=== PATIENT | female | born 1950 | race Caucasian/White ===

== ENCOUNTER → 2016-05-23 | Outpatient (CLI) | payer MEDICARE, BC | END | disposition home or self-care (01) | LOC: MW.CHUR 16:43 | PROVIDERS: ATTEND Urology | DX: R35.0 Frequency of micturition (principal); R32 Unspecified urinary incontinence | CPT/HCPCS: 87086; 87088; 87186; 99211 ==

== ENCOUNTER → 2016-07-09 | Outpatient (CLI) | payer MEDICARE, BC | LOC: MW.CHNEURO 08:00 | PROVIDERS: ATTEND Psychiatry & Neurology Neuromuscular Medicine | DX: G35 Multiple sclerosis (principal) | CPT/HCPCS: 99214 ==

== ENCOUNTER → 2016-08-06 | Outpatient (CLI) | payer MEDICARE, BC ==
[2016-08-06 09:38] LABS: CHLORIDE,CL 111 mmol/L (98-110); SODIUM,NA 145 mmol/L (136-146)
== END ==
LOC: MW.CHFP 08:38
PROVIDERS: ATTEND Student in an Organized Health Care Education/Training Program
DX: I10 Essential (primary) hypertension (principal); E11.9 Type 2 diabetes mellitus without complications; E78.00 Pure hypercholesterolemia, unspecified; E78.5 Hyperlipidemia, unspecified; G35 Multiple sclerosis; Z23 Encounter for immunization
CPT/HCPCS: 36415; 80053; 80061; 82044; 83036; 90670; 99214; G0009

== ENCOUNTER → 2016-09-19 | Outpatient (CLI) | payer MEDICARE, BC ==
--- NOTE | 2016-09-19 13:29 | CR ---
EXAMINATION: Two-view chest (PA and Lateral views). HISTORY: Shortness of breath. FINDINGS: The trachea is midline. The cardiomediastinal silhouette is within normal limits. No pulmonary infil trates, effusions or pneumothorax. Mild aortic calcifications are noted. Osseous structures appear unremarkable. IMPRESSION: No acute cardiopulmonary process.
== END ==
LOC: MW.CHFP 12:07
PROVIDERS: ATTEND Student in an Organized Health Care Education/Training Program
DX: R06.02 Shortness of breath (principal); R68.89 Other general symptoms and signs
CPT/HCPCS: 71020; G0463

== ENCOUNTER 2018-12-09 06:43 | Day surgery (SDC) | payer MEDICARE, BC ==
[~2018-12-09 06:43] MED LIST: Ciprofloxacin in D5W 400 MG in Premix Bag 1 BAG IV ONE; Lactated Ringers 1,000 ML IV SCH; Sodium Chloride 0.9% 10 ML SDV IV PRN; Sodium Chloride 0.9% 10 ML Syringe FLUSH PRN; Sodium Chloride 0.9% 2.5 ML Syringe FLUSH PRN
[2018-12-09] MEDS ORDERED: Lidocaine 1% 20 ML MDV ONE (08:04)
--- NOTE | 2018-12-09 08:33 | PCM.PREANE ---
Preanesthetic Assessment - Anesthesia/Transfusion/Family Hx Anesthesia History: Prior Anesthesia Without Reaction (last surg 6 weeks ago- urereteral stent placement in [place]) Family History of Anesthesia Reaction: No Transfusion History: No Prior Transfusion(s) - Review of Systems General: Weakness Pulmonary: No Symptoms Cardiovascular: No Symptoms Gastrointestinal: No Symptoms Neurological: Confusion, Numbness, Pre-Existing Deficit, Difficulty Walking, Weakness, Gait Disturbance Other: Reports: Diabetes - Physical Assessment NPO Status Date: 12/08/18 NPO Status Time: 23:00 O2 Sat by Pulse Oximetry: 96 Respiratory Rate: 16 Vital Signs: Last Vital Signs Temp 99.1 F 12/09/18 07:24 Pulse 62 12/09/18 07:24 Resp 16 12/09/18 07:24 BP 137/67 12/09/18 07:24 Pulse Ox 96 12/09/18 07:24 Height: 5 ft 2 in Weight: 83.007 kg ASA Class: 3 Airway Class: Mallampati = 2 Lungs: Clear to Auscultation, Normal Respiratory Effort - Allergies Allergies/Adverse Reactions: Allergies Allergy/AdvReac Type Severity Reaction Status Date / Time erythromycin base Allergy Abdominal Verified 12/04/18 08:36 [Erythromycin Base] Pain latex Allergy Rash Verified 12/04/18 08:36 Penicillins Allergy Cannot Verified 12/04/18 08:36 Remember - Blood Blood Available: No - Acknowledgements Anesthesia Type Planned: General Anesthesia Pt an Appropriate Candidate for the Planned Anesthesia: Yes Alternatives and Risks of Anesthesia Discussed w Pt/Guardian: Yes Pt/Guardian Understands and Agrees with Anesthesia Plan: Yes Additional Comments: anes prob list: cad- ami 15 yr ago, no follow up - had normal cardiac echo 6 weeks ago EF=65%, MS- with significant disability, confusion/delusions/poor memory/states problems with thinking, hx of PE 3 yr ago- on xarelto-stopped 5 days ago, CKD with GFR of 49- mhad MAI 6 weeks ago at time of L ureteral obstruction with stone, RUDDY- severe- uses CPAP 4-7 hours/night, chronic anemia with Hb of 10 (stable), hx of MRSA- unknown when or where- opossibly urinary, Unable to walk 2 blocks or climb stairs due to weakness from MS, not from cardiac or pulmonary sx Had discussion with PCP to clarify portions of the medical hx not detailed in the pre-op consult. Chart from [place] reviewed. PLAN: GET, careful controll of BP and heart rate PreAnesthesia Questionnaire HEENT History: Reports: Impaired Vision, Other (See Below) Other HEENT History: wears glasses, "starting of macular degeneration" Cardiovascular History: Reports: Blood Clots/VTE/DVT, High Cholesterol, Hypertension, [place] Respiratory History: Reports: PE, Sleep Apnea Other Respiratory History: uses BI-PAP Gastrointestinal History: Reports: None Genitourinary History: Reports: Renal Calculus, Urinary Incontinence, UTI, Recurrent Other Genitourinary History: using tens/pads, recent UTI with rt ureteral stone and hospitalized in [place], [place] INSURANCE JOB TITLES History: Reports: Other OB/BYN History: 2 Musculoskeletal History: Reports: Fracture Other Musculoskeletal History: uses walker Neurological History: Reports: MS Other Neuro History: MS-at age 14, uses walker Psychiatric History: Reports: Anxiety, Depression Other Psychiatric History: on medication with depression Endocrine/Metabolic History: Reports: Diabetes, Type II, Obesity/BMI 30+ Other Endocrine/Metabolic History: thyroid nodules Hematologic History: Reports: None Other Immunologic History: hx MRSA Oncologic (Cancer) History: Reports: None Dermatologic History: Reports: None - Infectious Disease History Infectious Disease History: Reports: Chicken Pox, Measles, MRSA, Mumps Other Infectious Disease History: had it in the apst - Past Surgical History Head Surgeries/Procedures: Reports: None HEENT Surgical History: Reports: Adenoidectomy, Cataract Surgery, Tonsillectomy Other HEENT Surgeries/Procedures: cyst removed from rt lower eye lid Cardiovascular Surgical History: Reports: None Respiratory Surgical History: Reports: None GI Surgical History: Reports: None Female Surgical History: Reports: Hysterectomy, Tubal Ligation Endocrine Surgical History: Reports: None Neurological Surgical History: Reports: None Musculoskeletal Surgical History: Reports: Other (See Below) Other Musculoskeletal Surgeries/Procedures:: radical reduction R arm Oncologic Surgical History: Reports: None Dermatological Surgical History: Reports: None - SUBSTANCE USE Smoking Status *Q: Former Smoker Recreational Drug Use History: No - HOME MEDS Home Medications: Home Meds Baclofen 20 mg PO ACBREAKFAST 12/26/15 [History] Baclofen 40 mg PO BEDTIME 12/26/15 [History] Furosemide 80 mg PO DAILY 12/26/15 [History] Glimepiride [Amaryl] 4 mg PO BID 12/26/15 [History] Metoprolol Tartrate 50 mg PO DAILY 12/26/15 [History] Potassium Chloride [K-Tab ER] 20 meq PO DAILY 12/26/15 [History] Ramipril 10 mg PO DAILY 12/26/15 [History] Rosuvastatin [Crestor] 20 mg PO DAILY 12/26/15 [History] metFORMIN HCl [Metformin HCl ER] 2,000 mg PO ACDINNER 12/26/15 [History] FLUoxetine [PROzac] 10 mg PO DAILY 04/01/18 [History] Rivaroxaban [Xarelto] 20 mg PO DAILY 04/01/18 [History] Oxybutynin [Oxytrol] 1 patch TRDERM ASDIRECTED 12/04/18 [History] Tamsulosin HCl [Flomax] 0.4 mg PO DAILY 12/04/18 [History] - CURRENT (IN HOUSE) MEDS Current Meds: Current Medications Lactated Ringer's (Ringers, Lactated) 1,000 mls @ 100 mls/hr IV ASDIRECTED [facility] Last Admin: 12/09/18 07:26 Dose: 100 mls/hr Sodium Chloride (Saline Flush) 10 ml FLUSH ASDIRECTED PRN PRN Reason: Keep Vein Open Sodium Chloride (Saline Flush) 2.5 ml FLUSH ASDIRECTED PRN PRN Reason: Keep Vein Open Sodium Chloride (Normal Saline) 10 ml IV ASDIRECTED PRN PRN Reason: IV Use Discontinued Medications Ciprofloxacin/Dextrose 400 mg/ (Premix) 200 mls @ 200 mls/hr IV ONCALL ONE Stop: 12/09/18 01:00
[2018-12-09] MEDS ORDERED: fentaNYL 100 MCG/2 ML SDV ONE (08:36)
[2018-12-09] MEDS ORDERED: Lidocaine 2% 5 ML SDV ONE (08:36)
[2018-12-09] MEDS ORDERED: Ciprofloxacin in D5W 200 ML ONE (08:37)
[2018-12-09] MEDS ORDERED: Propofol 200 MG/20 ML SDV ONE (08:37)
[2018-12-09] MEDS ORDERED: Rocuronium 100 MG/10 ML Syringe ONE (08:37)
[2018-12-09] MEDS ORDERED: Ciprofloxacin in D5W 400 MG in Premix Bag 1 BAG IV ONE ×2 (09:00)
[2018-12-09] MEDS ORDERED: Iopamidol 408 MG/ML 50 ML SDV ONE (09:53)
[2018-12-09] MEDS ORDERED: Sugammadex Sodium 200 MG/2 ML VIAL ONE (10:19)
[2018-12-09] MEDS ORDERED: Ondansetron 4 MG/2 ML SDV ONE (10:48)
[2018-12-09] MEDS ORDERED: OXYBUTYNIN TRDERM SCH (11:15)
--- NOTE | 2018-12-09 11:44 | PCM.POSTAN ---
POST ANESTHESIA ASSESSMENT - MENTAL STATUS Mental Status: Alert, Oriented - VITAL SIGNS Vital Signs: Last Vital Signs Temp 96.8 F 12/09/18 11:02 Pulse 62 12/09/18 11:37 Resp 14 12/09/18 11:37 BP 139/50 L 12/09/18 11:37 Pulse Ox 97 12/09/18 11:37 - RESPIRATORY Respiratory Status: Respiratory Rate WNL, Airway Patent, O2 Saturation Stable, Supplemental Oxygen (1L per NC) - CARDIOVASCULAR CV Status: Pulse Rate WNL, Blood Pressure Stable - GASTROINTESTINAL GI Status: No Symptoms - PAIN Pain Score: 0 - POST OP HYDRATION Hydration Status: Adequate & Stable - OBSERVATIONS Free Text/Narrative:: Pt awake and stable with no pain or nausea at this time. VSS. No apparent complications noted.
--- NOTE | 2018-12-09 11:50 | OR ---
SURGEON: Priscila Ortiz M.D. DATE OF PROCEDURE: 12/09/2018 PREOPERATIVE DIAGNOSIS: Right renal pelvis stones, status post double-J stent placement. POSTOPERATIVE DIAGNOSIS: Right renal pelvis stones, status post double-J stent placement. OPERATIONS: Cystoscopy, double-J stent removal, renoscopy, and laser lithotripsy. DESCRIPTION OF PROCEDURE: The patient was given general anesthesia. She was in dorsal lithotomy position, prepped and draped in sterile drapes. The existing double-J stent was removed. Two guidewires were advanced in the left renal pelvis. The flexible ureteroscope was advanced over one of those. The stones were identified and broken up into a multitude of smaller small enough to pass. With that done, the procedure was terminated. The bladder was emptied, and the patient was moved to recovery room in good condition. STEVEN / KELLE /[id number]
--- NOTE | 2018-12-09 12:32 | PCM48HPAN ---
Post Anesthesia Note - EVALUATION WITHIN 48HRS OF ANESTHETIC Vital Signs in Normal Range: Yes Patient Participated in Evaluation: Yes Respiratory Function Stable: Yes Airway Patent: Yes Cardiovascular Function Stable: Yes Hydration Status Stable: Yes Pain Control Satisfactory: Yes Nausea and Vomiting Control Satisfactory: Yes Mental Status Recovered: Yes Vital Signs: Last Vital Signs Temp 96.8 F 12/09/18 11:02 Pulse 72 12/09/18 11:42 Resp 12 12/09/18 11:42 BP 133/55 L 12/09/18 11:42 Pulse Ox 95 12/09/18 11:42
[2018-12-09 12:41] VITALS: BP 151/69; PULSE 68
[2018-12-09] MEDS ORDERED: METFORMIN HCL 2000 MG PO SCH (17:00)
[2018-12-09] MEDS ORDERED: Glimepiride 4 MG Tab PO SCH (21:00)
[2018-12-09] MEDS ORDERED: BACLOFEN 40 MG PO SCH (21:00)
--- NOTE | 2018-12-09 21:57 | CR ---
INDICATION: Double-J ureteral stent removal and laser lithotripsy. COMPARISON: CT of the abdomen and pelvis from 11/07/2018 FINDINGS: Two intraoperative fluoroscopic images are obtained from fluoroscopy. A total of 12.7 seconds of fluoroscopic time was used. When compared to the previous CT, the 1st fluoroscopic image shows absence of the left self retaining ureteral stent. A catheter is positioned in the left paraspinous region consistent with positioning of the tip in the superior left ureter. There is an irregular calcification located lateral to the tip of the catheter consistent with a calculus in the lower pole of the left kidney. The final image demonstrates fragmentation of the calculus in the lower pole of the left kidney, with ill-defined residual density. The tip of the catheter seen on the previous study is unchanged in location, consistent with positioning in the superior ureter. IMPRESSION: Two images from intraoperative fluoroscopy demonstrate fragmentation of a calculus in the lower pole of the left kidney. Dictated by Jasen Estrada MD @ Dec 09 2018 9:51PM Signed by Dr. Jasen Estrada @ Dec 09 2018 9:55PM
[2018-12-10] MEDS ORDERED: Non-Formulary Medication 1 Each (Baclofen [Baclofen] 20 MG) PO SCH (07:30)
[2018-12-10] MEDS ORDERED: Non-Formulary Medication 1 Each (Rivaroxaban [Xarelto] 20 MG) PO SCH (09:00)
[2018-12-10] MEDS ORDERED: METOPROLOL TARTRATE 50 MG PO SCH (09:00)
[2018-12-10] MEDS ORDERED: POTASSIUM CHLORIDE 20 MEQ PO SCH (09:00)
[2018-12-10] MEDS ORDERED: FLUOXETINE 10 MG PO SCH (09:00)
[2018-12-10] MEDS ORDERED: Rosuvastatin 10 MG Tab PO SCH (09:00)
[2018-12-10] MEDS ORDERED: Furosemide 80 MG Tab PO SCH (09:00)
== END 2018-12-09 13:20 | disposition home or self-care (01) ==
LOC: MW.SDS 06:43
PROVIDERS: ATTEND Urology
DX: N20.0 Calculus of kidney (principal); E78.5 Hyperlipidemia, unspecified; G47.33 Obstructive sleep apnea (adult) (pediatric); I12.9 Hypertensive chronic kidney disease with stage 1 through stage 4 chronic kidney disease, or unspecified chronic kidney disease; E11.22 Type 2 diabetes mellitus with diabetic chronic kidney disease; N18.9 Chronic kidney disease, unspecified; E78.00 Pure hypercholesterolemia, unspecified; F32.9 Major depressive disorder, single episode, unspecified; E66.9 Obesity, unspecified; Z68.33 Body mass index [BMI] 33.0-33.9, adult; Z99.89 Dependence on other enabling machines and devices; Z88.1 Allergy status to other antibiotic agents; Z91.040 Latex allergy status; Z88.0 Allergy status to penicillin; Z79.899 Other long term (current) drug therapy; Z79.84 Long term (current) use of oral hypoglycemic drugs; Z79.01 Long term (current) use of anticoagulants; Z87.891 Personal history of nicotine dependence
CPT/HCPCS: 52353; 76000; J0744; J2001; J2405; J2704; J3010; J3490; J7120; 00918; C1769; Q9966

== ENCOUNTER 2019-01-08 00:55 | Inpatient (IN) | payer MEDICARE, BC ==
[2019-01-08] MEDS ORDERED: Sodium Chloride 0.9% 10 ML Syringe FLUSH PRN (01:05)
[2019-01-08] MEDS ORDERED: Sodium Chloride 0.9% 2.5 ML Syringe FLUSH PRN (01:05)
[2019-01-08] MEDS ORDERED: Sodium Chloride 0.9% 1,000 ML IV ONE (01:06)
[2019-01-08] MEDS ORDERED: Acetaminophen 650 MG Supp RECTAL ONE (01:06)
[2019-01-08] MEDS ORDERED: Acetaminophen 325 MG Supp ONE (01:10)
[2019-01-08] MEDS ORDERED: Acetaminophen 325 MG Supp RECTAL ONE (01:13)
--- NOTE | 2019-01-08 01:14 | EDM.PDOC ---
ED HPI GENERAL MEDICAL PROBLEM - General Chief Complaint: General Stated Complaint: UNRESPONSIVE Time Seen by Provider: 01/08/19 01:01 - History of Present Illness INITIAL COMMENTS - FREE TEXT/NARRATIVE: HISTORY AND PHYSICAL: History of present illness: The patient is a 68-year-old female with a history of hypertension hypercholesterolemia type 2 diabetes multiple sclerosis a PE for which she takes Xarelto any history of altered mental status ER visits due to dehydration and to follows with Dr. Garcia in our clinic and Dr. Hoover our neurologist and presents via EMS after being found by her sitting on the toilet for an hour and a half. She did not fall off the toilet but was slumped to the side and when I asked the patient about that timeframe she says she was not in there that long and that her had fallen asleep and was not sure of the timeframe. She was noted to be drowsy per EMS but was breathing spontaneously and was able to answer all questions appropriately. The patient denies any new complaints of cough shortness of breath abdominal pain vomiting or diarrhea and it is noted by EMS that she does use a walker to ambulate. The patient has a history of chronic back pain and the only thing she complains of to me in the ED of this same chronic back pain that is not new or different. She was noted to have a temperature here in the ED and she was unaware that she had a fever and she denies any other systemic complaints preceding the ER visit. She denies any new or recent falls. She says she has not had a cough or any flulike symptoms and she says she does get up and around with her walker. I noticed how dry her mucous membranes aren't asked her when she last had fluids and she is unsure. According to my review of the patient in the computer I've seen this patient in the past for dehydration and altered mental status and on my last visit with her it was noted by the neurologist that this often happens when she gets dehydrated and becomes altered. Review of systems: As per history of present illness and below otherwise all systems reviewed and negative. Past medical history: As per history of present illness and as reviewed below otherwise noncontributory. Surgical history: As per history of present illness and as reviewed below otherwise noncontributory. Social history: No reported history of drug or alcohol abuse. Family history: As per history of present illness and as reviewed below otherwise noncontributory. Physical exam: General: Well-developed well-nourished overweight female was nontoxic and vital signs are noted by me. She is answering questions but prefers to keep her eyes closed. Rectal temp was 103.1 HEENT: Atraumatic, normocephalic, pupils reactive and mid range, negative for conjunctival pallor or scleral icterus, mucous membranes are very dry, throat clear, neck supple, nontender, trachea midline. Lungs: Clear to auscultation with slightly diminished breath sounds in the bases but no worker breathing wheezing or stridor, breath sounds equal bilaterally, chest nontender. Heart: S1S2, regular, negative for clicks, rubs, or JVD. Abdomen: Soft, nondistended, nontender. The patient has abdominal scars which are well-healed and she has a nontender abdominal/ventral hernia Negative for masses or hepatosplenomegaly. Negative for costovertebral tenderness. Pelvis: Stable nontender. Genitourinary: Deferred. Rectal: Deferred. Extremities: Atraumatic, negative for cords or calf pain. Neurovascular unremarkable. The patient has venous stasis changes to her skin as well as +2 pedal edema but no leg asymmetry. There was increased tone in the lower extremities Neuro: Awake, alert, oriented. Cranial nerves II through XII unremarkable cerebellum cannot be tested. Motor is very diminished in the lower extremities 1 /5 and in the upper extremities is 2-3/5 with stronger grasps. sensory unremarkable throughout. Exam nonfocal. Skin: There is no diaphoresis and turgor is normal and there are no overt rashes or lesions Back: There are no midline step-offs tenderness or defects of the thoracic or lumbar spine and no soft tissue injuries are appreciated Diagnostics: EKG CBC CMP INR TSH troponin UA urine culture blood cultures lactate CT scan of the head chest x-ray CPK Therapeutics: IV O2 monitor IV fluids Tylenol per rectum Rocephin Please note that the BUN and creatinine of today was 39/2.1 and it was compared with one performed in the clinic on December 08 which was 32/1.1. Her WBC count also performed 12/08 was 6.07 which is different from today's of 1.93 With today's WBC count her neutrophil percentage is 94% which gives her an ANC of about 1800 0225: I discussed this case with Dr. Canela and he is aware of lab testing and imaging and that the patient is showing signs of improvement on my reevaluation. She still is resting with her eyes closed but when I speak with her she is immediately opening her eyes are much more interactive with answering questions and more animated. She is aware of her test results and need for admission. Impression: Altered mental status, fever with UTI and clinical dehydration Definitive disposition and diagnosis as appropriate pending reevaluation and review of above. back pain Pain Score (Numeric/FACES): 5 - Related Data Allergies Allergy/AdvReac Type Severity Reaction Status Date / Time erythromycin base Allergy Abdominal Verified 01/08/19 01:09 [Erythromycin Base] Pain latex Allergy Rash Verified 01/08/19 01:09 Penicillins Allergy Cannot Verified 01/08/19 01:09 Remember Home Meds: Home Meds Baclofen 20 mg PO ACBREAKFAST 12/26/15 [History] Baclofen 40 mg PO BEDTIME 12/26/15 [History] Furosemide 40 mg PO DAILY 12/26/15 [History] Glimepiride [Amaryl] 4 mg PO BID 12/26/15 [History] Metoprolol Tartrate 50 mg PO DAILY 12/26/15 [History] Potassium Chloride [K-Tab ER] 20 meq PO DAILY 12/26/15 [History] Ramipril 10 mg PO DAILY 12/26/15 [History] Rosuvastatin [Crestor] 20 mg PO DAILY 12/26/15 [History] metFORMIN HCl [Metformin HCl ER] 2,000 mg PO ACDINNER 12/26/15 [History] FLUoxetine [PROzac] 10 mg PO DAILY 04/01/18 [History] Rivaroxaban [Xarelto] 20 mg PO DAILY 04/01/18 [History] Oxybutynin [Oxytrol] 1 patch TRDERM ASDIRECTED 12/04/18 [History] Melatonin/Pyridoxine HCl (B6) [Melatonin 5 mg Tablet] 1 each PO DAILY 01/08/19 [ History] Past Medical History HEENT History: Reports: Impaired Vision, Other (See Below) Other HEENT History: wears glasses, "starting of macular degeneration" Cardiovascular History: Reports: Blood Clots/VTE/DVT, High Cholesterol, Hypertension, [place] Respiratory History: Reports: PE, Sleep Apnea Other Respiratory History: uses BI-PAP Gastrointestinal History: Reports: None Genitourinary History: Reports: Renal Calculus, Urinary Incontinence, UTI, Recurrent Other Genitourinary History: using tens/pads, recent UTI with rt ureteral stone and hospitalized in [place], [place] BUSINESS BANKER History: Reports: Other BUSINESS BANKER History: 2 Musculoskeletal History: Reports: Fracture Other Musculoskeletal History: uses walker Neurological History: Reports: MS Other Neuro History: MS-at age 14, uses walker Psychiatric History: Reports: Anxiety, Depression Other Psychiatric History: on medication with depression Endocrine/Metabolic History: Reports: Diabetes, Type II, Obesity/BMI 30+ Other Endocrine/Metabolic History: thyroid nodules Hematologic History: Reports: None Other Immunologic History: hx MRSA Oncologic (Cancer) History: Reports: None Dermatologic History: Reports: None - Infectious Disease History Infectious Disease History: Reports: Chicken Pox, Measles, MRSA, Mumps Other Infectious Disease History: had it in the apst - Past Surgical History HEENT Surgical History: Reports: Adenoidectomy, Cataract Surgery, Tonsillectomy Other HEENT Surgeries/Procedures: cyst removed from rt lower eye lid Respiratory Surgical History: Reports: None GI Surgical History: Reports: None Endocrine Surgical History: Reports: None Neurological Surgical History: Reports: None Oncologic Surgical History: Reports: None Dermatological Surgical History: Reports: None Social & Family History - Family History Family Medical History: Noncontributory Cardiac: Reports: CAD Other Cardiac Family History: parents - CHF Respiratory: Reports: COPD Other Respiratory Family Hisory: COPD - brother OBGYN: Reports: Neurological: Reports: MS Other Neurological Family History: MS- sister also has MS Endocrine/Metabolic: Reports: Diabetes, type II Other Endocrine/Metabolic Family History: family Hematologic: Reports: Other (See Below) Other Hematologic Family History: brother - leukemia Oncologic: Reports: Breast, Leukemia Other Oncologic Family History: father side - breast cancer - Caffeine Use Caffeine Use: Reports: Coffee, Soda, Tea ED ROS GENERAL - Review of Systems Review Of Systems: ROS reveals no pertinent complaints other than HPI. ED EXAM, GENERAL - Physical Exam Exam: See Below (See dictation) Course - Vital Signs Last Recorded V/S: Last Vital Signs Temp 39.5 C H 01/08/19 00:55 Pulse 88 01/08/19 00:55 Resp 18 01/08/19 00:55 BP 143/74 H 01/08/19 00:55 Pulse Ox 95 01/08/19 00:55 - Orders/Labs/Meds Orders: Active Orders 24 hr Category Date Time Status Patient Status [ADT] Stat ADT 01/08/19 02:27 Ordered Cardiac Monitoring [RC] . DIRECTED Care 01/08/19 01:04 Active EKG Documentation Completion [RC] STAT Care 01/08/19 01:04 Active Oxygen Therapy, ED [RC] ASDIRECTED Care 01/08/19 01:04 Active Pulse Oximetry [RC] ASDIRECTED Care 01/08/19 01:04 Active CULTURE BLOOD [BC] Stat Lab 01/08/19 01:07 Ordered CULTURE BLOOD [BC] Stat Lab 01/08/19 01:14 Received CULTURE URINE [RM] Stat Lab 01/08/19 01:15 Received Sodium Chloride 0.9% [Saline Flush] Med 01/08/19 01:05 Active 10 ml FLUSH ASDIRECTED PRN Sodium Chloride 0.9% [Saline Flush] Med 01/08/19 01:05 Active 2.5 ml FLUSH ASDIRECTED PRN Blood Culture x2 Reflex Set [OM.PC] Stat Oth 01/08/19 01:05 Ordered Saline Lock Insert [OM.PC] Stat Oth 01/08/19 01:04 Ordered Medication Orders Sodium Chloride (Saline Flush) 10 ml FLUSH ASDIRECTED PRN PRN Reason: Keep Vein Open Sodium Chloride (Saline Flush) 2.5 ml FLUSH ASDIRECTED PRN PRN Reason: Keep Vein Open Labs: Laboratory Tests 01/08/19 01/08/19 01/08/19 Range/Units 01:14 01:14 01:14 WBC 1.93 L (4.0-11.0) K/uL RBC 3.24 L (4.30-5.90) M/uL Hgb 10.2 L (12.0-16.0) g/dL Hct 31.8 L (36.0-46.0) % MCV 98.1 H (80.0-98.0) fL MCH 31.5 (27.0-32.0) pg MCHC 32.1 (31.0-37.0) g/dL RDW Std Deviation 49.3 (28.0-62.0) fl RDW Coeff of Marjorie 14 (11.0-15.0) % Plt Count 191 (150-400) K/uL MPV 8.80 (7.40-12.00) fL Neut % (Auto) 94.9 H (48.0-80.0) % Lymph % (Auto) 3.1 L (16.0-40.0) % [place] % (Auto) 1.0 (0.0-15.0) % Eos % (Auto) 1.0 (0.0-7.0) % Baso % (Auto) 0.0 (0.0-1.5) % Neut # (Auto) 1.8 (1.4-5.7) K/uL Lymph # (Auto) 0.1 L (0.6-2.4) K/uL [place] # (Auto) 0.0 (0.0-0.8) K/uL Eos # (Auto) 0.0 (0.0-0.7) K/uL Baso # (Auto) 0.0 (0.0-0.1) K/uL INR 1.06 Lactate (0.20-2.00) mmol/L Sodium 145 (136-145) mmol/L Potassium 4.0 (3.5-5.1) mmol/L Chloride 108 H (98-107) mmol/L Carbon Dioxide 23.0 (21.0-32.0) mmol/L BUN 39 H (7.0-18.0) mg/dL Creatinine 2.1 H (0.6-1.0) mg/dL Est Cr Clr Drug Dosing TNP Estimated GFR (MDRD) 23.3 ml/min Glucose 185 H (74-106) mg/dL Calcium 8.3 L (8.5-10.1) mg/dL Total Bilirubin 0.4 (0.2-1.0) mg/dL AST 12 L (15-37) IU/L ALT 17 (14-63) IU/L Alkaline Phosphatase 85 (46-116) U/L Creatine Kinase (26-308) U/L Troponin I < 0.050 (0.000-0.056) ng/mL Total Protein 6.3 L (6.4-8.2) g/dL Albumin 2.8 L (3.4-5.0) g/dL Globulin 3.5 (2.6-4.0) g/dL Albumin/Globulin Ratio 0.8 L (0.9-1.6) TSH 3rd Generation 0.86 (0.36-3.74) uIU/mL Urine Color Urine Appearance Urine pH (5.0-8.0) Ur Specific [place] (1.001-1.035) Urine Protein (NEGATIVE) mg/dL Urine Glucose (UA) (NEGATIVE) mg/dL Urine Ketones (NEGATIVE) mg/dL Urine Occult Blood (NEGATIVE) Urine Nitrite (NEGATIVE) Urine Bilirubin (NEGATIVE) Urine Urobilinogen (<2.0) EU/dL Ur Leukocyte Esterase (NEGATIVE) Urine RBC (0-2/HPF) Urine WBC (0-5/HPF) Ur Epithelial Cells (NONE-FEW) Urine Bacteria (NEGATIVE) Urine Mucus (NONE-MOD) 01/08/19 01/08/19 01/08/19 Range/Units 01:14 01:14 01:15 WBC (4.0-11.0) K/uL RBC (4.30-5.90) M/uL Hgb (12.0-16.0) g/dL Hct (36.0-46.0) % MCV (80.0-98.0) fL MCH (27.0-32.0) pg MCHC (31.0-37.0) g/dL RDW Std Deviation (28.0-62.0) fl RDW Coeff of Marjorie (11.0-15.0) % Plt Count (150-400) K/uL MPV (7.40-12.00) fL Neut % (Auto) (48.0-80.0) % Lymph % (Auto) (16.0-40.0) % [place] % (Auto) (0.0-15.0) % Eos % (Auto) (0.0-7.0) % Baso % (Auto) (0.0-1.5) % Neut # (Auto) (1.4-5.7) K/uL Lymph # (Auto) (0.6-2.4) K/uL [place] # (Auto) (0.0-0.8) K/uL Eos # (Auto) (0.0-0.7) K/uL Baso # (Auto) (0.0-0.1) K/uL INR Lactate 1.7 (0.20-2.00) mmol/L Sodium (136-145) mmol/L Potassium (3.5-5.1) mmol/L Chloride (98-107) mmol/L Carbon Dioxide (21.0-32.0) mmol/L BUN (7.0-18.0) mg/dL Creatinine (0.6-1.0) mg/dL Est Cr Clr Drug Dosing Estimated GFR (MDRD) ml/min Glucose (74-106) mg/dL Calcium (8.5-10.1) mg/dL Total Bilirubin (0.2-1.0) mg/dL AST (15-37) IU/L ALT (14-63) IU/L Alkaline Phosphatase (46-116) U/L Creatine Kinase 91 (26-308) U/L Troponin I (0.000-0.056) ng/mL Total Protein (6.4-8.2) g/dL Albumin (3.4-5.0) g/dL Globulin (2.6-4.0) g/dL Albumin/Globulin Ratio (0.9-1.6) TSH 3rd Generation (0.36-3.74) uIU/mL Urine Color YELLOW Urine Appearance SLT CLOUDY Urine pH 5.5 (5.0-8.0) Ur Specific [place] 1.020 (1.001-1.035) Urine Protein 100 H (NEGATIVE) mg/dL Urine Glucose (UA) 100 H (NEGATIVE) mg/dL Urine Ketones NEGATIVE (NEGATIVE) mg/dL Urine Occult Blood LARGE H (NEGATIVE) Urine Nitrite NEGATIVE (NEGATIVE) Urine Bilirubin NEGATIVE (NEGATIVE) Urine Urobilinogen 0.2 (<2.0) EU/dL Ur Leukocyte Esterase NEGATIVE (NEGATIVE) Urine RBC >100 H (0-2/HPF) Urine WBC 5-8 (0-5/HPF) Ur Epithelial Cells RARE (NONE-FEW) Urine Bacteria 2+ H (NEGATIVE) Urine Mucus LIGHT (NONE-MOD) Meds: Medications Generic Name Dose Route Start Last Admin Trade Name Freq PRN Reason Stop Dose Admin Sodium Chloride 10 ml 01/08/19 01:05 Saline Flush FLUSH ASDIRECTED PRN Keep Vein Open Sodium Chloride 2.5 ml 01/08/19 01:05 Saline Flush FLUSH ASDIRECTED PRN Keep Vein Open Discontinued Medications Generic Name Dose Route Start Last Admin Trade Name Alhaji PRN Reason Stop Dose Admin Acetaminophen 650 mg 01/08/19 01:06 01/08/19 01:15 Tylenol RECTAL 01/08/19 01:07 Not Given NOW ONE Acetaminophen Confirm 01/08/19 01:10 01/08/19 01:14 Tylenol Administered 01/08/19 01:11 975 mg Dose Administration 975 mg .ROUTE .STK-MED ONE Acetaminophen 975 mg 01/08/19 01:13 01/08/19 01:15 Tylenol RECTAL 01/08/19 01:14 Not Given NOW ONE Sodium Chloride 1,000 mls @ 999 mls/hr 01/08/19 01:06 01/08/19 01:13 Normal Saline IV 01/08/19 02:06 999 mls/hr STAT ONE Administration Ceftriaxone Sodium/Dextrose 2 50 mls @ 100 mls/hr 01/08/19 01:57 01/08/19 02: 27 gm/ Premix IV 01/08/19 02:26 100 mls/hr ONETIME ONE Administration Departure - Departure Time of Disposition: 02:29 Disposition: Refer to Observation Condition: Fair Clinical Impression: Urinary tract infection with fever, Dehydration - Discharge Information Forms: ED Department Discharge - My Orders Last 24 Hours: My Active Orders 01/08/19 01:04 Cardiac Monitoring [RC] . DIRECTED EKG Documentation Completion [RC] STAT Oxygen Therapy, ED [RC] ASDIRECTED Pulse Oximetry [RC] ASDIRECTED Saline Lock Insert [OM.PC] Stat 01/08/19 01:05 Sodium Chloride 0.9% [Saline Flush] 10 ml FLUSH ASDIRECTED PRN Sodium Chloride 0.9% [Saline Flush] 2.5 ml FLUSH ASDIRECTED PRN Blood Culture x2 Reflex Set [OM.PC] Stat 01/08/19 01:07 CULTURE BLOOD [BC] Stat 01/08/19 01:14 CULTURE BLOOD [BC] Stat 01/08/19 01:15 CULTURE URINE [RM] Stat 01/08/19 02:27 Patient Status [ADT] Stat - Assessment/Plan Last 24 Hours: My Active Orders 01/08/19 01:04 Cardiac Monitoring [RC] . DIRECTED EKG Documentation Completion [RC] STAT Oxygen Therapy, ED [RC] ASDIRECTED Pulse Oximetry [RC] ASDIRECTED Saline Lock Insert [OM.PC] Stat 01/08/19 01:05 Sodium Chloride 0.9% [Saline Flush] 10 ml FLUSH ASDIRECTED PRN Sodium Chloride 0.9% [Saline Flush] 2.5 ml FLUSH ASDIRECTED PRN Blood Culture x2 Reflex Set [OM.PC] Stat 01/08/19 01:07 CULTURE BLOOD [BC] Stat 01/08/19 01:14 CULTURE BLOOD [BC] Stat 01/08/19 01:15 CULTURE URINE [RM] Stat 01/08/19 02:27 Patient Status [ADT] Stat
[2019-01-08 01:51] LABS: BLOOD UREA NITROGEN,BUN 39 mg/dL (7.0-18.0); CHLORIDE,CL 108 mmol/L (98-107); GLUCOSE RANDOM 185 mg/dL (74-106); SODIUM,NA 145 mmol/L (136-145)
[2019-01-08] MEDS ORDERED: cefTRIAXone 2 GM in Premix Bag 1 BAG IV ONE (01:57)
--- NOTE | 2019-01-08 01:58 | CR ---
INDICATION: Pain, unresponsive. TECHNIQUE: Chest 1 view COMPARISON: None FINDINGS: Cardiovascular and mediastinum: Upper normal heart size with mild aortic tortuosity. Lungs and pleural spaces: Low lung volumes with discoid atelectasis left lung base. No pneumothorax or pleural effusion Bones and soft tissues: No significant findings. IMPRESSION: Hypoaeration with left basilar discoid atelectasis. Dictated by Brent Cobian MD @ Jan 08 2019 1:57AM Signed by Dr. Brent Cobian @ Jan 08 2019 1:58AM
--- NOTE | 2019-01-08 02:01 | CT ---
INDICATION: Headache, unresponsive TECHNIQUE: CT Head without i.v. contrast. COMPARISON: None FINDINGS: CSF space: Unremarkable for age. Brain: No evidence of mass, acute infarction or hemorrhage is seen. No mass-effect or midline shift is seen. Mild diffuse cortical atrophy is noted. The brain parenchyma is otherwise normal in appearance with preservation of the cox-white matter junction. Calvarium: The visualized paranasal sinuses are well aerated. The mastoid air cells are clear. The visualized orbits are grossly unremarkable. The calvarium is unremarkable in appearance with no fractures identified. Mild infiltration of the subcutaneous fat is seen over the left vertex which may be due to is subcutaneous hematoma. IMPRESSIONS: 1. No evidence of acute infarction, intracranial hemorrhage, or mass-effect seen. 2. Mild infiltration of the subcutaneous fat is seen over the left vertex which may be due to is subcutaneous hematoma. Dictated by Liborio Ryan MD @ 01/08/2019 1:59:00 AM Please note that all CT scans at this facility use dose modulation, iterative reconstruction, and/or weight-based dosing when appropriate to reduce radiation dose to as low as reasonably achievable. Dictated by: Liborio Ryan MD @ 01/08/2019 01:59:04 (Electronically Signed)
[2019-01-08] MEDS ORDERED: oxyCODONE 5 MG Tab PO PRN (03:49)
[2019-01-08] MEDS: Sodium Chloride 0.9% 1,000 ML IV SCH ×3 (04:12→16:13)
[2019-01-08] MEDS: Acetaminophen 325 MG Tab PO PRN ×2 (06:00→16:02)
--- NOTE | 2019-01-08 07:50 | PCM.HP.2 ---
<Riya Muhammad - Last Filed: 01/08/19 09:09> H&P History of Present Illness - General Date of Service: 01/08/19 Admit Problem/Dx: Admission Diagnosis/Problem Admission Diagnosis/Problem Urosepsis - History of Present Illness Initial Comments - Free Text/Narative: The patient is a 68-year-old female who presented to the ER after her found her some slumped over on the toilet. Patient has a history of altered mental status with dehydration, PE, hyperlipidemia, hypertension, DMII, UTIs and MS. Per ER note, EMS reported that she was drowsy but breathing spontaneously and able to answer questions appropriately. In the ER, the patient denied any cough, shortness of breath, abdominal pain, vomiting, diarrhea. She had temperature of 103.1 in the ER was getting acetaminophen. She was also satting in the 80s and started on 10 L nonrebreather. That's been slowly weaned as tolerated. When I first spoke to her this morning she was confused and alert and oriented only to person. At that time every question she answered was no. She responded no to ROS and then I went through PMH and she responded no to that as well. On re-examine, she is more alert, A&O x3, answers more appropriately but still drowsy. She reports she feels bad but can' t explain further. In the ER workup showed white count of 1.9, anemia of 10.2, which is chronic, and acute kidney injury with creatinine 2.1. Her baseline is 1.1. TSH was within normal limits. Lactate was within normal limits at 1.7. Her UA showed positive bacteria, white blood cells and more than 100 RBCs. The patient denies any dysuria or hematuria. Head CT showed no acute intracranial process. Chest x-ray showed hypoaeration with left basilar discoid atelectasis. In the ER she was given a dose of Rocephin and started on IV fluids of the acetaminophen. reports that he actually found her slumped over the counter in the bathroom, with stool all over the bathroom. She was too weak and he couldn't lift her to her room so he called the ambulance. He reports she has been getting weaker over the past few days. He notes that she used to go to PT 4-5 days a week a few months ago and was doing really well. She had to stop after their grandchild moved in with them. He reports she has lost a lot of strength since stopping PT. He thinks she is somewhat confused this morning. back pain Pain Score (Numeric/FACES): 5 - Related Data Allergies/Adverse Reactions: Allergies Allergy/AdvReac Type Severity Reaction Status Date / Time erythromycin base Allergy Abdominal Verified 01/08/19 05:15 [Erythromycin Base] Pain latex Allergy Rash Verified 01/08/19 05:15 Penicillins Allergy Cannot Verified 01/08/19 05:15 Remember Home Medications: Home Meds Baclofen 20 mg PO ACBREAKFAST 12/26/15 [History] Baclofen 40 mg PO BEDTIME 12/26/15 [History] Furosemide 40 mg PO DAILY 12/26/15 [History] Glimepiride [Amaryl] 4 mg PO BID 12/26/15 [History] Metoprolol Tartrate 50 mg PO DAILY 12/26/15 [History] Potassium Chloride [K-Tab ER] 20 meq PO DAILY 12/26/15 [History] Ramipril 10 mg PO DAILY 12/26/15 [History] Rosuvastatin [Crestor] 20 mg PO DAILY 12/26/15 [History] metFORMIN HCl [Metformin HCl ER] 2,000 mg PO ACDINNER 12/26/15 [History] FLUoxetine [PROzac] 10 mg PO DAILY 04/01/18 [History] Rivaroxaban [Xarelto] 20 mg PO DAILY 04/01/18 [History] Oxybutynin [Oxytrol] 1 patch TRDERM ASDIRECTED 12/04/18 [History] Melatonin/Pyridoxine HCl (B6) [Melatonin 5 mg Tablet] 1 each PO DAILY 01/08/19 [ History] Past Medical History HEENT History: Reports: Impaired Vision, Other (See Below) Other HEENT History: wears glasses, "starting of macular degeneration" Cardiovascular History: Reports: Blood Clots/VTE/DVT, High Cholesterol, Hypertension, [place] Respiratory History: Reports: PE, Sleep Apnea Other Respiratory History: uses BI-PAP Gastrointestinal History: Reports: None Genitourinary History: Reports: Renal Calculus, Urinary Incontinence, UTI, Recurrent Other Genitourinary History: using tens/pads, recent UTI with rt ureteral stone and hospitalized in [place], [place] IMPOSER History: Reports: Other OB/BYN History: 2 Musculoskeletal History: Reports: Fracture Other Musculoskeletal History: uses walker Neurological History: Reports: MS Other Neuro History: MS-at age 14, uses walker Psychiatric History: Reports: Anxiety, Depression Other Psychiatric History: on medication with depression Endocrine/Metabolic History: Reports: Diabetes, Type II, Obesity/BMI 30+ Other Endocrine/Metabolic History: thyroid nodules Insulin [facility] Assistant: None Hematologic History: Reports: None Other Immunologic History: hx MRSA Oncologic (Cancer) History: Reports: None Dermatologic History: Reports: None - Infectious Disease History Infectious Disease History: Reports: Chicken Pox, Measles, MRSA, Mumps Other Infectious Disease History: had it in the apst - Past Surgical History HEENT Surgical History: Reports: Adenoidectomy, Cataract Surgery, Tonsillectomy Other HEENT Surgeries/Procedures: cyst removed from rt lower eye lid Respiratory Surgical History: Reports: None GI Surgical History: Reports: None Endocrine Surgical History: Reports: None Neurological Surgical History: Reports: None Oncologic Surgical History: Reports: None Dermatological Surgical History: Reports: None Social & Family History - Family History Family Medical History: Noncontributory Cardiac: Reports: CAD Other Cardiac Family History: parents - CHF Respiratory: Reports: COPD Other Respiratory Family Hisory: COPD - brother OBGYN: Reports: Neurological: Reports: MS Other Neurological Family History: MS- sister also has MS Endocrine/Metabolic: Reports: Diabetes, type II Other Endocrine/Metabolic Family History: family Hematologic: Reports: Other (See Below) Other Hematologic Family History: brother - leukemia Oncologic: Reports: Breast, Leukemia Other Oncologic Family History: father side - breast cancer - Tobacco Use Smoking Status *Q: Former Smoker Years of Tobacco use: 4 Used Tobacco, but Quit: Yes Month/Year Tobacco Last Used: 45 yeas ago - Caffeine Use Caffeine Use: Reports: None - Recreational Drug Use Recreational Drug Use: No H&P Review of Systems - Review of Systems: Review Of Systems: See Below General: Reports: Fever (pt denies but had one in ER), Weakness HEENT: Reports: No Symptoms Pulmonary: Reports: No Symptoms Cardiovascular: Reports: No Symptoms Gastrointestinal: Reports: No Symptoms Genitourinary: Reports: No Symptoms Musculoskeletal: Reports: No Symptoms Skin: Reports: No Symptoms Psychiatric: Reports: No Symptoms Neurological: Reports: No Symptoms Hematologic/Lymphatic: Reports: No Symptoms Immunologic: Reports: No Symptoms Exam - Exam Exam: See Below - Vital Signs Vital Signs: Last Vital Signs Temp 99.7 F 01/08/19 05:59 Pulse 81 01/08/19 03:30 Resp 20 01/08/19 03:30 BP 100/64 01/08/19 03:30 Pulse Ox 96 01/08/19 05:59 Weight: 92.941 kg - Exam General: Alert, Oriented HEENT: Conjunctiva Clear, Posterior Pharynx Clear, Pupils Equal, Pupils Reactive. No: Mucosa Moist & [place] Neck: Supple, Trachea Midline Lungs: Clear to Auscultation, Normal Respiratory Effort Cardiovascular: Regular Rate, Regular Rhythm GI/Abdominal Exam: Normal Bowel Sounds, Soft, Non-Tender, No Distention Extremities: Pedal Edema Neurological: Cranial Nerves Intact, Strength Equal Bilateral Neuro Extensive - Motor, Sensory, Reflexes: Other (no facial droop). No: Pronator Drift (R), Pronator Drift (L) Psychiatric: Alert, Normal Affect, Normal Mood - Patient Data Lab Results Last 24 hrs: Laboratory Results - last 24 hr 01/08/19 01/08/19 01/08/19 Range/Units 01:14 01:14 01:14 WBC 1.93 L (4.0-11.0) K/uL RBC 3.24 L (4.30-5.90) M/uL Hgb 10.2 L (12.0-16.0) g/dL Hct 31.8 L (36.0-46.0) % MCV 98.1 H (80.0-98.0) fL MCH 31.5 (27.0-32.0) pg MCHC 32.1 (31.0-37.0) g/dL RDW Std Deviation 49.3 (28.0-62.0) fl RDW Coeff of Marjorie 14 (11.0-15.0) % Plt Count 191 (150-400) K/uL MPV 8.80 (7.40-12.00) fL Neut % (Auto) 94.9 H (48.0-80.0) % Lymph % (Auto) 3.1 L (16.0-40.0) % Emmet % (Auto) 1.0 (0.0-15.0) % Eos % (Auto) 1.0 (0.0-7.0) % Baso % (Auto) 0.0 (0.0-1.5) % Neut # (Auto) 1.8 (1.4-5.7) K/uL Lymph # (Auto) 0.1 L (0.6-2.4) K/uL Emmet # (Auto) 0.0 (0.0-0.8) K/uL Eos # (Auto) 0.0 (0.0-0.7) K/uL Baso # (Auto) 0.0 (0.0-0.1) K/uL INR 1.06 Lactate (0.20-2.00) mmol/L Sodium 145 (136-145) mmol/L Potassium 4.0 (3.5-5.1) mmol/L Chloride 108 H (98-107) mmol/L Carbon Dioxide 23.0 (21.0-32.0) mmol/L BUN 39 H (7.0-18.0) mg/dL Creatinine 2.1 H (0.6-1.0) mg/dL Est Cr Clr Drug Dosing TNP Estimated GFR (MDRD) 23.3 ml/min Glucose 185 H (74-106) mg/dL Calcium 8.3 L (8.5-10.1) mg/dL Total Bilirubin 0.4 (0.2-1.0) mg/dL AST 12 L (15-37) IU/L ALT 17 (14-63) IU/L Alkaline Phosphatase 85 (46-116) U/L Creatine Kinase (26-308) U/L Troponin I < 0.050 (0.000-0.056) ng/mL Total Protein 6.3 L (6.4-8.2) g/dL Albumin 2.8 L (3.4-5.0) g/dL Globulin 3.5 (2.6-4.0) g/dL Albumin/Globulin Ratio 0.8 L (0.9-1.6) TSH 3rd Generation 0.86 (0.36-3.74) uIU/mL Urine Color Urine Appearance Urine pH (5.0-8.0) Ur Specific [place] (1.001-1.035) Urine Protein (NEGATIVE) mg/dL Urine Glucose (UA) (NEGATIVE) mg/dL Urine Ketones (NEGATIVE) mg/dL Urine Occult Blood (NEGATIVE) Urine Nitrite (NEGATIVE) Urine Bilirubin (NEGATIVE) Urine Urobilinogen (<2.0) EU/dL Ur Leukocyte Esterase (NEGATIVE) Urine RBC (0-2/HPF) Urine WBC (0-5/HPF) Ur Epithelial Cells (NONE-FEW) Urine Bacteria (NEGATIVE) Urine Mucus (NONE-MOD) 01/08/19 01/08/19 01/08/19 Range/Units 01:14 01:14 01:15 WBC (4.0-11.0) K/uL RBC (4.30-5.90) M/uL Hgb (12.0-16.0) g/dL Hct (36.0-46.0) % MCV (80.0-98.0) fL MCH (27.0-32.0) pg MCHC (31.0-37.0) g/dL RDW Std Deviation (28.0-62.0) fl RDW Coeff of Marjorie (11.0-15.0) % Plt Count (150-400) K/uL MPV (7.40-12.00) fL Neut % (Auto) (48.0-80.0) % Lymph % (Auto) (16.0-40.0) % Emmet % (Auto) (0.0-15.0) % Eos % (Auto) (0.0-7.0) % Baso % (Auto) (0.0-1.5) % Neut # (Auto) (1.4-5.7) K/uL Lymph # (Auto) (0.6-2.4) K/uL Emmet # (Auto) (0.0-0.8) K/uL Eos # (Auto) (0.0-0.7) K/uL Baso # (Auto) (0.0-0.1) K/uL INR Lactate 1.7 (0.20-2.00) mmol/L Sodium (136-145) mmol/L Potassium (3.5-5.1) mmol/L Chloride (98-107) mmol/L Carbon Dioxide (21.0-32.0) mmol/L BUN (7.0-18.0) mg/dL Creatinine (0.6-1.0) mg/dL Est Cr Clr Drug Dosing Estimated GFR (MDRD) ml/min Glucose (74-106) mg/dL Calcium (8.5-10.1) mg/dL Total Bilirubin (0.2-1.0) mg/dL AST (15-37) IU/L ALT (14-63) IU/L Alkaline Phosphatase (46-116) U/L Creatine Kinase 91 (26-308) U/L Troponin I (0.000-0.056) ng/mL Total Protein (6.4-8.2) g/dL Albumin (3.4-5.0) g/dL Globulin (2.6-4.0) g/dL Albumin/Globulin Ratio (0.9-1.6) TSH 3rd Generation (0.36-3.74) uIU/mL Urine Color YELLOW Urine Appearance SLT CLOUDY Urine pH 5.5 (5.0-8.0) Ur Specific [place] 1.020 (1.001-1.035) Urine Protein 100 H (NEGATIVE) mg/dL Urine Glucose (UA) 100 H (NEGATIVE) mg/dL Urine Ketones NEGATIVE (NEGATIVE) mg/dL Urine Occult Blood LARGE H (NEGATIVE) Urine Nitrite NEGATIVE (NEGATIVE) Urine Bilirubin NEGATIVE (NEGATIVE) Urine Urobilinogen 0.2 (<2.0) EU/dL Ur Leukocyte Esterase NEGATIVE (NEGATIVE) Urine RBC >100 H (0-2/HPF) Urine WBC 5-8 (0-5/HPF) Ur Epithelial Cells RARE (NONE-FEW) Urine Bacteria 2+ H (NEGATIVE) Urine Mucus LIGHT (NONE-MOD) Result Diagrams: 01/08/19 07:53 01/08/19 07:53 - Problem List (1) MAI (acute kidney injury) SNOMED Code(s): 87427319, 17981161 ICD Code: N17.9 - ACUTE KIDNEY FAILURE, UNSPECIFIED Status: Acute Current Visit: Yes (2) Hypernatremia SNOMED Code(s): 705176175 ICD Code: E87.0 - HYPEROSMOLALITY AND HYPERNATREMIA Status: Acute Current Visit: Yes (3) Chronic anemia SNOMED Code(s): 394217238 ICD Code: D64.9 - ANEMIA, UNSPECIFIED Status: Chronic Current Visit: Yes (4) DMII (diabetes mellitus, type 2) SNOMED Code(s): 42209868 ICD Code: E11.9 - TYPE 2 DIABETES MELLITUS WITHOUT COMPLICATIONS Status: Chronic Current Visit: Yes (5) Multiple sclerosis SNOMED Code(s): 97219132 ICD Code: G35 - MULTIPLE SCLEROSIS Status: Chronic Current Visit: Yes (6) Hyperlipidemia SNOMED Code(s): 75008542 ICD Code: E78.5 - HYPERLIPIDEMIA, UNSPECIFIED Status: Chronic Current Visit: Yes (7) HTN (hypertension) SNOMED Code(s): 98476734 ICD Code: I10 - ESSENTIAL (PRIMARY) HYPERTENSION Status: Chronic Current Visit: Yes (8) Hx pulmonary embolism SNOMED Code(s): 939613088 ICD Code: Z86.711 - PERSONAL HISTORY OF PULMONARY EMBOLISM Status: Chronic Current Visit: Yes (9) Dehydration SNOMED Code(s): 64426905 ICD Code: E86.0 - DEHYDRATION Status: Acute Current Visit: Yes (10) Hematuria SNOMED Code(s): 50023743 ICD Code: R31.9 - HEMATURIA, UNSPECIFIED Status: Acute Current Visit: Yes (11) Urinary tract infection with fever SNOMED Code(s): 91191216312864 ICD Code: N39.0 - URINARY TRACT INFECTION, SITE NOT SPECIFIED Status: Acute Current Visit: Yes (12) Altered mental status, unspecified SNOMED Code(s): 947547271 ICD Code: R41.82 - ALTERED MENTAL STATUS, UNSPECIFIED Status: Acute Current Visit: No Qualifiers: Altered mental status type: unspecified Qualified Code(s): R41.82 - Altered mental status, unspecified Problem List Initiated/Reviewed/Updated: Yes Orders Last 24hrs: Active Orders 24 hr Category Date Time Status Patient Status [ADT] Stat ADT 01/08/19 02:27 Active Cardiac Monitoring [RC] . DIRECTED Care 01/08/19 01:04 Active EKG Documentation Completion [RC] STAT Care 01/08/19 01:04 Active Oxygen Therapy, ED [RC] ASDIRECTED Care 01/08/19 01:04 Active Pulse Oximetry [RC] ASDIRECTED Care 01/08/19 01:04 Active ADA Diabetic [[place] [employer] Diet] [DIET Diet 01/08/19 Breakfast Active ] BASIC METABOLIC PANEL,BMP [CHEM] Stat Lab 01/08/19 07:39 Ordered CBC WITH AUTO DIFF [HEME] Stat Lab 01/08/19 07:39 Ordered CULTURE BLOOD [BC] Stat Lab 01/08/19 01:14 Received CULTURE BLOOD [BC] Stat Lab 01/08/19 02:29 Received CULTURE URINE [RM] Stat Lab 01/08/19 01:15 Received Acetaminophen [Tylenol] Med 01/08/19 03:48 Active 650 mg PO Q6H PRN Sodium Chloride 0.9% [Normal Saline] 1,000 ml Med 01/08/19 04:00 Active IV ASDIRECTED Sodium Chloride 0.9% [Saline Flush] Med 01/08/19 01:05 Active 10 ml FLUSH ASDIRECTED PRN Sodium Chloride 0.9% [Saline Flush] Med 01/08/19 01:05 Active 2.5 ml FLUSH ASDIRECTED PRN cefTRIAXone [Rocephin in Dextrose,Iso-Osm 1 GM/50 ML] 1 Med 01/09/19 21:00 Active gm Premix Bag 1 bag IV Q24H oxyCODONE Med 01/08/19 03:49 Active 5 mg PO Q4H PRN Blood Culture x2 Reflex Set [OM.PC] Stat Oth 01/08/19 01:05 Ordered Saline Lock Insert [OM.PC] Stat Oth 01/08/19 01:04 Ordered Medication Orders Acetaminophen (Tylenol) 650 mg PO Q6H PRN PRN Reason: Pain/Fever Last Admin: 01/08/19 06:00 Dose: 650 mg Ceftriaxone Sodium/Dextrose 1 (gm/ Premix) 50 mls @ 100 mls/hr IV Q24H [place] Sodium Chloride (Normal Saline) 1,000 mls @ 125 mls/hr IV ASDIRECTED [place] Last Admin: 01/08/19 04:12 Dose: 125 mls/hr Oxycodone HCl (Oxycodone) 5 mg PO Q4H PRN PRN Reason: Pain (severe 7-10) Sodium Chloride (Saline Flush) 10 ml FLUSH ASDIRECTED PRN PRN Reason: Keep Vein Open Sodium Chloride (Saline Flush) 2.5 ml FLUSH ASDIRECTED PRN PRN Reason: Keep Vein Open Assessment/Plan Comment:: 1. Admit for observation 2. Code status- 3. Vitals per routine 4. I/Os per routine 5. Diet- diabetic 6. DVT prophylaxis- on Xarelto 7. MAI likely secondary to dehydration- continue IVF 8. UTI and hematuria- continue Rocephin, urine culture pending, U/S of kidneys/ bladder/ureters 9. Chronic anemia- decreased from 10.2 to 8 but may be dilutional, will recheck this afternoon. 10. Hypernatremia- will recheck this afternoon, if it continues to rise will switch IVF. 11. Chronic conditions- DMII, MS, hyperlipidemia, HTN, PE- continue home meds, hold metformin, accucheck and sliding scale insulin. <Devon Canela - Last Filed: 01/08/19 09:46> H&P History of Present Illness - General Admit Problem/Dx: Admission Diagnosis/Problem Admission Diagnosis/Problem Urosepsis I have seen and examined the patient independently of medical i d sales, Dr. Jb DO. I have reviewed and agree with the plan of care as outlined for this patient by her. I have discussed the case with her. Please see orders. Exam - Vital Signs Vital Signs: Last Vital Signs Temp 37.2 C 01/08/19 07:51 Pulse 93 01/08/19 07:51 Resp 18 01/08/19 07:51 BP 101/46 L 01/08/19 07:51 Pulse Ox 94 L 01/08/19 07:51 - Patient Data Lab Results Last 24 hrs: Laboratory Results - last 24 hr 01/08/19 01/08/19 01/08/19 Range/Units 01:14 01:14 01:14 WBC 1.93 L (4.0-11.0) K/uL RBC 3.24 L (4.30-5.90) M/uL Hgb 10.2 L (12.0-16.0) g/dL Hct 31.8 L (36.0-46.0) % MCV 98.1 H (80.0-98.0) fL MCH 31.5 (27.0-32.0) pg MCHC 32.1 (31.0-37.0) g/dL RDW Std Deviation 49.3 (28.0-62.0) fl RDW Coeff of Marjorie 14 (11.0-15.0) % Plt Count 191 (150-400) K/uL MPV 8.80 (7.40-12.00) fL Neut % (Auto) 94.9 H (48.0-80.0) % Lymph % (Auto) 3.1 L (16.0-40.0) % Emmet % (Auto) 1.0 (0.0-15.0) % Eos % (Auto) 1.0 (0.0-7.0) % Baso % (Auto) 0.0 (0.0-1.5) % Neut # (Auto) 1.8 (1.4-5.7) K/uL Lymph # (Auto) 0.1 L (0.6-2.4) K/uL Emmet # (Auto) 0.0 (0.0-0.8) K/uL Eos # (Auto) 0.0 (0.0-0.7) K/uL Baso # (Auto) 0.0 (0.0-0.1) K/uL Nucleated RBC % /100WBC Nucleated RBCs # K/uL INR 1.06 Lactate (0.20-2.00) mmol/L Sodium 145 (136-145) mmol/L Potassium 4.0 (3.5-5.1) mmol/L Chloride 108 H (98-107) mmol/L Carbon Dioxide 23.0 (21.0-32.0) mmol/L BUN 39 H (7.0-18.0) mg/dL Creatinine 2.1 H (0.6-1.0) mg/dL Est Cr Clr Drug Dosing TNP Estimated GFR (MDRD) 23.3 ml/min Glucose 185 H (74-106) mg/dL Calcium 8.3 L (8.5-10.1) mg/dL Total Bilirubin 0.4 (0.2-1.0) mg/dL AST 12 L (15-37) IU/L ALT 17 (14-63) IU/L Alkaline Phosphatase 85 (46-116) U/L Creatine Kinase (26-308) U/L Troponin I < 0.050 (0.000-0.056) ng/mL Total Protein 6.3 L (6.4-8.2) g/dL Albumin 2.8 L (3.4-5.0) g/dL Globulin 3.5 (2.6-4.0) g/dL Albumin/Globulin Ratio 0.8 L (0.9-1.6) TSH 3rd Generation 0.86 (0.36-3.74) uIU/mL Urine Color Urine Appearance Urine pH (5.0-8.0) Ur Specific [place] (1.001-1.035) Urine Protein (NEGATIVE) mg/dL Urine Glucose (UA) (NEGATIVE) mg/dL Urine Ketones (NEGATIVE) mg/dL Urine Occult Blood (NEGATIVE) Urine Nitrite (NEGATIVE) Urine Bilirubin (NEGATIVE) Urine Urobilinogen (<2.0) EU/dL Ur Leukocyte Esterase (NEGATIVE) Urine RBC (0-2/HPF) Urine WBC (0-5/HPF) Ur Epithelial Cells (NONE-FEW) Urine Bacteria (NEGATIVE) Urine Mucus (NONE-MOD) 01/08/19 01/08/19 01/08/19 Range/Units 01:14 01:14 01:15 WBC (4.0-11.0) K/uL RBC (4.30-5.90) M/uL Hgb (12.0-16.0) g/dL Hct (36.0-46.0) % MCV (80.0-98.0) fL MCH (27.0-32.0) pg MCHC (31.0-37.0) g/dL RDW Std Deviation (28.0-62.0) fl RDW Coeff of Marjorie (11.0-15.0) % Plt Count (150-400) K/uL MPV (7.40-12.00) fL Neut % (Auto) (48.0-80.0) % Lymph % (Auto) (16.0-40.0) % Emmet % (Auto) (0.0-15.0) % Eos % (Auto) (0.0-7.0) % Baso % (Auto) (0.0-1.5) % Neut # (Auto) (1.4-5.7) K/uL Lymph # (Auto) (0.6-2.4) K/uL Emmet # (Auto) (0.0-0.8) K/uL Eos # (Auto) (0.0-0.7) K/uL Baso # (Auto) (0.0-0.1) K/uL Nucleated RBC % /100WBC Nucleated RBCs # K/uL INR Lactate 1.7 (0.20-2.00) mmol/L Sodium (136-145) mmol/L Potassium (3.5-5.1) mmol/L Chloride (98-107) mmol/L Carbon Dioxide (21.0-32.0) mmol/L BUN (7.0-18.0) mg/dL Creatinine (0.6-1.0) mg/dL Est Cr Clr Drug Dosing Estimated GFR (MDRD) ml/min Glucose (74-106) mg/dL Calcium (8.5-10.1) mg/dL Total Bilirubin (0.2-1.0) mg/dL AST (15-37) IU/L ALT (14-63) IU/L Alkaline Phosphatase (46-116) U/L Creatine Kinase 91 (26-308) U/L Troponin I (0.000-0.056) ng/mL Total Protein (6.4-8.2) g/dL Albumin (3.4-5.0) g/dL Globulin (2.6-4.0) g/dL Albumin/Globulin Ratio (0.9-1.6) TSH 3rd Generation (0.36-3.74) uIU/mL Urine Color YELLOW Urine Appearance SLT CLOUDY Urine pH 5.5 (5.0-8.0) Ur Specific [place] 1.020 (1.001-1.035) Urine Protein 100 H (NEGATIVE) mg/dL Urine Glucose (UA) 100 H (NEGATIVE) mg/dL Urine Ketones NEGATIVE (NEGATIVE) mg/dL Urine Occult Blood LARGE H (NEGATIVE) Urine Nitrite NEGATIVE (NEGATIVE) Urine Bilirubin NEGATIVE (NEGATIVE) Urine Urobilinogen 0.2 (<2.0) EU/dL Ur Leukocyte Esterase NEGATIVE (NEGATIVE) Urine RBC >100 H (0-2/HPF) Urine WBC 5-8 (0-5/HPF) Ur Epithelial Cells RARE (NONE-FEW) Urine Bacteria 2+ H (NEGATIVE) Urine Mucus LIGHT (NONE-MOD) 01/08/19 01/08/19 Range/Units 07:53 07:53 WBC 8.05 (4.0-11.0) K/uL RBC 2.61 L (4.30-5.90) M/uL Hgb 8.0 L (12.0-16.0) g/dL Hct 25.3 L (36.0-46.0) % MCV 96.9 (80.0-98.0) fL MCH 30.7 (27.0-32.0) pg MCHC 31.6 (31.0-37.0) g/dL RDW Std Deviation 53.0 (28.0-62.0) fl RDW Coeff of Marjorie 15 (11.0-15.0) % Plt Count 173 (150-400) K/uL MPV 9.80 (7.40-12.00) fL Neut % (Auto) 93.9 H (48.0-80.0) % Lymph % (Auto) 1.5 L (16.0-40.0) % Emmet % (Auto) 4.5 (0.0-15.0) % Eos % (Auto) 0.0 (0.0-7.0) % Baso % (Auto) 0.1 (0.0-1.5) % Neut # (Auto) 7.6 H (1.4-5.7) K/uL Lymph # (Auto) 0.1 L (0.6-2.4) K/uL Emmet # (Auto) 0.4 (0.0-0.8) K/uL Eos # (Auto) 0.0 (0.0-0.7) K/uL Baso # (Auto) 0.0 (0.0-0.1) K/uL Nucleated RBC % 0.0 /100WBC Nucleated RBCs # 0 K/uL INR Lactate (0.20-2.00) mmol/L Sodium 146 H (136-145) mmol/L Potassium 3.7 (3.5-5.1) mmol/L Chloride 111 H (98-107) mmol/L Carbon Dioxide 20.8 L (21.0-32.0) mmol/L BUN 39 H (7.0-18.0) mg/dL Creatinine 2.1 H (0.6-1.0) mg/dL Est Cr Clr Drug Dosing 21.53 Estimated GFR (MDRD) 23.3 ml/min Glucose 167 H (74-106) mg/dL Calcium 7.4 L (8.5-10.1) mg/dL Total Bilirubin (0.2-1.0) mg/dL AST (15-37) IU/L ALT (14-63) IU/L Alkaline Phosphatase (46-116) U/L Creatine Kinase (26-308) U/L Troponin I (0.000-0.056) ng/mL Total Protein (6.4-8.2) g/dL Albumin (3.4-5.0) g/dL Globulin (2.6-4.0) g/dL Albumin/Globulin Ratio (0.9-1.6) TSH 3rd Generation (0.36-3.74) uIU/mL Urine Color Urine Appearance Urine pH (5.0-8.0) Ur Specific [place] (1.001-1.035) Urine Protein (NEGATIVE) mg/dL Urine Glucose (UA) (NEGATIVE) mg/dL Urine Ketones (NEGATIVE) mg/dL Urine Occult Blood (NEGATIVE) Urine Nitrite (NEGATIVE) Urine Bilirubin (NEGATIVE) Urine Urobilinogen (<2.0) EU/dL Ur Leukocyte Esterase (NEGATIVE) Urine RBC (0-2/HPF) Urine WBC (0-5/HPF) Ur Epithelial Cells (NONE-FEW) Urine Bacteria (NEGATIVE) Urine Mucus (NONE-MOD) Result Diagrams: 01/08/19 07:53 01/08/19 07:53 Orders Last 24hrs: Active Orders 24 hr Category Date Time Status Patient Status [ADT] Stat ADT 01/08/19 02:27 Active Blood Glucose Check, Bedside [RC] TIDMEALS Care 01/08/19 09:07 Active Cardiac Monitoring [RC] . DIRECTED Care 01/08/19 01:04 Active EKG Documentation Completion [RC] STAT Care 01/08/19 01:04 Active Intake and Output [RC] Q12H Care 01/08/19 09:06 Active Oxygen Therapy, ED [RC] ASDIRECTED Care 01/08/19 01:04 Active Pulse Oximetry [RC] ASDIRECTED Care 01/08/19 01:04 Active Vital Signs [RC] Q4H Care 01/08/19 09:06 Active ADA Diabetic [[employer] [employer] Diet] [DIET Diet 01/08/19 Breakfast Active ] Retroperitoneal Comp [US] Routine Exams 01/08/19 09:06 Taken BASIC METABOLIC PANEL,BMP [CHEM] AM Lab 01/09/19 05:11 Ordered BASIC METABOLIC PANEL,BMP [CHEM] Routine Lab 01/08/19 16:30 Ordered CBC WITH AUTO DIFF [HEME] AM Lab 01/09/19 05:11 Ordered CULTURE BLOOD [BC] Stat Lab 01/08/19 01:14 Received CULTURE BLOOD [BC] Stat Lab 01/08/19 02:29 Received CULTURE URINE [RM] Stat Lab 01/08/19 01:15 Received HEMOGLOBIN/HEMATOCRIT,HH [HEME] Routine Lab 01/08/19 16:30 Ordered Acetaminophen [Tylenol] Med 01/08/19 03:48 Active 650 mg PO Q6H PRN Baclofen [Lioresal] Med 01/09/19 07:30 Active 20 mg PO ACBREAKFAST Baclofen [Lioresal] Med 01/08/19 21:00 Active 40 mg PO BEDTIME FLUoxetine [PROzac] Med 01/09/19 09:00 Active 10 mg PO DAILY Insulin Aspart [NovoLOG] Med 01/08/19 11:30 Active See Protocol SUBCUT TIDAC Melatonin/Pyridoxine HCl (B6) [Melatonin 5 mg Tablet] Med 01/09/19 09:00 Ordered 1 each PO DAILY Metoprolol Tartrate [Lopressor] Med 01/08/19 09:30 Active 50 mg PO DAILY Oxybutynin [Oxytrol] Med 01/08/19 09:30 Ordered 1 patch TRDERM ASDIRECTED Rivaroxaban [Xarelto] Med 01/08/19 09:30 Active 20 mg PO DAILY Rosuvastatin [Crestor] Med 01/08/19 09:30 Active 20 mg PO DAILY Sodium Chloride 0.9% [Normal Saline] 1,000 ml Med 01/08/19 04:00 Active IV ASDIRECTED Sodium Chloride 0.9% [Saline Flush] Med 01/08/19 01:05 Active 10 ml FLUSH ASDIRECTED PRN Sodium Chloride 0.9% [Saline Flush] Med 01/08/19 01:05 Active 2.5 ml FLUSH ASDIRECTED PRN cefTRIAXone [Rocephin in Dextrose,Iso-Osm 1 GM/50 ML] 1 Med 01/09/19 21:00 Active gm Premix Bag 1 bag IV Q24H oxyCODONE Med 01/08/19 03:49 Active 5 mg PO Q4H PRN Blood Culture x2 Reflex Set [OM.PC] Stat Oth 01/08/19 01:05 Ordered Saline Lock Insert [OM.PC] Stat Oth 01/08/19 01:04 Ordered Resuscitation Status Routine Resus Stat 01/08/19 09:06 Ordered Medication Orders Acetaminophen (Tylenol) 650 mg PO Q6H PRN PRN Reason: Pain/Fever Last Admin: 01/08/19 06:00 Dose: 650 mg Baclofen (Lioresal) 20 mg PO [facility] Baclofen (Lioresal) 40 mg PO BEDTIME [facility] Fluoxetine HCl (Prozac) 10 mg PO DAILY [facility] Ceftriaxone Sodium/Dextrose 1 (gm/ Premix) 50 mls @ 100 mls/hr IV Q24H [facility] Sodium Chloride (Normal Saline) 1,000 mls @ 125 mls/hr IV ASDIRECTED [facility] Last Admin: 01/08/19 04:12 Dose: 125 mls/hr Insulin Aspart (Novolog) 0 unit SUBCUT TIDAC [facility]; Protocol Metoprolol Tartrate (Lopressor) 50 mg PO DAILY [facility] Non-Formulary Medication (Melatonin/Pyridoxine Hcl (B6) [Melatonin 5 Mg Tablet] ) 1 each PO DAILY [facility] Non-Formulary Medication (Oxybutynin [Oxytrol]) 1 patch TRDERM ASDIRECTED [facility] Oxycodone HCl (Oxycodone) 5 mg PO Q4H PRN PRN Reason: Pain (severe 7-10) Rivaroxaban (Xarelto) 20 mg PO DAILY [facility] Rosuvastatin Calcium (Crestor) 20 mg PO DAILY [facility] Sodium Chloride (Saline Flush) 10 ml FLUSH ASDIRECTED PRN PRN Reason: Keep Vein Open Sodium Chloride (Saline Flush) 2.5 ml FLUSH ASDIRECTED PRN PRN Reason: Keep Vein Open
[2019-01-08 08:17] LABS: CARBON DIOXIDE,CO2 20.8 mmol/L (21.0-32.0); POTASSIUM,K 3.7 mmol/L (3.5-5.1)
[2019-01-08] MEDS ORDERED: Ondansetron 4 MG/2 ML SDV IVPUSH PRN (09:57)
--- NOTE | 2019-01-08 10:04 | US ---
INDICATION: Hematuria. COMPARISON: Ultrasound examination of the kidneys 10/26/2018; CT abdomen and pelvis 11/07/2018. TECHNIQUE: Ultrasound examination of the kidneys and bladder. Findings: The right kidney is measuring 11 cm and the left kidney is measuring 12.9 cm in the maximum vertical dimension. No obstructive uropathy or perinephric pathology involving the right kidney. Dilatation of the upper pole calyx left kidney indicating mild to moderate hydronephrosis; resolving when compared to October 26, 2018. No perinephric pathology. Nondistended urinary bladder. IMPRESSION: 1. Mild hydronephrosis left kidney predominantly involving the upper pole calyx. 2. No other abnormalities are identified. 3. Suggest obtaining a followup abdominal CT for further assessment. Dictated by Kasey Jones MD @ Jan 08 2019 9:53AM Signed by Dr. Kasey Jones @ Jan 08 2019 10:03AM
[2019-01-08] MEDS: Rivaroxaban 10 MG Tab PO SCH (10:44)
[2019-01-08] MEDS: Rosuvastatin 10 MG Tab PO SCH (10:44)
[2019-01-08] MEDS: Metoprolol Tartrate 50 MG Tab PO SCH (10:49)
--- NOTE | 2019-01-08 12:15 | CT ---
INDICATION: Hematuria. COMPARISON: CT abdomen and pelvis 11/07/2018. TECHNIQUE: CT abdomen and pelvis without intravenous contrast; coronal and sagittal reformats. FINDINGS: Small bilateral pleural effusion. Atelectatic changes both lung bases. Normal size cardiac silhouette without any evidence of pericardial effusion. No focal hepatic or splenic pathology. No pancreatic pathology. Cholelithiasis. No adrenal pathology. Nonobstructing renal calculi upper pole calyx right kidney and right renal pelvis without any obstructive uropathy or perinephric pathology. A 1 x 0.6 cm obstructing calculus left ureteropelvic junction slice 59 series 201 with moderate left-sided hydronephrosis. Nonobstructing calculi lower pole calyx left kidney. Perinephric stranding on the left side. No retroperitoneal lymphadenopathy. No evidence of abdominal or pelvic ascites. Normal appendix. Diverticulosis sigmoid colon without any CT evidence of diverticulitis or abscess. No pneumoperitoneum in it or intestinal obstruction. IMPRESSION: 1. A 10 x 6 mm obstructing calculus left ureteropelvic junction with moderate left-sided hydronephrosis. 2. Nonobstructing calculi right renal pelvis and right intrarenal calices. 3. Cholelithiasis. 4. Calculi identified in the dilated lower pole calyx left kidney. 5. Normal appendix. Please note that all CT scans at this facility use dose modulation, iterative reconstruction, and/or weight-based dosing when appropriate to reduce radiation dose to as low as reasonably achievable. Dictated by Kasey Jones MD @ Jan 08 2019 12:06PM Signed by Dr. Kasey Jones @ Jan 08 2019 12:13PM
[2019-01-08] MEDS: Insulin Aspart 100 Units/ML 3 ML Pen SUBCUT SCH ×2 (12:45→17:07)
[2019-01-08] MEDS ORDERED: Sodium Chloride 0.9% 1,000 ML IV SCH (13:00)
[2019-01-08] MEDS ORDERED: Albuterol/Ipratropium 3.0-0.5 MG/3 ML Neb Soln NEB ONE (16:10)
[2019-01-08 17:09] LABS: CARBON DIOXIDE,CO2 20.6 mmol/L (21.0-32.0); POTASSIUM,K 4.1 mmol/L (3.5-5.1)
[2019-01-08] MEDS ORDERED: OXYBUTYNIN TRDERM SCH (20:45)
[2019-01-08] MEDS: Baclofen 10 MG Tab PO SCH (20:53)
[2019-01-08] MEDS: cefTRIAXone 1 GM in Premix Bag 1 BAG IV SCH (20:54)
--- NOTE | 2019-01-08 22:38 | OR ---
SURGEON: Priscila Ortiz M.D. DATE OF PROCEDURE: INDICATIONS: A 68-year-old with UTI and a 1 cm left upper ureteral stone that was actually in the kidney until recently. She is in the hospital being treated for her UTI. I reviewed the CT scan. She needs a stent. She is here to have that done. PREOPERATIVE DIAGNOSES: Urinary tract infection and large obstructive left upper ureteral stone. POSTOPERATIVE DIAGNOSES: Urinary tract infection and large obstructive left upper ureteral stone. OPERATION: Cystoscopy with double-J stent placement. DESCRIPTION: The patient was placed in the dorsal lithotomy position, prepped and draped in sterile drapes. Cystourethroscopy was done showed a picture most consistent with chronic bacterial cystitis. The left ureter was easily identified and cannulated with the guidewire all the way up into the renal pelvis. The shadow of the stone could not be visible with fluoroscopy. The stone was a low density stone. Over the guidewire, a 6-Lao 26 centimeter double-J stent was placed. Position was confirmed with fluoroscopy. The bladder was emptied, and the patient was brought back to the floor in stable condition. STEVEN / KELLE /[id number]
[2019-01-09] MEDS: Sodium Chloride 0.9% 1,000 ML IV SCH ×2 (02:24→18:38)
[2019-01-09 06:30] LABS: CARBON DIOXIDE,CO2 21.3 mmol/L (21.0-32.0); POTASSIUM,K 3.6 mmol/L (3.5-5.1)
--- NOTE | 2019-01-09 07:23 | PCM.PN ---
<Riya Muhammad - Last Filed: 01/09/19 07:18> - General Info Date of Service: 01/09/19 Subjective Update: Patient reports she feels much better. Patient is more alert compared to yesterday. Tmax was 99.7. Patient denies fever/chills, chest pain, shortness of breath, or abdominal pain. She is eating and drinking without issue. - Review of Systems General: Reports: No Symptoms HEENT: Reports: No Symptoms Pulmonary: Reports: No Symptoms Cardiovascular: Reports: No Symptoms Gastrointestinal: Reports: No Symptoms Genitourinary: Reports: No Symptoms Musculoskeletal: Reports: No Symptoms Skin: Reports: No Symptoms Neurological: Reports: No Symptoms Psychiatric: Reports: No Symptoms - Patient Data Vitals - Most Recent: Last Vital Signs Temp 97.8 F 01/09/19 04:28 Pulse 79 01/09/19 04:28 Resp 20 01/09/19 04:28 BP 115/57 L 01/09/19 04:28 Pulse Ox 94 L 01/09/19 04:28 Weight - Most Recent: 92.941 kg I&O - Last 24 Hours: Intake & Output 01/08/19 01/09/19 01/09/19 22:59 06:59 14:59 Intake Total 1999 2203 Output Total Balance 1999 2203 Lab Results Last 24 Hours: Laboratory Results - last 24 hr 01/08/19 01/08/19 01/08/19 Range/Units 07:53 07:53 12:03 WBC 8.05 (4.0-11.0) K/uL RBC 2.61 L (4.30-5.90) M/uL Hgb 8.0 L (12.0-16.0) g/dL Hct 25.3 L (36.0-46.0) % MCV 96.9 (80.0-98.0) fL MCH 30.7 (27.0-32.0) pg MCHC 31.6 (31.0-37.0) g/dL RDW Std Deviation 53.0 (28.0-62.0) fl RDW Coeff of Marjorie 15 (11.0-15.0) % Plt Count 173 (150-400) K/uL MPV 9.80 (7.40-12.00) fL Neut % (Auto) 93.9 H (48.0-80.0) % Lymph % (Auto) 1.5 L (16.0-40.0) % [place] % (Auto) 4.5 (0.0-15.0) % Eos % (Auto) 0.0 (0.0-7.0) % Baso % (Auto) 0.1 (0.0-1.5) % Neut # (Auto) 7.6 H (1.4-5.7) K/uL Lymph # (Auto) 0.1 L (0.6-2.4) K/uL [place] # (Auto) 0.4 (0.0-0.8) K/uL Eos # (Auto) 0.0 (0.0-0.7) K/uL Baso # (Auto) 0.0 (0.0-0.1) K/uL Nucleated RBC % 0.0 /100WBC Nucleated RBCs # 0 K/uL Sodium 146 H (136-145) mmol/L Potassium 3.7 (3.5-5.1) mmol/L Chloride 111 H (98-107) mmol/L Carbon Dioxide 20.8 L (21.0-32.0) mmol/L BUN 39 H (7.0-18.0) mg/dL Creatinine 2.1 H (0.6-1.0) mg/dL Est Cr Clr Drug Dosing 21.53 mL/min Estimated GFR (MDRD) 23.3 ml/min Glucose 167 H (74-106) mg/dL POC Glucose 198 H (60-110) mg/dL Calcium 7.4 L (8.5-10.1) mg/dL 01/08/19 01/08/19 01/08/19 Range/Units 16:34 16:35 16:35 WBC (4.0-11.0) K/uL RBC (4.30-5.90) M/uL Hgb 8.7 L (12.0-16.0) g/dL Hct 28.0 L (36.0-46.0) % MCV (80.0-98.0) fL MCH (27.0-32.0) pg MCHC (31.0-37.0) g/dL RDW Std Deviation (28.0-62.0) fl RDW Coeff of Marjorie (11.0-15.0) % Plt Count (150-400) K/uL MPV (7.40-12.00) fL Neut % (Auto) (48.0-80.0) % Lymph % (Auto) (16.0-40.0) % [place] % (Auto) (0.0-15.0) % Eos % (Auto) (0.0-7.0) % Baso % (Auto) (0.0-1.5) % Neut # (Auto) (1.4-5.7) K/uL Lymph # (Auto) (0.6-2.4) K/uL [place] # (Auto) (0.0-0.8) K/uL Eos # (Auto) (0.0-0.7) K/uL Baso # (Auto) (0.0-0.1) K/uL Nucleated RBC % /100WBC Nucleated RBCs # K/uL Sodium 143 (136-145) mmol/L Potassium 4.1 (3.5-5.1) mmol/L Chloride 111 H (98-107) mmol/L Carbon Dioxide 20.6 L (21.0-32.0) mmol/L BUN 39 H (7.0-18.0) mg/dL Creatinine 2.3 H (0.6-1.0) mg/dL Est Cr Clr Drug Dosing 19.65 mL/min Estimated GFR (MDRD) 21.0 ml/min Glucose 177 H (74-106) mg/dL POC Glucose 172 H (60-110) mg/dL Calcium 8.4 L (8.5-10.1) mg/dL 01/09/19 01/09/19 01/09/19 Range/Units 05:20 05:20 06:12 WBC 9.11 (4.0-11.0) K/uL RBC 2.72 L (4.30-5.90) M/uL Hgb 8.4 L (12.0-16.0) g/dL Hct 26.8 L (36.0-46.0) % MCV 98.5 H (80.0-98.0) fL MCH 30.9 (27.0-32.0) pg MCHC 31.3 (31.0-37.0) g/dL RDW Std Deviation 55.8 (28.0-62.0) fl RDW Coeff of Marjorie 16 H (11.0-15.0) % Plt Count 156 (150-400) K/uL MPV 10.20 (7.40-12.00) fL Neut % (Auto) 83.3 H (48.0-80.0) % Lymph % (Auto) 5.8 L (16.0-40.0) % [place] % (Auto) 10.5 (0.0-15.0) % Eos % (Auto) 0.4 (0.0-7.0) % Baso % (Auto) 0.0 (0.0-1.5) % Neut # (Auto) 7.6 H (1.4-5.7) K/uL Lymph # (Auto) 0.5 L (0.6-2.4) K/uL [place] # (Auto) 1.0 H (0.0-0.8) K/uL Eos # (Auto) 0.0 (0.0-0.7) K/uL Baso # (Auto) 0.0 (0.0-0.1) K/uL Nucleated RBC % 0.0 /100WBC Nucleated RBCs # 0 K/uL Sodium 144 (136-145) mmol/L Potassium 3.6 (3.5-5.1) mmol/L Chloride 111 H (98-107) mmol/L Carbon Dioxide 21.3 (21.0-32.0) mmol/L BUN 38 H (7.0-18.0) mg/dL Creatinine 2.0 H (0.6-1.0) mg/dL Est Cr Clr Drug Dosing 22.60 mL/min Estimated GFR (MDRD) 24.6 ml/min Glucose 85 (74-106) mg/dL POC Glucose 72 (60-110) mg/dL Calcium 8.5 (8.5-10.1) mg/dL Jareth Results Last 24 Hours: Microbiology 01/08/19 02:29 Aerobic Blood Culture - Preliminary Blood - Venous - Lab Draw Anaerobic Blood Culture - Preliminary 01/08/19 01:14 Aerobic Blood Culture - Preliminary Blood - Venous Anaerobic Blood Culture - Preliminary Med Orders - Current: Current Medications Acetaminophen (Tylenol) 650 mg PO Q6H PRN PRN Reason: Pain/Fever Last Admin: 01/08/19 16:02 Dose: 650 mg Baclofen (Lioresal) 20 mg PO ACBREAKFAST ON LICENSE OF [facility] Baclofen (Lioresal) 40 mg PO BEDTIME ON LICENSE OF [facility] Last Admin: 01/08/19 20:53 Dose: 40 mg Fluoxetine HCl (Prozac) 10 mg PO DAILY ON LICENSE OF [facility] Ceftriaxone Sodium/Dextrose 1 (gm/ Premix) 50 mls @ 100 mls/hr IV Q24H ON LICENSE OF [facility] Last Admin: 01/08/19 20:54 Dose: 100 mls/hr Sodium Chloride (Normal Saline) 1,000 mls @ 100 mls/hr IV Q10H ON LICENSE OF [facility] Last Admin: 01/09/19 02:24 Dose: 100 mls/hr Insulin Aspart (Novolog) 0 unit SUBCUT TIDAC ON LICENSE OF [facility]; Protocol Last Admin: 01/08/19 17:07 Dose: 2 unit Metoprolol Tartrate (Lopressor) 50 mg PO DAILY ON LICENSE OF [facility] Last Admin: 01/08/19 10:49 Dose: Not Given Ondansetron HCl (Zofran) 4 mg IVPUSH Q4H PRN PRN Reason: Nausea/Vomiting Oxycodone HCl (Oxycodone) 5 mg PO Q4H PRN PRN Reason: Pain (severe 7-10) Melatonin/Pyridoxine Hcl (B6) [Melatonin 5 Mg Tablet] 1 E 1 each PO DAILY ON LICENSE OF [facility] Oxybutynin [Oxytrol] (1 Patch) 1 each TRDERM MoTh@0900 ON LICENSE OF [facility] Last Admin: 01/08/19 20:50 Dose: 1 each Rivaroxaban (Xarelto) 20 mg PO DAILY ON LICENSE OF [facility] Last Admin: 01/08/19 10:44 Dose: 20 mg Rosuvastatin Calcium (Crestor) 20 mg PO DAILY ON LICENSE OF [facility] Last Admin: 01/08/19 10:44 Dose: 20 mg Sodium Chloride (Saline Flush) 10 ml FLUSH ASDIRECTED PRN PRN Reason: Keep Vein Open Sodium Chloride (Saline Flush) 2.5 ml FLUSH ASDIRECTED PRN PRN Reason: Keep Vein Open Discontinued Medications Acetaminophen (Tylenol) 650 mg RECTAL NOW ONE Stop: 01/08/19 01:07 Last Admin: 01/08/19 01:15 Dose: Not Given Acetaminophen (Tylenol) Confirm Administered Dose 975 mg .ROUTE .STK-MED ONE Stop: 01/08/19 01:11 Last Admin: 01/08/19 01:14 Dose: 975 mg Acetaminophen (Tylenol) 975 mg RECTAL NOW ONE Stop: 01/08/19 01:14 Last Admin: 01/08/19 01:15 Dose: Not Given Albuterol/Ipratropium (Duoneb 3.0-0.5 Mg/3 Ml) 3 ml NEB ONETIME ONE Stop: 01/08/19 16:11 Last Admin: 01/08/19 16:32 Dose: 3 ml Sodium Chloride (Normal Saline) 1,000 mls @ 999 mls/hr IV STAT ONE Stop: 01/08/19 02:06 Last Admin: 01/08/19 01:13 Dose: 999 mls/hr Ceftriaxone Sodium/Dextrose 2 (gm/ Premix) 50 mls @ 100 mls/hr IV ONETIME ONE Stop: 01/08/19 02:26 Last Admin: 01/08/19 02:27 Dose: 100 mls/hr Ceftriaxone Sodium/Dextrose 1 (gm/ Premix) 50 mls @ 100 mls/hr IV Q24H ON LICENSE OF [facility] Sodium Chloride (Normal Saline) 1,000 mls @ 125 mls/hr IV ASDIRECTED ON LICENSE OF [facility] Last Admin: 01/08/19 12:21 Dose: 125 mls/hr Sodium Chloride (Normal Saline) 1,000 mls @ 150 mls/hr IV ASDIRECTED ON LICENSE OF [facility] Last Admin: 01/08/19 13:22 Dose: 150 mls/hr Oxybutynin [Oxytrol] (1 Patch) 1 each TRDERM MoTh@0900 ON LICENSE OF [facility] - Exam General: Alert, Oriented, Cooperative Lungs: Clear to Auscultation, Normal Respiratory Effort Cardiovascular: Regular Rate, Regular Rhythm GI/Abdominal Exam: Normal Bowel Sounds, Soft, Non-Tender, No Distention Extremities: Pedal Edema Skin: Warm, Dry, Intact Psy/Mental Status: Alert, Normal Affect, Normal Mood - Problem List & Annotations (1) MAI (acute kidney injury) SNOMED Code(s): 21137310, 15370487 Code(s): N17.9 - ACUTE KIDNEY FAILURE, UNSPECIFIED Status: Acute Current Visit: Yes (2) Hypernatremia SNOMED Code(s): 499820682 Code(s): E87.0 - HYPEROSMOLALITY AND HYPERNATREMIA Status: Acute Current Visit: Yes (3) Chronic anemia SNOMED Code(s): 519403834 Code(s): D64.9 - ANEMIA, UNSPECIFIED Status: Chronic Current Visit: Yes (4) DMII (diabetes mellitus, type 2) SNOMED Code(s): 70975541 Code(s): E11.9 - TYPE 2 DIABETES MELLITUS WITHOUT COMPLICATIONS Status: Chronic Current Visit: Yes (5) Multiple sclerosis SNOMED Code(s): 28204952 Code(s): G35 - MULTIPLE SCLEROSIS Status: Chronic Current Visit: Yes (6) Hyperlipidemia SNOMED Code(s): 88472890 Code(s): E78.5 - HYPERLIPIDEMIA, UNSPECIFIED Status: Chronic Current Visit: Yes (7) HTN (hypertension) SNOMED Code(s): 94210711 Code(s): I10 - ESSENTIAL (PRIMARY) HYPERTENSION Status: Chronic Current Visit: Yes (8) Hx pulmonary embolism SNOMED Code(s): 765760192 Code(s): Z86.711 - PERSONAL HISTORY OF PULMONARY EMBOLISM Status: Chronic Current Visit: Yes (9) Dehydration SNOMED Code(s): 62162573 Code(s): E86.0 - DEHYDRATION Status: Acute Current Visit: Yes (10) Hematuria SNOMED Code(s): 34884473 Code(s): R31.9 - HEMATURIA, UNSPECIFIED Status: Acute Current Visit: Yes (11) Urinary tract infection with fever SNOMED Code(s): 23313043837867 Code(s): N39.0 - URINARY TRACT INFECTION, SITE NOT SPECIFIED Status: Acute Current Visit: Yes (12) Altered mental status, unspecified SNOMED Code(s): 621305916 Code(s): R41.82 - ALTERED MENTAL STATUS, UNSPECIFIED Status: Acute Current Visit: No Qualifiers: Altered mental status type: unspecified Qualified Code(s): R41.82 - Altered mental status, unspecified (13) Obstruction of ureteropelvic junction (UPJ) due to stone SNOMED Code(s): 98963594, 80348496 Code(s): N20.1 - CALCULUS OF URETER Status: Acute Current Visit: Yes (14) Gram-negative bacteremia SNOMED Code(s): 916119721799 Code(s): R78.81 - BACTEREMIA Status: Acute Current Visit: Yes - Problem List Review Problem List Initiated/Reviewed/Updated: Yes - My Orders Last 24 Hours: My Active Orders 01/08/19 09:06 Intake and Output [RC] Q12H Vital Signs [RC] Q4H Resuscitation Status Routine 01/08/19 09:07 Blood Glucose Check, Bedside [RC] TIDMEALS 01/08/19 09:30 Metoprolol Tartrate [Lopressor] 50 mg PO DAILY Rivaroxaban [Xarelto] 20 mg PO DAILY Rosuvastatin [Crestor] 20 mg PO DAILY 01/08/19 09:57 Ondansetron [Zofran] 4 mg IVPUSH Q4H PRN 01/08/19 11:30 Insulin Aspart [NovoLOG] See Protocol SUBCUT TIDAC 01/08/19 12:39 Consult to Physician [CONS] Routine 01/08/19 12:40 Notify Provider Consults [RC] ASDIRECTED 01/08/19 17:49 Consult to Physical Therapy [PT Evaluation and Treatment] [CONS] Routine 01/08/19 20:45 Patient's Own Medication [Ptom] 1 each TRDERM MoTh@0900 01/08/19 21:00 Baclofen [Lioresal] 40 mg PO BEDTIME cefTRIAXone [Rocephin in Dextrose,Iso-Osm 1 GM/50 ML] 1 gm Premix Bag 1 bag IV Q24H 01/09/19 07:30 Baclofen [Lioresal] 20 mg PO ACBREAKFAST 01/09/19 09:00 FLUoxetine [PROzac] 10 mg PO DAILY Patient's Own Medication [Ptom] 1 each PO DAILY - Plan Plan:: 1. Gram negative bacteremia- blood culture pending, continue IV Rocephin 2. Hematuria secondary to obstructing stone s/p stent- urology consulted, appreciate recommendations 3. MAI likely secondary to obstructing stone/dehydration- continue IVF 4. UTI- continue IV Rocephin, urine culture pending 5. Chronic anemia- stable, continue to monitor daily 6. Hypernatremia- resolved 11. Chronic conditions- DMII, MS, hyperlipidemia, HTN, PE- continue home meds, hold metformin, accucheck and sliding scale insulin. Switch to inpatient status <Devon Canela - Last Filed: 01/09/19 09:33> - General Info Admission Dx/Problem (Free Text): I have seen and examined the patient independently of manager of medical, Dr. Jb DO. I have reviewed and agree with the plan of care as outlined for this patient by her. I have discussed the case with her. Please see orders. Patient is being followed by urology after stent placement. - Patient Data Vitals - Most Recent: Last Vital Signs Temp 37.1 C 01/09/19 08:00 Pulse 80 01/09/19 08:52 Resp 16 01/09/19 08:00 BP 140/72 01/09/19 08:52 Pulse Ox 96 01/09/19 08:00 I&O - Last 24 Hours: Intake & Output 01/08/19 01/09/19 01/09/19 22:59 06:59 14:59 Intake Total 1999 2203 Output Total 0 Balance 1999 2203 Lab Results Last 24 Hours: Laboratory Results - last 24 hr 01/08/19 01/08/19 01/08/19 Range/Units 12:03 16:34 16:35 WBC (4.0-11.0) K/uL RBC (4.30-5.90) M/uL Hgb 8.7 L (12.0-16.0) g/dL Hct 28.0 L (36.0-46.0) % MCV (80.0-98.0) fL MCH (27.0-32.0) pg MCHC (31.0-37.0) g/dL RDW Std Deviation (28.0-62.0) fl RDW Coeff of Marjorie (11.0-15.0) % Plt Count (150-400) K/uL MPV (7.40-12.00) fL Neut % (Auto) (48.0-80.0) % Lymph % (Auto) (16.0-40.0) % [place] % (Auto) (0.0-15.0) % Eos % (Auto) (0.0-7.0) % Baso % (Auto) (0.0-1.5) % Neut # (Auto) (1.4-5.7) K/uL Lymph # (Auto) (0.6-2.4) K/uL [place] # (Auto) (0.0-0.8) K/uL Eos # (Auto) (0.0-0.7) K/uL Baso # (Auto) (0.0-0.1) K/uL Nucleated RBC % /100WBC Nucleated RBCs # K/uL Sodium (136-145) mmol/L Potassium (3.5-5.1) mmol/L Chloride (98-107) mmol/L Carbon Dioxide (21.0-32.0) mmol/L BUN (7.0-18.0) mg/dL Creatinine (0.6-1.0) mg/dL Est Cr Clr Drug Dosing mL/min Estimated GFR (MDRD) ml/min Glucose (74-106) mg/dL POC Glucose 198 H 172 H (60-110) mg/dL Calcium (8.5-10.1) mg/dL 01/08/19 01/09/19 01/09/19 Range/Units 16:35 05:20 05:20 WBC 9.11 (4.0-11.0) K/uL RBC 2.72 L (4.30-5.90) M/uL Hgb 8.4 L (12.0-16.0) g/dL Hct 26.8 L (36.0-46.0) % MCV 98.5 H (80.0-98.0) fL MCH 30.9 (27.0-32.0) pg MCHC 31.3 (31.0-37.0) g/dL RDW Std Deviation 55.8 (28.0-62.0) fl RDW Coeff of Marjorie 16 H (11.0-15.0) % Plt Count 156 (150-400) K/uL MPV 10.20 (7.40-12.00) fL Neut % (Auto) 83.3 H (48.0-80.0) % Lymph % (Auto) 5.8 L (16.0-40.0) % [place] % (Auto) 10.5 (0.0-15.0) % Eos % (Auto) 0.4 (0.0-7.0) % Baso % (Auto) 0.0 (0.0-1.5) % Neut # (Auto) 7.6 H (1.4-5.7) K/uL Lymph # (Auto) 0.5 L (0.6-2.4) K/uL [place] # (Auto) 1.0 H (0.0-0.8) K/uL Eos # (Auto) 0.0 (0.0-0.7) K/uL Baso # (Auto) 0.0 (0.0-0.1) K/uL Nucleated RBC % 0.0 /100WBC Nucleated RBCs # 0 K/uL Sodium 143 144 (136-145) mmol/L Potassium 4.1 3.6 (3.5-5.1) mmol/L Chloride 111 H 111 H (98-107) mmol/L Carbon Dioxide 20.6 L 21.3 (21.0-32.0) mmol/L BUN 39 H 38 H (7.0-18.0) mg/dL Creatinine 2.3 H 2.0 H (0.6-1.0) mg/dL Est Cr Clr Drug Dosing 19.65 22.60 mL/min Estimated GFR (MDRD) 21.0 24.6 ml/min Glucose 177 H 85 (74-106) mg/dL POC Glucose (60-110) mg/dL Calcium 8.4 L 8.5 (8.5-10.1) mg/dL 01/09/19 Range/Units 06:12 WBC (4.0-11.0) K/uL RBC (4.30-5.90) M/uL Hgb (12.0-16.0) g/dL Hct (36.0-46.0) % MCV (80.0-98.0) fL MCH (27.0-32.0) pg MCHC (31.0-37.0) g/dL RDW Std Deviation (28.0-62.0) fl RDW Coeff of Marjorie (11.0-15.0) % Plt Count (150-400) K/uL MPV (7.40-12.00) fL Neut % (Auto) (48.0-80.0) % Lymph % (Auto) (16.0-40.0) % [place] % (Auto) (0.0-15.0) % Eos % (Auto) (0.0-7.0) % Baso % (Auto) (0.0-1.5) % Neut # (Auto) (1.4-5.7) K/uL Lymph # (Auto) (0.6-2.4) K/uL [place] # (Auto) (0.0-0.8) K/uL Eos # (Auto) (0.0-0.7) K/uL Baso # (Auto) (0.0-0.1) K/uL Nucleated RBC % /100WBC Nucleated RBCs # K/uL Sodium (136-145) mmol/L Potassium (3.5-5.1) mmol/L Chloride (98-107) mmol/L Carbon Dioxide (21.0-32.0) mmol/L BUN (7.0-18.0) mg/dL Creatinine (0.6-1.0) mg/dL Est Cr Clr Drug Dosing mL/min Estimated GFR (MDRD) ml/min Glucose (74-106) mg/dL POC Glucose 72 (60-110) mg/dL Calcium (8.5-10.1) mg/dL Jareth Results Last 24 Hours: Microbiology 01/08/19 01:15 Urine Culture - Final Urine, Clean Catch Enterobacter Cloacae 01/08/19 02:29 Aerobic Blood Culture - Preliminary Blood - Venous - Lab Draw Anaerobic Blood Culture - Preliminary 01/08/19 01:14 Aerobic Blood Culture - Preliminary Blood - Venous Anaerobic Blood Culture - Preliminary Med Orders - Current: Current Medications Acetaminophen (Tylenol) 650 mg PO Q6H PRN PRN Reason: Pain/Fever Last Admin: 01/08/19 16:02 Dose: 650 mg Baclofen (Lioresal) 20 mg PO ACBREAKFAST ON LICENSE OF [facility] Last Admin: 01/09/19 07:29 Dose: 20 mg Baclofen (Lioresal) 40 mg PO BEDTIME ON LICENSE OF [facility] Last Admin: 01/08/19 20:53 Dose: 40 mg Fluoxetine HCl (Prozac) 10 mg PO DAILY ON LICENSE OF [facility] Last Admin: 01/09/19 08:59 Dose: 10 mg Ceftriaxone Sodium/Dextrose 1 (gm/ Premix) 50 mls @ 100 mls/hr IV Q24H ON LICENSE OF [facility] Last Admin: 01/08/19 20:54 Dose: 100 mls/hr Sodium Chloride (Normal Saline) 1,000 mls @ 100 mls/hr IV Q10H ON LICENSE OF [facility] Last Admin: 01/09/19 02:24 Dose: 100 mls/hr Insulin Aspart (Novolog) 0 unit SUBCUT TIDAC ON LICENSE OF [facility]; Protocol Last Admin: 01/09/19 07:27 Dose: Not Given Metoprolol Tartrate (Lopressor) 50 mg PO DAILY ON LICENSE OF [facility] Last Admin: 01/09/19 08:52 Dose: 50 mg Ondansetron HCl (Zofran) 4 mg IVPUSH Q4H PRN PRN Reason: Nausea/Vomiting Oxycodone HCl (Oxycodone) 5 mg PO Q4H PRN PRN Reason: Pain (severe 7-10) Melatonin/Pyridoxine Hcl (B6) [Melatonin 5 Mg Tablet] 1 E 1 each PO DAILY ON LICENSE OF [facility] Last Admin: 01/09/19 09:02 Dose: Not Given Oxybutynin [Oxytrol] (1 Patch) 1 each TRDERM MoTh@0900 ON LICENSE OF [facility] Last Admin: 01/08/19 20:50 Dose: 1 each Rivaroxaban (Xarelto) 20 mg PO DAILY ON LICENSE OF [facility] Last Admin: 01/09/19 09:00 Dose: 20 mg Rosuvastatin Calcium (Crestor) 20 mg PO DAILY ON LICENSE OF [facility] Last Admin: 01/09/19 08:49 Dose: 20 mg Sodium Chloride (Saline Flush) 10 ml FLUSH ASDIRECTED PRN PRN Reason: Keep Vein Open Sodium Chloride (Saline Flush) 2.5 ml FLUSH ASDIRECTED PRN PRN Reason: Keep Vein Open Discontinued Medications Acetaminophen (Tylenol) 650 mg RECTAL NOW ONE Stop: 01/08/19 01:07 Last Admin: 01/08/19 01:15 Dose: Not Given Acetaminophen (Tylenol) Confirm Administered Dose 975 mg .ROUTE .STK-MED ONE Stop: 01/08/19 01:11 Last Admin: 01/08/19 01:14 Dose: 975 mg Acetaminophen (Tylenol) 975 mg RECTAL NOW ONE Stop: 01/08/19 01:14 Last Admin: 01/08/19 01:15 Dose: Not Given Albuterol/Ipratropium (Duoneb 3.0-0.5 Mg/3 Ml) 3 ml NEB ONETIME ONE Stop: 01/08/19 16:11 Last Admin: 01/08/19 16:32 Dose: 3 ml Sodium Chloride (Normal Saline) 1,000 mls @ 999 mls/hr IV STAT ONE Stop: 01/08/19 02:06 Last Admin: 01/08/19 01:13 Dose: 999 mls/hr Ceftriaxone Sodium/Dextrose 2 (gm/ Premix) 50 mls @ 100 mls/hr IV ONETIME ONE Stop: 01/08/19 02:26 Last Admin: 01/08/19 02:27 Dose: 100 mls/hr Ceftriaxone Sodium/Dextrose 1 (gm/ Premix) 50 mls @ 100 mls/hr IV Q24H ON LICENSE OF [facility] Sodium Chloride (Normal Saline) 1,000 mls @ 125 mls/hr IV ASDIRECTED ON LICENSE OF [facility] Last Admin: 01/08/19 12:21 Dose: 125 mls/hr Sodium Chloride (Normal Saline) 1,000 mls @ 150 mls/hr IV ASDIRECTED ON LICENSE OF [facility] Last Admin: 01/08/19 13:22 Dose: 150 mls/hr Oxybutynin [Oxytrol] (1 Patch) 1 each TRDERM MoTh@0900 ON LICENSE OF [facility]
[2019-01-09] MEDS: Insulin Aspart 100 Units/ML 3 ML Pen SUBCUT SCH ×3 (07:27→18:00)
[2019-01-09] MEDS: Baclofen 10 MG Tab PO SCH ×2 (07:29→20:51)
[2019-01-09] MEDS: Rosuvastatin 10 MG Tab PO SCH (08:49)
[2019-01-09] MEDS: Metoprolol Tartrate 50 MG Tab PO SCH (08:52)
[2019-01-09] MEDS: Rivaroxaban 10 MG Tab PO SCH (09:00)
[2019-01-09] MEDS: MELATONIN PO SCH (09:02)
[2019-01-09] MEDS: PYRIDOXINE HCL PO SCH (09:02)
[2019-01-09] MEDS: cefTRIAXone 1 GM in Premix Bag 1 BAG IV SCH (20:52)
[2019-01-09] MEDS ORDERED: cefTRIAXone 1 GM in Premix Bag 1 BAG IV SCH (21:00)
[2019-01-10] MEDS: Sodium Chloride 0.9% 1,000 ML IV SCH (04:48)
[2019-01-10 06:09] LABS: CARBON DIOXIDE,CO2 20.7 mmol/L (21.0-32.0); POTASSIUM,K 3.5 mmol/L (3.5-5.1)
[2019-01-10] MEDS: Insulin Aspart 100 Units/ML 3 ML Pen SUBCUT SCH ×3 (06:34→18:53)
[2019-01-10] MEDS: Baclofen 10 MG Tab PO SCH ×2 (06:40→21:22)
[2019-01-10] MEDS: Rivaroxaban 10 MG Tab PO SCH (08:23)
[2019-01-10] MEDS: Rosuvastatin 10 MG Tab PO SCH (08:25)
[2019-01-10] MEDS: Metoprolol Tartrate 50 MG Tab PO SCH (08:29)
[2019-01-10] MEDS: Furosemide 40 MG Tab PO SCH (08:29)
[2019-01-10] MEDS: MELATONIN PO SCH (08:30)
[2019-01-10] MEDS: PYRIDOXINE HCL PO SCH (08:30)
[2019-01-10] MEDS ORDERED: OXYBUTYNIN TRDERM SCH (09:00)
--- NOTE | 2019-01-10 11:38 | PCM.PN ---
<Karina Whitney - Last Filed: 01/10/19 11:31> - General Info Date of Service: 01/10/19 Subjective Update: 68-year-old female; status post left cystoscopy with stent insertion; . Patient seen at bedside: Endorsing no new complaints. Requesting to go home. Denies any fever, chills, body aches, dysuria. Patient denies any discomfort at this time and would like to go home. Patient denies any chest pain or shortness of breath. - Review of Systems General: Reports: No Symptoms Pulmonary: Reports: No Symptoms Cardiovascular: Reports: No Symptoms Gastrointestinal: Reports: No Symptoms Genitourinary: Reports: No Symptoms Neurological: Denies: Confusion, Dizziness, Headache - Patient Data Vitals - Most Recent: Last Vital Signs Temp 99.3 F 01/10/19 07:31 Pulse 86 01/10/19 08:29 Resp 16 01/10/19 07:31 BP 145/75 H 01/10/19 08:29 Pulse Ox 95 01/10/19 07:31 Weight - Most Recent: 92.941 kg I&O - Last 24 Hours: Intake & Output 01/09/19 01/10/19 01/10/19 22:59 06:59 14:59 Intake Total 720 1455 Output Total 0 Balance 720 1455 Lab Results Last 24 Hours: Laboratory Results - last 24 hr 01/09/19 01/10/19 01/10/19 Range/Units 17:46 05:08 05:08 WBC 8.47 (4.0-11.0) K/uL RBC 2.51 L (4.30-5.90) M/uL Hgb 7.7 L (12.0-16.0) g/dL Hct 24.2 L (36.0-46.0) % MCV 96.4 (80.0-98.0) fL MCH 30.7 (27.0-32.0) pg MCHC 31.8 (31.0-37.0) g/dL RDW Std Deviation 54.0 (28.0-62.0) fl RDW Coeff of Marjorie 15 (11.0-15.0) % Plt Count 158 (150-400) K/uL MPV 10.10 (7.40-12.00) fL Neut % (Auto) 82.2 H (48.0-80.0) % Lymph % (Auto) 7.2 L (16.0-40.0) % [place] % (Auto) 9.6 (0.0-15.0) % Eos % (Auto) 0.9 (0.0-7.0) % Baso % (Auto) 0.1 (0.0-1.5) % Neut # (Auto) 7.0 H (1.4-5.7) K/uL Lymph # (Auto) 0.6 (0.6-2.4) K/uL [place] # (Auto) 0.8 (0.0-0.8) K/uL Eos # (Auto) 0.1 (0.0-0.7) K/uL Baso # (Auto) 0.0 (0.0-0.1) K/uL Nucleated RBC % 0.0 /100WBC Nucleated RBCs # 0 K/uL Sodium 142 (136-145) mmol/L Potassium 3.5 (3.5-5.1) mmol/L Chloride 111 H (98-107) mmol/L Carbon Dioxide 20.7 L (21.0-32.0) mmol/L BUN 30 H (7.0-18.0) mg/dL Creatinine 1.4 H (0.6-1.0) mg/dL Est Cr Clr Drug Dosing 32.29 mL/min Estimated GFR (MDRD) 37.2 ml/min Glucose 98 (74-106) mg/dL POC Glucose 80 (60-110) mg/dL Calcium 8.4 L (8.5-10.1) mg/dL 01/10/19 Range/Units 06:26 WBC (4.0-11.0) K/uL RBC (4.30-5.90) M/uL Hgb (12.0-16.0) g/dL Hct (36.0-46.0) % MCV (80.0-98.0) fL MCH (27.0-32.0) pg MCHC (31.0-37.0) g/dL RDW Std Deviation (28.0-62.0) fl RDW Coeff of Marjorie (11.0-15.0) % Plt Count (150-400) K/uL MPV (7.40-12.00) fL Neut % (Auto) (48.0-80.0) % Lymph % (Auto) (16.0-40.0) % [place] % (Auto) (0.0-15.0) % Eos % (Auto) (0.0-7.0) % Baso % (Auto) (0.0-1.5) % Neut # (Auto) (1.4-5.7) K/uL Lymph # (Auto) (0.6-2.4) K/uL [place] # (Auto) (0.0-0.8) K/uL Eos # (Auto) (0.0-0.7) K/uL Baso # (Auto) (0.0-0.1) K/uL Nucleated RBC % /100WBC Nucleated RBCs # K/uL Sodium (136-145) mmol/L Potassium (3.5-5.1) mmol/L Chloride (98-107) mmol/L Carbon Dioxide (21.0-32.0) mmol/L BUN (7.0-18.0) mg/dL Creatinine (0.6-1.0) mg/dL Est Cr Clr Drug Dosing mL/min Estimated GFR (MDRD) ml/min Glucose (74-106) mg/dL POC Glucose 92 (60-110) mg/dL Calcium (8.5-10.1) mg/dL Jareth Results Last 24 Hours: Microbiology 01/09/19 10:11 Aerobic Blood Culture - Preliminary Blood - Venous - Lab Draw NO GROWTH AFTER 1 DAY Anaerobic Blood Culture - Final 01/09/19 09:55 Aerobic Blood Culture - Preliminary Blood - Venous NO GROWTH AFTER 1 DAY Anaerobic Blood Culture - Preliminary NO GROWTH AFTER 1 DAY 01/08/19 02:29 Aerobic Blood Culture - Final Blood - Venous - Lab Draw Enterobacter Cloacae Anaerobic Blood Culture - Final 01/08/19 01:14 Aerobic Blood Culture - Final Blood - Venous Enterobacter Cloacae Anaerobic Blood Culture - Final Enterobacter Cloacae 01/08/19 01:15 Urine Culture - Final Urine, Clean Catch Enterobacter Cloacae Med Orders - Current: Current Medications Acetaminophen (Tylenol) 650 mg PO Q6H PRN PRN Reason: Pain/Fever Last Admin: 01/08/19 16:02 Dose: 650 mg Baclofen (Lioresal) 20 mg PO ACBREAKFAST [place] Last Admin: 01/10/19 06:40 Dose: 20 mg Baclofen (Lioresal) 40 mg PO BEDTIME [facility] Last Admin: 01/09/19 20:51 Dose: 40 mg Fluoxetine HCl (Prozac) 10 mg PO DAILY [facility] Last Admin: 01/10/19 08:26 Dose: 10 mg Furosemide (Lasix) 40 mg PO DAILY [facility] Last Admin: 01/10/19 08:29 Dose: 40 mg Ceftriaxone Sodium/Dextrose 1 (gm/ Premix) 50 mls @ 100 mls/hr IV Q24H [facility] Last Admin: 01/09/19 20:52 Dose: 100 mls/hr Insulin Aspart (Novolog) 0 unit SUBCUT TIDAC [facility]; Protocol Last Admin: 01/10/19 06:34 Dose: Not Given Metoprolol Tartrate (Lopressor) 50 mg PO DAILY [facility] Last Admin: 01/10/19 08:29 Dose: 50 mg Ondansetron HCl (Zofran) 4 mg IVPUSH Q4H PRN PRN Reason: Nausea/Vomiting Oxycodone HCl (Oxycodone) 5 mg PO Q4H PRN PRN Reason: Pain (severe 7-10) Melatonin/Pyridoxine Hcl (B6) [Melatonin 5 Mg Tablet] 1 E 1 each PO DAILY [facility] Last Admin: 01/10/19 08:30 Dose: Not Given Oxybutynin [Oxytrol] (1 Patch) 1 each TRDERM MoTh@0900 [facility] Last Admin: 01/08/19 20:50 Dose: 1 each Rivaroxaban (Xarelto) 20 mg PO DAILY [facility] Last Admin: 01/10/19 08:23 Dose: 20 mg Rosuvastatin Calcium (Crestor) 20 mg PO DAILY [facility] Last Admin: 01/10/19 08:25 Dose: 20 mg Sodium Chloride (Saline Flush) 10 ml FLUSH ASDIRECTED PRN PRN Reason: Keep Vein Open Sodium Chloride (Saline Flush) 2.5 ml FLUSH ASDIRECTED PRN PRN Reason: Keep Vein Open Discontinued Medications Acetaminophen (Tylenol) 650 mg RECTAL NOW ONE Stop: 01/08/19 01:07 Last Admin: 01/08/19 01:15 Dose: Not Given Acetaminophen (Tylenol) Confirm Administered Dose 975 mg .ROUTE .STK-MED ONE Stop: 01/08/19 01:11 Last Admin: 01/08/19 01:14 Dose: 975 mg Acetaminophen (Tylenol) 975 mg RECTAL NOW ONE Stop: 01/08/19 01:14 Last Admin: 01/08/19 01:15 Dose: Not Given Albuterol/Ipratropium (Duoneb 3.0-0.5 Mg/3 Ml) 3 ml NEB ONETIME ONE Stop: 01/08/19 16:11 Last Admin: 01/08/19 16:32 Dose: 3 ml Sodium Chloride (Normal Saline) 1,000 mls @ 999 mls/hr IV STAT ONE Stop: 01/08/19 02:06 Last Admin: 01/08/19 01:13 Dose: 999 mls/hr Ceftriaxone Sodium/Dextrose 2 (gm/ Premix) 50 mls @ 100 mls/hr IV ONETIME ONE Stop: 01/08/19 02:26 Last Admin: 01/08/19 02:27 Dose: 100 mls/hr Ceftriaxone Sodium/Dextrose 1 (gm/ Premix) 50 mls @ 100 mls/hr IV Q24H [facility] Sodium Chloride (Normal Saline) 1,000 mls @ 125 mls/hr IV ASDIRECTED [facility] Last Admin: 01/08/19 12:21 Dose: 125 mls/hr Sodium Chloride (Normal Saline) 1,000 mls @ 150 mls/hr IV ASDIRECTED [facility] Last Admin: 01/08/19 13:22 Dose: 150 mls/hr Sodium Chloride (Normal Saline) 1,000 mls @ 100 mls/hr IV Q10H [facility] Last Admin: 01/10/19 04:48 Dose: 100 mls/hr Oxybutynin [Oxytrol] (1 Patch) 1 each TRDERM MoTh@0900 [facility] - Exam General: Alert, Oriented, Cooperative, No Acute Distress HEENT: Pupils Equal, Mucous Membr. Moist/[place] Lungs: Clear to Auscultation, Normal Respiratory Effort Cardiovascular: Regular Rate, Regular Rhythm GI/Abdominal Exam: Soft Back Exam: Normal Inspection Extremities: Other (+1 pitting edema of lower extremitites ) Skin: Warm, Dry Wound/Incisions: Healing Well, No Drainage Neurological: No New Focal Deficit Psy/Mental Status: Alert, Normal Affect, Normal Mood - Problem List Review Problem List Initiated/Reviewed/Updated: Yes - My Orders Last 24 Hours: My Active Orders 01/10/19 11:27 RED BLOOD CELLS LP [BBK] Routine TYPE AND SCREEN [BBK] Routine Transfuse Red Blood Cells [COMM] Routine - Plan Plan:: 1. Gram negative bacteremia- continue IV Rocephin/ E. Cloacae 2. Hematuria secondary to obstructing stone s/p stent- urology consulted, appreciate recommendations; awaiting disposition recommendations. 3. MAI likely secondary to obstructing stone/dehydration- will continue to monitor; interval improvement since procedure. 4. UTI- continue IV Rocephin, Enterobacter cloacae; 5. Chronic anemia- will provide 1-unit of PRBC. Recheck in AM; 6. Hypernatremia- resolved 11. Chronic conditions- DMII, MS, hyperlipidemia, HTN, PE- continue home meds, hold metformin, accucheck and sliding scale insulin. <Devon Canela - Last Filed: 01/10/19 12:50> - General Info Admission Dx/Problem (Free Text): I have seen and examined the patient independently of medical field representative, Dr. Chelo MD. I have reviewed and agree with the plan of care as outlined for this patient by him. I have discussed the case with him. Please see orders. - Patient Data Vitals - Most Recent: Last Vital Signs Temp 36.7 C 01/10/19 11:00 Pulse 73 01/10/19 11:00 Resp 18 01/10/19 11:00 BP 143/70 H 01/10/19 11:00 Pulse Ox 94 L 01/10/19 11:00 I&O - Last 24 Hours: Intake & Output 01/09/19 01/10/19 01/10/19 22:59 06:59 14:59 Intake Total 720 1455 Output Total 0 Balance 720 1455 Lab Results Last 24 Hours: Laboratory Results - last 24 hr 01/09/19 01/10/19 01/10/19 Range/Units 17:46 05:08 05:08 WBC 8.47 (4.0-11.0) K/uL RBC 2.51 L (4.30-5.90) M/uL Hgb 7.7 L (12.0-16.0) g/dL Hct 24.2 L (36.0-46.0) % MCV 96.4 (80.0-98.0) fL MCH 30.7 (27.0-32.0) pg MCHC 31.8 (31.0-37.0) g/dL RDW Std Deviation 54.0 (28.0-62.0) fl RDW Coeff of Marjorie 15 (11.0-15.0) % Plt Count 158 (150-400) K/uL MPV 10.10 (7.40-12.00) fL Neut % (Auto) 82.2 H (48.0-80.0) % Lymph % (Auto) 7.2 L (16.0-40.0) % [place] % (Auto) 9.6 (0.0-15.0) % Eos % (Auto) 0.9 (0.0-7.0) % Baso % (Auto) 0.1 (0.0-1.5) % Neut # (Auto) 7.0 H (1.4-5.7) K/uL Lymph # (Auto) 0.6 (0.6-2.4) K/uL [place] # (Auto) 0.8 (0.0-0.8) K/uL Eos # (Auto) 0.1 (0.0-0.7) K/uL Baso # (Auto) 0.0 (0.0-0.1) K/uL Nucleated RBC % 0.0 /100WBC Nucleated RBCs # 0 K/uL Sodium 142 (136-145) mmol/L Potassium 3.5 (3.5-5.1) mmol/L Chloride 111 H (98-107) mmol/L Carbon Dioxide 20.7 L (21.0-32.0) mmol/L BUN 30 H (7.0-18.0) mg/dL Creatinine 1.4 H (0.6-1.0) mg/dL Est Cr Clr Drug Dosing 32.29 mL/min Estimated GFR (MDRD) 37.2 ml/min Glucose 98 (74-106) mg/dL POC Glucose 80 (60-110) mg/dL Calcium 8.4 L (8.5-10.1) mg/dL 01/10/19 01/10/19 Range/Units 06:26 12:04 WBC (4.0-11.0) K/uL RBC (4.30-5.90) M/uL Hgb (12.0-16.0) g/dL Hct (36.0-46.0) % MCV (80.0-98.0) fL MCH (27.0-32.0) pg MCHC (31.0-37.0) g/dL RDW Std Deviation (28.0-62.0) fl RDW Coeff of Marjorie (11.0-15.0) % Plt Count (150-400) K/uL MPV (7.40-12.00) fL Neut % (Auto) (48.0-80.0) % Lymph % (Auto) (16.0-40.0) % [place] % (Auto) (0.0-15.0) % Eos % (Auto) (0.0-7.0) % Baso % (Auto) (0.0-1.5) % Neut # (Auto) (1.4-5.7) K/uL Lymph # (Auto) (0.6-2.4) K/uL [place] # (Auto) (0.0-0.8) K/uL Eos # (Auto) (0.0-0.7) K/uL Baso # (Auto) (0.0-0.1) K/uL Nucleated RBC % /100WBC Nucleated RBCs # K/uL Sodium (136-145) mmol/L Potassium (3.5-5.1) mmol/L Chloride (98-107) mmol/L Carbon Dioxide (21.0-32.0) mmol/L BUN (7.0-18.0) mg/dL Creatinine (0.6-1.0) mg/dL Est Cr Clr Drug Dosing mL/min Estimated GFR (MDRD) ml/min Glucose (74-106) mg/dL POC Glucose 92 171 H (60-110) mg/dL Calcium (8.5-10.1) mg/dL Jareth Results Last 24 Hours: Microbiology 01/09/19 10:11 Aerobic Blood Culture - Preliminary Blood - Venous - Lab Draw NO GROWTH AFTER 1 DAY Anaerobic Blood Culture - Final 01/09/19 09:55 Aerobic Blood Culture - Preliminary Blood - Venous NO GROWTH AFTER 1 DAY Anaerobic Blood Culture - Preliminary NO GROWTH AFTER 1 DAY 01/08/19 02:29 Aerobic Blood Culture - Final Blood - Venous - Lab Draw Enterobacter Cloacae Anaerobic Blood Culture - Final 01/08/19 01:14 Aerobic Blood Culture - Final Blood - Venous Enterobacter Cloacae Anaerobic Blood Culture - Final Enterobacter Cloacae 01/08/19 01:15 Urine Culture - Final Urine, Clean Catch Enterobacter Cloacae Med Orders - Current: Current Medications Acetaminophen (Tylenol) 650 mg PO Q6H PRN PRN Reason: Pain/Fever Last Admin: 01/10/19 11:52 Dose: 650 mg Baclofen (Lioresal) 20 mg PO ACBREAKFAST [facility] Last Admin: 01/10/19 06:40 Dose: 20 mg Baclofen (Lioresal) 40 mg PO BEDTIME [facility] Last Admin: 01/09/19 20:51 Dose: 40 mg Fluoxetine HCl (Prozac) 10 mg PO DAILY [facility] Last Admin: 01/10/19 08:26 Dose: 10 mg Furosemide (Lasix) 40 mg PO DAILY [facility] Last Admin: 01/10/19 08:29 Dose: 40 mg Ceftriaxone Sodium/Dextrose 1 (gm/ Premix) 50 mls @ 100 mls/hr IV Q24H [facility] Last Admin: 01/09/19 20:52 Dose: 100 mls/hr Insulin Aspart (Novolog) 0 unit SUBCUT TIDAC [facility]; Protocol Last Admin: 01/10/19 12:26 Dose: 2 unit Metoprolol Tartrate (Lopressor) 50 mg PO DAILY [facility] Last Admin: 01/10/19 08:29 Dose: 50 mg Ondansetron HCl (Zofran) 4 mg IVPUSH Q4H PRN PRN Reason: Nausea/Vomiting Oxycodone HCl (Oxycodone) 5 mg PO Q4H PRN PRN Reason: Pain (severe 7-10) Melatonin/Pyridoxine Hcl (B6) [Melatonin 5 Mg Tablet] 1 E 1 each PO DAILY [facility] Last Admin: 01/10/19 08:30 Dose: Not Given Oxybutynin [Oxytrol] (1 Patch) 1 each TRDERM MoTh@0900 [facility] Last Admin: 01/08/19 20:50 Dose: 1 each Rivaroxaban (Xarelto) 20 mg PO DAILY [facility] Last Admin: 01/10/19 08:23 Dose: 20 mg Rosuvastatin Calcium (Crestor) 20 mg PO DAILY [facility] Last Admin: 01/10/19 08:25 Dose: 20 mg Sodium Chloride (Saline Flush) 10 ml FLUSH ASDIRECTED PRN PRN Reason: Keep Vein Open Sodium Chloride (Saline Flush) 2.5 ml FLUSH ASDIRECTED PRN PRN Reason: Keep Vein Open Discontinued Medications Acetaminophen (Tylenol) 650 mg RECTAL NOW ONE Stop: 01/08/19 01:07 Last Admin: 01/08/19 01:15 Dose: Not Given Acetaminophen (Tylenol) Confirm Administered Dose 975 mg .ROUTE .STK-MED ONE Stop: 01/08/19 01:11 Last Admin: 01/08/19 01:14 Dose: 975 mg Acetaminophen (Tylenol) 975 mg RECTAL NOW ONE Stop: 01/08/19 01:14 Last Admin: 01/08/19 01:15 Dose: Not Given Albuterol/Ipratropium (Duoneb 3.0-0.5 Mg/3 Ml) 3 ml NEB ONETIME ONE Stop: 01/08/19 16:11 Last Admin: 01/08/19 16:32 Dose: 3 ml Sodium Chloride (Normal Saline) 1,000 mls @ 999 mls/hr IV STAT ONE Stop: 01/08/19 02:06 Last Admin: 01/08/19 01:13 Dose: 999 mls/hr Ceftriaxone Sodium/Dextrose 2 (gm/ Premix) 50 mls @ 100 mls/hr IV ONETIME ONE Stop: 01/08/19 02:26 Last Admin: 01/08/19 02:27 Dose: 100 mls/hr Ceftriaxone Sodium/Dextrose 1 (gm/ Premix) 50 mls @ 100 mls/hr IV Q24H [facility] Sodium Chloride (Normal Saline) 1,000 mls @ 125 mls/hr IV ASDIRECTED [facility] Last Admin: 01/08/19 12:21 Dose: 125 mls/hr Sodium Chloride (Normal Saline) 1,000 mls @ 150 mls/hr IV ASDIRECTED [facility] Last Admin: 01/08/19 13:22 Dose: 150 mls/hr Sodium Chloride (Normal Saline) 1,000 mls @ 100 mls/hr IV Q10H [facility] Last Admin: 01/10/19 04:48 Dose: 100 mls/hr Oxybutynin [Oxytrol] (1 Patch) 1 each TRDERM MoTh@0900 [facility]
[2019-01-10] MEDS: Acetaminophen 325 MG Tab PO PRN (11:52)
[2019-01-10] MEDS: cefTRIAXone 1 GM in Premix Bag 1 BAG IV SCH (21:20)
[2019-01-11 06:37] LABS: CARBON DIOXIDE,CO2 22.1 mmol/L (21.0-32.0); POTASSIUM,K 3.1 mmol/L (3.5-5.1)
[2019-01-11] MEDS: Baclofen 10 MG Tab PO SCH (06:52)
[2019-01-11] MEDS: Insulin Aspart 100 Units/ML 3 ML Pen SUBCUT SCH ×2 (06:56→12:07)
[2019-01-11] MEDS ORDERED: Potassium Chloride 20 MEQ Tab.ER PO ONE ×2 (07:10→12:00)
[2019-01-11] MEDS: Rosuvastatin 10 MG Tab PO SCH (09:37)
[2019-01-11] MEDS: Furosemide 40 MG Tab PO SCH (09:37)
[2019-01-11] MEDS: Rivaroxaban 10 MG Tab PO SCH (09:38)
[2019-01-11] MEDS: Metoprolol Tartrate 50 MG Tab PO SCH (09:38)
[2019-01-11] MEDS: PYRIDOXINE HCL PO SCH (09:38)
[2019-01-11] MEDS: MELATONIN PO SCH (09:38)
--- NOTE | 2019-01-11 10:18 | PCM.DCSUM1 ---
<Riya Muhammad - Last Filed: 01/11/19 13:16> Discharge Summary - Hospital Course HPI Initial Comments: Admission Date: 01/08/19 Discharge Date: 01/11/19 Admission Diagnosis: 1. MAI likely secondary to dehydration 2. UTI and hematuria 3. Chronic anemia 4. Hypernatremia 5.Chronic conditions- DMII, MS, hyperlipidemia, HTN, PE 6. AMS Discharge Diagnosis: 1. Gram negative Bacteremia- growing Enterobacter cloacae-resolved 2. Hematuria secondary to obstructive stone s/p stent and cystoscopy 3. MAI secondary to dehydration and obstructive stone-improved 4. UTI growing Enterobacter cloacae 5. Hypokalemia 6. Chronic anemia s/p transfusion 1 PRBC- improved 7. Hypernatremia- resolved 8. Chronic conditions- DMII, MS, hyperlipidemia, HTN, PE 9. Weakness 10. AMS- resolved Procedures: cystoscopy with ureter stent Consults: Urology Hospital Course: The patient is a 68-year-old female with past medical history of type 2 diabetes, MS, hyperlipidemia, hypertension, PE who was brought in by EMS after the found her slumped over in the bathroom with altered mental status. The patient has a history of altered mental status with dehydration. In the ER workup showed a white count of 1.9, chronic anemia of 10.2, acute kidney injury with creatinine at 2.1, TSH within normal limits, lactate within normal limits of 1.7, UA with positive bacteria, white cells and within [address] showed no acute intracranial process. Chest x- ray showed hypoaeration with left basilar discoid atelectasis. In the ER, the patient was started on Rocephin IV fluids and acetaminophen from for fever. She was admitted to the medical surgical floor. or hematuria. A ultrasound was obtained which showed sided hydronephrosis. This was followed up with a CT abdomen and pelvis which showed an obstructing stone on the left with hydronephrosis. Urology was consulted and Dr. Ortiz took her to surgery and placed a stent that day. For her acute kidney injury, likely secondary to both dehydration and the obstructive stone, this improved with IV fluids. Her DERIK inhibitor and Lasix were held due to her kidney function and were resumed with improvement. Blood cultures were drawn and did come back as gram-negative bacteria growing Enterobacter. The patient was on Rocephin for UTI, which was growing the same bacteria. Repeat blood cultures were negative. The patient does have chronic anemia and did have a drop secondary to IVF administration but it did get down to 7.7. She was transfused with 1 unit of PRBCs and her hemoglobin improved to 8.5. She developed a hypokalemia which was replaced on day of discharge. For her chronic conditions, type 2 diabetes, hyperlipidemia, hypertension, MS, and PE, she was continued on her home meds except for diabetes. For diabetes, she was put on sliding scale and Accu-Cheks. While admitted, the patient was seen by physical therapy for weakness, they noted lower extremity weakness and recommended strengthening to prevent gait and balance deficits. By day discharge, the patient stated she felt much better. Her altered mental status had resolved and she was requesting discharge. Patient would benefit from home health as the patient is unable to ambulate more than 20 feet before needing to stop for break, patient is unsteady when walking. Has weakness and deconditioning due to hospitalization. Patient would benefit from physical therapy for strengthening due to weakness from recent hospitalization. RN would be helpful in managing medications and looking for her increased lower extremity edema. PCP- Cora Wallace will follow patient for home health once discharged from hospital. Disposition: Home with home health Discharge Condition: vitals stable, tolerating oral diet, ambulating without difficulty, symptom improvement Discharge Instructions: diabetic diet as tolerated, activity as tolerated, take medications as prescribed. Symptoms to report to physician include fever/chills , chest pain, shortness of breath, abdominal pain, erythema, drainage/discharge , or not improving as expected. Discharge Medications: Baclofen 20 mg PO ACBREAKFAST Baclofen 40 mg PO BEDTIME Furosemide 40 mg PO DAILY Glimepiride [Amaryl] 4 mg PO BID Metoprolol Tartrate 50 mg PO DAILY Potassium Chloride [K-Tab ER] 20 meq PO DAILY Ramipril 10 mg PO DAILY Rosuvastatin [Crestor] 20 mg PO DAILY metFORMIN HCl [Metformin ER Osmotic] 2,000 mg PO ACDINNER FLUoxetine [PROzac] 10 mg PO DAILY Rivaroxaban [Xarelto] 20 mg PO WITHDINNER Oxybutynin [Oxytrol] 1 patch TRDERM ASDIRECTED Melatonin/Pyridoxine HCl (B6) [Melatonin 5 mg Tablet] 1 each PO DAILY Ciprofloxacin [Ciprofloxacin HCl] 500 mg PO Q12HR 10 Days Follow-up: 1. PCP- Cora Gaytan on 01/16/19 2. Urology- Dr. Ortiz on 01/22/19 - Discharge Data Discharge Date: 01/11/19 Discharge Disposition: Home, W Home Health Agency 06 Condition: Stable - Referral to Home Health Date of Face to Face Encounter: 01/11/19 Reason for Homebound Status: patient unable to ambulate more than 20 feet before needing to stop for break, patient is unsteady when walking. Has weakness and deconditioning due to hospitalization. Patient would benefit from physical therapy for strengthening due to weakness from recent hospitalization. RN would be helpful in managing medications and looking for her increased lower extremity edema Primary Care Physician: PCP None Skilled Need: patient unable to ambulate more than 20 feet before needing to stop for break, patient is unsteady when walking. Has weakness and deconditioning due to hospitalization. Patient would benefit from physical therapy for strengthening due to weakness from recent hospitalization. RN would be helpful in managing medications and looking for her increased lower extremity edema - Discharge Diagnosis/Problem(s) (1) MAI (acute kidney injury) SNOMED Code(s): 02780202, 05172712 ICD Code: N17.9 - ACUTE KIDNEY FAILURE, UNSPECIFIED Status: Acute (2) Hypernatremia SNOMED Code(s): 833143138 ICD Code: E87.0 - HYPEROSMOLALITY AND HYPERNATREMIA Status: Acute (3) Chronic anemia SNOMED Code(s): 238480705 ICD Code: D64.9 - ANEMIA, UNSPECIFIED Status: Chronic (4) DMII (diabetes mellitus, type 2) SNOMED Code(s): 69764290 ICD Code: E11.9 - TYPE 2 DIABETES MELLITUS WITHOUT COMPLICATIONS Status: Chronic (5) Multiple sclerosis SNOMED Code(s): 83437174 ICD Code: G35 - MULTIPLE SCLEROSIS Status: Chronic (6) Hyperlipidemia SNOMED Code(s): 96051966 ICD Code: E78.5 - HYPERLIPIDEMIA, UNSPECIFIED Status: Chronic (7) HTN (hypertension) SNOMED Code(s): 05115303 ICD Code: I10 - ESSENTIAL (PRIMARY) HYPERTENSION Status: Chronic (8) Hx pulmonary embolism SNOMED Code(s): 753873582 ICD Code: Z86.711 - PERSONAL HISTORY OF PULMONARY EMBOLISM Status: Chronic (9) Dehydration SNOMED Code(s): 63181397 ICD Code: E86.0 - DEHYDRATION Status: Acute (10) Hematuria SNOMED Code(s): 33790382 ICD Code: R31.9 - HEMATURIA, UNSPECIFIED Status: Acute (11) Urinary tract infection with fever SNOMED Code(s): 63037446879235 ICD Code: N39.0 - URINARY TRACT INFECTION, SITE NOT SPECIFIED Status: Acute (12) Altered mental status, unspecified SNOMED Code(s): 184603954 ICD Code: R41.82 - ALTERED MENTAL STATUS, UNSPECIFIED Status: Acute Qualifiers: Altered mental status type: unspecified Qualified Code(s): R41.82 - Altered mental status, unspecified (13) Obstruction of ureteropelvic junction (UPJ) due to stone SNOMED Code(s): 67856376, 33627288 ICD Code: N20.1 - CALCULUS OF URETER Status: Acute (14) Gram-negative bacteremia SNOMED Code(s): 858915335875 ICD Code: R78.81 - BACTEREMIA Status: Acute - Patient Summary/Data Consults: Consultations 01/08/19 12:39 Consult to Physician [CONS] Routine 01/08/19 17:49 Consult to Physical Therapy [PT Evaluation and Treatment] [CONS] Routine - Patient Instructions Diet: Diabetic Diet Activity: As Tolerated Showering/Bathing: May Shower Notify Provider of: Fever, Increased Pain, Swelling and Redness, Drainage, Nausea and/or Vomiting Other/Special Instructions: Additional symptoms include chest pain, shortness of breath, or abdominal pain. - Discharge Plan *PRESCRIPTION DRUG MONITORING PROGRAM REVIEWED*: No *COPY OF PRESCRIPTION DRUG MONITORING REPORT IN PATIENT DEEPIKA: No Prescriptions/Med Rec: Ciprofloxacin [Ciprofloxacin HCl] 500 mg PO Q12HR 10 Days #20 tab Home Medications: Home Meds Baclofen 20 mg PO ACBREAKFAST 12/26/15 [History] Baclofen 40 mg PO BEDTIME 12/26/15 [History] Furosemide 40 mg PO DAILY 12/26/15 [History] Glimepiride [Amaryl] 4 mg PO BID 12/26/15 [History] Metoprolol Tartrate 50 mg PO DAILY 12/26/15 [History] Potassium Chloride [K-Tab ER] 20 meq PO DAILY 12/26/15 [History] Ramipril 10 mg PO DAILY 12/26/15 [History] Rosuvastatin [Crestor] 20 mg PO DAILY 12/26/15 [History] metFORMIN HCl [Metformin ER Osmotic] 2,000 mg PO ACDINNER 12/26/15 [History] FLUoxetine [PROzac] 10 mg PO DAILY 04/01/18 [History] Rivaroxaban [Xarelto] 20 mg PO WITHDINNER 04/01/18 [History] Oxybutynin [Oxytrol] 1 patch TRDERM ASDIRECTED 12/04/18 [History] Melatonin/Pyridoxine HCl (B6) [Melatonin 5 mg Tablet] 1 each PO DAILY 01/08/19 [ History] Ciprofloxacin [Ciprofloxacin HCl] 500 mg PO Q12HR 10 Days #20 tab 01/11/19 [Rx] Patient Handouts: Type 2 Diabetes Mellitus, Diagnosis, Adult, Diabetes Mellitus and Foot Care, Kidney Stones, [id number], Cystoscopy, Care After, Ciprofloxacin tablets, Ureteral Stent Implantation, Care After Referrals: oCra Lyman NP [Nurse Practitioner] - 01/16/19 2:00 pm Priscila Ortiz MD [Physician] - 01/22/19 2:00 pm - Discharge Summary/Plan Comment DC Time >30 min.: No - Patient Data Vitals - Most Recent: Last Vital Signs Temp 98.5 F 01/11/19 08:00 Pulse 82 01/11/19 09:38 Resp 16 01/11/19 08:29 BP 147/67 H 01/11/19 09:38 Pulse Ox 95 01/11/19 08:29 Weight - Most Recent: 92.941 kg I&O - Last 24 hours: Intake & Output 01/10/19 01/11/19 01/11/19 22:59 06:59 14:59 Intake Total 1139 700 Output Total 0 1100 Balance 1139 -400 Lab Results - Last 24 hrs: Laboratory Results - last 24 hr 01/10/19 01/10/19 01/10/19 Range/Units 06:26 12:03 12:04 WBC (4.0-11.0) K/uL RBC (4.30-5.90) M/uL Hgb (12.0-16.0) g/dL Hct (36.0-46.0) % MCV (80.0-98.0) fL MCH (27.0-32.0) pg MCHC (31.0-37.0) g/dL RDW Std Deviation (28.0-62.0) fl RDW Coeff of Marjorie (11.0-15.0) % Plt Count (150-400) K/uL MPV (7.40-12.00) fL Neut % (Auto) (48.0-80.0) % Lymph % (Auto) (16.0-40.0) % Smyth % (Auto) (0.0-15.0) % Eos % (Auto) (0.0-7.0) % Baso % (Auto) (0.0-1.5) % Neut # (Auto) (1.4-5.7) K/uL Lymph # (Auto) (0.6-2.4) K/uL Smyth # (Auto) (0.0-0.8) K/uL Eos # (Auto) (0.0-0.7) K/uL Baso # (Auto) (0.0-0.1) K/uL Nucleated RBC % /100WBC Nucleated RBCs # K/uL Sodium (136-145) mmol/L Potassium (3.5-5.1) mmol/L Chloride (98-107) mmol/L Carbon Dioxide (21.0-32.0) mmol/L BUN (7.0-18.0) mg/dL Creatinine (0.6-1.0) mg/dL Est Cr Clr Drug Dosing mL/min Estimated GFR (MDRD) ml/min Glucose (74-106) mg/dL POC Glucose 92 171 H (60-110) mg/dL Calcium (8.5-10.1) mg/dL Blood Type O NEGATIVE Antibody Screen NEGATIVE Crossmatch See Detail 01/10/19 01/10/19 01/11/19 Range/Units 16:41 20:34 06:08 WBC 5.65 (4.0-11.0) K/uL RBC 2.83 L (4.30-5.90) M/uL Hgb 8.5 L (12.0-16.0) g/dL Hct 26.4 L (36.0-46.0) % MCV 93.3 (80.0-98.0) fL MCH 30.0 (27.0-32.0) pg MCHC 32.2 (31.0-37.0) g/dL RDW Std Deviation 53.2 (28.0-62.0) fl RDW Coeff of Marjorie 16 H (11.0-15.0) % Plt Count 152 (150-400) K/uL MPV 9.90 (7.40-12.00) fL Neut % (Auto) 69.5 (48.0-80.0) % Lymph % (Auto) 16.3 (16.0-40.0) % Smyth % (Auto) 11.9 (0.0-15.0) % Eos % (Auto) 2.3 (0.0-7.0) % Baso % (Auto) 0.0 (0.0-1.5) % Neut # (Auto) 3.9 (1.4-5.7) K/uL Lymph # (Auto) 0.9 (0.6-2.4) K/uL Smyth # (Auto) 0.7 (0.0-0.8) K/uL Eos # (Auto) 0.1 (0.0-0.7) K/uL Baso # (Auto) 0.0 (0.0-0.1) K/uL Nucleated RBC % 0.0 /100WBC Nucleated RBCs # 0 K/uL Sodium (136-145) mmol/L Potassium (3.5-5.1) mmol/L Chloride (98-107) mmol/L Carbon Dioxide (21.0-32.0) mmol/L BUN (7.0-18.0) mg/dL Creatinine (0.6-1.0) mg/dL Est Cr Clr Drug Dosing mL/min Estimated GFR (MDRD) ml/min Glucose (74-106) mg/dL POC Glucose 155 H 141 H (60-110) mg/dL Calcium (8.5-10.1) mg/dL Blood Type Antibody Screen Crossmatch 01/11/19 Range/Units 06:08 WBC (4.0-11.0) K/uL RBC (4.30-5.90) M/uL Hgb (12.0-16.0) g/dL Hct (36.0-46.0) % MCV (80.0-98.0) fL MCH (27.0-32.0) pg MCHC (31.0-37.0) g/dL RDW Std Deviation (28.0-62.0) fl RDW Coeff of Marjorie (11.0-15.0) % Plt Count (150-400) K/uL MPV (7.40-12.00) fL Neut % (Auto) (48.0-80.0) % Lymph % (Auto) (16.0-40.0) % Smyth % (Auto) (0.0-15.0) % Eos % (Auto) (0.0-7.0) % Baso % (Auto) (0.0-1.5) % Neut # (Auto) (1.4-5.7) K/uL Lymph # (Auto) (0.6-2.4) K/uL Smyth # (Auto) (0.0-0.8) K/uL Eos # (Auto) (0.0-0.7) K/uL Baso # (Auto) (0.0-0.1) K/uL Nucleated RBC % /100WBC Nucleated RBCs # K/uL Sodium 143 (136-145) mmol/L Potassium 3.1 L (3.5-5.1) mmol/L Chloride 110 H (98-107) mmol/L Carbon Dioxide 22.1 (21.0-32.0) mmol/L BUN 27 H (7.0-18.0) mg/dL Creatinine 1.3 H (0.6-1.0) mg/dL Est Cr Clr Drug Dosing 34.77 mL/min Estimated GFR (MDRD) 40.5 ml/min Glucose 121 H (74-106) mg/dL POC Glucose (60-110) mg/dL Calcium 8.7 (8.5-10.1) mg/dL Blood Type Antibody Screen Crossmatch ESLVIN Results - Last 24 hrs: Microbiology 01/09/19 10:11 Aerobic Blood Culture - Preliminary Blood - Venous - Lab Draw NO GROWTH AFTER 2 DAYS Anaerobic Blood Culture - Final 01/09/19 09:55 Aerobic Blood Culture - Preliminary Blood - Venous NO GROWTH AFTER 2 DAYS Anaerobic Blood Culture - Preliminary NO GROWTH AFTER 2 DAYS 01/08/19 02:29 Aerobic Blood Culture - Final Blood - Venous - Lab Draw Enterobacter Cloacae Anaerobic Blood Culture - Final 01/08/19 01:14 Aerobic Blood Culture - Final Blood - Venous Enterobacter Cloacae Anaerobic Blood Culture - Final Enterobacter Cloacae Med Orders - Current: Current Medications Acetaminophen (Tylenol) 650 mg PO Q6H PRN PRN Reason: Pain/Fever Last Admin: 01/10/19 11:52 Dose: 650 mg Baclofen (Lioresal) 20 mg PO ACBREAKFAST [facility] Last Admin: 01/11/19 06:52 Dose: 20 mg Baclofen (Lioresal) 40 mg PO BEDTIME [facility] Last Admin: 01/10/19 21:22 Dose: 40 mg Fluoxetine HCl (Prozac) 10 mg PO DAILY [facility] Last Admin: 01/11/19 09:37 Dose: 10 mg Furosemide (Lasix) 40 mg PO DAILY [facility] Last Admin: 01/11/19 09:37 Dose: 40 mg Ceftriaxone Sodium/Dextrose 1 (gm/ Premix) 50 mls @ 100 mls/hr IV Q24H [facility] Last Admin: 01/10/19 21:20 Dose: 100 mls/hr Insulin Aspart (Novolog) [facility] Protocol Last Admin: 01/11/19 06:56 Dose: Not Given Metoprolol Tartrate (Lopressor) 50 mg PO DAILY [facility] Last Admin: 01/11/19 09:38 Dose: 50 mg Ondansetron HCl (Zofran) 4 mg IVPUSH Q4H PRN PRN Reason: Nausea/Vomiting Oxycodone HCl (Oxycodone) 5 mg PO Q4H PRN PRN Reason: Pain (severe 7-10) Melatonin/Pyridoxine Hcl (B6) [Melatonin 5 Mg Tablet] 1 E 1 each PO DAILY [facility] Last Admin: 01/11/19 09:38 Dose: Not Given Oxybutynin [Oxytrol] (1 Patch) 1 each TRDERM MoTh@0900 [facility] Last Admin: 01/08/19 20:50 Dose: 1 each Potassium Chloride (Klor-Con M20) 40 meq PO ONETIME ONE Stop: 01/11/19 12:01 Rivaroxaban (Xarelto) 20 mg PO DAILY [facility] Last Admin: 01/11/19 09:38 Dose: 20 mg Rosuvastatin Calcium (Crestor) 20 mg PO DAILY [facility] Last Admin: 01/11/19 09:37 Dose: 20 mg Sodium Chloride (Saline Flush) 10 ml FLUSH ASDIRECTED PRN PRN Reason: Keep Vein Open Sodium Chloride (Saline Flush) 2.5 ml FLUSH ASDIRECTED PRN PRN Reason: Keep Vein Open Discontinued Medications Acetaminophen (Tylenol) 650 mg RECTAL NOW ONE Stop: 01/08/19 01:07 Last Admin: 01/08/19 01:15 Dose: Not Given Acetaminophen (Tylenol) Confirm Administered Dose 975 mg .ROUTE .STK-MED ONE Stop: 01/08/19 01:11 Last Admin: 01/08/19 01:14 Dose: 975 mg Acetaminophen (Tylenol) 975 mg RECTAL NOW ONE Stop: 01/08/19 01:14 Last Admin: 01/08/19 01:15 Dose: Not Given Albuterol/Ipratropium (Duoneb 3.0-0.5 Mg/3 Ml) 3 ml NEB ONETIME ONE Stop: 01/08/19 16:11 Last Admin: 01/08/19 16:32 Dose: 3 ml Sodium Chloride (Normal Saline) 1,000 mls @ 999 mls/hr IV STAT ONE Stop: 01/08/19 02:06 Last Admin: 01/08/19 01:13 Dose: 999 mls/hr Ceftriaxone Sodium/Dextrose 2 (gm/ Premix) 50 mls @ 100 mls/hr IV ONETIME ONE Stop: 01/08/19 02:26 Last Admin: 01/08/19 02:27 Dose: 100 mls/hr Ceftriaxone Sodium/Dextrose 1 (gm/ Premix) 50 mls @ 100 mls/hr IV Q24H [facility] Sodium Chloride (Normal Saline) 1,000 mls @ 125 mls/hr IV ASDIRECTED [facility] Last Admin: 01/08/19 12:21 Dose: 125 mls/hr Sodium Chloride (Normal Saline) 1,000 mls @ 150 mls/hr IV ASDIRECTED [facility] Last Admin: 01/08/19 13:22 Dose: 150 mls/hr Sodium Chloride (Normal Saline) 1,000 mls @ 100 mls/hr IV Q10H [facility] Last Admin: 01/10/19 04:48 Dose: 100 mls/hr Oxybutynin [Oxytrol] (1 Patch) 1 each TRDERM MoTh@0900 [facility] Potassium Chloride (Klor-Con M20) 40 meq PO ONETIME ONE Stop: 01/11/19 07:11 Last Admin: 01/11/19 08:52 Dose: 40 meq <SurinderJayjay J - Last Filed: 01/11/19 17:31> Discharge Summary - Referral to Home Health Primary Care Physician: PCP None - Patient Summary/Data Consults: Consultations 01/08/19 12:39 Consult to Physician [CONS] Routine 01/08/19 17:49 Consult to Physical Therapy [PT Evaluation and Treatment] [CONS] Routine - Discharge Summary/Plan Comment DC Time >30 min.: No - Patient Data Vitals - Most Recent: Last Vital Signs Temp 36.8 C 01/11/19 12:00 Pulse 60 01/11/19 12:00 Resp 20 01/11/19 12:00 BP 191/82 H 01/11/19 12:00 Pulse Ox 97 01/11/19 12:00 I&O - Last 24 hours: Intake & Output 01/11/19 01/11/19 01/11/19 06:59 14:59 22:59 Intake Total 700 750 Output Total 1100 450 Balance -400 300 Lab Results - Last 24 hrs: Laboratory Results - last 24 hr 01/10/19 01/10/19 01/11/19 Range/Units 12:03 20:34 06:08 WBC 5.65 (4.0-11.0) K/uL RBC 2.83 L (4.30-5.90) M/uL Hgb 8.5 L (12.0-16.0) g/dL Hct 26.4 L (36.0-46.0) % MCV 93.3 (80.0-98.0) fL MCH 30.0 (27.0-32.0) pg MCHC 32.2 (31.0-37.0) g/dL RDW Std Deviation 53.2 (28.0-62.0) fl RDW Coeff of Marjorie 16 H (11.0-15.0) % Plt Count 152 (150-400) K/uL MPV 9.90 (7.40-12.00) fL Neut % (Auto) 69.5 (48.0-80.0) % Lymph % (Auto) 16.3 (16.0-40.0) % Smyth % (Auto) 11.9 (0.0-15.0) % Eos % (Auto) 2.3 (0.0-7.0) % Baso % (Auto) 0.0 (0.0-1.5) % Neut # (Auto) 3.9 (1.4-5.7) K/uL Lymph # (Auto) 0.9 (0.6-2.4) K/uL Smyth # (Auto) 0.7 (0.0-0.8) K/uL Eos # (Auto) 0.1 (0.0-0.7) K/uL Baso # (Auto) 0.0 (0.0-0.1) K/uL Nucleated RBC % 0.0 /100WBC Nucleated RBCs # 0 K/uL Sodium (136-145) mmol/L Potassium (3.5-5.1) mmol/L Chloride (98-107) mmol/L Carbon Dioxide (21.0-32.0) mmol/L BUN (7.0-18.0) mg/dL Creatinine (0.6-1.0) mg/dL Est Cr Clr Drug Dosing mL/min Estimated GFR (MDRD) ml/min Glucose (74-106) mg/dL POC Glucose 141 H (60-110) mg/dL Calcium (8.5-10.1) mg/dL Crossmatch See Detail 01/11/19 01/11/19 01/11/19 Range/Units 06:08 06:54 11:55 WBC (4.0-11.0) K/uL RBC (4.30-5.90) M/uL Hgb (12.0-16.0) g/dL Hct (36.0-46.0) % MCV (80.0-98.0) fL MCH (27.0-32.0) pg MCHC (31.0-37.0) g/dL RDW Std Deviation (28.0-62.0) fl RDW Coeff of Marjorie (11.0-15.0) % Plt Count (150-400) K/uL MPV (7.40-12.00) fL Neut % (Auto) (48.0-80.0) % Lymph % (Auto) (16.0-40.0) % Smyth % (Auto) (0.0-15.0) % Eos % (Auto) (0.0-7.0) % Baso % (Auto) (0.0-1.5) % Neut # (Auto) (1.4-5.7) K/uL Lymph # (Auto) (0.6-2.4) K/uL Smyth # (Auto) (0.0-0.8) K/uL Eos # (Auto) (0.0-0.7) K/uL Baso # (Auto) (0.0-0.1) K/uL Nucleated RBC % /100WBC Nucleated RBCs # K/uL Sodium 143 (136-145) mmol/L Potassium 3.1 L (3.5-5.1) mmol/L Chloride 110 H (98-107) mmol/L Carbon Dioxide 22.1 (21.0-32.0) mmol/L BUN 27 H (7.0-18.0) mg/dL Creatinine 1.3 H (0.6-1.0) mg/dL Est Cr Clr Drug Dosing 34.77 mL/min Estimated GFR (MDRD) 40.5 ml/min Glucose 121 H (74-106) mg/dL POC Glucose 112 H 130 H (60-110) mg/dL Calcium 8.7 (8.5-10.1) mg/dL Crossmatch SELVIN Results - Last 24 hrs: Microbiology 01/09/19 10:11 Aerobic Blood Culture - Preliminary Blood - Venous - Lab Draw NO GROWTH AFTER 2 DAYS Anaerobic Blood Culture - Final 01/09/19 09:55 Aerobic Blood Culture - Preliminary Blood - Venous NO GROWTH AFTER 2 DAYS Anaerobic Blood Culture - Preliminary NO GROWTH AFTER 2 DAYS Med Orders - Current: Current Medications Discontinued Medications Acetaminophen (Tylenol) 650 mg RECTAL NOW ONE Stop: 01/08/19 01:07 Last Admin: 01/08/19 01:15 Dose: Not Given Acetaminophen (Tylenol) Confirm Administered Dose 975 mg .ROUTE .STK-MED ONE Stop: 01/08/19 01:11 Last Admin: 01/08/19 01:14 Dose: 975 mg Acetaminophen (Tylenol) 975 mg RECTAL NOW ONE Stop: 01/08/19 01:14 Last Admin: 01/08/19 01:15 Dose: Not Given Acetaminophen (Tylenol) 650 mg PO Q6H PRN PRN Reason: Pain/Fever Last Admin: 01/10/19 11:52 Dose: 650 mg Albuterol/Ipratropium (Duoneb 3.0-0.5 Mg/3 Ml) 3 ml NEB ONETIME ONE Stop: 01/08/19 16:11 Last Admin: 01/08/19 16:32 Dose: 3 ml Baclofen (Lioresal) 20 mg PO ACBREAKFAST [facility] Last Admin: 01/11/19 06:52 Dose: 20 mg Baclofen (Lioresal) 40 mg PO BEDTIME [facility] Last Admin: 01/10/19 21:22 Dose: 40 mg Fluoxetine HCl (Prozac) 10 mg PO DAILY [facility] Last Admin: 01/11/19 09:37 Dose: 10 mg Furosemide (Lasix) 40 mg PO DAILY [facility] Last Admin: 01/11/19 09:37 Dose: 40 mg Sodium Chloride (Normal Saline) 1,000 mls @ 999 mls/hr IV STAT ONE Stop: 01/08/19 02:06 Last Admin: 01/08/19 01:13 Dose: 999 mls/hr Ceftriaxone Sodium/Dextrose 2 (gm/ Premix) 50 mls @ 100 mls/hr IV ONETIME ONE Stop: 01/08/19 02:26 Last Admin: 01/08/19 02:27 Dose: 100 mls/hr Ceftriaxone Sodium/Dextrose 1 (gm/ Premix) 50 mls @ 100 mls/hr IV Q24H [facility] Sodium Chloride (Normal Saline) 1,000 mls @ 125 mls/hr IV ASDIRECTED [facility] Last Admin: 01/08/19 12:21 Dose: 125 mls/hr Ceftriaxone Sodium/Dextrose 1 (gm/ Premix) 50 mls @ 100 mls/hr IV Q24H [facility] Last Admin: 01/10/19 21:20 Dose: 100 mls/hr Sodium Chloride (Normal Saline) 1,000 mls @ 150 mls/hr IV ASDIRECTED [facility] Last Admin: 01/08/19 13:22 Dose: 150 mls/hr Sodium Chloride (Normal Saline) 1,000 mls @ 100 mls/hr IV Q10H [facility] Last Admin: 01/10/19 04:48 Dose: 100 mls/hr Insulin Aspart (Novolog) 0 unit SUBCUT TIDAC [facility]; Protocol Last Admin: 01/11/19 12:07 Dose: Not Given Metoprolol Tartrate (Lopressor) 50 mg PO DAILY [facility] Last Admin: 01/11/19 09:38 Dose: 50 mg Ondansetron HCl (Zofran) 4 mg IVPUSH Q4H PRN PRN Reason: Nausea/Vomiting Oxycodone HCl (Oxycodone) 5 mg PO Q4H PRN PRN Reason: Pain (severe 7-10) Melatonin/Pyridoxine Hcl (B6) [Melatonin 5 Mg Tablet] 1 E 1 each PO DAILY [facility] Last Admin: 01/11/19 09:38 Dose: Not Given Oxybutynin [Oxytrol] (1 Patch) 1 each TRDERM MoTh@0900 [place] Oxybutynin [Oxytrol] (1 Patch) 1 each TRDERM MoTh@0900 [facility] Last Admin: 01/08/19 20:50 Dose: 1 each Potassium Chloride (Klor-Con M20) 40 meq PO ONETIME ONE Stop: 01/11/19 07:11 Last Admin: 01/11/19 08:52 Dose: 40 meq Potassium Chloride (Klor-Con M20) 40 meq PO ONETIME ONE Stop: 01/11/19 12:01 Last Admin: 01/11/19 12:10 Dose: 40 meq Rivaroxaban (Xarelto) 20 mg PO DAILY [facility] Last Admin: 01/11/19 09:38 Dose: 20 mg Rosuvastatin Calcium (Crestor) 20 mg PO DAILY [facility] Last Admin: 01/11/19 09:37 Dose: 20 mg Sodium Chloride (Saline Flush) 10 ml FLUSH ASDIRECTED PRN PRN Reason: Keep Vein Open Sodium Chloride (Saline Flush) 2.5 ml FLUSH ASDIRECTED PRN PRN Reason: Keep Vein Open - Free Text/Narrative Note: I have seen and evaluated the patient with the resident. I have discussed findings and treatment plan with the resident. I agree with the assessment and plan outlined in the following note.
[2019-01-11 13:28] VITALS: BP 191/82; PULSE 60
[2019-01-12] MEDS ORDERED: OXYBUTYNIN TRDERM SCH (09:00)
== END 2019-01-11 12:50 | disposition home health service (06) | DRG 660 ==
LOC: MW.ED 00:55 → MW.MS 02:27 → OBSVTOIN 01-09 07:28
PROVIDERS: ADMIT Internal Medicine; ATTEND Internal Medicine
PROC: 0T748DZ Dilation of Left Kidney Pelvis with Intraluminal Device, Via Natural or Artificial Opening Endoscopic (ICD-10-PCS; principal; 2019-01-08)
PROC: 30233N1 Transfusion of Nonautologous Red Blood Cells into Peripheral Vein, Percutaneous Approach (ICD-10-PCS; 2019-01-10)
DX: N17.9 Acute kidney failure, unspecified (principal); N39.0 Urinary tract infection, site not specified; R41.82 Altered mental status, unspecified; E87.0 Hyperosmolality and hypernatremia; J98.11 Atelectasis; R78.81 Bacteremia; R50.9 Fever, unspecified; N13.2 Hydronephrosis with renal and ureteral calculous obstruction; E86.0 Dehydration; E87.6 Hypokalemia; E11.9 Type 2 diabetes mellitus without complications; E78.5 Hyperlipidemia, unspecified; I10 Essential (primary) hypertension; E66.3 Overweight; G35 Multiple sclerosis; B96.89 Other specified bacterial agents as the cause of diseases classified elsewhere; R31.9 Hematuria, unspecified; Z86.718 Personal history of other venous thrombosis and embolism; D64.9 Anemia, unspecified; R29.898 Other symptoms and signs involving the musculoskeletal system; E78.00 Pure hypercholesterolemia, unspecified; G47.30 Sleep apnea, unspecified; F41.9 Anxiety disorder, unspecified; F32.9 Major depressive disorder, single episode, unspecified; E66.9 Obesity, unspecified; Z86.711 Personal history of pulmonary embolism; Z79.84 Long term (current) use of oral hypoglycemic drugs; I25.2 Old myocardial infarction; Z79.899 Other long term (current) drug therapy; Z88.1 Allergy status to other antibiotic agents; Z91.040 Latex allergy status; Z88.0 Allergy status to penicillin; Z68.30 Body mass index [BMI] 30.0-30.9, adult; Z86.14 Personal history of Methicillin resistant Staphylococcus aureus infection; Z90.89 Acquired absence of other organs; Z98.49 Cataract extraction status, unspecified eye; Z87.891 Personal history of nicotine dependence
CPT/HCPCS: 36415 ×2; 70450; 71045; 74176; 76770; 80048 ×3; 80053; 81001; 82550; 82962 ×3; 83605; 84443; 84484; 85014; 85018; 85025 ×3; 85610; 87040 ×2; 87077 ×4; 87086; 87088; 87186 ×3; 93005; 94640; 96361 ×2; 96365; 99285; A9270 ×6; C2617; G0378 ×2; J0696 ×2; J1815; J7040 ×6; 36430; 86850; 86900; 86901; 86920; 86921; 86922; 97161-GP; 97530-GP; 99283; J7620-GY; P9016

== ENCOUNTER 2019-01-23 14:33 | Emergency (ER) | payer MEDICARE, BC ==
[2019-01-23 16:22] LABS: CARBON DIOXIDE,CO2 29.3 mmol/L (21.0-32.0); POTASSIUM,K 3.8 mmol/L (3.5-5.1)
--- NOTE | 2019-01-23 17:47 | EDM.PDOC ---
ED HPI GENERAL MEDICAL PROBLEM - General Chief Complaint: Genitourinary Problem Stated Complaint: CONFUSSION Time Seen by Provider: 01/23/19 17:46 Source of Information: Reports: Patient - History of Present Illness INITIAL COMMENTS - FREE TEXT/NARRATIVE: HISTORY AND PHYSICAL: History of present illness: []Patient with MS presents with confusion and somnolence, this has been ongoing for some time however increase was noted today no other symptoms such as fever nausea vomiting chills sweats no chest pain shortness breath headache dizziness palpitation no bowel symptoms She has recently since October been having problems with renal stones and passing stone she has recent stenting history of seen by N[facility] and was admitted for urinary tract infection as well the system treated her last day of Cipro was today The increase of confusion her is concerned about UTI Review of systems: As per history of present illness and below otherwise all systems reviewed and negative. Past medical history: As per history of present illness and as reviewed below otherwise noncontributory. Surgical history: As per history of present illness and as reviewed below otherwise noncontributory. Social history: No reported history of drug or alcohol abuse. Family history: As per history of present illness and as reviewed below otherwise noncontributory. Physical exam: HEENT: Atraumatic, normocephalic, pupils reactive, negative for conjunctival pallor or scleral icterus, mucous membranes moist, throat clear, neck supple, nontender, trachea midline. Lungs: Clear to auscultation, breath sounds equal bilaterally, chest nontender. Heart: S1S2, regular, negative for clicks, rubs, or JVD. Abdomen: Soft, nondistended, nontender. Negative for masses or hepatosplenomegaly. Negative for costovertebral tenderness. Pelvis: Stable nontender. Genitourinary: Deferred. Rectal: Deferred. Extremities: Atraumatic, negative for cords or calf pain. Neurovascular unremarkable. Neuro: Awake, alert, oriented. Cranial nerves II through XII unremarkable. Cerebellum unremarkable. Motor and sensory unremarkable throughout. Exam nonfocal. Diagnostics: [CBC CMP UA alcohol urine drug screen Troponin EKG Chest [address] CT abdomen pelvis ] Therapeutics: [ likely confusion stems from not only MS however the oxybutynin patch that she is wearing be a consideration or as these are known side effects ] Impression: Confusion/somnolence [ medication side effect Chronic history of in urinary incontinence and MS baseline Chronic history of baseline ] Definitive disposition and diagnosis as appropriate pending reevaluation and review of above. - Related Data Allergies Allergy/AdvReac Type Severity Reaction Status Date / Time erythromycin base Allergy Abdominal Verified 01/23/19 14:57 [Erythromycin Base] Pain latex Allergy Rash Verified 01/23/19 14:57 Penicillins Allergy Cannot Verified 01/23/19 14:57 Remember Home Meds: Home Meds Baclofen 20 mg PO ACBREAKFAST 12/26/15 [History] Baclofen 40 mg PO BEDTIME 12/26/15 [History] Furosemide 40 mg PO DAILY 12/26/15 [History] Glimepiride [Amaryl] 4 mg PO BID 12/26/15 [History] Metoprolol Tartrate 50 mg PO DAILY 12/26/15 [History] Potassium Chloride [K-Tab ER] 20 meq PO DAILY 12/26/15 [History] Ramipril 10 mg PO DAILY 12/26/15 [History] Rosuvastatin [Crestor] 20 mg PO DAILY 12/26/15 [History] metFORMIN HCl [Metformin ER Osmotic] 2,000 mg PO ACDINNER 12/26/15 [History] FLUoxetine [PROzac] 10 mg PO DAILY 04/01/18 [History] Rivaroxaban [Xarelto] 20 mg PO WITHDINNER 04/01/18 [History] Oxybutynin [Oxytrol] 1 patch TRDERM ASDIRECTED 12/04/18 [History] Melatonin/Pyridoxine HCl (B6) [Melatonin 5 mg Tablet] 1 each PO DAILY 01/08/19 [ History] Ciprofloxacin [Ciprofloxacin HCl] 500 mg PO Q12HR 10 Days #20 tab 01/11/19 [Rx] Past Medical History HEENT History: Reports: Impaired Vision, Other (See Below) Other HEENT History: wears glasses, "starting of macular degeneration" Cardiovascular History: Reports: Blood Clots/VTE/DVT, High Cholesterol, Hypertension, [place] Respiratory History: Reports: PE, Sleep Apnea Other Respiratory History: uses BI-PAP Gastrointestinal History: Reports: None Genitourinary History: Reports: Renal Calculus, Urinary Incontinence, UTI, Recurrent Other Genitourinary History: using tens/pads, recent UTI with rt ureteral stone and hospitalized in [place], [place] 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: Reports: Other 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: 2 Musculoskeletal History: Reports: Fracture Other Musculoskeletal History: uses walker Neurological History: Reports: MS Other Neuro History: MS-at age 14, uses walker Psychiatric History: Reports: Anxiety, Depression Other Psychiatric History: on medication with depression Endocrine/Metabolic History: Reports: Diabetes, Type II, Obesity/BMI 30+ Other Endocrine/Metabolic History: thyroid nodules Insulin Pump Model and Pipe Recovery Specialist: None Hematologic History: Reports: None Other Immunologic History: hx MRSA Oncologic (Cancer) History: Reports: None Dermatologic History: Reports: None - Infectious Disease History Infectious Disease History: Reports: Chicken Pox, Measles, Mumps Other Infectious Disease History: had it in the apst - Past Surgical History HEENT Surgical History: Reports: Adenoidectomy, Cataract Surgery, Tonsillectomy Other HEENT Surgeries/Procedures: cyst removed from rt lower eye lid Respiratory Surgical History: Reports: None GI Surgical History: Reports: None Endocrine Surgical History: Reports: None Neurological Surgical History: Reports: None Oncologic Surgical History: Reports: None Dermatological Surgical History: Reports: None Social & Family History - Family History Family Medical History: Noncontributory Cardiac: Reports: CAD Other Cardiac Family History: parents - CHF Respiratory: Reports: COPD Other Respiratory Family Hisory: COPD - brother OBGYN: Reports: Neurological: Reports: MS Other Neurological Family History: MS- sister also has MS Endocrine/Metabolic: Reports: Diabetes, type II Other Endocrine/Metabolic Family History: family Hematologic: Reports: Other (See Below) Other Hematologic Family History: brother - leukemia Oncologic: Reports: Breast, Leukemia Other Oncologic Family History: father side - breast cancer - Tobacco Use Smoking Status *Q: Never Smoker Second Hand Smoke Exposure: No - Caffeine Use Caffeine Use: Reports: Coffee - Recreational Drug Use Recreational Drug Use: No ED ROS GENERAL - Review of Systems Review Of Systems: See Below ED EXAM, GENERAL - Physical Exam Exam: See Below Course - Vital Signs Last Recorded V/S: Last Vital Signs Temp 97.4 F 01/23/19 14:58 Pulse 57 L 01/23/19 14:58 Resp 16 01/23/19 14:58 BP 140/63 01/23/19 14:58 Pulse Ox 97 01/23/19 14:58 - Orders/Labs/Meds Orders: Active Orders 24 hr Category Date Time Status Accu Check [Blood Glucose Check, Bedside] [RC] ONETIME Care 01/23/19 14:51 Active EKG Documentation Completion [RC] STAT Care 01/23/19 15:58 Active Abdomen Pelvis wo Cont [CT] Stat Exams 01/23/19 15:58 Taken Head wo Cont [CT] Stat Exams 01/23/19 15:58 Taken Labs: Laboratory Tests 01/23/19 01/23/19 01/23/19 Range/Units 14:46 14:46 15:26 WBC (4.0-11.0) K/uL RBC (4.30-5.90) M/uL Hgb (12.0-16.0) g/dL Hct (36.0-46.0) % MCV (80.0-98.0) fL MCH (27.0-32.0) pg MCHC (31.0-37.0) g/dL RDW Std Deviation (28.0-62.0) fl RDW Coeff of Marjorie (11.0-15.0) % Plt Count (150-400) K/uL MPV (7.40-12.00) fL Neut % (Auto) (48.0-80.0) % Lymph % (Auto) (16.0-40.0) % [place] % (Auto) (0.0-15.0) % Eos % (Auto) (0.0-7.0) % Baso % (Auto) (0.0-1.5) % Neut # (Auto) (1.4-5.7) K/uL Lymph # (Auto) (0.6-2.4) K/uL [place] # (Auto) (0.0-0.8) K/uL Eos # (Auto) (0.0-0.7) K/uL Baso # (Auto) (0.0-0.1) K/uL Nucleated RBC % /100WBC Nucleated RBCs # K/uL Sodium (136-145) mmol/L Potassium (3.5-5.1) mmol/L Chloride (98-107) mmol/L Carbon Dioxide (21.0-32.0) mmol/L BUN (7.0-18.0) mg/dL Creatinine (0.6-1.0) mg/dL Est Cr Clr Drug Dosing mL/min Estimated GFR (MDRD) ml/min Glucose (74-106) mg/dL POC Glucose 65 (60-110) mg/dL Calcium (8.5-10.1) mg/dL Total Bilirubin (0.2-1.0) mg/dL AST (15-37) IU/L ALT (14-63) IU/L Alkaline Phosphatase (46-116) U/L Troponin I (0.000-0.056) ng/mL Total Protein (6.4-8.2) g/dL Albumin (3.4-5.0) g/dL Globulin (2.6-4.0) g/dL Albumin/Globulin Ratio (0.9-1.6) Urine Color YELLOW Urine Appearance SLT CLOUDY Urine pH 5.5 (5.0-8.0) Ur Specific Tutor Key <= 1.005 (1.001-1.035) Urine Protein NEGATIVE (NEGATIVE) mg/dL Urine Glucose (UA) NEGATIVE (NEGATIVE) mg/dL Urine Ketones NEGATIVE (NEGATIVE) mg/dL Urine Occult Blood LARGE H (NEGATIVE) Urine Nitrite NEGATIVE (NEGATIVE) Urine Bilirubin NEGATIVE (NEGATIVE) Urine Urobilinogen 0.2 (<2.0) EU/dL Ur Leukocyte Esterase NEGATIVE (NEGATIVE) Urine RBC 5-10 (0-2/HPF) Urine WBC 0-2 (0-5/HPF) Ur Epithelial Cells MODERATE (NONE-FEW) Urine Bacteria FEW (NEGATIVE) Urine Yeast OCCASIONAL Urine Opiates Screen NEGATIVE (NEGATIVE) Ur Oxycodone Screen NEGATIVE (NEGATIVE) Urine Methadone Screen NEGATIVE (NEGATIVE) Ur Barbiturates Screen NEGATIVE (NEGATIVE) Ur Phencyclidine Scrn NEGATIVE (NEGATIVE) Ur Amphetamine Screen NEGATIVE (NEGATIVE) U Methamphetamines Scrn NEGATIVE (NEGATIVE) U Benzodiazepines Scrn NEGATIVE (NEGATIVE) U Cocaine Metab Screen NEGATIVE (NEGATIVE) U Marijuana (THC) Screen NEGATIVE (NEGATIVE) Ethyl Alcohol mg/dL 01/23/19 01/23/19 01/23/19 Range/Units 15:50 15:50 15:50 WBC 6.08 (4.0-11.0) K/uL RBC 3.68 L (4.30-5.90) M/uL Hgb 11.0 L (12.0-16.0) g/dL Hct 35.3 L (36.0-46.0) % MCV 95.9 (80.0-98.0) fL MCH 29.9 (27.0-32.0) pg MCHC 31.2 (31.0-37.0) g/dL RDW Std Deviation 52.0 (28.0-62.0) fl RDW Coeff of Marjorie 15 (11.0-15.0) % Plt Count 354 (150-400) K/uL MPV 9.40 (7.40-12.00) fL Neut % (Auto) 60.8 (48.0-80.0) % Lymph % (Auto) 21.5 (16.0-40.0) % [place] % (Auto) 15.1 H (0.0-15.0) % Eos % (Auto) 2.3 (0.0-7.0) % Baso % (Auto) 0.3 (0.0-1.5) % Neut # (Auto) 3.7 (1.4-5.7) K/uL Lymph # (Auto) 1.3 (0.6-2.4) K/uL [place] # (Auto) 0.9 H (0.0-0.8) K/uL Eos # (Auto) 0.1 (0.0-0.7) K/uL Baso # (Auto) 0.0 (0.0-0.1) K/uL Nucleated RBC % 0.0 /100WBC Nucleated RBCs # 0 K/uL Sodium 142 (136-145) mmol/L Potassium 3.8 (3.5-5.1) mmol/L Chloride 104 (98-107) mmol/L Carbon Dioxide 29.3 (21.0-32.0) mmol/L BUN 40 H (7.0-18.0) mg/dL Creatinine 1.7 H (0.6-1.0) mg/dL Est Cr Clr Drug Dosing 23.24 mL/min Estimated GFR (MDRD) 29.7 ml/min Glucose 87 (74-106) mg/dL POC Glucose (60-110) mg/dL Calcium 9.0 (8.5-10.1) mg/dL Total Bilirubin 0.2 (0.2-1.0) mg/dL AST 13 L (15-37) IU/L ALT 17 (14-63) IU/L Alkaline Phosphatase 85 (46-116) U/L Troponin I < 0.050 (0.000-0.056) ng/mL Total Protein 7.2 (6.4-8.2) g/dL Albumin 3.0 L (3.4-5.0) g/dL Globulin 4.2 H (2.6-4.0) g/dL Albumin/Globulin Ratio 0.7 L (0.9-1.6) Urine Color Urine Appearance Urine pH (5.0-8.0) Ur Specific Tutor Key (1.001-1.035) Urine Protein (NEGATIVE) mg/dL Urine Glucose (UA) (NEGATIVE) mg/dL Urine Ketones (NEGATIVE) mg/dL Urine Occult Blood (NEGATIVE) Urine Nitrite (NEGATIVE) Urine Bilirubin (NEGATIVE) Urine Urobilinogen (<2.0) EU/dL Ur Leukocyte Esterase (NEGATIVE) Urine RBC (0-2/HPF) Urine WBC (0-5/HPF) Ur Epithelial Cells (NONE-FEW) Urine Bacteria (NEGATIVE) Urine Yeast Urine Opiates Screen (NEGATIVE) Ur Oxycodone Screen (NEGATIVE) Urine Methadone Screen (NEGATIVE) Ur Barbiturates Screen (NEGATIVE) Ur Phencyclidine Scrn (NEGATIVE) Ur Amphetamine Screen (NEGATIVE) U Methamphetamines Scrn (NEGATIVE) U Benzodiazepines Scrn (NEGATIVE) U Cocaine Metab Screen (NEGATIVE) U Marijuana (THC) Screen (NEGATIVE) Ethyl Alcohol mg/dL 01/23/19 Range/Units 15:50 WBC (4.0-11.0) K/uL RBC (4.30-5.90) M/uL Hgb (12.0-16.0) g/dL Hct (36.0-46.0) % MCV (80.0-98.0) fL MCH (27.0-32.0) pg MCHC (31.0-37.0) g/dL RDW Std Deviation (28.0-62.0) fl RDW Coeff of Marjorie (11.0-15.0) % Plt Count (150-400) K/uL MPV (7.40-12.00) fL Neut % (Auto) (48.0-80.0) % Lymph % (Auto) (16.0-40.0) % [place] % (Auto) (0.0-15.0) % Eos % (Auto) (0.0-7.0) % Baso % (Auto) (0.0-1.5) % Neut # (Auto) (1.4-5.7) K/uL Lymph # (Auto) (0.6-2.4) K/uL [place] # (Auto) (0.0-0.8) K/uL Eos # (Auto) (0.0-0.7) K/uL Baso # (Auto) (0.0-0.1) K/uL Nucleated RBC % /100WBC Nucleated RBCs # K/uL Sodium (136-145) mmol/L Potassium (3.5-5.1) mmol/L Chloride (98-107) mmol/L Carbon Dioxide (21.0-32.0) mmol/L BUN (7.0-18.0) mg/dL Creatinine (0.6-1.0) mg/dL Est Cr Clr Drug Dosing mL/min Estimated GFR (MDRD) ml/min Glucose (74-106) mg/dL POC Glucose (60-110) mg/dL Calcium (8.5-10.1) mg/dL Total Bilirubin (0.2-1.0) mg/dL AST (15-37) IU/L ALT (14-63) IU/L Alkaline Phosphatase (46-116) U/L Troponin I (0.000-0.056) ng/mL Total Protein (6.4-8.2) g/dL Albumin (3.4-5.0) g/dL Globulin (2.6-4.0) g/dL Albumin/Globulin Ratio (0.9-1.6) Urine Color Urine Appearance Urine pH (5.0-8.0) Ur Specific Tutor Key (1.001-1.035) Urine Protein (NEGATIVE) mg/dL Urine Glucose (UA) (NEGATIVE) mg/dL Urine Ketones (NEGATIVE) mg/dL Urine Occult Blood (NEGATIVE) Urine Nitrite (NEGATIVE) Urine Bilirubin (NEGATIVE) Urine Urobilinogen (<2.0) EU/dL Ur Leukocyte Esterase (NEGATIVE) Urine RBC (0-2/HPF) Urine WBC (0-5/HPF) Ur Epithelial Cells (NONE-FEW) Urine Bacteria (NEGATIVE) Urine Yeast Urine Opiates Screen (NEGATIVE) Ur Oxycodone Screen (NEGATIVE) Urine Methadone Screen (NEGATIVE) Ur Barbiturates Screen (NEGATIVE) Ur Phencyclidine Scrn (NEGATIVE) Ur Amphetamine Screen (NEGATIVE) U Methamphetamines Scrn (NEGATIVE) U Benzodiazepines Scrn (NEGATIVE) U Cocaine Metab Screen (NEGATIVE) U Marijuana (THC) Screen (NEGATIVE) Ethyl Alcohol < 3.0 mg/dL Departure - Departure Time of Disposition: 18:31 Disposition: Home, Self-Care 01 Condition: Good Clinical Impression: Confusion - Discharge Information Referrals: Lizandro Clancy MD [Primary Care Provider] - Forms: ED Department Discharge Additional Instructions: The following information is given to patients seen in the emergency department who are being discharged to home. This information is to outline your options for follow-up care. We provide all patients seen in our emergency department with a follow-up referral. The need for follow-up, as well as the timing and circumstances, are variable depending upon the specifics of your emergency department visit. If you don't have a primary care physician on staff, we will provide you with a referral. We always advise you to contact your personal physician following an emergency department visit to inform them of the circumstance of the visit and for follow-up with them and/or the need for any referrals to a consulting specialist. The emergency department will also refer you to a specialist when appropriate. This referral assures that you have the opportunity for follow-up care with a specialist. All of these measure are taken in an effort to provide you with optimal care, which includes your follow-up. Under all circumstances we always encourage you to contact your private physician who remains a resource for coordinating your care. When calling for follow-up care, please make the office aware that this follow-up is from your recent emergency room visit. If for any reason you are refused follow-up, please contact the [facility] emergency department at and asked to speak to the emergency department charge nurse. - My Orders Last 24 Hours: My Active Orders 01/23/19 14:51 Accu Check [Blood Glucose Check, Bedside] [RC] ONETIME 01/23/19 15:58 EKG Documentation Completion [RC] STAT Abdomen Pelvis wo Cont [CT] Stat Head wo Cont [CT] Stat - Assessment/Plan Last 24 Hours: My Active Orders 01/23/19 14:51 Accu Check [Blood Glucose Check, Bedside] [RC] ONETIME 01/23/19 15:58 EKG Documentation Completion [RC] STAT Abdomen Pelvis wo Cont [CT] Stat Head wo Cont [CT] Stat
[2019-01-23 18:59] VITALS: BP 119/45; PULSE 50
--- NOTE | 2019-01-26 10:30 | CT ---
CT abdomen and pelvis Technique: Multiple axial sections were obtained from above the dome of the diaphragm inferiorly to the pubic symphysis. Intravenous and oral contrast not utilized. Findings: Left ureteral stent is seen. Proximal and lies within the left renal pelvis and distal end is within the bladder. Right ureter shows no abnormal calcifications. No abnormal calcifications are seen along the course of the left ureteral stent. There is a calcification centrally within the right kidney which most likely is vascular. Several nonobstructing stones are noted within the inferior left kidney. Visualized lung bases show nothing acute. Noncontrast appearance of the liver shows no focal parenchymal abnormality. Small hiatal hernia is seen. Small calcified gallstone is seen within the gallbladder. Spleen appears within normal limits. Adrenal glands show no nodule. Pancreas is within normal limits. Aorta shows atherosclerotic calcification which continues into the iliac vessels with no aneurysm. No retroperitoneal adenopathy or mesenteric abnormalities are seen. Appendix is seen which is normal in size. No pelvic mass or adenopathy is seen. No free fluid or inflammatory change is seen. Mild sigmoid and descending colon diverticulosis is seen without diverticulitis. Bone window settings were reviewed which shows diffuse degenerative change and scoliosis within the spine. Bilateral spondylolytic defects seen at L5-S1. Very minimal spondylolisthesis seen at L5-S1. Impression: 1. Left ureteral stent. Several nonobstructing stones noted within the lower left kidney. Calcifications within the central right kidney which are most likely vascular. No ureteral calculi are seen. 2. Multiple other findings as noted above which do not appear acute. Nothing is seen to indicate an etiology for the patient's pain. Diagnostic code #2 MTDD
--- NOTE | 2019-01-26 10:31 | CT ---
Head CT Technique: Multiple axial sections through the brain were obtained. Intravenous contrast was not utilized. Comparison: Prior head CT study of 01/08/19. Findings: Slight increased density within the posterior left scalp is seen which is stable from previous exam. Ventricles along with basal cisterns and sulci over the convexities are within normal limits for the patient's age. No abnormal parenchymal densities are seen. No evidence of intracranial hemorrhage. No midline shift or mass effect is seen. Bone window settings were reviewed which shows the visualized mastoid sinuses to appear clear. Mastoid sinuses are also clear. No acute calvarial abnormality is seen. Impression: Nothing acute is seen on noncontrast head CT study. Diagnostic code #2 MTDD
== END 2019-01-23 18:45 | disposition home or self-care (01) ==
LOC: MW.ED 14:33
DX: R41.0 Disorientation, unspecified (principal); E78.00 Pure hypercholesterolemia, unspecified; I10 Essential (primary) hypertension; E11.9 Type 2 diabetes mellitus without complications; I25.2 Old myocardial infarction; F32.9 Major depressive disorder, single episode, unspecified; F41.9 Anxiety disorder, unspecified; E66.9 Obesity, unspecified; Z68.36 Body mass index [BMI] 36.0-36.9, adult; Z86.718 Personal history of other venous thrombosis and embolism; Z86.711 Personal history of pulmonary embolism; Z88.1 Allergy status to other antibiotic agents; Z88.0 Allergy status to penicillin; Z91.040 Latex allergy status; Z79.84 Long term (current) use of oral hypoglycemic drugs; Z79.899 Other long term (current) drug therapy; Z79.01 Long term (current) use of anticoagulants
CPT/HCPCS: 36415; 70450; 74176; 80053; 80305; 81001; 82962; 84484; 85025; 93005; 99285; G0480

== ENCOUNTER 2019-02-11 08:20 | Inpatient (IN) | payer MEDICARE ==
[2019-02-11] MEDS ORDERED: Sodium Chloride 0.9% 1,000 ML IV ONE (08:43)
--- NOTE | 2019-02-11 09:00 | EDM.PDOC ---
ED HPI GENERAL MEDICAL PROBLEM - General Chief Complaint: General Stated Complaint: MENTAL HEALTH Time Seen by Provider: 02/11/19 08:23 Source of Information: Reports: Patient, EMS - History of Present Illness INITIAL COMMENTS - FREE TEXT/NARRATIVE: HISTORY AND PHYSICAL: History of present illness: 68-year-old female presents to ER via EMS complaining of fatigue and stating that she is "not with it" for the past 2 days. Patient reports that she has not been feeling well since September 2018, however, feels more fatigued and confused over the past 2 days. Patient does not provide further details or specifics on what she means by "not feeling well." She reports shortness of breath lately, however, states that she does not feel that way currently. She further reports chronic pain in her right and left kidney secondary to kidney stones for which she follows up with Dr. Talbert of urology who she reports will be removing the stones in 1 week. Patient has a past medical history of MS, HTN, PE, CKD and DM II. She reports that she has been taking all of her medications as prescribed. Patient reports that she lives at home with her . Patient was seen in the ER on 01/23/19 for similar complaints of confusion and somnolence. CT head on 01/23/19 showed no acute findings. Patient's at bedside states that patient had steady mental decline since September 2018 and this morning patient had visual hallucinations and began shouting words that were not making sense. was able to calm patient down at home before calling EMS. Furthermore, patient denies having any fevers, blurry vision, difficulty hearing , sore throat, cough, chest pain, nausea, vomiting, diarrhea, constipation, numbness or tingling. Review of systems: As per history of present illness and below otherwise all systems reviewed and negative. Past medical history: As per history of present illness and as reviewed below otherwise noncontributory. Surgical history: As per history of present illness and as reviewed below otherwise noncontributory. Social history: No reported history of drug or alcohol abuse. Family history: As per history of present illness and as reviewed below otherwise noncontributory. Physical exam: HEENT: Atraumatic, normocephalic, pupils reactive, negative for conjunctival pallor or scleral icterus, mucous membranes moist, throat clear, neck supple, nontender, trachea midline. Lungs: Clear to auscultation. Heart: S1S2, regular. Abdomen: Soft, nondistended, nontender. No flank tenderness bilaterally. Pelvis: Deferred. Genitourinary: Deferred. Rectal: Deferred. Extremities: trace pedal edema, ulcer on right anterior gunter Neuro: Awake, alert, oriented. Cranial nerves II through XII unremarkable. 4/5 strength in upper and lower extremities bilaterally. Diagnostics: CBC, CMP, TROP, PT/INR, EKG, CXR, UA Therapeutics: IV NS Ceftriaxone 1 g IV x 1 Impression: 1. Altered mental status in the setting of #2. 2. Urinary tract infection. Plan: 1. Patient accepted for admission for observation by hospitalist Dr. Cadena. Definitive disposition and diagnosis as appropriate pending reevaluation and review of above. - Related Data Allergies Allergy/AdvReac Type Severity Reaction Status Date / Time erythromycin base Allergy Abdominal Verified 02/11/19 08:24 [Erythromycin Base] Pain latex Allergy Rash Verified 02/11/19 08:24 Penicillins Allergy Cannot Verified 02/11/19 08:24 Remember Home Meds: Home Meds Baclofen 20 mg PO ACBREAKFAST 12/26/15 [History] Baclofen 40 mg PO BEDTIME 12/26/15 [History] Furosemide 40 mg PO DAILY 12/26/15 [History] Glimepiride [Amaryl] 4 mg PO BID 12/26/15 [History] Metoprolol Tartrate 50 mg PO DAILY 12/26/15 [History] Potassium Chloride [K-Tab ER] 20 meq PO DAILY 12/26/15 [History] Ramipril 10 mg PO DAILY 12/26/15 [History] Rosuvastatin [Crestor] 20 mg PO DAILY 12/26/15 [History] metFORMIN HCl [Metformin ER Osmotic] 2,000 mg PO ACDINNER 12/26/15 [History] FLUoxetine [PROzac] 10 mg PO DAILY 04/01/18 [History] Rivaroxaban [Xarelto] 20 mg PO WITHDINNER 04/01/18 [History] Oxybutynin [Oxytrol] 1 patch TRDERM ASDIRECTED 12/04/18 [History] Melatonin/Pyridoxine HCl (B6) [Melatonin 5 mg Tablet] 1 each PO DAILY 01/08/19 [ History] Ciprofloxacin [Ciprofloxacin HCl] 500 mg PO Q12HR 10 Days #20 tab 01/11/19 [Rx] Past Medical History HEENT History: Reports: Impaired Vision, Other (See Below) Other HEENT History: wears glasses, "starting of macular degeneration" Cardiovascular History: Reports: Blood Clots/VTE/DVT, High Cholesterol, Hypertension, [place] Respiratory History: Reports: PE, Sleep Apnea Other Respiratory History: uses BI-PAP Gastrointestinal History: Reports: None Genitourinary History: Reports: Renal Calculus, Urinary Incontinence, UTI, Recurrent Other Genitourinary History: using tens/pads, recent UTI with rt ureteral stone and hospitalized in [place], [place] 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: Reports: Other 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: 2 Musculoskeletal History: Reports: Fracture Other Musculoskeletal History: uses walker Neurological History: Reports: MS Other Neuro History: MS-at age 14, uses walker Psychiatric History: Reports: Anxiety, Depression Other Psychiatric History: on medication with depression Endocrine/Metabolic History: Reports: Diabetes, Type II, Obesity/BMI 30+ Other Endocrine/Metabolic History: thyroid nodules Insulin Pump 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 [employer]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 Hematologic History: Reports: None Immunologic History: Reports: Other (See Below) Other Immunologic History: hx MRSA Oncologic (Cancer) History: Reports: None Dermatologic History: Reports: None - Infectious Disease History Infectious Disease History: Reports: Chicken Pox, Measles, Mumps Other Infectious Disease History: had it in the apst - Past Surgical History HEENT Surgical History: Reports: Adenoidectomy, Cataract Surgery, Tonsillectomy Other HEENT Surgeries/Procedures: cyst removed from rt lower eye lid Cardiovascular Surgical History: Reports: None Respiratory Surgical History: Reports: None GI Surgical History: Reports: None Female Surgical History: Reports: None Endocrine Surgical History: Reports: None Neurological Surgical History: Reports: None Musculoskeletal Surgical History: Reports: None Oncologic Surgical History: Reports: None Dermatological Surgical History: Reports: None Social & Family History - Family History Family Medical History: Noncontributory Cardiac: Reports: CAD Other Cardiac Family History: parents - CHF Respiratory: Reports: COPD Other Respiratory Family Hisory: COPD - brother OBGYN: Reports: Neurological: Reports: MS Other Neurological Family History: MS- sister also has MS Endocrine/Metabolic: Reports: Diabetes, type II Other Endocrine/Metabolic Family History: family Hematologic: Reports: Other (See Below) Other Hematologic Family History: brother - leukemia Oncologic: Reports: Breast, Leukemia Other Oncologic Family History: father side - breast cancer - Tobacco Use Smoking Status *Q: Former Smoker Used Tobacco, but Quit: Yes Month/Year Tobacco Last Used: 1969 - Caffeine Use Caffeine Use: Reports: None - Recreational Drug Use Recreational Drug Use: No ED ROS GENERAL - Review of Systems Review Of Systems: ROS reveals no pertinent complaints other than HPI. ED EXAM, GENERAL - Physical Exam Exam: See Below Course - Vital Signs Last Recorded V/S: Last Vital Signs Temp 95.2 F L 02/11/19 08:22 Pulse 52 L 02/11/19 08:22 Resp 18 02/11/19 08:22 BP 126/71 02/11/19 08:22 Pulse Ox 99 02/11/19 08:22 - Orders/Labs/Meds Orders: Active Orders 24 hr Category Date Time Status Patient Status [ADT] Stat ADT 02/11/19 09:47 Ordered EKG 12 Lead [EKG Documentation Completion] [RC] STAT Care 02/11/19 09:13 Active CULTURE URINE [RM] Stat Lab 02/11/19 09:20 Received Sodium Chloride 0.9% [Normal Saline] 1,000 ml Med 02/11/19 08:43 Active IV STAT cefTRIAXone [Rocephin in Dextrose,Iso-Osm 1 GM/50 ML] 1 Med 02/11/19 09:41 Active gm Premix Bag 1 bag IV ONETIME Medication Orders Sodium Chloride (Normal Saline) 1,000 mls @ 250 mls/hr IV STAT ONE Stop: 02/11/19 12:42 Last Admin: 02/11/19 08:56 Dose: 250 mls/hr Ceftriaxone Sodium/Dextrose 1 (gm/ Premix) 50 mls @ 100 mls/hr IV ONETIME ONE Stop: 02/11/19 10:10 Labs: Laboratory Tests 02/11/19 02/11/19 02/11/19 Range/Units 08:50 08:50 08:50 WBC 7.72 (4.0-11.0) K/uL RBC 3.50 L (4.30-5.90) M/uL Hgb 10.5 L (12.0-16.0) g/dL Hct 33.2 L (36.0-46.0) % MCV 94.9 (80.0-98.0) fL MCH 30.0 (27.0-32.0) pg MCHC 31.6 (31.0-37.0) g/dL RDW Std Deviation 50.8 (28.0-62.0) fl RDW Coeff of Marjorie 15 (11.0-15.0) % Plt Count 197 (150-400) K/uL MPV 10.10 (7.40-12.00) fL Neut % (Auto) 73.8 (48.0-80.0) % Lymph % (Auto) 11.1 L (16.0-40.0) % [place] % (Auto) 14.1 (0.0-15.0) % Eos % (Auto) 0.9 (0.0-7.0) % Baso % (Auto) 0.1 (0.0-1.5) % Neut # (Auto) 5.7 (1.4-5.7) K/uL Lymph # (Auto) 0.9 (0.6-2.4) K/uL [place] # (Auto) 1.1 H (0.0-0.8) K/uL Eos # (Auto) 0.1 (0.0-0.7) K/uL Baso # (Auto) 0.0 (0.0-0.1) K/uL Nucleated RBC % 0.0 /100WBC Nucleated RBCs # 0 K/uL INR 1.30 Sodium 137 (136-145) mmol/L Potassium 4.0 (3.5-5.1) mmol/L Chloride 100 (98-107) mmol/L Carbon Dioxide 27.1 (21.0-32.0) mmol/L BUN 46 H (7.0-18.0) mg/dL Creatinine 1.9 H (0.6-1.0) mg/dL Est Cr Clr Drug Dosing 20.79 mL/min Estimated GFR (MDRD) 26.1 ml/min Glucose 43 L (74-106) mg/dL Calcium 8.8 (8.5-10.1) mg/dL Total Bilirubin 0.4 (0.2-1.0) mg/dL AST 19 (15-37) IU/L ALT 13 L (14-63) IU/L Alkaline Phosphatase 76 (46-116) U/L Troponin I < 0.050 (0.000-0.056) ng/mL Total Protein 7.4 (6.4-8.2) g/dL Albumin 2.4 L (3.4-5.0) g/dL Globulin 5.0 H (2.6-4.0) g/dL Albumin/Globulin Ratio 0.5 L (0.9-1.6) Urine Color Urine Appearance Urine pH (5.0-8.0) Ur Specific [place] (1.001-1.035) Urine Protein (NEGATIVE) mg/dL Urine Glucose (UA) (NEGATIVE) mg/dL Urine Ketones (NEGATIVE) mg/dL Urine Occult Blood (NEGATIVE) Urine Nitrite (NEGATIVE) Urine Bilirubin (NEGATIVE) Urine Urobilinogen (<2.0) EU/dL Ur Leukocyte Esterase (NEGATIVE) Urine RBC (0-2/HPF) Urine WBC (0-5/HPF) Ur Epithelial Cells (NONE-FEW) Urine Bacteria (NEGATIVE) 02/11/19 Range/Units 09:20 WBC (4.0-11.0) K/uL RBC (4.30-5.90) M/uL Hgb (12.0-16.0) g/dL Hct (36.0-46.0) % MCV (80.0-98.0) fL MCH (27.0-32.0) pg MCHC (31.0-37.0) g/dL RDW Std Deviation (28.0-62.0) fl RDW Coeff of Marjorie (11.0-15.0) % Plt Count (150-400) K/uL MPV (7.40-12.00) fL Neut % (Auto) (48.0-80.0) % Lymph % (Auto) (16.0-40.0) % [place] % (Auto) (0.0-15.0) % Eos % (Auto) (0.0-7.0) % Baso % (Auto) (0.0-1.5) % Neut # (Auto) (1.4-5.7) K/uL Lymph # (Auto) (0.6-2.4) K/uL [place] # (Auto) (0.0-0.8) K/uL Eos # (Auto) (0.0-0.7) K/uL Baso # (Auto) (0.0-0.1) K/uL Nucleated RBC % /100WBC Nucleated RBCs # K/uL INR Sodium (136-145) mmol/L Potassium (3.5-5.1) mmol/L Chloride (98-107) mmol/L Carbon Dioxide (21.0-32.0) mmol/L BUN (7.0-18.0) mg/dL Creatinine (0.6-1.0) mg/dL Est Cr Clr Drug Dosing mL/min Estimated GFR (MDRD) ml/min Glucose (74-106) mg/dL Calcium (8.5-10.1) mg/dL Total Bilirubin (0.2-1.0) mg/dL AST (15-37) IU/L ALT (14-63) IU/L Alkaline Phosphatase (46-116) U/L Troponin I (0.000-0.056) ng/mL Total Protein (6.4-8.2) g/dL Albumin (3.4-5.0) g/dL Globulin (2.6-4.0) g/dL Albumin/Globulin Ratio (0.9-1.6) Urine Color YELLOW Urine Appearance CLOUDY Urine pH 5.5 (5.0-8.0) Ur Specific [place] 1.010 (1.001-1.035) Urine Protein 30 H (NEGATIVE) mg/dL Urine Glucose (UA) NEGATIVE (NEGATIVE) mg/dL Urine Ketones NEGATIVE (NEGATIVE) mg/dL Urine Occult Blood LARGE H (NEGATIVE) Urine Nitrite POSITIVE H (NEGATIVE) Urine Bilirubin NEGATIVE (NEGATIVE) Urine Urobilinogen 0.2 (<2.0) EU/dL Ur Leukocyte Esterase LARGE H (NEGATIVE) Urine RBC 10-15 (0-2/HPF) Urine WBC TO NUMEROUS TO COUNT H (0-5/HPF) Ur Epithelial Cells FEW (NONE-FEW) Urine Bacteria 2+ H (NEGATIVE) Meds: Medications Generic Name Dose Route Start Last Admin Trade Name Freq PRN Reason Stop Dose Admin Sodium Chloride 1,000 mls @ 250 mls/hr 02/11/19 08:43 02/11/19 08:56 Normal Saline IV 02/11/19 12:42 250 mls/hr STAT ONE Administration Ceftriaxone Sodium/Dextrose 1 50 mls @ 100 mls/hr 02/11/19 09:41 gm/ Premix IV 02/11/19 10:10 ONETIME ONE Departure - Departure Time of Disposition: 09:58 Disposition: Refer to Observation Condition: Fair Clinical Impression: UTI, Urinary tract infectious disease AMS (altered mental status) Qualifiers: Altered mental status type: unspecified Qualified Code(s): R41.82 - Altered mental status, unspecified - Discharge Information *PRESCRIPTION DRUG MONITORING PROGRAM REVIEWED*: Not Applicable *COPY OF PRESCRIPTION DRUG MONITORING REPORT IN PATIENT DEEPIKA: Not Applicable Forms: ED Department Discharge Additional Instructions: The following information is given to patients seen in the emergency department who are being discharged to home. This information is to outline your options for follow-up care. We provide all patients seen in our emergency department with a follow-up referral. The need for follow-up, as well as the timing and circumstances, are variable depending upon the specifics of your emergency department visit. If you don't have a primary care physician on staff, we will provide you with a referral. We always advise you to contact your personal physician following an emergency department visit to inform them of the circumstance of the visit and for follow-up with them and/or the need for any referrals to a consulting specialist. The emergency department will also refer you to a specialist when appropriate. This referral assures that you have the opportunity for follow-up care with a specialist. All of these measure are taken in an effort to provide you with optimal care, which includes your follow-up. Under all circumstances we always encourage you to contact your private physician who remains a resource for coordinating your care. When calling for follow-up care, please make the office aware that this follow-up is from your recent emergency room visit. If for any reason you are refused follow-up, please contact the [facility] Emergency Department at and asked to speak to the emergency department charge nurse. - My Orders Last 24 Hours: My Active Orders 02/11/19 08:43 Sodium Chloride 0.9% [Normal Saline] 1,000 ml IV STAT 02/11/19 09:13 EKG 12 Lead [EKG Documentation Completion] [RC] STAT 02/11/19 09:20 CULTURE URINE [RM] Stat 02/11/19 09:41 cefTRIAXone [Rocephin in Dextrose,Iso-Osm 1 GM/50 ML] 1 gm Premix Bag 1 bag IV ONETIME 02/11/19 09:47 Patient Status [ADT] Stat - Assessment/Plan Last 24 Hours: My Active Orders 02/11/19 08:43 Sodium Chloride 0.9% [Normal Saline] 1,000 ml IV STAT 02/11/19 09:13 EKG 12 Lead [EKG Documentation Completion] [RC] STAT 02/11/19 09:20 CULTURE URINE [RM] Stat 02/11/19 09:41 cefTRIAXone [Rocephin in Dextrose,Iso-Osm 1 GM/50 ML] 1 gm Premix Bag 1 bag IV ONETIME 02/11/19 09:47 Patient Status [ADT] Stat
[2019-02-11] MEDS ORDERED: cefTRIAXone 1 GM in Premix Bag 1 BAG IV ONE (09:41)
--- NOTE | 2019-02-11 09:41 | CR ---
INDICATION: Shortness of breath. TECHNIQUE: Chest 1 view COMPARISON: 01/08/2019. FINDINGS: Cardiovascular and mediastinum: Heart size is within normal limits. Aorta is mildly tortuous, unchanged. Lungs and pleural spaces: Lungs are clear. No sign of focal consolidation, pleural effusion, or pneumothorax. Bones and soft tissues: Degenerative changes are again noted in the spine. IMPRESSION: No acute or significant findings. Dictated by Tesfaye Gu MD @ Feb 11 2019 9:39AM Signed by Dr. Tesfaye Gu @ Feb 11 2019 9:41AM
[2019-02-11 09:42] LABS: BLOOD UREA NITROGEN,BUN 46 mg/dL (7.0-18.0); CARBON DIOXIDE,CO2 27.1 mmol/L (21.0-32.0); CHLORIDE,CL 100 mmol/L (98-107); GLUCOSE RANDOM 43 mg/dL (74-106); SODIUM,NA 137 mmol/L (136-145)
[2019-02-11] MEDS ORDERED: 50% Dextrose in Water 50 ML Syringe IVPUSH ONE (12:47)
--- NOTE | 2019-02-11 13:10 | PCM.HP.2 ---
H&P History of Present Illness - General Date of Service: 02/11/19 Admit Problem/Dx: Admission Diagnosis/Problem Admission Diagnosis/Problem Urinary tract infection Source of Information: Patient History Limitations: Reports: Altered Mental Status - History of Present Illness Initial Comments - Free Text/Narative: This 68 year old female with PMH of UTI, renal stones with ureteral stent to L, Dm type 2, MS, HTN and dyslipidemia presented to the ED today via EMS with complaints of fatigue and reporting she is not with if for the last 2 days. They note she has not felt well since September and is more fatigued over the last 2 days. She reports pain to lower abdomen and L kidney which has been more chronic recently. She had ureteral stent placed for non obstructing L renal stones. CT on 01/23 showed stentn in good placement again with no obstructing stones and no hydronephrosis. She reports plans for ESWL with Dr Ortiz next week. Patient poor historian, she is noted to be lethargic. Aler and oriented, but no family at bedside. In the ED CBC WNL. BUN 46, Cr 1.9, which is slightly elevated from baseline of 20s/1.1 respectively. Glucose noted 43. Troponin negative. Chest Xray negative. UA obtained in ED via straight cath, noted to have large blood, positive nitrites, large leukocyte esterase WBC too numerous to count, +2 bacteria. She was treated with IVFs and Rocephin in ED. - Related Data Allergies/Adverse Reactions: Allergies Allergy/AdvReac Type Severity Reaction Status Date / Time erythromycin base Allergy Abdominal Verified 02/11/19 11:32 [Erythromycin Base] Pain latex Allergy Rash Verified 02/11/19 11:32 Penicillins Allergy Cannot Verified 02/11/19 11:32 Remember Home Medications: Home Meds Baclofen 20 mg PO BIDMEALS 12/26/15 [History] Baclofen 40 mg PO BEDTIME 12/26/15 [History] Furosemide 40 mg PO DAILY 12/26/15 [History] Glimepiride [Amaryl] 4 mg PO BID 12/26/15 [History] Metoprolol Tartrate 50 mg PO DAILY 12/26/15 [History] Potassium Chloride [K-Tab ER] 20 meq PO DAILY 12/26/15 [History] Ramipril 10 mg PO DAILY 12/26/15 [History] Rosuvastatin [Crestor] 20 mg PO DAILY 12/26/15 [History] metFORMIN HCl [Metformin ER Osmotic] 2,000 mg PO ACDINNER 12/26/15 [History] FLUoxetine [PROzac] 10 mg PO DAILY 04/01/18 [History] Rivaroxaban [Xarelto] 20 mg PO WITHDINNER 04/01/18 [History] Oxybutynin [Oxytrol] 1 patch TRDERM ASDIRECTED 12/04/18 [History] Melatonin/Pyridoxine HCl (B6) [Melatonin 5 mg Tablet] 1 each PO DAILY 01/08/19 [ History] FLUoxetine HCl [Fluoxetine HCl] 10 mg PO DAILY 02/11/19 [History] Tamsulosin HCl 0.4 mg PO BEDTIME 02/11/19 [History] Past Medical History HEENT History: Reports: Impaired Vision, Other (See Below) Other HEENT History: wears glasses, "starting of macular degeneration" Cardiovascular History: Reports: Blood Clots/VTE/DVT, High Cholesterol, Hypertension, HI Respiratory History: Reports: PE, Sleep Apnea Other Respiratory History: uses BI-PAP Gastrointestinal History: Reports: None Genitourinary History: Reports: Renal Calculus, Urinary Incontinence, UTI, Recurrent Other Genitourinary History: using tens/pads, recent UTI with rt ureteral stone and hospitalized in [place], [place] [employer] History: Reports: Other OB/BYN History: 2 Musculoskeletal History: Reports: Fracture Other Musculoskeletal History: uses walker Neurological History: Reports: MS Other Neuro History: MS-at age 14, uses walker Psychiatric History: Reports: Anxiety, Depression Other Psychiatric History: on medication with depression Endocrine/Metabolic History: Reports: Diabetes, Type II, Obesity/BMI 30+ Other Endocrine/Metabolic History: thyroid nodules 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 Hematologic History: Reports: None Immunologic History: Reports: Other (See Below) Other Immunologic History: hx MRSA Oncologic (Cancer) History: Reports: None Dermatologic History: Reports: None - Infectious Disease History Infectious Disease History: Reports: Chicken Pox, Measles, Mumps Other Infectious Disease History: had it in the apst - Past Surgical History HEENT Surgical History: Reports: Adenoidectomy, Cataract Surgery, Tonsillectomy Other HEENT Surgeries/Procedures: cyst removed from rt lower eye lid Cardiovascular Surgical History: Reports: None Respiratory Surgical History: Reports: None GI Surgical History: Reports: None Female Surgical History: Reports: None Endocrine Surgical History: Reports: None Neurological Surgical History: Reports: None Musculoskeletal Surgical History: Reports: None Oncologic Surgical History: Reports: None Dermatological Surgical History: Reports: None Social & Family History - Family History Family Medical History: Noncontributory Cardiac: Reports: CAD Other Cardiac Family History: parents - CHF Respiratory: Reports: COPD Other Respiratory Family Hisory: COPD - brother OBGYN: Reports: Neurological: Reports: MS Other Neurological Family History: MS- sister also has MS Endocrine/Metabolic: Reports: Diabetes, type II Other Endocrine/Metabolic Family History: family Hematologic: Reports: Other (See Below) Other Hematologic Family History: brother - leukemia Oncologic: Reports: Breast, Leukemia Other Oncologic Family History: father side - breast cancer - Tobacco Use Smoking Status *Q: Former Smoker Used Tobacco, but Quit: Yes Month/Year Tobacco Last Used: 1969 - Caffeine Use Caffeine Use: Reports: None - Recreational Drug Use Recreational Drug Use: No H&P Review of Systems - Review of Systems: Review Of Systems: ROS reveals no pertinent complaints other than HPI. (patient lethargic, unable to obtain adequate ROS) Exam - Exam Exam: See Below - Vital Signs Vital Signs: Last Vital Signs Temp 96.6 F 02/11/19 10:21 Pulse 62 02/11/19 10:45 Resp 18 02/11/19 10:45 BP 124/74 02/11/19 10:45 Pulse Ox 98 02/11/19 10:45 Weight: 77.973 kg - Exam General: Oriented, Cooperative, Lethargic (very slow in responses, though oriented.) HEENT: Conjunctiva Clear, Mucosa Moist & [place], Posterior Pharynx Clear Lungs: Clear to Auscultation, Normal Respiratory Effort Cardiovascular: Regular Rate, Regular Rhythm GI/Abdominal Exam: Normal Bowel Sounds, Soft, Tender (scant tenderness to lower abdomen) Back Exam: No: CVA Tenderness (L), CVA Tenderness (R) Extremities: Normal Inspection, Normal Range of Motion, No Pedal Edema, Other ( venous insuffiency skin changes, bilateral lower legs) Skin: Warm, Dry Neuro Extensive - Mental Status: Alert, Oriented x3 Psychiatric: Alert - Patient Data Lab Results Last 24 hrs: Laboratory Results - last 24 hr 10/16/19 10/16/19 10/16/19 Range/Units 08:50 08:50 08:50 WBC 7.72 (4.0-11.0) K/uL RBC 3.50 L (4.30-5.90) M/uL Hgb 10.5 L (12.0-16.0) g/dL Hct 33.2 L (36.0-46.0) % MCV 94.9 (80.0-98.0) fL MCH 30.0 (27.0-32.0) pg MCHC 31.6 (31.0-37.0) g/dL RDW Std Deviation 50.8 (28.0-62.0) fl RDW Coeff of Marjorie 15 (11.0-15.0) % Plt Count 197 (150-400) K/uL MPV 10.10 (7.40-12.00) fL Neut % (Auto) 73.8 (48.0-80.0) % Lymph % (Auto) 11.1 L (16.0-40.0) % [place] % (Auto) 14.1 (0.0-15.0) % Eos % (Auto) 0.9 (0.0-7.0) % Baso % (Auto) 0.1 (0.0-1.5) % Neut # (Auto) 5.7 (1.4-5.7) K/uL Lymph # (Auto) 0.9 (0.6-2.4) K/uL [place] # (Auto) 1.1 H (0.0-0.8) K/uL Eos # (Auto) 0.1 (0.0-0.7) K/uL Baso # (Auto) 0.0 (0.0-0.1) K/uL Nucleated RBC % 0.0 /100WBC Nucleated RBCs # 0 K/uL INR 1.30 Sodium 137 (136-145) mmol/L Potassium 4.0 (3.5-5.1) mmol/L Chloride 100 (98-107) mmol/L Carbon Dioxide 27.1 (21.0-32.0) mmol/L BUN 46 H (7.0-18.0) mg/dL Creatinine 1.9 H (0.6-1.0) mg/dL Est Cr Clr Drug Dosing 20.79 mL/min Estimated GFR (MDRD) 26.1 ml/min Glucose 43 L (74-106) mg/dL POC Glucose (60-110) mg/dL Calcium 8.8 (8.5-10.1) mg/dL Total Bilirubin 0.4 (0.2-1.0) mg/dL AST 19 (15-37) IU/L ALT 13 L (14-63) IU/L Alkaline Phosphatase 76 (46-116) U/L Troponin I < 0.050 (0.000-0.056) ng/mL Total Protein 7.4 (6.4-8.2) g/dL Albumin 2.4 L (3.4-5.0) g/dL Globulin 5.0 H (2.6-4.0) g/dL Albumin/Globulin Ratio 0.5 L (0.9-1.6) Urine Color Urine Appearance Urine pH (5.0-8.0) Ur Specific [place] (1.001-1.035) Urine Protein (NEGATIVE) mg/dL Urine Glucose (UA) (NEGATIVE) mg/dL Urine Ketones (NEGATIVE) mg/dL Urine Occult Blood (NEGATIVE) Urine Nitrite (NEGATIVE) Urine Bilirubin (NEGATIVE) Urine Urobilinogen (<2.0) EU/dL Ur Leukocyte Esterase (NEGATIVE) Urine RBC (0-2/HPF) Urine WBC (0-5/HPF) Ur Epithelial Cells (NONE-FEW) Urine Bacteria (NEGATIVE) Urinalysis Comment 02/11/19 02/11/19 Range/Units 09:20 12:46 WBC (4.0-11.0) K/uL RBC (4.30-5.90) M/uL Hgb (12.0-16.0) g/dL Hct (36.0-46.0) % MCV (80.0-98.0) fL MCH (27.0-32.0) pg MCHC (31.0-37.0) g/dL RDW Std Deviation (28.0-62.0) fl RDW Coeff of Marjorie (11.0-15.0) % Plt Count (150-400) K/uL MPV (7.40-12.00) fL Neut % (Auto) (48.0-80.0) % Lymph % (Auto) (16.0-40.0) % [place] % (Auto) (0.0-15.0) % Eos % (Auto) (0.0-7.0) % Baso % (Auto) (0.0-1.5) % Neut # (Auto) (1.4-5.7) K/uL Lymph # (Auto) (0.6-2.4) K/uL [place] # (Auto) (0.0-0.8) K/uL Eos # (Auto) (0.0-0.7) K/uL Baso # (Auto) (0.0-0.1) K/uL Nucleated RBC % /100WBC Nucleated RBCs # K/uL INR Sodium (136-145) mmol/L Potassium (3.5-5.1) mmol/L Chloride (98-107) mmol/L Carbon Dioxide (21.0-32.0) mmol/L BUN (7.0-18.0) mg/dL Creatinine (0.6-1.0) mg/dL Est Cr Clr Drug Dosing mL/min Estimated GFR (MDRD) ml/min Glucose (74-106) mg/dL POC Glucose 30 L (60-110) mg/dL Calcium (8.5-10.1) mg/dL Total Bilirubin (0.2-1.0) mg/dL AST (15-37) IU/L ALT (14-63) IU/L Alkaline Phosphatase (46-116) U/L Troponin I (0.000-0.056) ng/mL Total Protein (6.4-8.2) g/dL Albumin (3.4-5.0) g/dL Globulin (2.6-4.0) g/dL Albumin/Globulin Ratio (0.9-1.6) Urine Color YELLOW Urine Appearance CLOUDY Urine pH 5.5 (5.0-8.0) Ur Specific [place] 1.010 (1.001-1.035) Urine Protein 30 H (NEGATIVE) mg/dL Urine Glucose (UA) NEGATIVE (NEGATIVE) mg/dL Urine Ketones NEGATIVE (NEGATIVE) mg/dL Urine Occult Blood LARGE H (NEGATIVE) Urine Nitrite POSITIVE H (NEGATIVE) Urine Bilirubin NEGATIVE (NEGATIVE) Urine Urobilinogen 0.2 (<2.0) EU/dL Ur Leukocyte Esterase LARGE H (NEGATIVE) Urine RBC 10-15 (0-2/HPF) Urine WBC TO NUMEROUS TO COUNT H (0-5/HPF) Ur Epithelial Cells FEW (NONE-FEW) Urine Bacteria 2+ H (NEGATIVE) Urinalysis Comment CATH SPECIMEN Result Diagrams: 02/11/19 08:50 02/11/19 08:50 - Problem List (1) Altered mental status, unspecified SNOMED Code(s): 656948941 ICD Code: R41.82 - ALTERED MENTAL STATUS, UNSPECIFIED Status: Acute Current Visit: Yes Qualifiers: Altered mental status type: unspecified Qualified Code(s): R41.82 - Altered mental status, unspecified (2) Hypoglycemia SNOMED Code(s): 865551679 ICD Code: E16.2 - HYPOGLYCEMIA, UNSPECIFIED Status: Acute Current Visit: Yes (3) UTI, Urinary tract infectious disease SNOMED Code(s): 67930849 ICD Code: N39.0 - URINARY TRACT INFECTION, SITE NOT SPECIFIED Status: Acute Current Visit: Yes (4) MAI (acute kidney injury) SNOMED Code(s): 08971028, 71232870 ICD Code: N17.9 - ACUTE KIDNEY FAILURE, UNSPECIFIED Status: Acute Current Visit: No (5) Renal calculus, left SNOMED Code(s): 83572780 ICD Code: N20.0 - CALCULUS OF KIDNEY Status: Chronic Current Visit: Yes (6) Chronic anemia SNOMED Code(s): 364498096 ICD Code: D64.9 - ANEMIA, UNSPECIFIED Status: Chronic Current Visit: No (7) DMII (diabetes mellitus, type 2) SNOMED Code(s): 85649681 ICD Code: E11.9 - TYPE 2 DIABETES MELLITUS WITHOUT COMPLICATIONS Status: Chronic Current Visit: No (8) HTN (hypertension) SNOMED Code(s): 60967682 ICD Code: I10 - ESSENTIAL (PRIMARY) HYPERTENSION Status: Chronic Current Visit: No (9) Hx pulmonary embolism SNOMED Code(s): 558087640 ICD Code: Z86.711 - PERSONAL HISTORY OF PULMONARY EMBOLISM Status: Chronic Current Visit: No (10) Hyperlipidemia SNOMED Code(s): 03285147 ICD Code: E78.5 - HYPERLIPIDEMIA, UNSPECIFIED Status: Chronic Current Visit: No (11) Multiple sclerosis SNOMED Code(s): 77539352 ICD Code: G35 - MULTIPLE SCLEROSIS Status: Chronic Current Visit: No (12) CKD (chronic kidney disease) SNOMED Code(s): 685527601 ICD Code: N18.9 - CHRONIC KIDNEY DISEASE, UNSPECIFIED Status: Chronic Current Visit: Yes Problem List Initiated/Reviewed/Updated: Yes Orders Last 24hrs: Active Orders 24 hr Category Date Time Status Patient Status [ADT] Stat ADT 02/11/19 13:03 Active Blood Glucose Check, Bedside [RC] TIDAC Care 02/11/19 12:50 Active EKG 12 Lead [EKG Documentation Completion] [RC] STAT Care 02/11/19 09:13 Active ADA Diabetic [[place] [employer] Diet] [DIET Diet 02/11/19 Lunch Active ] CULTURE URINE [RM] Stat Lab 02/11/19 09:20 Received Assessment/Plan Comment:: This 68 year old female admitted with AMS, hypoglycemia, UTI and dehydration with MAI on CKD. 1. AMS: Likely related to UTI and hypoglycemia. Given D50 BS increased and patient more alert. Monitor. Hold sedating medications. 2. UTI: Hx of L renal stent and calculi, will obtain renal US to evaluate for obstruction. UC pending. Continue Rocephin for now. 3. Hypoglycemia: Hx DM Type 2. Given D50 on med/Surg. BS increased to 90s, ADA diet. Hold Anti-glycemic meds for now. Monitor BS every 2 hours. Unsure if she took pills this morning, but takes Glimepiride and Metformin. 4. MAI on CKD: Elevation in BUN/Cr from baseline. Gentle IVFs overnight. recheck in AM. again checking for obstruction with renal US 5. Generalized weakness: PT to evaluate and treat. Will speak with family when available regarding plans for discharge. 6. HTN: Stable. Monitor for now. 7. Hx PE: Continue Xarelto. VTE prophylaxis: Xarelto. Dispo: 2-3 days pending improvement.
[2019-02-11] MEDS ORDERED: Ondansetron 4 MG/2 ML SDV IVPUSH PRN (13:16)
[2019-02-11] MEDS ORDERED: Acetaminophen 325 MG Tab PO PRN (13:16)
[2019-02-11] MEDS ORDERED: Docusate Sodium 100 MG Cap PO PRN (13:16)
[2019-02-11] MEDS: Sodium Chloride 0.9% 1,000 ML IV SCH (13:30)
--- NOTE | 2019-02-11 15:28 | US ---
Renal ultrasound: Multiple real-time images of Kidneys were obtained. Comparison: No prior renal ultrasound, most recent study is a noncontrast CT exam of 01/23/19. Findings: Kidneys show no hydronephrosis or discrete mass. Echogenic structure is noted within the bladder and within the left kidney compatible with ureteral stent. This appears to be similar to prior CT exam. No focal abnormality is otherwise seen within the bladder. Measurements: Right kidney length: 11.1 cm, left kidney length: 13.4 cm Impression: 1. Left-sided ureteral stent. 2. No additional abnormality is appreciated on renal ultrasound exam. Diagnostic code #2 MTDD
[2019-02-11] MEDS: OXYBUTYNIN TRDERM SCH (16:42)
[2019-02-11] MEDS: Nystatin Topical Powder 15 GM Bottle TOP SCH ×2 (16:51→22:36)
[2019-02-11] MEDS ORDERED: Dextrose 5%-0.45% NaCl 1,000 ML IV SCH (22:30)
[2019-02-12] MEDS ORDERED: 50% Dextrose in Water 50 ML Syringe IVPUSH ONE (02:09)
[2019-02-12] MEDS: Sodium Chloride 0.9% 1,000 ML IV SCH (03:26)
[2019-02-12] MEDS: Nystatin Topical Powder 15 GM Bottle TOP SCH ×3 (05:39→22:55)
[2019-02-12 05:50] LABS: CARBON DIOXIDE,CO2 25.3 mmol/L (21.0-32.0); POTASSIUM,K 3.8 mmol/L (3.5-5.1)
[2019-02-12] MEDS: Rosuvastatin 10 MG Tab PO SCH (08:23)
[2019-02-12] MEDS: FERROUS SULFATE 325 MG PO SCH ×2 (08:25→08:36)
[2019-02-12] MEDS: Metoprolol Tartrate 50 MG Tab PO SCH (08:25)
[2019-02-12] MEDS: cefTRIAXone 1 GM in Premix Bag 1 BAG IV SCH (08:30)
[2019-02-12] MEDS: Melatonin/Pyridoxine Hcl (B6) [Melatonin 5 Mg Tablet] PO SCH (08:44)
--- NOTE | 2019-02-12 12:37 | PCM.PN ---
- General Info Date of Service: 02/12/19 Admission Dx/Problem (Free Text): Admission Diagnosis/Problem Admission Diagnosis/Problem Urinary tract infection Subjective Update: Mild improvement. reports she looks better, strength is still at 100%. She denies chest pain or any pain. No shortness of breath. Alert and oriented. Functional Status: Reports: Pain Controlled, Tolerating Diet, Ambulating, Urinating - Review of Systems General: Reports: No Symptoms. Denies: Fever, Weakness, Fatigue HEENT: Reports: No Symptoms Pulmonary: Reports: No Symptoms. Denies: Shortness of Breath Cardiovascular: Reports: No Symptoms. Denies: Chest Pain, Palpitations Gastrointestinal: Reports: No Symptoms. Denies: Abdominal Pain, Nausea, Vomiting Genitourinary: Reports: No Symptoms. Denies: Dysuria, Frequency, Burning Musculoskeletal: Reports: No Symptoms. Denies: Neck Pain, Back Pain Skin: Reports: No Symptoms Neurological: Reports: No Symptoms Psychiatric: Reports: No Symptoms - Patient Data Vitals - Most Recent: Last Vital Signs Temp 98.2 F 02/12/19 11:00 Pulse 64 02/12/19 11:00 Resp 18 02/12/19 11:00 BP 154/97 H 02/12/19 11:00 Pulse Ox 92 L 02/12/19 11:00 Weight - Most Recent: 77.973 kg I&O - Last 24 Hours: Intake & Output 02/11/19 02/12/19 02/12/19 22:59 06:59 14:59 Intake Total 120 1532 50 Output Total 760 206 Balance -640 1326 50 Lab Results Last 24 Hours: Laboratory Results - last 24 hr 02/11/19 02/11/19 02/11/19 Range/Units 12:46 13:28 14:19 WBC (4.0-11.0) K/uL RBC (4.30-5.90) M/uL Hgb (12.0-16.0) g/dL Hct (36.0-46.0) % MCV (80.0-98.0) fL MCH (27.0-32.0) pg MCHC (31.0-37.0) g/dL RDW Std Deviation (28.0-62.0) fl RDW Coeff of Marjorie (11.0-15.0) % Plt Count (150-400) K/uL MPV (7.40-12.00) fL Add Manual Diff Neutrophils % (Manual) (48.0-80.0) % Band Neutrophils % % Lymphocytes % (Manual) (16.0-40.0) % Monocytes % (Manual) (0.0-15.0) % Eosinophils % (Manual) (0.0-7.0) % Basophils % (Manual) (0.0-1.5) % Nucleated RBC % /100WBC Absolute Seg Neuts (1.4-5.7) Band Neutrophils # Lymphocytes # (Manual) (0.6-2.4) Monocytes # (Manual) (0.0-0.8) Eosinophils # (Manual) (0.0-0.7) Basophils # (Manual) (0.0-0.1) Nucleated RBCs # K/uL Sodium (136-145) mmol/L Potassium (3.5-5.1) mmol/L Chloride (98-107) mmol/L Carbon Dioxide (21.0-32.0) mmol/L BUN (7.0-18.0) mg/dL Creatinine (0.6-1.0) mg/dL Est Cr Clr Drug Dosing mL/min Estimated GFR (MDRD) ml/min Glucose (74-106) mg/dL POC Glucose 30 L 94 104 (60-110) mg/dL Hemoglobin A1c (4.5-6.2) % Calcium (8.5-10.1) mg/dL 02/11/19 02/11/19 02/11/19 Range/Units 15:48 18:43 20:41 WBC (4.0-11.0) K/uL RBC (4.30-5.90) M/uL Hgb (12.0-16.0) g/dL Hct (36.0-46.0) % MCV (80.0-98.0) fL MCH (27.0-32.0) pg MCHC (31.0-37.0) g/dL RDW Std Deviation (28.0-62.0) fl RDW Coeff of Marjorie (11.0-15.0) % Plt Count (150-400) K/uL MPV (7.40-12.00) fL Add Manual Diff Neutrophils % (Manual) (48.0-80.0) % Band Neutrophils % % Lymphocytes % (Manual) (16.0-40.0) % Monocytes % (Manual) (0.0-15.0) % Eosinophils % (Manual) (0.0-7.0) % Basophils % (Manual) (0.0-1.5) % Nucleated RBC % /100WBC Absolute Seg Neuts (1.4-5.7) Band Neutrophils # Lymphocytes # (Manual) (0.6-2.4) Monocytes # (Manual) (0.0-0.8) Eosinophils # (Manual) (0.0-0.7) Basophils # (Manual) (0.0-0.1) Nucleated RBCs # K/uL Sodium (136-145) mmol/L Potassium (3.5-5.1) mmol/L Chloride (98-107) mmol/L Carbon Dioxide (21.0-32.0) mmol/L BUN (7.0-18.0) mg/dL Creatinine (0.6-1.0) mg/dL Est Cr Clr Drug Dosing mL/min Estimated GFR (MDRD) ml/min Glucose (74-106) mg/dL POC Glucose 77 81 57 L (60-110) mg/dL Hemoglobin A1c (4.5-6.2) % Calcium (8.5-10.1) mg/dL 02/11/19 02/11/19 02/11/19 Range/Units 21:24 22:14 23:32 WBC (4.0-11.0) K/uL RBC (4.30-5.90) M/uL Hgb (12.0-16.0) g/dL Hct (36.0-46.0) % MCV (80.0-98.0) fL MCH (27.0-32.0) pg MCHC (31.0-37.0) g/dL RDW Std Deviation (28.0-62.0) fl RDW Coeff of Marjorie (11.0-15.0) % Plt Count (150-400) K/uL MPV (7.40-12.00) fL Add Manual Diff Neutrophils % (Manual) (48.0-80.0) % Band Neutrophils % % Lymphocytes % (Manual) (16.0-40.0) % Monocytes % (Manual) (0.0-15.0) % Eosinophils % (Manual) (0.0-7.0) % Basophils % (Manual) (0.0-1.5) % Nucleated RBC % /100WBC Absolute Seg Neuts (1.4-5.7) Band Neutrophils # Lymphocytes # (Manual) (0.6-2.4) Monocytes # (Manual) (0.0-0.8) Eosinophils # (Manual) (0.0-0.7) Basophils # (Manual) (0.0-0.1) Nucleated RBCs # K/uL Sodium (136-145) mmol/L Potassium (3.5-5.1) mmol/L Chloride (98-107) mmol/L Carbon Dioxide (21.0-32.0) mmol/L BUN (7.0-18.0) mg/dL Creatinine (0.6-1.0) mg/dL Est Cr Clr Drug Dosing mL/min Estimated GFR (MDRD) ml/min Glucose (74-106) mg/dL POC Glucose 68 72 84 (60-110) mg/dL Hemoglobin A1c (4.5-6.2) % Calcium (8.5-10.1) mg/dL 02/12/19 02/12/19 02/12/19 Range/Units 02:04 03:29 05:10 WBC 5.95 (4.0-11.0) K/uL RBC 3.12 L (4.30-5.90) M/uL Hgb 9.4 L (12.0-16.0) g/dL Hct 29.3 L (36.0-46.0) % MCV 93.9 (80.0-98.0) fL MCH 30.1 (27.0-32.0) pg MCHC 32.1 (31.0-37.0) g/dL RDW Std Deviation 49.4 (28.0-62.0) fl RDW Coeff of Marjorie 14 (11.0-15.0) % Plt Count 202 (150-400) K/uL MPV 9.60 (7.40-12.00) fL Add Manual Diff YES Neutrophils % (Manual) 68 (48.0-80.0) % Band Neutrophils % 3 % Lymphocytes % (Manual) 15 L (16.0-40.0) % Monocytes % (Manual) 10 (0.0-15.0) % Eosinophils % (Manual) 3 (0.0-7.0) % Basophils % (Manual) 1 (0.0-1.5) % Nucleated RBC % 0.0 /100WBC Absolute Seg Neuts 4.0 (1.4-5.7) Band Neutrophils # 0.2 Lymphocytes # (Manual) 0.9 (0.6-2.4) Monocytes # (Manual) 0.6 (0.0-0.8) Eosinophils # (Manual) 0.2 (0.0-0.7) Basophils # (Manual) 0.1 (0.0-0.1) Nucleated RBCs # 0 K/uL Sodium (136-145) mmol/L Potassium (3.5-5.1) mmol/L Chloride (98-107) mmol/L Carbon Dioxide (21.0-32.0) mmol/L BUN (7.0-18.0) mg/dL Creatinine (0.6-1.0) mg/dL Est Cr Clr Drug Dosing mL/min Estimated GFR (MDRD) ml/min Glucose (74-106) mg/dL POC Glucose 59 L 124 H (60-110) mg/dL Hemoglobin A1c (4.5-6.2) % Calcium (8.5-10.1) mg/dL 02/12/19 02/12/19 02/12/19 Range/Units 05:10 05:10 06:18 WBC (4.0-11.0) K/uL RBC (4.30-5.90) M/uL Hgb (12.0-16.0) g/dL Hct (36.0-46.0) % MCV (80.0-98.0) fL MCH (27.0-32.0) pg MCHC (31.0-37.0) g/dL RDW Std Deviation (28.0-62.0) fl RDW Coeff of Marjorie (11.0-15.0) % Plt Count (150-400) K/uL MPV (7.40-12.00) fL Add Manual Diff Neutrophils % (Manual) (48.0-80.0) % Band Neutrophils % % Lymphocytes % (Manual) (16.0-40.0) % Monocytes % (Manual) (0.0-15.0) % Eosinophils % (Manual) (0.0-7.0) % Basophils % (Manual) (0.0-1.5) % Nucleated RBC % /100WBC Absolute Seg Neuts (1.4-5.7) Band Neutrophils # Lymphocytes # (Manual) (0.6-2.4) Monocytes # (Manual) (0.0-0.8) Eosinophils # (Manual) (0.0-0.7) Basophils # (Manual) (0.0-0.1) Nucleated RBCs # K/uL Sodium 139 (136-145) mmol/L Potassium 3.8 (3.5-5.1) mmol/L Chloride 104 (98-107) mmol/L Carbon Dioxide 25.3 (21.0-32.0) mmol/L BUN 36 H (7.0-18.0) mg/dL Creatinine 1.3 H (0.6-1.0) mg/dL Est Cr Clr Drug Dosing 30.38 mL/min Estimated GFR (MDRD) 40.5 ml/min Glucose 132 H (74-106) mg/dL POC Glucose 113 H (60-110) mg/dL Hemoglobin A1c 7.0 H (4.5-6.2) % Calcium 8.6 (8.5-10.1) mg/dL 02/12/19 02/12/19 02/12/19 Range/Units 08:31 10:37 12:18 WBC (4.0-11.0) K/uL RBC (4.30-5.90) M/uL Hgb (12.0-16.0) g/dL Hct (36.0-46.0) % MCV (80.0-98.0) fL MCH (27.0-32.0) pg MCHC (31.0-37.0) g/dL RDW Std Deviation (28.0-62.0) fl RDW Coeff of Marjorie (11.0-15.0) % Plt Count (150-400) K/uL MPV (7.40-12.00) fL Add Manual Diff Neutrophils % (Manual) (48.0-80.0) % Band Neutrophils % % Lymphocytes % (Manual) (16.0-40.0) % Monocytes % (Manual) (0.0-15.0) % Eosinophils % (Manual) (0.0-7.0) % Basophils % (Manual) (0.0-1.5) % Nucleated RBC % /100WBC Absolute Seg Neuts (1.4-5.7) Band Neutrophils # Lymphocytes # (Manual) (0.6-2.4) Monocytes # (Manual) (0.0-0.8) Eosinophils # (Manual) (0.0-0.7) Basophils # (Manual) (0.0-0.1) Nucleated RBCs # K/uL Sodium (136-145) mmol/L Potassium (3.5-5.1) mmol/L Chloride (98-107) mmol/L Carbon Dioxide (21.0-32.0) mmol/L BUN (7.0-18.0) mg/dL Creatinine (0.6-1.0) mg/dL Est Cr Clr Drug Dosing mL/min Estimated GFR (MDRD) ml/min Glucose (74-106) mg/dL POC Glucose 109 141 H 185 H (60-110) mg/dL Hemoglobin A1c (4.5-6.2) % Calcium (8.5-10.1) mg/dL Jareth Results Last 24 Hours: Microbiology 02/11/19 09:20 Urine Culture - Preliminary Urine, Quick Cath (In-Out) Med Orders - Current: Current Medications Acetaminophen (Tylenol) 650 mg PO Q4H PRN PRN Reason: Pain (mild 1-3) Docusate Sodium (Colace) 100 mg PO BID PRN PRN Reason: Constipation Ferrous Sulfate (Ferrous Sulfate) 325 mg PO DAILY [facility] Last Admin: 02/12/19 08:36 Dose: Not Given Fluoxetine HCl (Prozac) 10 mg PO DAILY [facility] Last Admin: 02/12/19 08:25 Dose: 10 mg Ceftriaxone Sodium/Dextrose 1 (gm/ Premix) 50 mls @ 100 mls/hr IV Q24H [facility] Last Admin: 02/12/19 08:30 Dose: 100 mls/hr Metoprolol Tartrate (Lopressor) 50 mg PO DAILY [facility] Last Admin: 02/12/19 08:25 Dose: 50 mg Nystatin (Nystop) 0 gm TOP TID [facility] Last Admin: 02/12/19 05:39 Dose: 1 applic Ondansetron HCl (Zofran) 4 mg IVPUSH Q4H PRN PRN Reason: Nausea Melatonin/Pyridoxine Hcl (B6) [Melatonin 5 Mg Tablet] 1 each PO DAILY [facility] Last Admin: 02/12/19 08:44 Dose: Not Given Oxybutynin [Oxytrol] (3.9 Mg) 1 each TRDERM Q96H [facility] Last Admin: 02/11/19 16:42 Dose: Not Given Rivaroxaban (Xarelto) 20 mg PO DAILY@1730 [place] Rosuvastatin Calcium (Crestor) 20 mg PO DAILY [facility] Last Admin: 02/12/19 08:23 Dose: 20 mg Discontinued Medications Dextrose/Water (Dextrose 50% In Water) 50 ml IVPUSH ONETIME ONE Stop: 02/11/19 12:48 Last Admin: 02/11/19 12:55 Dose: 50 ml Dextrose/Water (Dextrose 50% In Water) 50 ml IVPUSH ONETIME ONE Stop: 02/12/19 02:10 Last Admin: 02/12/19 02:19 Dose: 50 ml Sodium Chloride (Normal Saline) 1,000 mls @ 250 mls/hr IV STAT ONE Stop: 02/11/19 12:42 Last Admin: 02/11/19 08:56 Dose: 250 mls/hr Ceftriaxone Sodium/Dextrose 1 (gm/ Premix) 50 mls @ 100 mls/hr IV ONETIME ONE Stop: 02/11/19 10:10 Last Admin: 02/11/19 09:58 Dose: 100 mls/hr Sodium Chloride (Normal Saline) 1,000 mls @ 75 mls/hr IV Q13H [facility] Last Admin: 02/12/19 03:26 Dose: Not Given Dextrose/Sodium Chloride (Dextrose 5%-1/2 Ns) 1,000 mls @ 75 mls/hr IV ASDIRECTED [facility] Last Admin: 02/11/19 22:32 Dose: 75 mls/hr - Exam General: Alert, Oriented, Cooperative, No Acute Distress Lungs: Clear to Auscultation, Normal Respiratory Effort Cardiovascular: Regular Rate, Regular Rhythm GI/Abdominal Exam: Normal Bowel Sounds, Soft, Non-Tender Extremities: Normal Inspection, Normal Range of Motion, Non-Tender, No Pedal Edema Neurological: No New Focal Deficit Psy/Mental Status: Alert, Normal Affect, Normal Mood - Problem List & Annotations (1) Altered mental status, unspecified SNOMED Code(s): 536413037 Code(s): R41.82 - ALTERED MENTAL STATUS, UNSPECIFIED Status: Acute Current Visit: Yes Qualifiers: Altered mental status type: unspecified Qualified Code(s): R41.82 - Altered mental status, unspecified (2) Hypoglycemia SNOMED Code(s): 864515424 Code(s): E16.2 - HYPOGLYCEMIA, UNSPECIFIED Status: Acute Current Visit: Yes (3) UTI, Urinary tract infectious disease SNOMED Code(s): 80559902 Code(s): N39.0 - URINARY TRACT INFECTION, SITE NOT SPECIFIED Status: Acute Current Visit: Yes (4) MAI (acute kidney injury) SNOMED Code(s): 11194644, 07449800 Code(s): N17.9 - ACUTE KIDNEY FAILURE, UNSPECIFIED Status: Acute Current Visit: No (5) Renal calculus, left SNOMED Code(s): 14785158 Code(s): N20.0 - CALCULUS OF KIDNEY Status: Chronic Current Visit: Yes (6) Chronic anemia SNOMED Code(s): 537924973 Code(s): D64.9 - ANEMIA, UNSPECIFIED Status: Chronic Current Visit: No (7) DMII (diabetes mellitus, type 2) SNOMED Code(s): 88961804 Code(s): E11.9 - TYPE 2 DIABETES MELLITUS WITHOUT COMPLICATIONS Status: Chronic Current Visit: No (8) HTN (hypertension) SNOMED Code(s): 02510532 Code(s): I10 - ESSENTIAL (PRIMARY) HYPERTENSION Status: Chronic Current Visit: No (9) Hx pulmonary embolism SNOMED Code(s): 327495523 Code(s): Z86.711 - PERSONAL HISTORY OF PULMONARY EMBOLISM Status: Chronic Current Visit: No (10) Hyperlipidemia SNOMED Code(s): 72623078 Code(s): E78.5 - HYPERLIPIDEMIA, UNSPECIFIED Status: Chronic Current Visit: No (11) Multiple sclerosis SNOMED Code(s): 88258480 Code(s): G35 - MULTIPLE SCLEROSIS Status: Chronic Current Visit: No (12) CKD (chronic kidney disease) SNOMED Code(s): 899026581 Code(s): N18.9 - CHRONIC KIDNEY DISEASE, UNSPECIFIED Status: Chronic Current Visit: Yes - Problem List Review Problem List Initiated/Reviewed/Updated: Yes - My Orders Last 24 Hours: My Active Orders 02/11/19 12:50 Blood Glucose Check, Bedside [RC] Q2H 02/11/19 13:03 Patient Status [ADT] Stat 02/11/19 13:16 Ambulate [RC] ASDIRECTED Intake and Output [RC] Q12H Oxygen Therapy [RC] PRN Up With Assistance [RC] ASDIRECTED VTE/DVT Education [RC] PER UNIT ROUTINE Vital Signs [RC] Q4H PT Evaluation and Treatment [CONS] Routine Acetaminophen [Tylenol] 650 mg PO Q4H PRN Docusate Sodium [Colace] 100 mg PO BID PRN Ondansetron [Zofran] 4 mg IVPUSH Q4H PRN 02/11/19 14:50 Nystatin [Nystop] See Dose Instructions TOP TID 02/11/19 15:30 Patient's Own Medication [Ptom] 1 each TRDERM Q96H 02/11/19 15:38 May Shower [RC] ASDIRECTED 02/12/19 09:00 FLUoxetine [PROzac] 10 mg PO DAILY Ferrous Sulfate 325 mg PO DAILY Metoprolol Tartrate [Lopressor] 50 mg PO DAILY Patient's Own Medication [Ptom] 1 each PO DAILY Rosuvastatin [Crestor] 20 mg PO DAILY cefTRIAXone [Rocephin in Dextrose,Iso-Osm 1 GM/50 ML] 1 gm Premix Bag 1 bag IV Q24H 02/12/19 17:30 Rivaroxaban [Xarelto] 20 mg PO DAILY@1730 02/12/19 Breakfast ADA Diabetic [[place] [employer] Diet] [DIET] 02/13/19 05:11 BASIC METABOLIC PANEL,BMP [CHEM] AM CBC WITH AUTO DIFF [HEME] AM 02/14/19 05:11 BASIC METABOLIC PANEL,BMP [CHEM] AM CBC WITH AUTO DIFF [HEME] AM - Plan Plan:: This 68 year old female admitted with AMS, hypoglycemia, UTI and dehydration with MAI on CKD. 1. AMS: Likely related to UTI and hypoglycemia. Improved today. Will monitor. 2. UTI: Hx of L renal stent and calculi, Renal US reveals patent stent, no hydronephrosis. UC pending. Continue Rocephin 3. Hypoglycemia: Hx DM Type 2. Hold Anti-glycemic meds. D 5 1/ started overnight due to low BS. Today she is eating well and able to DC IVFs. 4. MAI on CKD: Gentle IVFs overnight improved MAI. recheck in AM. 5. Generalized weakness: PT to evaluate and treat. 6. HTN: Stable. Monitor for now. 7. Hx PE: Continue Xarelto. VTE prophylaxis: Xarelto. Dispo: 2-3 days. Plan for [place] placement on Saturday for short term rehabilitation.
[2019-02-12] MEDS: Baclofen 10 MG Tab PO SCH ×2 (16:26→20:12)
[2019-02-12] MEDS: Rivaroxaban 10 MG Tab PO SCH (16:31)
[2019-02-13 05:24] LABS: CARBON DIOXIDE,CO2 28.7 mmol/L (21.0-32.0); POTASSIUM,K 3.8 mmol/L (3.5-5.1)
[2019-02-13] MEDS: Nystatin Topical Powder 15 GM Bottle TOP SCH ×3 (06:45→21:11)
[2019-02-13] MEDS: Rosuvastatin 10 MG Tab PO SCH (08:29)
[2019-02-13] MEDS: Metoprolol Tartrate 50 MG Tab PO SCH (08:29)
[2019-02-13] MEDS: FERROUS SULFATE 325 MG PO SCH (08:29)
[2019-02-13] MEDS: Melatonin/Pyridoxine Hcl (B6) [Melatonin 5 Mg Tablet] PO SCH (08:30)
[2019-02-13] MEDS: cefTRIAXone 1 GM in Premix Bag 1 BAG IV SCH (08:30)
[2019-02-13] MEDS: Baclofen 10 MG Tab PO SCH ×3 (08:43→21:12)
--- NOTE | 2019-02-13 14:46 | PCM.PN ---
- General Info Date of Service: 02/13/19 Admission Dx/Problem (Free Text): Admission Diagnosis/Problem Admission Diagnosis/Problem Urinary tract infection Subjective Update: Sitting up in the chair, alert and oriented this morning, reports she is feeling 100% better. She denies chest pain or SOB. Still feels weakness generally but overall has improved Functional Status: Reports: Pain Controlled, Tolerating Diet, Ambulating, Urinating - Review of Systems HEENT: Reports: No Symptoms. Denies: Headaches, Sore Throat, Visual Changes Pulmonary: Reports: No Symptoms. Denies: Shortness of Breath Cardiovascular: Reports: No Symptoms. Denies: Chest Pain Gastrointestinal: Reports: No Symptoms. Denies: Abdominal Pain, Nausea, Vomiting Genitourinary: Reports: No Symptoms Musculoskeletal: Reports: No Symptoms Skin: Reports: No Symptoms Neurological: Reports: No Symptoms Psychiatric: Reports: No Symptoms - Patient Data Vitals - Most Recent: Last Vital Signs Temp 97.9 F 02/13/19 11:20 Pulse 58 L 02/13/19 11:20 Resp 16 02/13/19 11:20 BP 117/64 02/13/19 11:20 Pulse Ox 98 02/13/19 11:20 Weight - Most Recent: 77.973 kg I&O - Last 24 Hours: Intake & Output 02/12/19 02/13/19 02/13/19 22:59 06:59 14:59 Intake Total 490 1000 Output Total 200 850 Balance 290 150 Lab Results Last 24 Hours: Laboratory Results - last 24 hr 02/12/19 02/12/19 02/12/19 Range/Units 15:46 19:07 20:50 WBC (4.0-11.0) K/uL RBC (4.30-5.90) M/uL Hgb (12.0-16.0) g/dL Hct (36.0-46.0) % MCV (80.0-98.0) fL MCH (27.0-32.0) pg MCHC (31.0-37.0) g/dL RDW Std Deviation (28.0-62.0) fl RDW Coeff of Marjorie (11.0-15.0) % Plt Count (150-400) K/uL MPV (7.40-12.00) fL Add Manual Diff Neutrophils % (Manual) (48.0-80.0) % Lymphocytes % (Manual) (16.0-40.0) % Monocytes % (Manual) (0.0-15.0) % Eosinophils % (Manual) (0.0-7.0) % Nucleated RBC % /100WBC Absolute Seg Neuts (1.4-5.7) Lymphocytes # (Manual) (0.6-2.4) Monocytes # (Manual) (0.0-0.8) Eosinophils # (Manual) (0.0-0.7) Nucleated RBCs # K/uL Sodium (136-145) mmol/L Potassium (3.5-5.1) mmol/L Chloride (98-107) mmol/L Carbon Dioxide (21.0-32.0) mmol/L BUN (7.0-18.0) mg/dL Creatinine (0.6-1.0) mg/dL Est Cr Clr Drug Dosing mL/min Estimated GFR (MDRD) ml/min Glucose (74-106) mg/dL POC Glucose 163 H 148 H 140 H (60-110) mg/dL Calcium (8.5-10.1) mg/dL 02/12/19 02/13/19 02/13/19 Range/Units 23:10 04:58 04:58 WBC 4.48 (4.0-11.0) K/uL RBC 3.23 L (4.30-5.90) M/uL Hgb 9.7 L (12.0-16.0) g/dL Hct 30.6 L (36.0-46.0) % MCV 94.7 (80.0-98.0) fL MCH 30.0 (27.0-32.0) pg MCHC 31.7 (31.0-37.0) g/dL RDW Std Deviation 49.6 (28.0-62.0) fl RDW Coeff of Marjorie 14 (11.0-15.0) % Plt Count 213 (150-400) K/uL MPV 9.30 (7.40-12.00) fL Add Manual Diff YES Neutrophils % (Manual) 50 (48.0-80.0) % Lymphocytes % (Manual) 30 (16.0-40.0) % Monocytes % (Manual) 18 H (0.0-15.0) % Eosinophils % (Manual) 2 (0.0-7.0) % Nucleated RBC % 0.0 /100WBC Absolute Seg Neuts 2.2 (1.4-5.7) Lymphocytes # (Manual) 1.3 (0.6-2.4) Monocytes # (Manual) 0.8 (0.0-0.8) Eosinophils # (Manual) 0.1 (0.0-0.7) Nucleated RBCs # 0 K/uL Sodium 144 (136-145) mmol/L Potassium 3.8 (3.5-5.1) mmol/L Chloride 107 (98-107) mmol/L Carbon Dioxide 28.7 (21.0-32.0) mmol/L BUN 22 H (7.0-18.0) mg/dL Creatinine 1.2 H (0.6-1.0) mg/dL Est Cr Clr Drug Dosing 32.92 mL/min Estimated GFR (MDRD) 44.4 ml/min Glucose 139 H (74-106) mg/dL POC Glucose 119 H (60-110) mg/dL Calcium 9.1 (8.5-10.1) mg/dL 02/13/19 02/13/19 Range/Units 06:47 11:07 WBC (4.0-11.0) K/uL RBC (4.30-5.90) M/uL Hgb (12.0-16.0) g/dL Hct (36.0-46.0) % MCV (80.0-98.0) fL MCH (27.0-32.0) pg MCHC (31.0-37.0) g/dL RDW Std Deviation (28.0-62.0) fl RDW Coeff of Marjorie (11.0-15.0) % Plt Count (150-400) K/uL MPV (7.40-12.00) fL Add Manual Diff Neutrophils % (Manual) (48.0-80.0) % Lymphocytes % (Manual) (16.0-40.0) % Monocytes % (Manual) (0.0-15.0) % Eosinophils % (Manual) (0.0-7.0) % Nucleated RBC % /100WBC Absolute Seg Neuts (1.4-5.7) Lymphocytes # (Manual) (0.6-2.4) Monocytes # (Manual) (0.0-0.8) Eosinophils # (Manual) (0.0-0.7) Nucleated RBCs # K/uL Sodium (136-145) mmol/L Potassium (3.5-5.1) mmol/L Chloride (98-107) mmol/L Carbon Dioxide (21.0-32.0) mmol/L BUN (7.0-18.0) mg/dL Creatinine (0.6-1.0) mg/dL Est Cr Clr Drug Dosing mL/min Estimated GFR (MDRD) ml/min Glucose (74-106) mg/dL POC Glucose 124 H 174 H (60-110) mg/dL Calcium (8.5-10.1) mg/dL Jareth Results Last 24 Hours: Microbiology 02/11/19 09:20 Urine Culture - Final Urine, Quick Cath (In-Out) Staphylococcus Aureus Med Orders - Current: Current Medications Acetaminophen (Tylenol) 650 mg PO Q4H PRN PRN Reason: Pain (mild 1-3) Baclofen (Lioresal) 20 mg PO BIDMEALS [facility] Last Admin: 02/13/19 08:43 Dose: 20 mg Baclofen (Lioresal) 40 mg PO BEDTIME [facility] Last Admin: 02/12/19 20:12 Dose: 40 mg Docusate Sodium (Colace) 100 mg PO BID PRN PRN Reason: Constipation Ferrous Sulfate (Ferrous Sulfate) 325 mg PO DAILY [facility] Last Admin: 02/13/19 08:29 Dose: 325 mg Fluoxetine HCl (Prozac) 10 mg PO DAILY [facility] Last Admin: 02/13/19 08:29 Dose: 10 mg Ceftriaxone Sodium/Dextrose 1 (gm/ Premix) 50 mls @ 100 mls/hr IV Q24H [facility] Last Admin: 02/13/19 08:30 Dose: 100 mls/hr Metoprolol Tartrate (Lopressor) 50 mg PO DAILY [facility] Last Admin: 02/13/19 08:29 Dose: 50 mg Nystatin (Nystop) 0 gm TOP TID [facility] Last Admin: 02/13/19 06:45 Dose: 1 applic Ondansetron HCl (Zofran) 4 mg IVPUSH Q4H PRN PRN Reason: Nausea Melatonin/Pyridoxine Hcl (B6) [Melatonin 5 Mg Tablet] 1 each PO DAILY [facility] Last Admin: 02/13/19 08:30 Dose: Not Given Oxybutynin [Oxytrol] (3.9 Mg) 1 each TRDERM Q96H [facility] Last Admin: 02/11/19 16:42 Dose: Not Given Rivaroxaban (Xarelto) 20 mg PO DAILY@1730 [facility] Last Admin: 02/12/19 16:31 Dose: 20 mg Rosuvastatin Calcium (Crestor) 20 mg PO DAILY [facility] Last Admin: 02/13/19 08:29 Dose: 20 mg Discontinued Medications Dextrose/Water (Dextrose 50% In Water) 50 ml IVPUSH ONETIME ONE Stop: 02/11/19 12:48 Last Admin: 02/11/19 12:55 Dose: 50 ml Dextrose/Water (Dextrose 50% In Water) 50 ml IVPUSH ONETIME ONE Stop: 02/12/19 02:10 Last Admin: 02/12/19 02:19 Dose: 50 ml Sodium Chloride (Normal Saline) 1,000 mls @ 250 mls/hr IV STAT ONE Stop: 02/11/19 12:42 Last Admin: 02/11/19 08:56 Dose: 250 mls/hr Ceftriaxone Sodium/Dextrose 1 (gm/ Premix) 50 mls @ 100 mls/hr IV ONETIME ONE Stop: 02/11/19 10:10 Last Admin: 02/11/19 09:58 Dose: 100 mls/hr Sodium Chloride (Normal Saline) 1,000 mls @ 75 mls/hr IV Q13H [facility] Last Admin: 02/12/19 03:26 Dose: Not Given Dextrose/Sodium Chloride (Dextrose 5%-1/2 Ns) 1,000 mls @ 75 mls/hr IV ASDIRECTED [facility] Last Admin: 02/11/19 22:32 Dose: 75 mls/hr - Exam General: Alert, Oriented, Cooperative Lungs: Clear to Auscultation, Normal Respiratory Effort Cardiovascular: Regular Rate, Regular Rhythm GI/Abdominal Exam: Normal Bowel Sounds, Soft, Non-Tender Extremities: Normal Inspection, Normal Range of Motion, Non-Tender, No Pedal Edema Wound/Incisions: Healing Well Neurological: No New Focal Deficit Psy/Mental Status: Alert, Normal Affect, Normal Mood - Problem List & Annotations (1) Altered mental status, unspecified SNOMED Code(s): 236308705 Code(s): R41.82 - ALTERED MENTAL STATUS, UNSPECIFIED Status: Acute Current Visit: Yes Qualifiers: Altered mental status type: unspecified Qualified Code(s): R41.82 - Altered mental status, unspecified (2) Hypoglycemia SNOMED Code(s): 899721930 Code(s): E16.2 - HYPOGLYCEMIA, UNSPECIFIED Status: Acute Current Visit: Yes (3) UTI, Urinary tract infectious disease SNOMED Code(s): 13329775 Code(s): N39.0 - URINARY TRACT INFECTION, SITE NOT SPECIFIED Status: Acute Current Visit: Yes (4) MAI (acute kidney injury) SNOMED Code(s): 66588846, 70611146 Code(s): N17.9 - ACUTE KIDNEY FAILURE, UNSPECIFIED Status: Acute Current Visit: No (5) Renal calculus, left SNOMED Code(s): 97365901 Code(s): N20.0 - CALCULUS OF KIDNEY Status: Chronic Current Visit: Yes (6) Chronic anemia SNOMED Code(s): 818470770 Code(s): D64.9 - ANEMIA, UNSPECIFIED Status: Chronic Current Visit: No (7) DMII (diabetes mellitus, type 2) SNOMED Code(s): 95382674 Code(s): E11.9 - TYPE 2 DIABETES MELLITUS WITHOUT COMPLICATIONS Status: Chronic Current Visit: No (8) HTN (hypertension) SNOMED Code(s): 76260737 Code(s): I10 - ESSENTIAL (PRIMARY) HYPERTENSION Status: Chronic Current Visit: No (9) Hx pulmonary embolism SNOMED Code(s): 141532367 Code(s): Z86.711 - PERSONAL HISTORY OF PULMONARY EMBOLISM Status: Chronic Current Visit: No (10) Hyperlipidemia SNOMED Code(s): 76715850 Code(s): E78.5 - HYPERLIPIDEMIA, UNSPECIFIED Status: Chronic Current Visit: No (11) Multiple sclerosis SNOMED Code(s): 24167319 Code(s): G35 - MULTIPLE SCLEROSIS Status: Chronic Current Visit: No (12) CKD (chronic kidney disease) SNOMED Code(s): 964109748 Code(s): N18.9 - CHRONIC KIDNEY DISEASE, UNSPECIFIED Status: Chronic Current Visit: Yes - Problem List Review Problem List Initiated/Reviewed/Updated: Yes - My Orders Last 24 Hours: My Active Orders 02/12/19 17:00 Baclofen [Lioresal] 20 mg PO BIDMEALS 02/12/19 17:30 Rivaroxaban [Xarelto] 20 mg PO DAILY@1730 02/12/19 21:00 Baclofen [Lioresal] 40 mg PO BEDTIME 02/14/19 05:11 BASIC METABOLIC PANEL,BMP [CHEM] AM CBC WITH AUTO DIFF [HEME] AM - Plan Plan:: This 68 year old female admitted with AMS, hypoglycemia, UTI and dehydration with MAI on CKD. 1. AMS: Resolved 2. UTI: Hx of L renal stent and calculi, Renal US reveals patent stent, no hydronephrosis. UC reveals Staph aureus, resistant to Fluoroquinolones. Continue Rocephin. Spoke with Dr Ortiz, he is going to cancel surgery next week and plans on following up with her in the clinic for further discussions regarding stones and stent. 3. Hypoglycemia: Hx DM Type 2. Hold Anti-glycemic meds. BS stable. Discontinue Glimepiride. Continue Metformin. On discharge. 4. CKD: Stable. Restart Lasix in am. 5. Generalized weakness: PT to evaluate and treat. 6. HTN: Stable. Monitor for now. 7. Hx PE: Continue Xarelto. VTE prophylaxis: Xarelto. Dispo: 2-3 days. Plan for [place] placement on Saturday for short term rehabilitation.
[2019-02-13] MEDS: Rivaroxaban 10 MG Tab PO SCH (16:44)
[2019-02-14] MEDS: Nystatin Topical Powder 15 GM Bottle TOP SCH ×3 (06:32→22:32)
[2019-02-14 07:27] LABS: CARBON DIOXIDE,CO2 28.7 mmol/L (21.0-32.0); POTASSIUM,K 4.3 mmol/L (3.5-5.1)
[2019-02-14] MEDS: FERROUS SULFATE 325 MG PO SCH (08:17)
[2019-02-14] MEDS: Rosuvastatin 10 MG Tab PO SCH (08:17)
[2019-02-14] MEDS: Metoprolol Tartrate 50 MG Tab PO SCH (08:17)
[2019-02-14] MEDS: Baclofen 10 MG Tab PO SCH ×3 (08:17→20:14)
[2019-02-14] MEDS: Furosemide 80 MG Tab PO SCH (08:18)
[2019-02-14] MEDS: cefTRIAXone 1 GM in Premix Bag 1 BAG IV SCH (08:18)
[2019-02-14] MEDS: Melatonin/Pyridoxine Hcl (B6) [Melatonin 5 Mg Tablet] PO SCH (08:18)
--- NOTE | 2019-02-14 08:52 | PCM.PN ---
- General Info Date of Service: 02/14/19 Admission Dx/Problem (Free Text): Admission Diagnosis/Problem Admission Diagnosis/Problem Urinary tract infection Subjective Update: The patient is a chronically ill 68-year-old lady who had presented to the emergency department and was subsequently admitted on February 11, 2019 secondary to come to get a urinary tract infection. Patient had been complaining of fatigue and weakness 2 days prior to admission. She has a history of diabetes mellitus type 2 and multiple sclerosis. The patient also has history of a ureteral stent due to renal stones. The patient says today that she feels good and she is waiting to go to [facility] for placement on Saturday. She has been tolerating her diet. She has denied any pain. She has no other complaints today. Functional Status: Reports: Pain Controlled - Review of Systems General: Reports: No Symptoms HEENT: Reports: No Symptoms Pulmonary: Reports: No Symptoms Cardiovascular: Reports: No Symptoms Gastrointestinal: Reports: No Symptoms Genitourinary: Reports: No Symptoms Musculoskeletal: Reports: No Symptoms Skin: Reports: No Symptoms Neurological: Reports: No Symptoms Psychiatric: Reports: No Symptoms - Patient Data Vitals - Most Recent: Last Vital Signs Temp 35.8 C 02/14/19 08:00 Pulse 60 02/14/19 08:17 Resp 17 02/14/19 08:00 BP 149/64 H 02/14/19 08:17 Pulse Ox 97 02/14/19 08:00 Weight - Most Recent: 77.973 kg I&O - Last 24 Hours: Intake & Output 02/13/19 02/14/19 02/14/19 22:59 06:59 14:59 Intake Total 500 650 Output Total 300 950 Balance 200 -300 Lab Results Last 24 Hours: Laboratory Results - last 24 hr 02/13/19 02/13/19 02/14/19 Range/Units 11:07 16:44 06:20 WBC (4.0-11.0) K/uL RBC (4.30-5.90) M/uL Hgb (12.0-16.0) g/dL Hct (36.0-46.0) % MCV (80.0-98.0) fL MCH (27.0-32.0) pg MCHC (31.0-37.0) g/dL RDW Std Deviation (28.0-62.0) fl RDW Coeff of Marjorie (11.0-15.0) % Plt Count (150-400) K/uL MPV (7.40-12.00) fL Add Manual Diff Neutrophils % (Manual) (48.0-80.0) % Band Neutrophils % % Lymphocytes % (Manual) (16.0-40.0) % Monocytes % (Manual) (0.0-15.0) % Eosinophils % (Manual) (0.0-7.0) % Nucleated RBC % /100WBC Absolute Seg Neuts (1.4-5.7) Band Neutrophils # Lymphocytes # (Manual) (0.6-2.4) Monocytes # (Manual) (0.0-0.8) Eosinophils # (Manual) (0.0-0.7) Nucleated RBCs # K/uL Sodium (136-145) mmol/L Potassium (3.5-5.1) mmol/L Chloride (98-107) mmol/L Carbon Dioxide (21.0-32.0) mmol/L BUN (7.0-18.0) mg/dL Creatinine (0.6-1.0) mg/dL Est Cr Clr Drug Dosing mL/min Estimated GFR (MDRD) ml/min Glucose (74-106) mg/dL POC Glucose 174 H 159 H 141 H (60-110) mg/dL Calcium (8.5-10.1) mg/dL 02/14/19 02/14/19 Range/Units 06:30 06:30 WBC 4.55 (4.0-11.0) K/uL RBC 3.24 L (4.30-5.90) M/uL Hgb 9.8 L (12.0-16.0) g/dL Hct 30.9 L (36.0-46.0) % MCV 95.4 (80.0-98.0) fL MCH 30.2 (27.0-32.0) pg MCHC 31.7 (31.0-37.0) g/dL RDW Std Deviation 49.7 (28.0-62.0) fl RDW Coeff of Marjorie 14 (11.0-15.0) % Plt Count 230 (150-400) K/uL MPV 9.30 (7.40-12.00) fL Add Manual Diff YES Neutrophils % (Manual) 42 L (48.0-80.0) % Band Neutrophils % 1 % Lymphocytes % (Manual) 38 (16.0-40.0) % Monocytes % (Manual) 14 (0.0-15.0) % Eosinophils % (Manual) 5 (0.0-7.0) % Nucleated RBC % 0.0 /100WBC Absolute Seg Neuts 1.9 (1.4-5.7) Band Neutrophils # 0 Lymphocytes # (Manual) 1.7 (0.6-2.4) Monocytes # (Manual) 0.6 (0.0-0.8) Eosinophils # (Manual) 0.2 (0.0-0.7) Nucleated RBCs # 0 K/uL Sodium 143 (136-145) mmol/L Potassium 4.3 (3.5-5.1) mmol/L Chloride 107 (98-107) mmol/L Carbon Dioxide 28.7 (21.0-32.0) mmol/L BUN 25 H (7.0-18.0) mg/dL Creatinine 1.2 H (0.6-1.0) mg/dL Est Cr Clr Drug Dosing 32.92 mL/min Estimated GFR (MDRD) 44.4 ml/min Glucose 143 H (74-106) mg/dL POC Glucose (60-110) mg/dL Calcium 9.0 (8.5-10.1) mg/dL Jareth Results Last 24 Hours: Microbiology 02/11/19 09:20 Urine Culture - Final Urine, Quick Cath (In-Out) Staphylococcus Aureus Med Orders - Current: Current Medications Acetaminophen (Tylenol) 650 mg PO Q4H PRN PRN Reason: Pain (mild 1-3) Baclofen (Lioresal) 20 mg PO BIDMEALS [facility] Last Admin: 02/14/19 08:17 Dose: 20 mg Baclofen (Lioresal) 40 mg PO BEDTIME [facility] Last Admin: 02/13/19 21:12 Dose: 40 mg Docusate Sodium (Colace) 100 mg PO BID PRN PRN Reason: Constipation Ferrous Sulfate (Ferrous Sulfate) 325 mg PO DAILY [facility] Last Admin: 02/14/19 08:17 Dose: 325 mg Fluoxetine HCl (Prozac) 10 mg PO DAILY [facility] Last Admin: 02/14/19 08:17 Dose: 10 mg Furosemide (Lasix) 40 mg PO DAILY [facility] Last Admin: 02/14/19 08:18 Dose: 40 mg Ceftriaxone Sodium/Dextrose 1 (gm/ Premix) 50 mls @ 100 mls/hr IV Q24H [facility] Last Admin: 02/14/19 08:18 Dose: 100 mls/hr Metoprolol Tartrate (Lopressor) 50 mg PO DAILY [facility] Last Admin: 02/14/19 08:17 Dose: 50 mg Nystatin (Nystop) 0 gm TOP TID [facility] Last Admin: 02/14/19 06:32 Dose: 1 applic Ondansetron HCl (Zofran) 4 mg IVPUSH Q4H PRN PRN Reason: Nausea Melatonin/Pyridoxine Hcl (B6) [Melatonin 5 Mg Tablet] 1 each PO DAILY [facility] Last Admin: 02/14/19 08:18 Dose: Not Given Oxybutynin [Oxytrol] (3.9 Mg) 1 each TRDERM Q96H [facility] Last Admin: 02/11/19 16:42 Dose: Not Given Rivaroxaban (Xarelto) 20 mg PO DAILY@1730 [facility] Last Admin: 02/13/19 16:44 Dose: 20 mg Rosuvastatin Calcium (Crestor) 20 mg PO DAILY [facility] Last Admin: 02/14/19 08:17 Dose: 20 mg Discontinued Medications Dextrose/Water (Dextrose 50% In Water) 50 ml IVPUSH ONETIME ONE Stop: 02/11/19 12:48 Last Admin: 02/11/19 12:55 Dose: 50 ml Dextrose/Water (Dextrose 50% In Water) 50 ml IVPUSH ONETIME ONE Stop: 02/12/19 02:10 Last Admin: 02/12/19 02:19 Dose: 50 ml Sodium Chloride (Normal Saline) 1,000 mls @ 250 mls/hr IV STAT ONE Stop: 02/11/19 12:42 Last Admin: 02/11/19 08:56 Dose: 250 mls/hr Ceftriaxone Sodium/Dextrose 1 (gm/ Premix) 50 mls @ 100 mls/hr IV ONETIME ONE Stop: 02/11/19 10:10 Last Admin: 02/11/19 09:58 Dose: 100 mls/hr Sodium Chloride (Normal Saline) 1,000 mls @ 75 mls/hr IV Q13H [facility] Last Admin: 02/12/19 03:26 Dose: Not Given Dextrose/Sodium Chloride (Dextrose 5%-1/2 Ns) 1,000 mls @ 75 mls/hr IV ASDIRECTED [facility] Last Admin: 02/11/19 22:32 Dose: 75 mls/hr - Exam Quality Assessment: No: Supplemental Oxygen General: Alert, Oriented, Cooperative, No Acute Distress HEENT: Pupils Equal, Pupils Reactive, EOMI, Mucous Membr. Moist/[place] Neck: Supple, Trachea Midline Lungs: Clear to Auscultation, Normal Respiratory Effort Cardiovascular: Regular Rate, Regular Rhythm GI/Abdominal Exam: Normal Bowel Sounds, No Distention Extremities: Normal Inspection, No Pedal Edema Skin: Warm, Dry, Intact Neurological: No New Focal Deficit Psy/Mental Status: Alert, Normal Affect, Normal Mood - Problem List & Annotations (1) UTI, Urinary tract infectious disease SNOMED Code(s): 93645443 Code(s): N39.0 - URINARY TRACT INFECTION, SITE NOT SPECIFIED Status: Acute Priority: High Current Visit: Yes (2) CKD (chronic kidney disease) SNOMED Code(s): 384630759 Code(s): N18.9 - CHRONIC KIDNEY DISEASE, UNSPECIFIED Status: Chronic Priority: High Current Visit: Yes Qualifiers: Chronic kidney disease stage: stage 3 (moderate) Qualified Code(s): N18.3 - Chronic kidney disease, stage 3 (moderate) (3) DMII (diabetes mellitus, type 2) SNOMED Code(s): 93589606 Code(s): E11.9 - TYPE 2 DIABETES MELLITUS WITHOUT COMPLICATIONS Status: Chronic Priority: High Current Visit: Yes Qualifiers: Diabetes mellitus long goods drier insulin use: without snf use Diabetes mellitus complication status: without complication Qualified Code(s): E11.9 - Type 2 diabetes mellitus without complications (4) HTN (hypertension) SNOMED Code(s): 26579617 Code(s): I10 - ESSENTIAL (PRIMARY) HYPERTENSION Status: Chronic Priority : High Current Visit: Yes Qualifiers: Hypertension type: essential hypertension Qualified Code(s): I10 - Essential (primary) hypertension (5) Multiple sclerosis SNOMED Code(s): 19636310 Code(s): G35 - MULTIPLE SCLEROSIS Status: Chronic Priority: High Current Visit: Yes - Problem List Review Problem List Initiated/Reviewed/Updated: Yes - Plan Plan:: The patient is a 68-year-old lady who is pending placement and [facility] to help recover from her fatigue and weakness. He does have multiple sclerosis. The patient also has a urinary tract infection that she has cultures which are shown methicillin sensitive staph aureus. The patient is currently on ceftriaxone and this will be continued. The patient also will have her blood sugar controlled and monitored with the use of Accu-Cheks and insulin sliding scale 3 times a day with meals. She has been encouraged to ambulate. She is currently taking Xarelto for DVT prophylaxis. Repeat laboratory studies have been ordered. She should be appropriate for [facility] on Saturday.
[2019-02-14] MEDS: Rivaroxaban 10 MG Tab PO SCH (16:32)
[2019-02-15] MEDS: Nystatin Topical Powder 15 GM Bottle TOP SCH ×3 (06:35→23:13)
--- NOTE | 2019-02-15 08:06 | PCM.PN ---
- General Info Date of Service: 02/15/19 Admission Dx/Problem (Free Text): Admission Diagnosis/Problem Admission Diagnosis/Problem Urinary tract infection Subjective Update: The patient is a 68-year-old lady who is currently awaiting placement and [facility]. She was admitted through the emergency department for urinary tract infection. Patient today says that she is feeling much better. She has been tolerating diet. She has no complaints. Functional Status: Reports: Pain Controlled - Review of Systems General: Reports: No Symptoms HEENT: Reports: No Symptoms Pulmonary: Reports: No Symptoms Cardiovascular: Reports: No Symptoms Gastrointestinal: Reports: No Symptoms Genitourinary: Reports: No Symptoms Musculoskeletal: Reports: No Symptoms Skin: Reports: No Symptoms Neurological: Reports: No Symptoms Psychiatric: Reports: No Symptoms - Patient Data Vitals - Most Recent: Last Vital Signs Temp 36.2 C 02/15/19 07:59 Pulse 48 L 02/15/19 07:59 Resp 16 02/15/19 07:59 BP 134/68 02/15/19 07:59 Pulse Ox 96 02/15/19 07:59 Weight - Most Recent: 77.973 kg I&O - Last 24 Hours: Intake & Output 02/14/19 02/15/19 02/15/19 22:59 06:59 14:59 Intake Total 740 700 Output Total 1100 750 Balance -360 -50 Lab Results Last 24 Hours: Laboratory Results - last 24 hr 02/14/19 02/14/19 02/15/19 Range/Units 11:48 16:47 06:40 POC Glucose 119 H 149 H 139 H (60-110) mg/dL Med Orders - Current: Current Medications Acetaminophen (Tylenol) 650 mg PO Q4H PRN PRN Reason: Pain (mild 1-3) Baclofen (Lioresal) 20 mg PO BIDMEALS [facility] Last Admin: 02/14/19 16:25 Dose: 20 mg Baclofen (Lioresal) 40 mg PO BEDTIME [facility] Last Admin: 02/14/19 20:14 Dose: 40 mg Docusate Sodium (Colace) 100 mg PO BID PRN PRN Reason: Constipation Ferrous Sulfate (Ferrous Sulfate) 325 mg PO DAILY [facility] Last Admin: 02/14/19 08:17 Dose: 325 mg Fluoxetine HCl (Prozac) 10 mg PO DAILY [facility] Last Admin: 02/14/19 08:17 Dose: 10 mg Furosemide (Lasix) 40 mg PO DAILY [facility] Last Admin: 02/14/19 08:18 Dose: 40 mg Ceftriaxone Sodium/Dextrose 1 (gm/ Premix) 50 mls @ 100 mls/hr IV Q24H [facility] Last Admin: 02/14/19 08:18 Dose: 100 mls/hr Metoprolol Tartrate (Lopressor) 50 mg PO DAILY [facility] Last Admin: 02/14/19 08:17 Dose: 50 mg Nystatin (Nystop) 0 gm TOP TID [facility] Last Admin: 02/15/19 06:35 Dose: 1 applic Ondansetron HCl (Zofran) 4 mg IVPUSH Q4H PRN PRN Reason: Nausea Melatonin/Pyridoxine Hcl (B6) [Melatonin 5 Mg Tablet] 1 each PO DAILY [facility] Last Admin: 02/14/19 08:18 Dose: Not Given Oxybutynin [Oxytrol] (3.9 Mg) 1 each TRDERM Q96H [facility] Last Admin: 02/11/19 16:42 Dose: Not Given Rivaroxaban (Xarelto) 20 mg PO DAILY@1730 [facility] Last Admin: 02/14/19 16:32 Dose: 20 mg Rosuvastatin Calcium (Crestor) 20 mg PO DAILY [facility] Last Admin: 02/14/19 08:17 Dose: 20 mg Discontinued Medications Dextrose/Water (Dextrose 50% In Water) 50 ml IVPUSH ONETIME ONE Stop: 02/11/19 12:48 Last Admin: 02/11/19 12:55 Dose: 50 ml Dextrose/Water (Dextrose 50% In Water) 50 ml IVPUSH ONETIME ONE Stop: 02/12/19 02:10 Last Admin: 02/12/19 02:19 Dose: 50 ml Sodium Chloride (Normal Saline) 1,000 mls @ 250 mls/hr IV STAT ONE Stop: 02/11/19 12:42 Last Admin: 02/11/19 08:56 Dose: 250 mls/hr Ceftriaxone Sodium/Dextrose 1 (gm/ Premix) 50 mls @ 100 mls/hr IV ONETIME ONE Stop: 02/11/19 10:10 Last Admin: 02/11/19 09:58 Dose: 100 mls/hr Sodium Chloride (Normal Saline) 1,000 mls @ 75 mls/hr IV Q13H [facility] Last Admin: 02/12/19 03:26 Dose: Not Given Dextrose/Sodium Chloride (Dextrose 5%-1/2 Ns) 1,000 mls @ 75 mls/hr IV ASDIRECTED [facility] Last Admin: 02/11/19 22:32 Dose: 75 mls/hr - Exam Quality Assessment: No: Supplemental Oxygen General: Alert, Oriented, Cooperative, No Acute Distress HEENT: Pupils Equal, Pupils Reactive, EOMI, Mucous Membr. Moist/[place] Neck: Supple, Trachea Midline Lungs: Clear to Auscultation, Normal Respiratory Effort Cardiovascular: Regular Rate, Regular Rhythm, No Murmurs GI/Abdominal Exam: Normal Bowel Sounds, Soft, No Distention Back Exam: Normal Inspection, Full Range of Motion (Appropriate for age) Extremities: Normal Inspection, No Pedal Edema Skin: Warm, Dry, Intact Neurological: No New Focal Deficit Psy/Mental Status: Alert, Normal Affect, Normal Mood - Problem List & Annotations (1) UTI, Urinary tract infectious disease SNOMED Code(s): 94660909 Code(s): N39.0 - URINARY TRACT INFECTION, SITE NOT SPECIFIED Status: Acute Priority: High Current Visit: Yes (2) CKD (chronic kidney disease) SNOMED Code(s): 887869817 Code(s): N18.9 - CHRONIC KIDNEY DISEASE, UNSPECIFIED Status: Chronic Priority: High Current Visit: Yes Qualifiers: Chronic kidney disease stage: stage 3 (moderate) Qualified Code(s): N18.3 - Chronic kidney disease, stage 3 (moderate) (3) DMII (diabetes mellitus, type 2) SNOMED Code(s): 29782760 Code(s): E11.9 - TYPE 2 DIABETES MELLITUS WITHOUT COMPLICATIONS Status: Chronic Priority: High Current Visit: Yes Qualifiers: Diabetes mellitus mcc insulin use: without mcc use Diabetes mellitus complication status: without complication Qualified Code(s): E11.9 - Type 2 diabetes mellitus without complications (4) HTN (hypertension) SNOMED Code(s): 53882608 Code(s): I10 - ESSENTIAL (PRIMARY) HYPERTENSION Status: Chronic Priority : High Current Visit: Yes Qualifiers: Hypertension type: essential hypertension Qualified Code(s): I10 - Essential (primary) hypertension (5) Multiple sclerosis SNOMED Code(s): 53286063 Code(s): G35 - MULTIPLE SCLEROSIS Status: Chronic Priority: High Current Visit: Yes - Problem List Review Problem List Initiated/Reviewed/Updated: Yes - Plan Plan:: The patient is a chronically ill 68-year-old lady is currently awaiting placement. She does have multiple sclerosis. Patient also has a urinary tract infection and her IV has begun leaking. The patient's Rocephin has been discontinued and she had been started on Bactrim DS one by mouth twice a day. The patient had MSSA urinary tract infection. The patient will continue to have her blood sugars checked. We'll monitor with Accu-Cheks and insulin sliding scale with meals. The patient has been encouraged to ambulate with assistance. She should be appropriate for transfer to [facility] tomorrow.
[2019-02-15] MEDS: Rosuvastatin 10 MG Tab PO SCH (09:11)
[2019-02-15] MEDS: Furosemide 80 MG Tab PO SCH (09:11)
[2019-02-15] MEDS: Baclofen 10 MG Tab PO SCH ×3 (09:12→20:00)
[2019-02-15] MEDS: Metoprolol Tartrate 50 MG Tab PO SCH (09:13)
[2019-02-15] MEDS: FERROUS SULFATE 325 MG PO SCH (09:15)
[2019-02-15] MEDS: cefTRIAXone 1 GM in Premix Bag 1 BAG IV SCH (09:18)
[2019-02-15] MEDS: Melatonin/Pyridoxine Hcl (B6) [Melatonin 5 Mg Tablet] PO SCH (09:25)
[2019-02-15] MEDS: Sulfamethoxazole/Trimethoprim 800-160 MG Tab PO SCH ×2 (12:22→20:00)
[2019-02-15] MEDS: OXYBUTYNIN TRDERM SCH (15:09)
[2019-02-15] MEDS: Rivaroxaban 10 MG Tab PO SCH (17:14)
[2019-02-15] MEDS ORDERED: Sulfamethoxazole/Trimethoprim 800-160 MG Tab PO SCH (21:00)
[2019-02-16 06:06] LABS: POTASSIUM,K 3.7 mmol/L (3.5-5.1)
[2019-02-16] MEDS: Nystatin Topical Powder 15 GM Bottle TOP SCH (06:23)
--- NOTE | 2019-02-16 08:15 | PCM.DCSUM1 ---
Discharge Summary - Hospital Course Brief History: This 68 year old female with PMH of UTI, renal stones with ureteral stent to L, Dm type 2, MS, HTN and dyslipidemia presented to the ED today via EMS with complaints of fatigue and reporting she is not with if for the last 2 days. They note she has not felt well since September and is more fatigued over the last 2 days. She reports pain to lower abdomen and L kidney which has been more chronic recently. She had ureteral stent placed for non obstructing L renal stones. CT on 01/23 showed stentn in good placement again with no obstructing stones and no hydronephrosis. She reports plans for ESWL with Dr Ortiz next week. Patient poor historian, she is noted to be lethargic. Aler and oriented, but no family at bedside. In the ED CBC WNL. BUN 46, Cr 1.9, which is slightly elevated from baseline of 20s/1.1 respectively. Glucose noted 43. Troponin negative. Chest Xray negative. UA obtained in ED via straight cath, noted to have large blood, positive nitrites, large leukocyte esterase WBC too numerous to count, +2 bacteria. She was treated with IVFs and Rocephin in ED. Modified [place] Scale: No Symptoms at All Modified [place] Scale Score: 0 - Discharge Data Discharge Date: 02/16/19 Discharge Disposition: DC/Tfer to SNF 03 Condition: Good - Referral to Home Health Primary Care Physician: Lizandro Clancy MD - Discharge Diagnosis/Problem(s) (1) Altered mental status, unspecified SNOMED Code(s): 963219072 ICD Code: R41.82 - ALTERED MENTAL STATUS, UNSPECIFIED Status: Resolved Current Visit: Yes Qualifiers: Altered mental status type: unspecified Qualified Code(s): R41.82 - Altered mental status, unspecified (2) Hypoglycemia SNOMED Code(s): 445896109 ICD Code: E16.2 - HYPOGLYCEMIA, UNSPECIFIED Status: Resolved Current Visit: Yes (3) UTI, Urinary tract infectious disease SNOMED Code(s): 80856410 ICD Code: N39.0 - URINARY TRACT INFECTION, SITE NOT SPECIFIED Status: Acute Priority: High Current Visit: Yes (4) MAI (acute kidney injury) SNOMED Code(s): 81477227, 68290444 ICD Code: N17.9 - ACUTE KIDNEY FAILURE, UNSPECIFIED Status: Resolved Current Visit: No (5) Renal calculus, left SNOMED Code(s): 93466193 ICD Code: N20.0 - CALCULUS OF KIDNEY Status: Chronic Current Visit: Yes (6) Chronic anemia SNOMED Code(s): 600856523 ICD Code: D64.9 - ANEMIA, UNSPECIFIED Status: Chronic Current Visit: No (7) DMII (diabetes mellitus, type 2) SNOMED Code(s): 80880168 ICD Code: E11.9 - TYPE 2 DIABETES MELLITUS WITHOUT COMPLICATIONS Status: Chronic Priority: High Current Visit: Yes Qualifiers: Diabetes mellitus half-way insulin use: without soda fountain operator use Diabetes mellitus complication status: without complication Qualified Code(s): E11.9 - Type 2 diabetes mellitus without complications (8) HTN (hypertension) SNOMED Code(s): 02250351 ICD Code: I10 - ESSENTIAL (PRIMARY) HYPERTENSION Status: Chronic Priority : High Current Visit: Yes Qualifiers: Hypertension type: essential hypertension Qualified Code(s): I10 - Essential (primary) hypertension (9) Hx pulmonary embolism SNOMED Code(s): 752729633 ICD Code: Z86.711 - PERSONAL HISTORY OF PULMONARY EMBOLISM Status: Chronic Current Visit: No (10) Hyperlipidemia SNOMED Code(s): 26293871 ICD Code: E78.5 - HYPERLIPIDEMIA, UNSPECIFIED Status: Chronic Current Visit: No (11) Multiple sclerosis SNOMED Code(s): 09874623 ICD Code: G35 - MULTIPLE SCLEROSIS Status: Chronic Priority: High Current Visit: Yes (12) CKD (chronic kidney disease) SNOMED Code(s): 616816276 ICD Code: N18.9 - CHRONIC KIDNEY DISEASE, UNSPECIFIED Status: Chronic Priority: High Current Visit: Yes Qualifiers: Chronic kidney disease stage: stage 3 (moderate) Qualified Code(s): N18.3 - Chronic kidney disease, stage 3 (moderate) - Patient Summary/Data Consults: Consultations 02/11/19 13:16 PT Evaluation and Treatment [CONS] Routine - Patient Instructions Diet: Diabetic Diet Activity: As Tolerated Showering/Bathing: May Shower Notify Provider of: Fever, Increased Pain, Swelling and Redness, Drainage, Nausea and/or Vomiting Other/Special Instructions: PT/OT/ST to evaluate and treat. Check blood sugars every morning. Check Blood sugars PRN if confusion is noted - Discharge Plan *PRESCRIPTION DRUG MONITORING PROGRAM REVIEWED*: Not Applicable *COPY OF PRESCRIPTION DRUG MONITORING REPORT IN PATIENT DEEPIKA: Not Applicable Prescriptions/Med Rec: Baclofen 20 mg PO BIDMEALS #14 tablet Baclofen 40 mg PO BEDTIME #14 tablet metFORMIN [Glucophage] 1,000 mg PO BIDMEALS #14 tab Sulfamethoxazole/Trimethoprim [Bactrim 400-80 MG] 1 each PO BID #3 tablet Home Medications: Home Meds Furosemide 40 mg PO DAILY 12/26/15 [History] Metoprolol Tartrate 50 mg PO DAILY 12/26/15 [History] Potassium Chloride [K-Tab ER] 20 meq PO DAILY 12/26/15 [History] Ramipril 10 mg PO DAILY 12/26/15 [History] Rosuvastatin [Crestor] 20 mg PO DAILY 12/26/15 [History] FLUoxetine [PROzac] 10 mg PO DAILY 04/01/18 [History] Rivaroxaban [Xarelto] 20 mg PO DAILY 04/01/18 [History] Melatonin/Pyridoxine HCl (B6) [Melatonin 5 mg Tablet] 4 mg PO DAILY 01/08/19 [ History] Tamsulosin HCl 0.4 mg PO BEDTIME 02/11/19 [History] Ferrous Sulfate 325 mg PO DAILY 02/12/19 [History] Baclofen 20 mg PO BIDMEALS #14 tablet 02/16/19 [Rx] Baclofen 40 mg PO BEDTIME #14 tablet 02/16/19 [Rx] Docusate Sodium [Colace] 100 mg PO BID PRN cap 02/16/19 [Rx] Nystatin [Nystop] 1 applic TOP TID bottle 02/16/19 [Rx] Sulfamethoxazole/Trimethoprim [Bactrim 400-80 MG] 1 each PO BID #3 tablet [Rx] metFORMIN [Glucophage] 1,000 mg PO BIDMEALS #14 tab 02/16/19 [Rx] Patient Handouts: Metformin extended-release tablets, Baclofen tablets, Urinary Tract Infection, Adult, [id number], Sulfamethoxazole; Trimethoprim, SMX-TMP tablets Referrals: Jamshid Metzger MD [Physician] - 02/19/19 Priscila Ortiz MD [Physician] - (Please call Dr. Ordaz office 02/17/19 to schedule an appointment. He is out of the office on 02/16/19 and unable to schedule appointments) - Discharge Summary/Plan Comment DC Time >30 min.: No Discharge Summary/Plan Comment: Admitting Diagnoses: AMS Hypoglycemia UTI MAI on CKD Discharge Diagnoses: AMS-resolved Hypoglycemia- resolved UTI MAI on CKD- resolved Other PMH: L renal caculi and L urteral stent Anemia DM Type 2 HTN Hx PE MS Robertson was admitted secondary to AMS. In ED hypoglycemia was noted along with UTI. She was treated with D50 and blood sugar increased, she was placed on D5 1/2 NS due to continued hypoglycemia, likely secondary to Glimepiride. THis was discontinued. She was monitored during her stay. Blood sugars remained stable off IVFs and with eating, BS ranged from 120-180s. A1c was 7.0. She will be continued on Metformin 1,000 mg BID. She was also noted to have UTI, UC returned with Staph aureus resistant to Fluoroquinolones, she was treated with Rocephin. She was transitioned to bactrim single strength, due to renal function. I spoke with Dr Ortiz, she was to go in for removal of stones and stent on February 19. Dr Ortiz canceled this due to hospitalization and recommended treating UTI and seeing him as outpatient. Family and Ailyn aware of this. Due to continued generalized weakness and unable to care for her at home with this weakness, it was decided to go to [facility] for short term rehabilitation. I have placed a call to Dr Metzger for acceptance to [facility]. She is to return to ED or clinic if concerns should arise. - General Info Date of Service: 02/16/19 Admission Dx/Problem (Free Text: Admission Diagnosis/Problem Admission Diagnosis/Problem Urinary tract infection Subjective Update: Doing well this morning, alert and oriented readin Bible in chair. No concerns. feeling much improved and is eager to get stronger at [facility] Functional Status: Reports: Pain Controlled, Tolerating Diet, Ambulating, Urinating - Review of Systems General: Reports: No Symptoms HEENT: Reports: No Symptoms. Denies: Headaches, Sore Throat Pulmonary: Reports: No Symptoms. Denies: Shortness of Breath Cardiovascular: Reports: No Symptoms. Denies: Chest Pain Gastrointestinal: Reports: No Symptoms. Denies: Abdominal Pain Musculoskeletal: Reports: No Symptoms Skin: Reports: No Symptoms Neurological: Reports: No Symptoms Psychiatric: Reports: No Symptoms - Patient Data Vitals - Most Recent: Last Vital Signs Temp 97.0 F 02/16/19 07:21 Pulse 65 02/16/19 07:21 Resp 18 02/16/19 07:21 BP 115/62 02/16/19 07:21 Pulse Ox 95 02/16/19 07:21 Weight - Most Recent: 77.973 kg I&O - Last 24 hours: Intake & Output 02/15/19 02/16/19 02/16/19 22:59 06:59 14:59 Intake Total 600 300 Output Total 850 450 Balance -250 -150 Lab Results - Last 24 hrs: Laboratory Results - last 24 hr 02/15/19 02/15/19 02/16/19 Range/Units 12:21 16:19 05:25 WBC 8.27 (4.0-11.0) K/uL RBC 3.22 L (4.30-5.90) M/uL Hgb 9.5 L (12.0-16.0) g/dL Hct 30.4 L (36.0-46.0) % MCV 94.4 (80.0-98.0) fL MCH 29.5 (27.0-32.0) pg MCHC 31.3 (31.0-37.0) g/dL RDW Std Deviation 48.4 (28.0-62.0) fl RDW Coeff of Marjorie 14 (11.0-15.0) % Plt Count 278 (150-400) K/uL MPV 9.10 (7.40-12.00) fL Neut % (Auto) 75.2 (48.0-80.0) % Lymph % (Auto) 12.0 L (16.0-40.0) % [place] % (Auto) 10.3 (0.0-15.0) % Eos % (Auto) 2.4 (0.0-7.0) % Baso % (Auto) 0.1 (0.0-1.5) % Neut # (Auto) 6.2 H (1.4-5.7) K/uL Lymph # (Auto) 1.0 (0.6-2.4) K/uL [place] # (Auto) 0.9 H (0.0-0.8) K/uL Eos # (Auto) 0.2 (0.0-0.7) K/uL Baso # (Auto) 0.0 (0.0-0.1) K/uL Nucleated RBC % 0.0 /100WBC Nucleated RBCs # 0 K/uL Sodium (136-145) mmol/L Potassium (3.5-5.1) mmol/L Chloride (98-107) mmol/L Carbon Dioxide (21.0-32.0) mmol/L BUN (7.0-18.0) mg/dL Creatinine (0.6-1.0) mg/dL Est Cr Clr Drug Dosing mL/min Estimated GFR (MDRD) ml/min Glucose (74-106) mg/dL POC Glucose 115 H 133 H (60-110) mg/dL Calcium (8.5-10.1) mg/dL 02/16/19 02/16/19 Range/Units 05:25 06:01 WBC (4.0-11.0) K/uL RBC (4.30-5.90) M/uL Hgb (12.0-16.0) g/dL Hct (36.0-46.0) % MCV (80.0-98.0) fL MCH (27.0-32.0) pg MCHC (31.0-37.0) g/dL RDW Std Deviation (28.0-62.0) fl RDW Coeff of Marjorie (11.0-15.0) % Plt Count (150-400) K/uL MPV (7.40-12.00) fL Neut % (Auto) (48.0-80.0) % Lymph % (Auto) (16.0-40.0) % [place] % (Auto) (0.0-15.0) % Eos % (Auto) (0.0-7.0) % Baso % (Auto) (0.0-1.5) % Neut # (Auto) (1.4-5.7) K/uL Lymph # (Auto) (0.6-2.4) K/uL [place] # (Auto) (0.0-0.8) K/uL Eos # (Auto) (0.0-0.7) K/uL Baso # (Auto) (0.0-0.1) K/uL Nucleated RBC % /100WBC Nucleated RBCs # K/uL Sodium 141 (136-145) mmol/L Potassium 3.7 (3.5-5.1) mmol/L Chloride 104 (98-107) mmol/L Carbon Dioxide 27.0 (21.0-32.0) mmol/L BUN 35 H (7.0-18.0) mg/dL Creatinine 1.4 H (0.6-1.0) mg/dL Est Cr Clr Drug Dosing 28.21 mL/min Estimated GFR (MDRD) 37.2 ml/min Glucose 154 H (74-106) mg/dL POC Glucose 162 H (60-110) mg/dL Calcium 8.6 (8.5-10.1) mg/dL Med Orders - Current: Current Medications Acetaminophen (Tylenol) 650 mg PO Q4H PRN PRN Reason: Pain (mild 1-3) Baclofen (Lioresal) 20 mg PO BIDMEALS [facility] Last Admin: 02/15/19 17:15 Dose: 20 mg Baclofen (Lioresal) 40 mg PO BEDTIME [facility] Last Admin: 02/15/19 20:00 Dose: 40 mg Docusate Sodium (Colace) 100 mg PO BID PRN PRN Reason: Constipation Ferrous Sulfate (Ferrous Sulfate) 325 mg PO DAILY [facility] Last Admin: 02/15/19 09:15 Dose: 325 mg Fluoxetine HCl (Prozac) 10 mg PO DAILY [facility] Last Admin: 02/15/19 09:09 Dose: 10 mg Furosemide (Lasix) 40 mg PO DAILY [facility] Last Admin: 02/15/19 09:11 Dose: 40 mg Metoprolol Tartrate (Lopressor) 50 mg PO DAILY [facility] Last Admin: 02/15/19 09:13 Dose: 50 mg Nystatin (Nystop) 0 gm TOP TID [facility] Last Admin: 02/16/19 06:23 Dose: 1 applic Ondansetron HCl (Zofran) 4 mg IVPUSH Q4H PRN PRN Reason: Nausea Melatonin/Pyridoxine Hcl (B6) [Melatonin 5 Mg Tablet] 1 each PO DAILY [facility] Last Admin: 02/15/19 09:25 Dose: Not Given Oxybutynin [Oxytrol] (3.9 Mg) 1 each TRDERM Q96H [facility] Last Admin: 02/15/19 15:09 Dose: Not Given Rivaroxaban (Xarelto) 20 mg PO DAILY@1730 [facility] Last Admin: 02/15/19 17:14 Dose: 20 mg Rosuvastatin Calcium (Crestor) 20 mg PO DAILY [facility] Last Admin: 02/15/19 09:11 Dose: 20 mg Trimethoprim/Sulfamethoxazole (Septra Ds) 1 tab PO BID [facility] Last Admin: 02/15/19 20:00 Dose: 1 tab Discontinued Medications Dextrose/Water (Dextrose 50% In Water) 50 ml IVPUSH ONETIME ONE Stop: 02/11/19 12:48 Last Admin: 02/11/19 12:55 Dose: 50 ml Dextrose/Water (Dextrose 50% In Water) 50 ml IVPUSH ONETIME ONE Stop: 02/12/19 02:10 Last Admin: 02/12/19 02:19 Dose: 50 ml Sodium Chloride (Normal Saline) 1,000 mls @ 250 mls/hr IV STAT ONE Stop: 02/11/19 12:42 Last Admin: 02/11/19 08:56 Dose: 250 mls/hr Ceftriaxone Sodium/Dextrose 1 (gm/ Premix) 50 mls @ 100 mls/hr IV ONETIME ONE Stop: 02/11/19 10:10 Last Admin: 02/11/19 09:58 Dose: 100 mls/hr Sodium Chloride (Normal Saline) 1,000 mls @ 75 mls/hr IV Q13H [facility] Last Admin: 02/12/19 03:26 Dose: Not Given Ceftriaxone Sodium/Dextrose 1 (gm/ Premix) 50 mls @ 100 mls/hr IV Q24H [facility] Last Admin: 02/15/19 09:18 Dose: 100 mls/hr Dextrose/Sodium Chloride (Dextrose 5%-1/2 Ns) 1,000 mls @ 75 mls/hr IV ASDIRECTED [facility] Last Admin: 02/11/19 22:32 Dose: 75 mls/hr Trimethoprim/Sulfamethoxazole (Septra Ds) 1 tab PO BID [facility]
[2019-02-16] MEDS: FERROUS SULFATE 325 MG PO SCH (08:57)
[2019-02-16] MEDS: Furosemide 80 MG Tab PO SCH (08:58)
[2019-02-16] MEDS: Baclofen 10 MG Tab PO SCH (08:58)
[2019-02-16] MEDS: Rosuvastatin 10 MG Tab PO SCH (08:58)
[2019-02-16] MEDS: Sulfamethoxazole/Trimethoprim 800-160 MG Tab PO SCH (08:59)
[2019-02-16] MEDS: Metoprolol Tartrate 50 MG Tab PO SCH (08:59)
[2019-02-16] MEDS: Melatonin/Pyridoxine Hcl (B6) [Melatonin 5 Mg Tablet] PO SCH (09:01)
[2019-02-16 12:26] VITALS: BP 147/72; PULSE 70
== END 2019-02-16 14:00 | DRG 638 ==
LOC: MW.ED 08:20 → MW.MS 09:47 → OBSVTOIN 13:03
PROVIDERS: ADMIT Internal Medicine; ATTEND Internal Medicine
DX: E11.649 Type 2 diabetes mellitus with hypoglycemia without coma (principal); R41.82 Altered mental status, unspecified; N39.0 Urinary tract infection, site not specified; E11.22 Type 2 diabetes mellitus with diabetic chronic kidney disease; N18.9 Chronic kidney disease, unspecified; N17.9 Acute kidney failure, unspecified; N20.0 Calculus of kidney; D64.9 Anemia, unspecified; E78.5 Hyperlipidemia, unspecified; Z96.0 Presence of urogenital implants; G35 Multiple sclerosis; N18.3 Chronic kidney disease, stage 3 (moderate); Z86.718 Personal history of other venous thrombosis and embolism; I12.9 Hypertensive chronic kidney disease with stage 1 through stage 4 chronic kidney disease, or unspecified chronic kidney disease; H54.7 Unspecified visual loss; E78.00 Pure hypercholesterolemia, unspecified; G47.30 Sleep apnea, unspecified; F41.9 Anxiety disorder, unspecified; F32.9 Major depressive disorder, single episode, unspecified; E66.9 Obesity, unspecified; T38.3X5A Adverse effect of insulin and oral hypoglycemic [antidiabetic] drugs, initial encounter; B95.61 Methicillin susceptible Staphylococcus aureus infection as the cause of diseases classified elsewhere; I25.2 Old myocardial infarction; Z86.711 Personal history of pulmonary embolism; Z79.899 Other long term (current) drug therapy; Z79.84 Long term (current) use of oral hypoglycemic drugs; Z88.1 Allergy status to other antibiotic agents; Z88.0 Allergy status to penicillin; Z91.040 Latex allergy status; Z99.81 Dependence on supplemental oxygen; Z87.440 Personal history of urinary (tract) infections; Z98.49 Cataract extraction status, unspecified eye; Z90.89 Acquired absence of other organs; Z87.891 Personal history of nicotine dependence; Z68.32 Body mass index [BMI] 32.0-32.9, adult
CPT/HCPCS: 36415; 71045; 80053; 81001; 82962; 84484; 85025; 85610; 87086; 87088; 87186; 93005; 96361; 96365; 99285; J0696; J7040; J7060; 76775; 76775-26; 80048; 83036; 97110-GP; 97162-GP; A9270-GY; J7042

== ENCOUNTER 2019-03-10 16:38 | Inpatient (IN) | payer MEDICARE, BC ==
[2019-03-10] MEDS ORDERED: Sodium Chloride 0.9% 1,000 ML IV ONE ×2 (17:01→19:15)
--- NOTE | 2019-03-10 17:07 | EDM.PDOC ---
<Sara Cardona - Last Filed: 03/10/19 18:49> ED HPI GENERAL MEDICAL PROBLEM - General Chief Complaint: Genitourinary Problem Stated Complaint: FEVER Time Seen by Provider: 03/10/19 16:55 - History of Present Illness INITIAL COMMENTS - FREE TEXT/NARRATIVE: I have assumed care of patient and personally have examined patient at 18:00 and agree with the above. Add to note: Dr. Silva verbally involved in patient care. Dr. Dai, urology, consulted on patient and instructs that patient start NPO at midnight with intention of surgery tomorrow. Dr. Haywood, hospitalist, consulted on patient and will admit to inpatient ICU Add to therapeutics: Rocephin Add to impression: Urosepsis Obstructive Uropathy Plan: Admit to inpatient ICU to Dr. Haywood. - Related Data Allergies Allergy/AdvReac Type Severity Reaction Status Date / Time erythromycin base Allergy Abdominal Verified 03/10/19 23:38 [Erythromycin Base] Pain latex Allergy Rash Verified 03/10/19 23:38 Penicillins Allergy Cannot Verified 03/10/19 23:38 Remember Home Meds: Home Meds Furosemide 40 mg PO DAILY 12/26/15 [History] Potassium Chloride [K-Tab ER] 20 meq PO DAILY 12/26/15 [History] Ramipril 10 mg PO DAILY 12/26/15 [History] Rosuvastatin [Crestor] 20 mg PO BEDTIME 12/26/15 [History] FLUoxetine [PROzac] 10 mg PO DAILY 04/01/18 [History] Rivaroxaban [Xarelto] 20 mg PO DAILY 04/01/18 [History] Melatonin/Pyridoxine HCl (B6) [Melatonin 5 mg Tablet] 5 mg PO DAILY 01/08/19 [ History] Tamsulosin HCl 0.4 mg PO BEDTIME 02/11/19 [History] Ferrous Sulfate 325 mg PO DAILY 02/12/19 [History] Baclofen 20 mg PO BIDMEALS #14 tablet 02/16/19 [Rx] Baclofen 40 mg PO BEDTIME #14 tablet 02/16/19 [Rx] Docusate Sodium [Colace] 100 mg PO BID PRN cap 02/16/19 [Rx] Nystatin [Nystop] 1 applic TOP TID bottle 02/16/19 [Rx] metFORMIN [Glucophage] 1,000 mg PO BIDMEALS #14 tab 02/16/19 [Rx] Acetaminophen [Tylenol] 650 mg PO Q6H PRN 03/10/19 [History] Metoprolol Succinate 50 mg PO DAILY 03/10/19 [History] Course - Vital Signs Last Recorded V/S: Last Vital Signs Temp 97.2 F 03/13/19 07:36 Pulse 78 03/13/19 08:39 Resp 14 03/13/19 07:36 BP 146/72 H 03/13/19 08:39 Pulse Ox 92 L 03/13/19 07:36 - Orders/Labs/Meds Orders: Medication Orders Acetaminophen (Tylenol) 650 mg PO Q4H PRN PRN Reason: Pain (Mild 1-3)/fever Last Admin: 03/10/19 21:48 Dose: 650 mg Baclofen (Lioresal) 20 mg PO BIDMEALS [facility] Baclofen (Lioresal) 40 mg PO BEDTIME [facility] Dextrose/Water (Dextrose 50% In Water) 50 ml IVPUSH ONETIME PRN PRN Reason: Hypoglycemia Docusate Sodium (Colace) 100 mg PO BID PRN PRN Reason: Constipation Fluoxetine HCl (Prozac) 10 mg PO DAILY [facility] Last Admin: 03/13/19 08:38 Dose: 10 mg Furosemide (Lasix) 40 mg PO DAILY [facility] Last Admin: 03/13/19 08:39 Dose: 40 mg Meropenem/Sodium Chloride 1 gm (/ Premix) 50 mls @ 100 mls/hr IV Q12H [facility] Last Admin: 03/13/19 08:39 Dose: 100 mls/hr Infusion: 03/12/19 21:41 Dose: 100 mls/hr Admin: 03/12/19 21:11 Dose: 100 mls/hr Infusion: 03/12/19 10:06 Dose: 100 mls/hr Admin: 03/12/19 09:36 Dose: 100 mls/hr Infusion: 03/11/19 20:44 Dose: 100 mls/hr Admin: 03/11/19 20:14 Dose: 100 mls/hr Infusion: 03/11/19 09:45 Dose: 100 mls/hr Admin: 03/11/19 09:15 Dose: 100 mls/hr Vancomycin HCl 1.25 gm/ Sodium (Chloride) 250 mls @ 166.667 mls/hr IV Q24H [facility] Last Admin: 03/12/19 10:24 Dose: 166.667 mls/hr Infusion: 03/11/19 12:02 Dose: 166.667 mls/hr Admin: 03/11/19 10:32 Dose: 166.667 mls/hr Insulin Aspart (Novolog) 0 unit SUBCUT TIDAC [facility]; Protocol Last Admin: 03/13/19 07:30 Dose: Not Given Admin: 03/12/19 18:33 Dose: 1 unit Admin: 03/12/19 12:04 Dose: 1 unit Admin: 03/12/19 07:51 Dose: Not Given Admin: 03/11/19 16:48 Dose: Not Given Admin: 03/11/19 11:14 Dose: Not Given Admin: 03/11/19 09:11 Dose: Not Given Labetalol HCl (Normodyne) 10 mg IVPUSH Q6H PRN; Protocol PRN Reason: Systolic >180 mm hg Metoprolol Succinate (Toprol Xl) 50 mg PO DAILY [facility] Last Admin: 03/13/19 08:39 Dose: 50 mg Admin: 03/12/19 20:51 Dose: 50 mg Ondansetron HCl (Zofran Odt) 4 mg PO Q4H PRN PRN Reason: nausea, able to take PO Ondansetron HCl (Zofran) 4 mg IVPUSH Q4H PRN PRN Reason: Nausea Oxycodone/Acetaminophen (Percocet 325-5 Mg) 1 tab PO Q4H PRN PRN Reason: Pain (moderate 4-6) Rivaroxaban (Xarelto) 20 mg PO DAILY [facility] Last Admin: 03/13/19 08:39 Dose: 20 mg Admin: 03/12/19 10:24 Dose: 20 mg Rosuvastatin Calcium (Crestor) 20 mg PO BEDTIME [facility] Last Admin: 03/12/19 20:51 Dose: 20 mg Tamsulosin HCl (Flomax) 0.4 mg PO BEDTIME [facility] Last Admin: 03/12/19 20:51 Dose: 0.4 mg Admin: 03/11/19 20:13 Dose: 0.4 mg Admin: 03/10/19 22:32 Dose: 0.4 mg Vancomycin HCl (Pharmacy To Dose - Vancomycin) 1 dose .XX ASDIRECTED [facility] Labs: Laboratory Tests 03/10/19 03/10/19 03/10/19 Range/Units 17:14 17:14 17:14 WBC 10.23 (4.0-11.0) K/uL RBC 3.48 L (4.30-5.90) M/uL Hgb 10.5 L (12.0-16.0) g/dL Hct 32.5 L (36.0-46.0) % MCV 93.4 (80.0-98.0) fL MCH 30.2 (27.0-32.0) pg MCHC 32.3 (31.0-37.0) g/dL RDW Std Deviation 49.8 (28.0-62.0) fl RDW Coeff of Marjorie 15 (11.0-15.0) % Plt Count 249 (150-400) K/uL MPV 9.60 (7.40-12.00) fL Add Manual Diff YES Neutrophils % (Manual) 78 (48.0-80.0) % Lymphocytes % (Manual) 8 L (16.0-40.0) % Monocytes % (Manual) 14 (0.0-15.0) % Nucleated RBC % 0.0 /100WBC Absolute Seg Neuts 8.0 H (1.4-5.7) Lymphocytes # (Manual) 0.8 (0.6-2.4) Monocytes # (Manual) 1.4 H (0.0-0.8) Nucleated RBCs # 0 K/uL Lactate 1.4 (0.20-2.00) mmol/L Sodium 135 L (136-145) mmol/L Potassium 4.1 (3.5-5.1) mmol/L Chloride 100 (98-107) mmol/L Carbon Dioxide 25.2 (21.0-32.0) mmol/L BUN 37 H (7.0-18.0) mg/dL Creatinine 2.5 H (0.6-1.0) mg/dL Est Cr Clr Drug Dosing TNP Estimated GFR (MDRD) 19.0 ml/min Glucose 190 H (74-106) mg/dL POC Glucose (60-110) mg/dL Calcium 9.0 (8.5-10.1) mg/dL Total Bilirubin 0.3 (0.2-1.0) mg/dL AST 8 L (15-37) IU/L ALT 10 L (14-63) IU/L Alkaline Phosphatase 78 (46-116) U/L Total Protein 7.4 (6.4-8.2) g/dL Albumin 2.6 L (3.4-5.0) g/dL Globulin 4.8 H (2.6-4.0) g/dL Albumin/Globulin Ratio 0.5 L (0.9-1.6) Urine Color Urine Appearance Urine pH (5.0-8.0) Ur Specific [place] (1.001-1.035) Urine Protein (NEGATIVE) mg/dL Urine Glucose (UA) (NEGATIVE) mg/dL Urine Ketones (NEGATIVE) mg/dL Urine Occult Blood (NEGATIVE) Urine Nitrite (NEGATIVE) Urine Bilirubin (NEGATIVE) Urine Ictotest Urine Urobilinogen (<2.0) EU/dL Ur Leukocyte Esterase (NEGATIVE) Urine RBC (0-2/HPF) Urine WBC (0-5/HPF) Ur Epithelial Cells (NONE-FEW) Urine Bacteria (NEGATIVE) Urine Mucus (NONE-MOD) 03/10/19 03/10/19 Range/Units 17:14 18:05 WBC (4.0-11.0) K/uL RBC (4.30-5.90) M/uL Hgb (12.0-16.0) g/dL Hct (36.0-46.0) % MCV (80.0-98.0) fL MCH (27.0-32.0) pg MCHC (31.0-37.0) g/dL RDW Std Deviation (28.0-62.0) fl RDW Coeff of Marjorie (11.0-15.0) % Plt Count (150-400) K/uL MPV (7.40-12.00) fL Add Manual Diff Neutrophils % (Manual) (48.0-80.0) % Lymphocytes % (Manual) (16.0-40.0) % Monocytes % (Manual) (0.0-15.0) % Nucleated RBC % /100WBC Absolute Seg Neuts (1.4-5.7) Lymphocytes # (Manual) (0.6-2.4) Monocytes # (Manual) (0.0-0.8) Nucleated RBCs # K/uL Lactate (0.20-2.00) mmol/L Sodium (136-145) mmol/L Potassium (3.5-5.1) mmol/L Chloride (98-107) mmol/L Carbon Dioxide (21.0-32.0) mmol/L BUN (7.0-18.0) mg/dL Creatinine (0.6-1.0) mg/dL Est Cr Clr Drug Dosing Estimated GFR (MDRD) ml/min Glucose (74-106) mg/dL POC Glucose 194 H (60-110) mg/dL Calcium (8.5-10.1) mg/dL Total Bilirubin (0.2-1.0) mg/dL AST (15-37) IU/L ALT (14-63) IU/L Alkaline Phosphatase (46-116) U/L Total Protein (6.4-8.2) g/dL Albumin (3.4-5.0) g/dL Globulin (2.6-4.0) g/dL Albumin/Globulin Ratio (0.9-1.6) Urine Color DARK YELLOW Urine Appearance CLOUDY Urine pH 5.5 (5.0-8.0) Ur Specific [place] 1.015 (1.001-1.035) Urine Protein 100 H (NEGATIVE) mg/dL Urine Glucose (UA) NEGATIVE (NEGATIVE) mg/dL Urine Ketones NEGATIVE (NEGATIVE) mg/dL Urine Occult Blood LARGE H (NEGATIVE) Urine Nitrite POSITIVE H (NEGATIVE) Urine Bilirubin SMALL H (NEGATIVE) Urine Ictotest NEGATIVE Urine Urobilinogen 0.2 (<2.0) EU/dL Ur Leukocyte Esterase MODERATE H (NEGATIVE) Urine RBC TOO NUMEROUS TO CT H (0-2/HPF) Urine WBC TO NUMEROUS TO COUNT H (0-5/HPF) Ur Epithelial Cells MODERATE (NONE-FEW) Urine Bacteria 1+ H (NEGATIVE) Urine Mucus LIGHT (NONE-MOD) Meds: Medications Generic Name Dose Route Start Last Admin Trade Name Freq PRN Reason Stop Dose Admin Acetaminophen 650 mg 03/10/19 19:07 03/10/19 21:48 Tylenol PO 650 mg Q4H PRN Administration Pain (Mild 1-3)/fever Baclofen 20 mg 03/13/19 17:00 Lioresal PO BIDMEALS [facility] Baclofen 40 mg 03/13/19 21:00 Lioresal PO BEDTIME [facility] Dextrose/Water 50 ml 03/10/19 20:12 Dextrose 50% In Water IVPUSH ONETIME PRN Hypoglycemia Docusate Sodium 100 mg 03/12/19 20:11 Colace PO BID PRN Constipation Fluoxetine HCl 10 mg 03/13/19 09:00 03/13/19 08:38 Prozac PO 10 mg DAILY [facility] Administration Furosemide 40 mg 03/13/19 09:00 03/13/19 08:39 Lasix PO 40 mg DAILY [facility] Administration Meropenem/Sodium Chloride 1 gm 50 mls @ 100 mls/hr 03/11/19 09:00 03/13/19 08 :39 / Premix IV 100 mls/hr Q12H [facility] Administration Vancomycin HCl 1.25 gm/ Sodium 250 mls @ 166.667 mls/hr 03/11/19 10:00 10:24 Chloride IV 166.667 mls/hr Q24H [facility] Administration Insulin Aspart 0 unit 03/11/19 07:30 03/13/19 07:30 Novolog SUBCUT Not Given TIDAC [facility] Protocol Labetalol HCl 10 mg 03/12/19 22:29 Normodyne IVPUSH Q6H PRN Systolic >180 mm hg Protocol Metoprolol Succinate 50 mg 03/12/19 20:17 03/13/19 08:39 Toprol Xl PO 50 mg DAILY [facility] Administration Ondansetron HCl 4 mg 03/10/19 19:07 Zofran Odt PO Q4H PRN nausea, able to take PO Ondansetron HCl 4 mg 03/10/19 19:07 Zofran IVPUSH Q4H PRN Nausea Oxycodone/Acetaminophen 1 tab 03/10/19 19:07 Percocet 325-5 Mg PO Q4H PRN Pain (moderate 4-6) Rivaroxaban 20 mg 03/12/19 10:00 03/13/19 08:39 Xarelto PO 20 mg DAILY [facility] Administration Rosuvastatin Calcium 20 mg 03/12/19 21:00 03/12/19 20:51 Crestor PO 20 mg BEDTIME [facility] Administration Tamsulosin HCl 0.4 mg 03/10/19 22:10 03/12/19 20:51 Flomax PO 0.4 mg BEDTIME [facility] Administration Vancomycin HCl 1 dose 03/11/19 10:00 Pharmacy To Dose - Vancomycin .XX ASDIRECTED [facility] Discontinued Medications Generic Name Dose Route Start Last Admin Trade Name Freq PRN Reason Stop Dose Admin Sodium Chloride 1,000 mls @ 125 mls/hr 03/10/19 17:01 03/10/19 17:25 Normal Saline IV 03/11/19 01:00 125 mls/hr STAT ONE Infusion Vancomycin HCl 1 gm/ Sodium 250 mls @ 166 mls/hr 03/10/19 17:38 03/10/19 18: 14 Chloride IV 03/10/19 19:08 166 mls/hr ONETIME ONE Administration Piperacillin Sod/Tazobactam 50 mls @ 100 mls/hr 03/10/19 18:23 03/10/19 18:25 Sod 3.375 gm/ Sodium Chloride IV 03/10/19 18:52 Not Given ONETIME ONE Ceftriaxone Sodium/Dextrose 2 50 mls @ 100 mls/hr 03/10/19 18:24 03/10/19 20: 08 gm/ Premix IV 03/10/19 18:53 Not Given ONETIME ONE Meropenem 1 gm/ Sodium 100 mls @ 200 mls/hr 03/10/19 19:15 03/10/19 20:22 Chloride IV Not Given Q8H [facility] Sodium Chloride 1,000 mls @ 999 mls/hr 03/10/19 19:15 03/10/19 19:45 Normal Saline IV 03/10/19 20:15 999 mls/hr STAT ONE Administration Sodium Chloride 1,000 mls @ 125 mls/hr 03/10/19 19:15 03/11/19 04:56 Normal Saline IV 125 mls/hr CONTINUOUS [facility] Administration Meropenem/Sodium Chloride 50 mls @ 100 mls/hr 03/10/19 21:00 03/10/19 21:48 Meropenem IV 100 mls/hr Q12H [facility] Administration Meropenem/Sodium Chloride Confirm 03/10/19 20:51 03/10/19 21:54 Meropenem Administered 03/10/19 20:52 Not Given Dose 50 mls @ as directed IV .STK-MED ONE Norepinephrine Bitartrate 4 mg in 250 mls @ 7.5 mls/hr 03/11/19 01:15 Norepinephr-0.9% Nacl 4 Mg/250 IV TITRATE [facility] Protocol 2 MCG/MIN Acetaminophen 1,000 mg/ Premix 100 mls @ 400 mls/hr 03/11/19 12:48 03/11/19 12:52 IV 03/11/19 13:02 400 mls/hr NOW ONE Administration Acetaminophen Confirm 03/11/19 12:49 03/11/19 13:32 Ofirmev Administered 03/11/19 12:50 Not Given Dose 100 mls @ as directed IV .STK-MED ONE Sodium Chloride 1,000 mls @ 75 mls/hr 03/11/19 17:45 03/11/19 17:38 Normal Saline IV 75 mls/hr ASDIRECTED [facility] Administration Metoprolol Succinate 50 mg 03/12/19 20:15 Toprol Xl PO DAILY [facility] Metoprolol Succinate 50 mg 03/13/19 09:00 Toprol Xl PO DAILY [facility] Morphine Sulfate 2 mg 03/10/19 19:07 Morphine IVPUSH 03/11/19 19:09 Q2H PRN Pain (severe 7-10) Propofol Confirm 03/11/19 11:37 Diprivan 20 Ml Administered 03/11/19 11:38 Dose 200 mg .ROUTE .STK-MED ONE Ramipril 10 mg 03/12/19 20:15 03/12/19 20:42 Altace PO Not Given DAILY [facility] Sugammadex Sodium Confirm 03/11/19 10:19 Bridion Administered 03/11/19 10:20 Dose 200 mg .ROUTE .STK-MED ONE Tamsulosin HCl 0.4 mg 03/11/19 21:00 Flomax PO BEDTIME [facility] Departure - Departure Time of Disposition: 18:51 Disposition: Admitted As Inpatient 64 Clinical Impression: Obstructive uropathy Sepsis Qualifiers: Sepsis type: sepsis due to unspecified organism Sepsis acute organ dysfunction status: unspecified Qualified Code(s): A41.9 - Sepsis, unspecified organism - Discharge Information <Vanesa Greer E - Last Filed: 03/13/19 09:49> ED HPI GENERAL MEDICAL PROBLEM - General Source of Information: Reports: Patient History Limitations: Reports: No Limitations - History of Present Illness INITIAL COMMENTS - FREE TEXT/NARRATIVE: HISTORY AND PHYSICAL: History of present illness: Patient is a 68-year-old female who presents to the emergency room today with complaints of bilateral flank pain 2-3 days. She states she noticed the pain as a dull mild ache which has progressively gotten worse. 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 shelter staff was also concerned that she appeared slightly diaphoretic and more confused than normal. They consulted her PCP, who recommended she come to the ED for further evaluation and likely admission/observation. Patient denies any headache, change in vision, syncope or near syncope. Denies any chest pain, shortness of breath or cough. Denies any abdominal pain, nausea , vomiting, diarrhea, constipation or dysuria. Has not noted any blood in urine or stool. Patient has been eating and drinking appropriately. She does have an extensive history of UTI, renal stone with stent in the left, type II diabetic, hypertension, MS. Review of systems: As per history of present illness and below otherwise all systems reviewed and negative. Past medical history: As per history of present illness and as reviewed below otherwise noncontributory. Surgical history: As per history of present illness and as reviewed below otherwise noncontributory. Social history: See social history for further information Family history: As per history of present illness and as reviewed below otherwise noncontributory. Physical exam: General: Well-developed and well-nourished 68-year-old female. Alert and oriented, answers questions appropriately but appears drowsy. Nontoxic appearing and in no acute distress. Vital signs have been reviewed by me. HEENT: Atraumatic, normocephalic, pupils equal and reactive bilaterally, negative for conjunctival pallor or scleral icterus, mucous membranes dry/tacky , trachea midline. No drooling or trismus noted. No meningeal signs. No hot potato voice noted. Lungs: Clear to auscultation, breath sounds equal bilaterally, chest nontender. Heart: S1S2, regular rate and rhythm without overt murmur Abdomen: Soft, nondistended, nontender. Negative for masses or hepatosplenomegaly. Mild bilateral costovertebral tenderness. Pelvis: Stable nontender. Skin: Intact, warm, dry. No lesions or rashes noted. Extremities: Atraumatic, moves all extremities per self without difficulty or deficits, uses a wheelchair for ambulation. Neurovascular unremarkable. Neuro: Awake, alert, oriented. Cranial nerves II through XII unremarkable. Cerebellum unremarkable. Motor and sensory unremarkable throughout. Exam nonfocal. Notes: Initially the patient was hypotensive, received a 500 mL bolus of normal saline which brought her pressure into normal range. Waiting CT results and lab work. Patient will likely be admitted due to physical exam/presentation. Report given to Hamida WALTON who will follow the labs and call for admission. Diagnostics: CBC, CMP, lactic, UA, BC x 2, CT abd/pelvis Therapeutics: IV fluids, Vancomycin Definitive disposition and diagnosis as appropriate pending reevaluation and review of above. Bilateral Flank Pain Score (Numeric/FACES): 2 Past Medical History HEENT History: Reports: Impaired Vision, Other (See Below) Other HEENT History: wears glasses, "starting of macular degeneration" Cardiovascular History: Reports: Blood Clots/VTE/DVT, High Cholesterol, Hypertension, [place] Respiratory History: Reports: PE, Sleep Apnea Other Respiratory History: uses BI-PAP Gastrointestinal History: Reports: None Genitourinary History: Reports: Renal Calculus, Urinary Incontinence, UTI, Recurrent Other Genitourinary History: using tens/pads, recent UTI with rt ureteral stone and hospitalized in [place], [place] 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: Reports: Other 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: 2 Musculoskeletal History: Reports: Fracture Other Musculoskeletal History: uses walker Neurological History: Reports: MS Other Neuro History: MS-at age 14, uses walker Psychiatric History: Reports: Anxiety, Depression Other Psychiatric History: on medication with depression Endocrine/Metabolic History: Reports: Diabetes, Type II, Obesity/BMI 30+ Other Endocrine/Metabolic History: thyroid nodules Insulin Pump Model and [employer]: None Hematologic History: Reports: None Immunologic History: Reports: Other (See Below) Other Immunologic History: hx MRSA Oncologic (Cancer) History: Reports: None Dermatologic History: Reports: None - Infectious Disease History Infectious Disease History: Reports: Chicken Pox, Measles, Mumps Other Infectious Disease History: had it in the apst - Past Surgical History HEENT Surgical History: Reports: Adenoidectomy, Cataract Surgery, Tonsillectomy Other HEENT Surgeries/Procedures: cyst removed from rt lower eye lid Cardiovascular Surgical History: Reports: None Respiratory Surgical History: Reports: None GI Surgical History: Reports: None Female Surgical History: Reports: None Endocrine Surgical History: Reports: None Neurological Surgical History: Reports: None Musculoskeletal Surgical History: Reports: None Oncologic Surgical History: Reports: None Dermatological Surgical History: Reports: None Social & Family History - Family History Family Medical History: Noncontributory Cardiac: Reports: CAD Other Cardiac Family History: parents - CHF Respiratory: Reports: COPD Other Respiratory Family Hisory: COPD - brother OBGYN: Reports: Neurological: Reports: MS Other Neurological Family History: MS- sister also has MS Endocrine/Metabolic: Reports: Diabetes, type II Other Endocrine/Metabolic Family History: family Hematologic: Reports: Other (See Below) Other Hematologic Family History: brother - leukemia Oncologic: Reports: Breast, Leukemia Other Oncologic Family History: father side - breast cancer - Caffeine Use Caffeine Use: Reports: None ED ROS GENERAL - Review of Systems Review Of Systems: Comprehensive ROS is negative, except as noted in HPI. ED EXAM, RENAL/ - Physical Exam Exam: See Below (See dictation) Course - Vital Signs Last Recorded V/S: Last Vital Signs Temp 97.2 F 03/13/19 07:36 Pulse 78 03/13/19 08:39 Resp 14 03/13/19 07:36 BP 146/72 H 03/13/19 08:39 Pulse Ox 92 L 03/13/19 07:36 - Orders/Labs/Meds Orders: Medication Orders Acetaminophen (Tylenol) 650 mg PO Q4H PRN PRN Reason: Pain (Mild 1-3)/fever Last Admin: 03/10/19 21:48 Dose: 650 mg Baclofen (Lioresal) 20 mg PO BIDMEALS [facility] Baclofen (Lioresal) 40 mg PO BEDTIME [facility] Dextrose/Water (Dextrose 50% In Water) 50 ml IVPUSH ONETIME PRN PRN Reason: Hypoglycemia Docusate Sodium (Colace) 100 mg PO BID PRN PRN Reason: Constipation Fluoxetine HCl (Prozac) 10 mg PO DAILY [facility] Last Admin: 03/13/19 08:38 Dose: 10 mg Furosemide (Lasix) 40 mg PO DAILY [facility] Last Admin: 03/13/19 08:39 Dose: 40 mg Meropenem/Sodium Chloride 1 gm (/ Premix) 50 mls @ 100 mls/hr IV Q12H [facility] Last Admin: 03/13/19 08:39 Dose: 100 mls/hr Infusion: 03/12/19 21:41 Dose: 100 mls/hr Admin: 03/12/19 21:11 Dose: 100 mls/hr Infusion: 03/12/19 10:06 Dose: 100 mls/hr Admin: 03/12/19 09:36 Dose: 100 mls/hr Infusion: 03/11/19 20:44 Dose: 100 mls/hr Admin: 03/11/19 20:14 Dose: 100 mls/hr Infusion: 03/11/19 09:45 Dose: 100 mls/hr Admin: 03/11/19 09:15 Dose: 100 mls/hr Vancomycin HCl 1.25 gm/ Sodium (Chloride) 250 mls @ 166.667 mls/hr IV Q24H [facility] Last Admin: 03/12/19 10:24 Dose: 166.667 mls/hr Infusion: 03/11/19 12:02 Dose: 166.667 mls/hr Admin: 03/11/19 10:32 Dose: 166.667 mls/hr Insulin Aspart (Novolog) 0 unit SUBCUT TIDAC [facility]; Protocol Last Admin: 03/13/19 07:30 Dose: Not Given Admin: 03/12/19 18:33 Dose: 1 unit Admin: 03/12/19 12:04 Dose: 1 unit Admin: 03/12/19 07:51 Dose: Not Given Admin: 03/11/19 16:48 Dose: Not Given Admin: 03/11/19 11:14 Dose: Not Given Admin: 03/11/19 09:11 Dose: Not Given Labetalol HCl (Normodyne) 10 mg IVPUSH Q6H PRN; Protocol PRN Reason: Systolic >180 mm hg Metoprolol Succinate (Toprol Xl) 50 mg PO DAILY [facility] Last Admin: 03/13/19 08:39 Dose: 50 mg Admin: 03/12/19 20:51 Dose: 50 mg Ondansetron HCl (Zofran Odt) 4 mg PO Q4H PRN PRN Reason: nausea, able to take PO Ondansetron HCl (Zofran) 4 mg IVPUSH Q4H PRN PRN Reason: Nausea Oxycodone/Acetaminophen (Percocet 325-5 Mg) 1 tab PO Q4H PRN PRN Reason: Pain (moderate 4-6) Rivaroxaban (Xarelto) 20 mg PO DAILY [facility] Last Admin: 03/13/19 08:39 Dose: 20 mg Admin: 03/12/19 10:24 Dose: 20 mg Rosuvastatin Calcium (Crestor) 20 mg PO BEDTIME [facility] Last Admin: 03/12/19 20:51 Dose: 20 mg Tamsulosin HCl (Flomax) 0.4 mg PO BEDTIME [facility] Last Admin: 03/12/19 20:51 Dose: 0.4 mg Admin: 03/11/19 20:13 Dose: 0.4 mg Admin: 03/10/19 22:32 Dose: 0.4 mg Vancomycin HCl (Pharmacy To Dose - Vancomycin) 1 dose .XX ASDIRECTED [facility] Labs: Laboratory Tests 03/10/19 03/10/19 03/10/19 Range/Units 17:14 17:14 17:14 WBC 10.23 (4.0-11.0) K/uL RBC 3.48 L (4.30-5.90) M/uL Hgb 10.5 L (12.0-16.0) g/dL Hct 32.5 L (36.0-46.0) % MCV 93.4 (80.0-98.0) fL MCH 30.2 (27.0-32.0) pg MCHC 32.3 (31.0-37.0) g/dL RDW Std Deviation 49.8 (28.0-62.0) fl RDW Coeff of Marjorie 15 (11.0-15.0) % Plt Count 249 (150-400) K/uL MPV 9.60 (7.40-12.00) fL Add Manual Diff YES Neutrophils % (Manual) 78 (48.0-80.0) % Lymphocytes % (Manual) 8 L (16.0-40.0) % Monocytes % (Manual) 14 (0.0-15.0) % Nucleated RBC % 0.0 /100WBC Absolute Seg Neuts 8.0 H (1.4-5.7) Lymphocytes # (Manual) 0.8 (0.6-2.4) Monocytes # (Manual) 1.4 H (0.0-0.8) Nucleated RBCs # 0 K/uL Lactate 1.4 (0.20-2.00) mmol/L Sodium 135 L (136-145) mmol/L Potassium 4.1 (3.5-5.1) mmol/L Chloride 100 (98-107) mmol/L Carbon Dioxide 25.2 (21.0-32.0) mmol/L BUN 37 H (7.0-18.0) mg/dL Creatinine 2.5 H (0.6-1.0) mg/dL Est Cr Clr Drug Dosing TNP Estimated GFR (MDRD) 19.0 ml/min Glucose 190 H (74-106) mg/dL POC Glucose (60-110) mg/dL Calcium 9.0 (8.5-10.1) mg/dL Total Bilirubin 0.3 (0.2-1.0) mg/dL AST 8 L (15-37) IU/L ALT 10 L (14-63) IU/L Alkaline Phosphatase 78 (46-116) U/L Total Protein 7.4 (6.4-8.2) g/dL Albumin 2.6 L (3.4-5.0) g/dL Globulin 4.8 H (2.6-4.0) g/dL Albumin/Globulin Ratio 0.5 L (0.9-1.6) Urine Color Urine Appearance Urine pH (5.0-8.0) Ur Specific [place] (1.001-1.035) Urine Protein (NEGATIVE) mg/dL Urine Glucose (UA) (NEGATIVE) mg/dL Urine Ketones (NEGATIVE) mg/dL Urine Occult Blood (NEGATIVE) Urine Nitrite (NEGATIVE) Urine Bilirubin (NEGATIVE) Urine Ictotest Urine Urobilinogen (<2.0) EU/dL Ur Leukocyte Esterase (NEGATIVE) Urine RBC (0-2/HPF) Urine WBC (0-5/HPF) Ur Epithelial Cells (NONE-FEW) Urine Bacteria (NEGATIVE) Urine Mucus (NONE-MOD) 03/10/19 03/10/19 Range/Units 17:14 18:05 WBC (4.0-11.0) K/uL RBC (4.30-5.90) M/uL Hgb (12.0-16.0) g/dL Hct (36.0-46.0) % MCV (80.0-98.0) fL MCH (27.0-32.0) pg MCHC (31.0-37.0) g/dL RDW Std Deviation (28.0-62.0) fl RDW Coeff of Marjorie (11.0-15.0) % Plt Count (150-400) K/uL MPV (7.40-12.00) fL Add Manual Diff Neutrophils % (Manual) (48.0-80.0) % Lymphocytes % (Manual) (16.0-40.0) % Monocytes % (Manual) (0.0-15.0) % Nucleated RBC % /100WBC Absolute Seg Neuts (1.4-5.7) Lymphocytes # (Manual) (0.6-2.4) Monocytes # (Manual) (0.0-0.8) Nucleated RBCs # K/uL Lactate (0.20-2.00) mmol/L Sodium (136-145) mmol/L Potassium (3.5-5.1) mmol/L Chloride (98-107) mmol/L Carbon Dioxide (21.0-32.0) mmol/L BUN (7.0-18.0) mg/dL Creatinine (0.6-1.0) mg/dL Est Cr Clr Drug Dosing Estimated GFR (MDRD) ml/min Glucose (74-106) mg/dL POC Glucose 194 H (60-110) mg/dL Calcium (8.5-10.1) mg/dL Total Bilirubin (0.2-1.0) mg/dL AST (15-37) IU/L ALT (14-63) IU/L Alkaline Phosphatase (46-116) U/L Total Protein (6.4-8.2) g/dL Albumin (3.4-5.0) g/dL Globulin (2.6-4.0) g/dL Albumin/Globulin Ratio (0.9-1.6) Urine Color DARK YELLOW Urine Appearance CLOUDY Urine pH 5.5 (5.0-8.0) Ur Specific [place] 1.015 (1.001-1.035) Urine Protein 100 H (NEGATIVE) mg/dL Urine Glucose (UA) NEGATIVE (NEGATIVE) mg/dL Urine Ketones NEGATIVE (NEGATIVE) mg/dL Urine Occult Blood LARGE H (NEGATIVE) Urine Nitrite POSITIVE H (NEGATIVE) Urine Bilirubin SMALL H (NEGATIVE) Urine Ictotest NEGATIVE Urine Urobilinogen 0.2 (<2.0) EU/dL Ur Leukocyte Esterase MODERATE H (NEGATIVE) Urine RBC TOO NUMEROUS TO CT H (0-2/HPF) Urine WBC TO NUMEROUS TO COUNT H (0-5/HPF) Ur Epithelial Cells MODERATE (NONE-FEW) Urine Bacteria 1+ H (NEGATIVE) Urine Mucus LIGHT (NONE-MOD) Meds: Medications Generic Name Dose Route Start Last Admin Trade Name Freq PRN Reason Stop Dose Admin Acetaminophen 650 mg 03/10/19 19:07 03/10/19 21:48 Tylenol PO 650 mg Q4H PRN Administration Pain (Mild 1-3)/fever Baclofen 20 mg 03/13/19 17:00 Lioresal PO BIDMEALS [facility] Baclofen 40 mg 03/13/19 21:00 Lioresal PO BEDTIME [facility] Dextrose/Water 50 ml 03/10/19 20:12 Dextrose 50% In Water IVPUSH ONETIME PRN Hypoglycemia Docusate Sodium 100 mg 03/12/19 20:11 Colace PO BID PRN Constipation Fluoxetine HCl 10 mg 03/13/19 09:00 03/13/19 08:38 Prozac PO 10 mg DAILY [facility] Administration Furosemide 40 mg 03/13/19 09:00 03/13/19 08:39 Lasix PO 40 mg DAILY [facility] Administration Meropenem/Sodium Chloride 1 gm 50 mls @ 100 mls/hr 03/11/19 09:00 03/13/19 08 :39 / Premix IV 100 mls/hr Q12H [facility] Administration Vancomycin HCl 1.25 gm/ Sodium 250 mls @ 166.667 mls/hr 03/11/19 10:00 10:24 Chloride IV 166.667 mls/hr Q24H [facility] Administration Insulin Aspart 0 unit 03/11/19 07:30 03/13/19 07:30 Novolog SUBCUT Not Given TIDAC [facility] Protocol Labetalol HCl 10 mg 03/12/19 22:29 Normodyne IVPUSH Q6H PRN Systolic >180 mm hg Protocol Metoprolol Succinate 50 mg 03/12/19 20:17 03/13/19 08:39 Toprol Xl PO 50 mg DAILY [facility] Administration Ondansetron HCl 4 mg 03/10/19 19:07 Zofran Odt PO Q4H PRN nausea, able to take PO Ondansetron HCl 4 mg 03/10/19 19:07 Zofran IVPUSH Q4H PRN Nausea Oxycodone/Acetaminophen 1 tab 03/10/19 19:07 Percocet 325-5 Mg PO Q4H PRN Pain (moderate 4-6) Rivaroxaban 20 mg 03/12/19 10:00 03/13/19 08:39 Xarelto PO 20 mg DAILY [facility] Administration Rosuvastatin Calcium 20 mg 03/12/19 21:00 03/12/19 20:51 Crestor PO 20 mg BEDTIME [facility] Administration Tamsulosin HCl 0.4 mg 03/10/19 22:10 03/12/19 20:51 Flomax PO 0.4 mg BEDTIME [facility] Administration Vancomycin HCl 1 dose 03/11/19 10:00 Pharmacy To Dose - Vancomycin .XX ASDIRECTED [facility] Discontinued Medications Generic Name Dose Route Start Last Admin Trade Name Freq PRN Reason Stop Dose Admin Sodium Chloride 1,000 mls @ 125 mls/hr 03/10/19 17:01 03/10/19 17:25 Normal Saline IV 03/11/19 01:00 125 mls/hr STAT ONE Infusion Vancomycin HCl 1 gm/ Sodium 250 mls @ 166 mls/hr 03/10/19 17:38 03/10/19 18: 14 Chloride IV 03/10/19 19:08 166 mls/hr ONETIME ONE Administration Piperacillin Sod/Tazobactam 50 mls @ 100 mls/hr 03/10/19 18:23 03/10/19 18:25 Sod 3.375 gm/ Sodium Chloride IV 03/10/19 18:52 Not Given ONETIME ONE Ceftriaxone Sodium/Dextrose 2 50 mls @ 100 mls/hr 03/10/19 18:24 03/10/19 20: 08 gm/ Premix IV 03/10/19 18:53 Not Given ONETIME ONE Meropenem 1 gm/ Sodium 100 mls @ 200 mls/hr 03/10/19 19:15 03/10/19 20:22 Chloride IV Not Given Q8H [facility] Sodium Chloride 1,000 mls @ 999 mls/hr 03/10/19 19:15 03/10/19 19:45 Normal Saline IV 03/10/19 20:15 999 mls/hr STAT ONE Administration Sodium Chloride 1,000 mls @ 125 mls/hr 03/10/19 19:15 03/11/19 04:56 Normal Saline IV 125 mls/hr CONTINUOUS [place] Administration Meropenem/Sodium Chloride 50 mls @ 100 mls/hr 03/10/19 21:00 03/10/19 21:48 Meropenem IV 100 mls/hr Q12H [place] Administration Meropenem/Sodium Chloride Confirm 03/10/19 20:51 03/10/19 21:54 Meropenem Administered 03/10/19 20:52 Not Given Dose 50 mls @ as directed IV .STK-MED ONE Norepinephrine Bitartrate 4 mg in 250 mls @ 7.5 mls/hr 03/11/19 01:15 Norepinephr-0.9% Nacl 4 Mg/250 IV TITRATE [facility] Protocol 2 MCG/MIN Acetaminophen 1,000 mg/ Premix 100 mls @ 400 mls/hr 03/11/19 12:48 03/11/19 12:52 IV 03/11/19 13:02 400 mls/hr NOW ONE Administration Acetaminophen Confirm 03/11/19 12:49 03/11/19 13:32 Ofirmev Administered 03/11/19 12:50 Not Given Dose 100 mls @ as directed IV .STK-MED ONE Sodium Chloride 1,000 mls @ 75 mls/hr 03/11/19 17:45 03/11/19 17:38 Normal Saline IV 75 mls/hr ASDIRECTED [place] Administration Metoprolol Succinate 50 mg 03/12/19 20:15 Toprol Xl PO DAILY [facility] Metoprolol Succinate 50 mg 03/13/19 09:00 Toprol Xl PO DAILY [facility] Morphine Sulfate 2 mg 03/10/19 19:07 Morphine IVPUSH 03/11/19 19:09 Q2H PRN Pain (severe 7-10) Propofol Confirm 03/11/19 11:37 Diprivan 20 Ml Administered 03/11/19 11:38 Dose 200 mg .ROUTE .STK-MED ONE Ramipril 10 mg 03/12/19 20:15 03/12/19 20:42 Altace PO Not Given DAILY [facility] Sugammadex Sodium Confirm 03/11/19 10:19 [place] Administered 03/11/19 10:20 Dose 200 mg .ROUTE .STK-MED ONE Tamsulosin HCl 0.4 mg 03/11/19 21:00 Flomax PO BEDTIME [facility]
[2019-03-10 17:58] LABS: BLOOD UREA NITROGEN,BUN 37 mg/dL (7.0-18.0); CARBON DIOXIDE,CO2 25.2 mmol/L (21.0-32.0); CHLORIDE,CL 100 mmol/L (98-107); GLUCOSE RANDOM 190 mg/dL (74-106); POTASSIUM,K 4.1 mmol/L (3.5-5.1); SODIUM,NA 135 mmol/L (136-145)
--- NOTE | 2019-03-10 18:03 | CR ---
Indication: Fever. Technique: Single AP portable view of the chest was obtained. Comparison: February 11, 2019. Findings: The heart is normal in size. The lungs are clear. No infiltrate, pleural effusion, or pneumothorax is identified. Impression: No acute cardiopulmonary process. Dictated by Mee Zavala MD @ Mar 10 2019 6:02PM Signed by Dr. Mee Zavala @ Mar 10 2019 6:03PM
--- NOTE | 2019-03-10 18:16 | CT ---
Indication: History of stones. Fever. Technique: Multiple contiguous axial images were obtained from the lung bases through the symphysis pubis without intravenous contrast enhancement. Please note that all CT scans at this facility use dose modulation, iterative reconstruction, and/or weight-based dosing when appropriate to reduce radiation dose to as low as reasonably achievable. Comparison: January 23, 2019. Findings: Bibasilar atelectasis or scar is identified. Extensive coronary artery calcifications are identified. No pericardial effusions identified. Small hiatal hernia is present. The unenhanced liver, pancreas, adrenals, and spleen are grossly normal. No intrahepatic biliary ductal dilatation is identified. Mild left hydronephrosis is identified. This is new. A left ureteral stent is identified. The proximal portion is in the left renal pelvis. The distal portion is within the urinary bladder. New right-sided hydronephrosis and right-sided hydroureter identified. A stone is identified within the proximal right ureter measuring 6 mm in size. This is best seen on image number 73, series 201. There is mid and distal right hydro ureter with no additional stones identified. In the pelvis, the urinary bladder is grossly normal. The small and large bowel are normal in caliber. No free air or free fluid is identified within the abdomen or pelvis. The aorta is normal in caliber. Degenerative changes of the spine are identified. Impression: Left ureteral stent. New left-sided hydronephrosis. New right-sided hydronephrosis with a proximal right ureteral calculus. There is also mid and distal right hydroureter with no additional calculi identified. Please note that all CT scans at this facility use dose modulation, iterative reconstruction, and/or weight-based dosing when appropriate to reduce radiation dose to as low as reasonably achievable. Dictated by Mee Zavala MD @ Mar 10 2019 6:11PM Signed by Dr. Mee Zavala @ Mar 10 2019 6:15PM
[2019-03-10] MEDS ORDERED: Piperacillin/Tazobactam 3.375 GM in Sodium Chloride 0.9% 50 ML IV ONE (18:23)
[2019-03-10] MEDS ORDERED: cefTRIAXone 2 GM in Premix Bag 1 BAG IV ONE (18:24)
[2019-03-10] MEDS ORDERED: Ondansetron 4 MG/2 ML SDV IVPUSH PRN (19:07)
[2019-03-10] MEDS ORDERED: Acetaminophen/oxyCODONE 325-5 MG Tab PO PRN (19:07)
[2019-03-10] MEDS ORDERED: Morphine 10 MG/ML Syringe IVPUSH PRN (19:07)
[2019-03-10] MEDS ORDERED: Acetaminophen 325 MG Tab PO PRN (19:07)
[2019-03-10] MEDS ORDERED: Ondansetron 4 MG Tab.DIS PO PRN (19:07)
[2019-03-10] MEDS ORDERED: Meropenem 1 GM in Sodium Chloride 0.9% 100 ML IV SCH ×3 (19:15→20:30)
--- NOTE | 2019-03-10 19:32 | PCM.HP.2 ---
<Israel Hyde - Last Filed: 03/10/19 19:41> H&P History of Present Illness - General Date of Service: 03/10/19 Admit Problem/Dx: Admission Diagnosis/Problem Admission Diagnosis/Problem Urinary tract infection - History of Present Illness Initial Comments - Free Text/Narative: 68 y/o female with history of type 2 diabetes, recent left ureteral stent placement about 1 month ago who presented to the ER from [facility] complaining of back pain, fever and weakness. Patient has been having bilateral flank pain for the past 2-3 days. Apparently, nursing staff at [facility] noticed a fever of 103 and some confusion. PCP was called who recommended taking patient to the ER. In the ER, patient was found to be hypotensive with SBP 80's. She was bolused with 1 L NS and she seemed to respond well to it. Now, SBP 120's. No fever. CT abdomen/pelvis showed bilateral hydronephrosis with right a 6 mm ureteral stone. UA was positive for UTI. She was started on antibiotics. When I evaluated the patient, she was in no acute distress. Receiving IV antibiotics. Seemed dry. Alert and oriented x4. Denied any pain. No nausea or vomiting. Bilateral Flank Pain Score (Numeric/FACES): 2 - Related Data Allergies/Adverse Reactions: Allergies Allergy/AdvReac Type Severity Reaction Status Date / Time erythromycin base Allergy Abdominal Verified 03/10/19 17:30 [Erythromycin Base] Pain latex Allergy Rash Verified 03/10/19 17:30 Penicillins Allergy Cannot Verified 03/10/19 17:30 Remember Home Medications: Home Meds Furosemide 40 mg PO DAILY 12/26/15 [History] Metoprolol Tartrate 50 mg PO DAILY 12/26/15 [History] Potassium Chloride [K-Tab ER] 20 meq PO DAILY 12/26/15 [History] Ramipril 10 mg PO DAILY 12/26/15 [History] Rosuvastatin [Crestor] 20 mg PO DAILY 12/26/15 [History] FLUoxetine [PROzac] 10 mg PO DAILY 04/01/18 [History] Rivaroxaban [Xarelto] 20 mg PO DAILY 04/01/18 [History] Melatonin/Pyridoxine HCl (B6) [Melatonin 5 mg Tablet] 5 mg PO DAILY 01/08/19 [ History] Tamsulosin HCl 0.4 mg PO BEDTIME 02/11/19 [History] Ferrous Sulfate 325 mg PO DAILY 02/12/19 [History] Baclofen 20 mg PO BIDMEALS #14 tablet 02/16/19 [Rx] Baclofen 40 mg PO BEDTIME #14 tablet 02/16/19 [Rx] Docusate Sodium [Colace] 100 mg PO BID PRN cap 02/16/19 [Rx] Nystatin [Nystop] 1 applic TOP TID bottle 02/16/19 [Rx] metFORMIN [Glucophage] 1,000 mg PO BIDMEALS #14 tab 02/16/19 [Rx] Acetaminophen [Tylenol] 650 mg PO Q6H PRN 03/10/19 [History] Past Medical History HEENT History: Reports: Impaired Vision, Other (See Below) Other HEENT History: wears glasses, "starting of macular degeneration" Cardiovascular History: Reports: Blood Clots/VTE/DVT, High Cholesterol, Hypertension, ND Respiratory History: Reports: PE, Sleep Apnea Other Respiratory History: uses BI-PAP Gastrointestinal History: Reports: None Genitourinary History: Reports: Renal Calculus, Urinary Incontinence, UTI, Recurrent Other Genitourinary History: using tens/pads, recent UTI with rt ureteral stone and hospitalized in [place], [place] [employer]CH[employer]IAN History: Reports: Other OB/BYN History: 2 Musculoskeletal History: Reports: Fracture Other Musculoskeletal History: uses walker Neurological History: Reports: MS Other Neuro History: MS-at age 14, uses walker Psychiatric History: Reports: Anxiety, Depression Other Psychiatric History: on medication with depression Endocrine/Metabolic History: Reports: Diabetes, Type II, Obesity/BMI 30+ Other Endocrine/Metabolic History: thyroid nodules 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 Hematologic History: Reports: None Immunologic History: Reports: Other (See Below) Other Immunologic History: hx MRSA Oncologic (Cancer) History: Reports: None Dermatologic History: Reports: None - Infectious Disease History Infectious Disease History: Reports: Chicken Pox, Measles, Mumps Other Infectious Disease History: had it in the apst - Past Surgical History HEENT Surgical History: Reports: Adenoidectomy, Cataract Surgery, Tonsillectomy Other HEENT Surgeries/Procedures: cyst removed from rt lower eye lid Cardiovascular Surgical History: Reports: None Respiratory Surgical History: Reports: None GI Surgical History: Reports: None Female Surgical History: Reports: None Endocrine Surgical History: Reports: None Neurological Surgical History: Reports: None Musculoskeletal Surgical History: Reports: None Oncologic Surgical History: Reports: None Dermatological Surgical History: Reports: None Social & Family History - Family History Family Medical History: Noncontributory Cardiac: Reports: CAD Other Cardiac Family History: parents - CHF Respiratory: Reports: COPD Other Respiratory Family Hisory: COPD - brother OBGYN: Reports: Neurological: Reports: MS Other Neurological Family History: MS- sister also has MS Endocrine/Metabolic: Reports: Diabetes, type II Other Endocrine/Metabolic Family History: family Hematologic: Reports: Other (See Below) Other Hematologic Family History: brother - leukemia Oncologic: Reports: Breast, Leukemia Other Oncologic Family History: father side - breast cancer - Tobacco Use Smoking Status *Q: Never Smoker - Caffeine Use Caffeine Use: Reports: None - Recreational Drug Use Recreational Drug Use: No H&P Review of Systems - Review of Systems: Review Of Systems: Comprehensive ROS is negative, except as noted in HPI. Exam - Exam Exam: See Below - Vital Signs Vital Signs: Last Vital Signs Temp 36.9 C 03/10/19 18:56 Pulse 72 03/10/19 18:56 Resp 18 03/10/19 18:56 BP 126/64 03/10/19 18:56 Pulse Ox 100 03/10/19 18:56 - Exam Quality Assessment: Supplemental Oxygen General: Alert, Oriented, Cooperative HEENT: Other (dry lips, oral mucosa) Lungs: Clear to Auscultation. No: Crackles, Wheezing Cardiovascular: Regular Rate, Regular Rhythm GI/Abdominal Exam: Normal Bowel Sounds, Soft, Tender Extremities: Other (stasis dermatitis left lower extremity) Neuro Extensive - Mental Status: Alert, Oriented x3 - Patient Data Lab Results Last 24 hrs: Laboratory Results - last 24 hr 03/10/19 03/10/19 03/10/19 Range/Units 17:14 17:14 17:14 WBC 10.23 (4.0-11.0) K/uL RBC 3.48 L (4.30-5.90) M/uL Hgb 10.5 L (12.0-16.0) g/dL Hct 32.5 L (36.0-46.0) % MCV 93.4 (80.0-98.0) fL MCH 30.2 (27.0-32.0) pg MCHC 32.3 (31.0-37.0) g/dL RDW Std Deviation 49.8 (28.0-62.0) fl RDW Coeff of Marjorie 15 (11.0-15.0) % Plt Count 249 (150-400) K/uL MPV 9.60 (7.40-12.00) fL Add Manual Diff YES Neutrophils % (Manual) 78 (48.0-80.0) % Lymphocytes % (Manual) 8 L (16.0-40.0) % Monocytes % (Manual) 14 (0.0-15.0) % Nucleated RBC % 0.0 /100WBC Absolute Seg Neuts 8.0 H (1.4-5.7) Lymphocytes # (Manual) 0.8 (0.6-2.4) Monocytes # (Manual) 1.4 H (0.0-0.8) Nucleated RBCs # 0 K/uL Lactate 1.4 (0.20-2.00) mmol/L Sodium 135 L (136-145) mmol/L Potassium 4.1 (3.5-5.1) mmol/L Chloride 100 (98-107) mmol/L Carbon Dioxide 25.2 (21.0-32.0) mmol/L BUN 37 H (7.0-18.0) mg/dL Creatinine 2.5 H (0.6-1.0) mg/dL Est Cr Clr Drug Dosing TNP Estimated GFR (MDRD) 19.0 ml/min Glucose 190 H (74-106) mg/dL POC Glucose (60-110) mg/dL Calcium 9.0 (8.5-10.1) mg/dL Total Bilirubin 0.3 (0.2-1.0) mg/dL AST 8 L (15-37) IU/L ALT 10 L (14-63) IU/L Alkaline Phosphatase 78 (46-116) U/L Total Protein 7.4 (6.4-8.2) g/dL Albumin 2.6 L (3.4-5.0) g/dL Globulin 4.8 H (2.6-4.0) g/dL Albumin/Globulin Ratio 0.5 L (0.9-1.6) Urine Color Urine Appearance Urine pH (5.0-8.0) Ur Specific [place] (1.001-1.035) Urine Protein (NEGATIVE) mg/dL Urine Glucose (UA) (NEGATIVE) mg/dL Urine Ketones (NEGATIVE) mg/dL Urine Occult Blood (NEGATIVE) Urine Nitrite (NEGATIVE) Urine Bilirubin (NEGATIVE) Urine Ictotest Urine Urobilinogen (<2.0) EU/dL Ur Leukocyte Esterase (NEGATIVE) Urine RBC (0-2/HPF) Urine WBC (0-5/HPF) Ur Epithelial Cells (NONE-FEW) Urine Bacteria (NEGATIVE) Urine Mucus (NONE-MOD) 03/10/19 03/10/19 Range/Units 17:14 18:05 WBC (4.0-11.0) K/uL RBC (4.30-5.90) M/uL Hgb (12.0-16.0) g/dL Hct (36.0-46.0) % MCV (80.0-98.0) fL MCH (27.0-32.0) pg MCHC (31.0-37.0) g/dL RDW Std Deviation (28.0-62.0) fl RDW Coeff of Marjorie (11.0-15.0) % Plt Count (150-400) K/uL MPV (7.40-12.00) fL Add Manual Diff Neutrophils % (Manual) (48.0-80.0) % Lymphocytes % (Manual) (16.0-40.0) % Monocytes % (Manual) (0.0-15.0) % Nucleated RBC % /100WBC Absolute Seg Neuts (1.4-5.7) Lymphocytes # (Manual) (0.6-2.4) Monocytes # (Manual) (0.0-0.8) Nucleated RBCs # K/uL Lactate (0.20-2.00) mmol/L Sodium (136-145) mmol/L Potassium (3.5-5.1) mmol/L Chloride (98-107) mmol/L Carbon Dioxide (21.0-32.0) mmol/L BUN (7.0-18.0) mg/dL Creatinine (0.6-1.0) mg/dL Est Cr Clr Drug Dosing Estimated GFR (MDRD) ml/min Glucose (74-106) mg/dL POC Glucose 194 H (60-110) mg/dL Calcium (8.5-10.1) mg/dL Total Bilirubin (0.2-1.0) mg/dL AST (15-37) IU/L ALT (14-63) IU/L Alkaline Phosphatase (46-116) U/L Total Protein (6.4-8.2) g/dL Albumin (3.4-5.0) g/dL Globulin (2.6-4.0) g/dL Albumin/Globulin Ratio (0.9-1.6) Urine Color DARK YELLOW Urine Appearance CLOUDY Urine pH 5.5 (5.0-8.0) Ur Specific [place] 1.015 (1.001-1.035) Urine Protein 100 H (NEGATIVE) mg/dL Urine Glucose (UA) NEGATIVE (NEGATIVE) mg/dL Urine Ketones NEGATIVE (NEGATIVE) mg/dL Urine Occult Blood LARGE H (NEGATIVE) Urine Nitrite POSITIVE H (NEGATIVE) Urine Bilirubin SMALL H (NEGATIVE) Urine Ictotest NEGATIVE Urine Urobilinogen 0.2 (<2.0) EU/dL Ur Leukocyte Esterase MODERATE H (NEGATIVE) Urine RBC TOO NUMEROUS TO CT H (0-2/HPF) Urine WBC TO NUMEROUS TO COUNT H (0-5/HPF) Ur Epithelial Cells MODERATE (NONE-FEW) Urine Bacteria 1+ H (NEGATIVE) Urine Mucus LIGHT (NONE-MOD) Result Diagrams: 03/10/19 17:14 03/10/19 17:14 Jareth Results Last 24 hrs: Microbiology 03/10/19 17:34 Anaerobic Blood Culture - Final Blood - Venous - Lab Draw Problem List Initiated/Reviewed/Updated: Yes Orders Last 24hrs: Active Orders 24 hr Category Date Time Status Admission Status [Patient Status] [ADT] Stat ADT 03/10/19 18:44 Active Blood Glucose Check, Bedside [RC] QIDACANDBED Care 03/10/19 19:07 Active Intake and Output [RC] QSHIFT Care 03/10/19 19:08 Active Notify Provider Consults [RC] ASDIRECTED Care 03/10/19 18:48 Active Oxygen Therapy [RC] PRN Care 03/10/19 19:07 Active Up With Assistance [RC] ASDIRECTED Care 03/10/19 19:07 Active VTE/DVT Education [RC] PER UNIT ROUTINE Care 03/10/19 19:07 Active Vital Signs [RC] Q4H Care 03/10/19 19:07 Active Consult to Physician [CONS] Stat Cons 03/10/19 18:48 Active [place] [employer] Diet [DIET] Diet 03/10/19 Dinner Active NPO After Midnight [Nothing per Oral After Midnight Diet 03/11/19 Breakfast Active Diet] [DIET] CBC WITH AUTO DIFF [HEME] AM Lab 03/11/19 05:11 Ordered CBC WITH AUTO DIFF [HEME] AM Lab 03/12/19 05:11 Ordered CBC WITH AUTO DIFF [HEME] AM Lab 03/13/19 05:11 Ordered COMPREHENSIVE METABOLIC PN,CMP [CHEM] AM Lab 03/11/19 05:11 Ordered COMPREHENSIVE METABOLIC PN,CMP [CHEM] AM Lab 03/12/19 05:11 Ordered COMPREHENSIVE METABOLIC PN,CMP [CHEM] AM Lab 03/13/19 05:11 Ordered CULTURE BLOOD [BC] Stat Lab 03/10/19 17:14 Received CULTURE BLOOD [BC] Stat Lab 03/10/19 17:34 Results CULTURE URINE [RM] Stat Lab 03/10/19 18:05 Received Acetaminophen [Tylenol] Med 03/10/19 19:07 Active 650 mg PO Q4H PRN Acetaminophen/oxyCODONE [Percocet 325-5 MG] Med 03/10/19 19:07 Active 1 tab PO Q4H PRN Insulin Aspart [NovoLOG] Med 03/11/19 07:30 Active See Protocol SUBCUT TIDAC Meropenem [Merrem] 1 gm Med 03/10/19 19:15 Active Sodium Chloride 0.9% [Normal Saline] 100 ml IV Q8H Morphine Med 03/10/19 19:07 Active 2 mg IVPUSH Q2H PRN Ondansetron [Zofran ODT] Med 03/10/19 19:07 Active 4 mg PO Q4H PRN Ondansetron [Zofran] Med 03/10/19 19:07 Active 4 mg IVPUSH Q4H PRN Sodium Chloride 0.9% [Normal Saline] 1,000 ml Med 03/10/19 19:15 Active IV CONTINUOUS Sodium Chloride 0.9% [Normal Saline] 1,000 ml Med 03/10/19 19:15 Active IV STAT Blood Culture x2 Reflex Set [OM.PC] Stat Oth 03/10/19 17:01 Ordered Resuscitation Status Routine Resus Stat 03/10/19 19:07 Ordered Medication Orders Acetaminophen (Tylenol) 650 mg PO Q4H PRN PRN Reason: Pain (Mild 1-3)/fever Meropenem 1 gm/ Sodium (Chloride) 100 mls @ 200 mls/hr IV Q8H [place] Sodium Chloride (Normal Saline) 1,000 mls @ 999 mls/hr IV STAT ONE Stop: 03/10/19 20:15 Sodium Chloride (Normal Saline) 1,000 mls @ 125 mls/hr IV CONTINUOUS [place] Insulin Aspart (Novolog) 0 unit SUBCUT TIDAC CALIXTO; Protocol Morphine Sulfate (Morphine) 2 mg IVPUSH Q2H PRN PRN Reason: Pain (severe 7-10) Stop: 03/11/19 19:09 Ondansetron HCl (Zofran Odt) 4 mg PO Q4H PRN PRN Reason: nausea, able to take PO Ondansetron HCl (Zofran) 4 mg IVPUSH Q4H PRN PRN Reason: Nausea Oxycodone/Acetaminophen (Percocet 325-5 Mg) 1 tab PO Q4H PRN PRN Reason: Pain (moderate 4-6) Assessment/Plan Comment:: A: 1. Pyelonephritis 2. Acute on chronic kidney injury 3. PMH Diabetes type 2, dyslipidemia, Hx of PE P: 1. Pyelonephritis- Will start meropenem due to patients recent cystoscopy with stent placement and recurrent UTIs. Will bolus with 1 L NS and then maintenance fluids. NPO after midnight. Dr. Ortiz has been contacted by ER. will monitor BP due to patient being hypotensive at presentation. 2. Acute on chronic kidney injury secondary to obstructive uropathy. Will hydrate and monitor. 3. Hx of DM2- will have Accuchecks and PRN ISS. NPO after midnight. 4. Hx of PE- not sure if still taking an anticoagulant. will clarify this. dispo: 2-3 days. <Jony Haywood - Last Filed: 03/10/19 22:36> H&P History of Present Illness - General Admit Problem/Dx: Admission Diagnosis/Problem Admission Diagnosis/Problem Urinary tract infection Exam - Vital Signs Vital Signs: Last Vital Signs Temp 37.2 C 03/10/19 19:52 Pulse 90 03/10/19 19:52 Resp 17 03/10/19 19:52 BP 138/67 03/10/19 19:52 Pulse Ox 96 03/10/19 19:52 - Patient Data Lab Results Last 24 hrs: Laboratory Results - last 24 hr 03/10/19 03/10/19 03/10/19 Range/Units 17:14 17:14 17:14 WBC 10.23 (4.0-11.0) K/uL RBC 3.48 L (4.30-5.90) M/uL Hgb 10.5 L (12.0-16.0) g/dL Hct 32.5 L (36.0-46.0) % MCV 93.4 (80.0-98.0) fL MCH 30.2 (27.0-32.0) pg MCHC 32.3 (31.0-37.0) g/dL RDW Std Deviation 49.8 (28.0-62.0) fl RDW Coeff of Marjorie 15 (11.0-15.0) % Plt Count 249 (150-400) K/uL MPV 9.60 (7.40-12.00) fL Add Manual Diff YES Neutrophils % (Manual) 78 (48.0-80.0) % Lymphocytes % (Manual) 8 L (16.0-40.0) % Monocytes % (Manual) 14 (0.0-15.0) % Nucleated RBC % 0.0 /100WBC Absolute Seg Neuts 8.0 H (1.4-5.7) Lymphocytes # (Manual) 0.8 (0.6-2.4) Monocytes # (Manual) 1.4 H (0.0-0.8) Nucleated RBCs # 0 K/uL Lactate 1.4 (0.20-2.00) mmol/L Sodium 135 L (136-145) mmol/L Potassium 4.1 (3.5-5.1) mmol/L Chloride 100 (98-107) mmol/L Carbon Dioxide 25.2 (21.0-32.0) mmol/L BUN 37 H (7.0-18.0) mg/dL Creatinine 2.5 H (0.6-1.0) mg/dL Est Cr Clr Drug Dosing TNP Estimated GFR (MDRD) 19.0 ml/min Glucose 190 H (74-106) mg/dL POC Glucose (60-110) mg/dL Calcium 9.0 (8.5-10.1) mg/dL Total Bilirubin 0.3 (0.2-1.0) mg/dL AST 8 L (15-37) IU/L ALT 10 L (14-63) IU/L Alkaline Phosphatase 78 (46-116) U/L Total Protein 7.4 (6.4-8.2) g/dL Albumin 2.6 L (3.4-5.0) g/dL Globulin 4.8 H (2.6-4.0) g/dL Albumin/Globulin Ratio 0.5 L (0.9-1.6) Urine Color Urine Appearance Urine pH (5.0-8.0) Ur Specific [place] (1.001-1.035) Urine Protein (NEGATIVE) mg/dL Urine Glucose (UA) (NEGATIVE) mg/dL Urine Ketones (NEGATIVE) mg/dL Urine Occult Blood (NEGATIVE) Urine Nitrite (NEGATIVE) Urine Bilirubin (NEGATIVE) Urine Ictotest Urine Urobilinogen (<2.0) EU/dL Ur Leukocyte Esterase (NEGATIVE) Urine RBC (0-2/HPF) Urine WBC (0-5/HPF) Ur Epithelial Cells (NONE-FEW) Urine Bacteria (NEGATIVE) Urine Mucus (NONE-MOD) 03/10/19 03/10/19 03/10/19 Range/Units 17:14 18:05 21:50 WBC (4.0-11.0) K/uL RBC (4.30-5.90) M/uL Hgb (12.0-16.0) g/dL Hct (36.0-46.0) % MCV (80.0-98.0) fL MCH (27.0-32.0) pg MCHC (31.0-37.0) g/dL RDW Std Deviation (28.0-62.0) fl RDW Coeff of Marjorie (11.0-15.0) % Plt Count (150-400) K/uL MPV (7.40-12.00) fL Add Manual Diff Neutrophils % (Manual) (48.0-80.0) % Lymphocytes % (Manual) (16.0-40.0) % Monocytes % (Manual) (0.0-15.0) % Nucleated RBC % /100WBC Absolute Seg Neuts (1.4-5.7) Lymphocytes # (Manual) (0.6-2.4) Monocytes # (Manual) (0.0-0.8) Nucleated RBCs # K/uL Lactate (0.20-2.00) mmol/L Sodium (136-145) mmol/L Potassium (3.5-5.1) mmol/L Chloride (98-107) mmol/L Carbon Dioxide (21.0-32.0) mmol/L BUN (7.0-18.0) mg/dL Creatinine (0.6-1.0) mg/dL Est Cr Clr Drug Dosing Estimated GFR (MDRD) ml/min Glucose (74-106) mg/dL POC Glucose 194 H 176 H (60-110) mg/dL Calcium (8.5-10.1) mg/dL Total Bilirubin (0.2-1.0) mg/dL AST (15-37) IU/L ALT (14-63) IU/L Alkaline Phosphatase (46-116) U/L Total Protein (6.4-8.2) g/dL Albumin (3.4-5.0) g/dL Globulin (2.6-4.0) g/dL Albumin/Globulin Ratio (0.9-1.6) Urine Color DARK YELLOW Urine Appearance CLOUDY Urine pH 5.5 (5.0-8.0) Ur Specific [place] 1.015 (1.001-1.035) Urine Protein 100 H (NEGATIVE) mg/dL Urine Glucose (UA) NEGATIVE (NEGATIVE) mg/dL Urine Ketones NEGATIVE (NEGATIVE) mg/dL Urine Occult Blood LARGE H (NEGATIVE) Urine Nitrite POSITIVE H (NEGATIVE) Urine Bilirubin SMALL H (NEGATIVE) Urine Ictotest NEGATIVE Urine Urobilinogen 0.2 (<2.0) EU/dL Ur Leukocyte Esterase MODERATE H (NEGATIVE) Urine RBC TOO NUMEROUS TO CT H (0-2/HPF) Urine WBC TO NUMEROUS TO COUNT H (0-5/HPF) Ur Epithelial Cells MODERATE (NONE-FEW) Urine Bacteria 1+ H (NEGATIVE) Urine Mucus LIGHT (NONE-MOD) Result Diagrams: 03/10/19 17:14 03/10/19 17:14 Jareth Results Last 24 hrs: Microbiology 03/10/19 17:34 Anaerobic Blood Culture - Final Blood - Venous - Lab Draw Orders Last 24hrs: Active Orders 24 hr Category Date Time Status Admission Status [Patient Status] [ADT] Stat ADT 03/10/19 18:44 Active Blood Glucose Check, Bedside [RC] QIDACANDBED Care 03/10/19 19:07 Active Intake and Output [RC] Q12H Care 03/10/19 19:08 Active Notify Provider Consults [RC] ASDIRECTED Care 03/10/19 18:48 Active Oxygen Therapy [RC] PRN Care 03/10/19 19:07 Active RT BiPAP/CPAP [RC] BEDTIME Care 03/10/19 20:24 Active Up With Assistance [RC] ASDIRECTED Care 03/10/19 19:07 Active VTE/DVT Education [RC] PER UNIT ROUTINE Care 03/10/19 19:07 Active Vital Signs [RC] Q4H Care 03/10/19 19:07 Active Consult to Physician [CONS] Stat Cons 03/10/19 18:48 Active ABG [BLOOD GAS ARTERIAL] [BG] Routine Lab 03/10/19 22:01 Ordered CBC WITH AUTO DIFF [HEME] AM Lab 03/11/19 05:11 Ordered CBC WITH AUTO DIFF [HEME] AM Lab 03/12/19 05:11 Ordered CBC WITH AUTO DIFF [HEME] AM Lab 03/13/19 05:11 Ordered COMPREHENSIVE METABOLIC PN,CMP [CHEM] AM Lab 03/11/19 05:11 Ordered COMPREHENSIVE METABOLIC PN,CMP [CHEM] AM Lab 03/12/19 05:11 Ordered COMPREHENSIVE METABOLIC PN,CMP [CHEM] AM Lab 03/13/19 05:11 Ordered CULTURE BLOOD [BC] Stat Lab 03/10/19 17:14 Received CULTURE BLOOD [BC] Stat Lab 03/10/19 17:34 Results CULTURE URINE [RM] Stat Lab 03/10/19 18:05 Received Acetaminophen [Tylenol] Med 03/10/19 19:07 Active 650 mg PO Q4H PRN Acetaminophen/oxyCODONE [Percocet 325-5 MG] Med 03/10/19 19:07 Active 1 tab PO Q4H PRN Dextrose 50% in Water Med 03/10/19 20:12 Active 50 ml IVPUSH ONETIME PRN Insulin Aspart [NovoLOG] Med 03/11/19 07:30 Active See Protocol SUBCUT TIDAC Meropenem Premix [Meropenem] 50 ml Med 03/10/19 21:00 Active IV Q12H Morphine Med 03/10/19 19:07 Active 2 mg IVPUSH Q2H PRN Ondansetron [Zofran ODT] Med 03/10/19 19:07 Active 4 mg PO Q4H PRN Ondansetron [Zofran] Med 03/10/19 19:07 Active 4 mg IVPUSH Q4H PRN Sodium Chloride 0.9% [Normal Saline] 1,000 ml Med 03/10/19 19:15 Active IV CONTINUOUS Tamsulosin [Flomax] Med 03/10/19 22:10 Active 0.4 mg PO BEDTIME Blood Culture x2 Reflex Set [OM.PC] Stat Oth 03/10/19 17:01 Ordered Resuscitation Status Routine Resus Stat 03/10/19 19:07 Ordered Medication Orders Acetaminophen (Tylenol) 650 mg PO Q4H PRN PRN Reason: Pain (Mild 1-3)/fever Last Admin: 03/10/19 21:48 Dose: 650 mg Dextrose/Water (Dextrose 50% In Water) 50 ml IVPUSH ONETIME PRN PRN Reason: Hypoglycemia Sodium Chloride (Normal Saline) 1,000 mls @ 125 mls/hr IV CONTINUOUS [place] Meropenem/Sodium Chloride (Meropenem) 50 mls @ 100 mls/hr IV Q12H [place] Last Admin: 03/10/19 21:48 Dose: 100 mls/hr Insulin Aspart (Novolog) 0 unit SUBCUT TIDAC [place]; Protocol Morphine Sulfate (Morphine) 2 mg IVPUSH Q2H PRN PRN Reason: Pain (severe 7-10) Stop: 03/11/19 19:09 Ondansetron HCl (Zofran Odt) 4 mg PO Q4H PRN PRN Reason: nausea, able to take PO Ondansetron HCl (Zofran) 4 mg IVPUSH Q4H PRN PRN Reason: Nausea Oxycodone/Acetaminophen (Percocet 325-5 Mg) 1 tab PO Q4H PRN PRN Reason: Pain (moderate 4-6) Tamsulosin HCl (Flomax) 0.4 mg PO BEDTIME [facility] Assessment/Plan Comment:: Late note entry: I have seen and evaluated the patient, I have discussed the care plan with the resident. Agree with the residents note unless otherwise specified in my note. cont IV abx for pyelonephritis F/U on UA cont tamsulosin Post renal MAI over CKD Monitor BP closely CPAP at night for RUDDY NPO past midnight F/U with urology for further recs
[2019-03-10] MEDS ORDERED: Meropenem Premix 50 ML IV SCH ×2 (20:00→21:00)
[2019-03-10] MEDS ORDERED: 50% Dextrose in Water 50 ML Syringe IVPUSH PRN (20:12)
[2019-03-10] MEDS ORDERED: Meropenem Premix 50 ML IV ONE (20:51)
[2019-03-10] MEDS: Tamsulosin 0.4 MG Cap.ER PO SCH (22:32)
--- NOTE | 2019-03-11 01:08 | PN ---
ISABELLA Physician - Brief Progress [id number]/13/2019 01:03[facility] Carleen Tineo, FERNANDO - [facility] - CLARICE SILVAKENY ElsieDate of Service 03/11/2019 01:03HPI/Events of Note Case discussed with RN. 68 year old F admitted from [place] with b/l hydronephrosis and nephrolithi asis. Was hypotensive and treated with fluids and had a good response earleir. On BiPAP at home se ttingds. On fluids and abx. Awaiting surgery eval in am.74/33 70s 95%Recs include: hemodynamic m onitoring, fluids, echo when available, add levo for improved hemodynamic support, check LA, place ce ntral access when staff available, BiPAP at home settings, GI and DVT prophylaxis, abx, follow cultur es, replace lytes as needed, trend Cr and I+Os, surgery eval, glycemic monitoring, pain control.Inter ventions Minor-Communication with other healthcare providers and/or family
[2019-03-11] MEDS: Sodium Chloride 0.9% 1,000 ML IV SCH ×2 (02:01→04:56)
[2019-03-11 06:44] LABS: CARBON DIOXIDE,CO2 21.5 mmol/L (21.0-32.0)
[2019-03-11] MEDS: Insulin Aspart 100 Units/ML 3 ML Pen SUBCUT SCH ×3 (09:11→16:48)
[2019-03-11] MEDS: Meropenem Premix 1 GM in Premix Bag 1 BAG IV SCH ×2 (09:15→20:14)
--- NOTE | 2019-03-11 10:15 | PCM.PREANE ---
Preanesthetic Assessment - Anesthesia/Transfusion/Family Hx Anesthesia History: Prior Anesthesia Without Reaction Family History of Anesthesia Reaction: No Transfusion History: Prior Transfusion Without Reaction - Review of Systems General: No Symptoms, Other Pulmonary: No Symptoms, Other Cardiovascular: Other - Physical Assessment NPO Status Date: 03/11/19 NPO Status Time: 00:05 Vital Signs: Last Vital Signs Temp 37.1 C 03/11/19 08:00 Pulse 89 03/11/19 05:45 Resp 15 03/11/19 09:00 BP 126/63 03/11/19 09:00 Pulse Ox 94 L 03/11/19 09:00 Height: 1.55 m Weight: 84.1 kg ASA Class: 3 Mental Status: Alert & Oriented x3 Dentition: Reports: Normal Dentition - Lab Values: Laboratory Last Values WBC 11.38 K/uL (4.0-11.0) H 03/11/19 05:46 RBC 3.05 M/uL (4.30-5.90) L 03/11/19 05:46 Hgb 9.3 g/dL (12.0-16.0) L 03/11/19 05:46 Hct 29.0 % (36.0-46.0) L 03/11/19 05:46 MCV 95.1 fL (80.0-98.0) 03/11/19 05:46 MCH 30.5 pg (27.0-32.0) 03/11/19 05:46 MCHC 32.1 g/dL (31.0-37.0) 03/11/19 05:46 RDW Std Deviation 51.6 fl (28.0-62.0) 03/11/19 05:46 RDW Coeff of Marjorie 15 % (11.0-15.0) 03/11/19 05:46 Plt Count 194 K/uL (150-400) 03/11/19 05:46 MPV 9.90 fL (7.40-12.00) 03/11/19 05:46 Neut % (Auto) 77.6 % (48.0-80.0) 03/11/19 05:46 Lymph % (Auto) 4.5 % (16.0-40.0) L 03/11/19 05:46 [place] % (Auto) 17.8 % (0.0-15.0) H 03/11/19 05:46 Eos % (Auto) 0.0 % (0.0-7.0) 03/11/19 05:46 Baso % (Auto) 0.1 % (0.0-1.5) 03/11/19 05:46 Neut # (Auto) 8.8 K/uL (1.4-5.7) H 03/11/19 05:46 Lymph # (Auto) 0.5 K/uL (0.6-2.4) L 03/11/19 05:46 [place] # (Auto) 2.0 K/uL (0.0-0.8) H 03/11/19 05:46 Eos # (Auto) 0.0 K/uL (0.0-0.7) 03/11/19 05:46 Baso # (Auto) 0.0 K/uL (0.0-0.1) 03/11/19 05:46 Add Manual Diff YES 03/10/19 17:14 Neutrophils % (Manual) 78 % (48.0-80.0) 03/10/19 17:14 Lymphocytes % (Manual) 8 % (16.0-40.0) L 03/10/19 17:14 Monocytes % (Manual) 14 % (0.0-15.0) 03/10/19 17:14 Nucleated RBC % 0.0 /100WBC 03/11/19 05:46 Absolute Seg Neuts 8.0 (1.4-5.7) H 03/10/19 17:14 Lymphocytes # (Manual) 0.8 (0.6-2.4) 03/10/19 17:14 Monocytes # (Manual) 1.4 (0.0-0.8) H 03/10/19 17:14 Nucleated RBCs # 0 K/uL 03/11/19 05:46 Lactate 0.8 mmol/L (0.20-2.00) 03/11/19 01:25 Sodium 141 mmol/L (136-145) 03/11/19 05:46 Potassium 4.0 mmol/L (3.5-5.1) 03/11/19 05:46 Chloride 107 mmol/L (98-107) 03/11/19 05:46 Carbon Dioxide 21.5 mmol/L (21.0-32.0) 03/11/19 05:46 BUN 34 mg/dL (7.0-18.0) H 03/11/19 05:46 Creatinine 2.2 mg/dL (0.6-1.0) H 03/11/19 05:46 Est Cr Clr Drug Dosing 17.95 mL/min 03/11/19 05:46 Estimated GFR (MDRD) 22.1 ml/min 03/11/19 05:46 Glucose 198 mg/dL (74-106) H 03/11/19 05:46 POC Glucose 192 mg/dL (60-110) H 03/11/19 05:47 Calcium 8.2 mg/dL (8.5-10.1) L 03/11/19 05:46 Total Bilirubin 0.3 mg/dL (0.2-1.0) 03/11/19 05:46 AST 9 IU/L (15-37) L 03/11/19 05:46 ALT 10 IU/L (14-63) L 03/11/19 05:46 Alkaline Phosphatase 57 U/L (46-116) 03/11/19 05:46 Total Protein 6.1 g/dL (6.4-8.2) L 03/11/19 05:46 Albumin 2.1 g/dL (3.4-5.0) L 03/11/19 05:46 Globulin 4.0 g/dL (2.6-4.0) 03/11/19 05:46 Albumin/Globulin Ratio 0.5 (0.9-1.6) L 03/11/19 05:46 Urine Color DARK YELLOW 03/10/19 18:05 Urine Appearance CLOUDY 03/10/19 18:05 Urine pH 5.5 (5.0-8.0) 03/10/19 18:05 Ur Specific [place] 1.015 (1.001-1.035) 03/10/19 18:05 Urine Protein 100 mg/dL (NEGATIVE) H 03/10/19 18:05 Urine Glucose (UA) NEGATIVE mg/dL (NEGATIVE) 03/10/19 18:05 Urine Ketones NEGATIVE mg/dL (NEGATIVE) 03/10/19 18:05 Urine Occult Blood LARGE (NEGATIVE) H 03/10/19 18:05 Urine Nitrite POSITIVE (NEGATIVE) H 03/10/19 18:05 Urine Bilirubin SMALL (NEGATIVE) H 03/10/19 18:05 Urine Ictotest NEGATIVE 03/10/19 18:05 Urine Urobilinogen 0.2 EU/dL (<2.0) 03/10/19 18:05 Ur Leukocyte Esterase MODERATE (NEGATIVE) H 03/10/19 18:05 Urine RBC TOO NUMEROUS TO CT (0-2/HPF) H 03/10/19 18:05 Urine WBC TO NUMEROUS TO COUNT (0-5/HPF) H 03/10/19 18:05 Ur Epithelial Cells MODERATE (NONE-FEW) 03/10/19 18:05 Urine Bacteria 1+ (NEGATIVE) H 03/10/19 18:05 Urine Mucus LIGHT (NONE-MOD) 03/10/19 18:05 - Allergies Allergies/Adverse Reactions: Allergies Allergy/AdvReac Type Severity Reaction Status Date / Time erythromycin base Allergy Abdominal Verified 03/10/19 23:38 [Erythromycin Base] Pain latex Allergy Rash Verified 03/10/19 23:38 Penicillins Allergy Cannot Verified 03/10/19 23:38 Remember - Acknowledgements Anesthesia Type Planned: General Anesthesia Pt an Appropriate Candidate for the Planned Anesthesia: Yes Alternatives and Risks of Anesthesia Discussed w Pt/Guardian: Yes Pt/Guardian Understands and Agrees with Anesthesia Plan: Yes Additional Comments: Anes Pre Op Completed Hx RUDDY, MS, Anxiety and sepsis. Plan GETA for cystoscopy PreAnesthesia Questionnaire HEENT History: Reports: Impaired Vision, Other (See Below) Other HEENT History: wears glasses, "starting of macular degeneration" Cardiovascular History: Reports: Blood Clots/VTE/DVT, High Cholesterol, Hypertension, [place] Respiratory History: Reports: PE, Sleep Apnea Other Respiratory History: uses BI-PAP Gastrointestinal History: Reports: None Genitourinary History: Reports: Renal Calculus, Urinary Incontinence, UTI, Recurrent Other Genitourinary History: using tens/pads, recent UTI with rt ureteral stone and hospitalized in [place], [place] [employer] History: Reports: Other OB/BYN History: 2 Musculoskeletal History: Reports: Fracture Other Musculoskeletal History: uses walker Neurological History: Reports: MS Other Neuro History: MS-at age 14, uses walker/Wheelchair Psychiatric History: Reports: Anxiety, Depression Other Psychiatric History: on medication with depression Endocrine/Metabolic History: Reports: Diabetes, Type II, Obesity/BMI 30+ Other Endocrine/Metabolic History: thyroid nodules Hematologic History: Reports: None Immunologic History: Reports: Other (See Below) Other Immunologic History: hx MRSA Oncologic (Cancer) History: Reports: None Dermatologic History: Reports: None - Infectious Disease History Infectious Disease History: Reports: Chicken Pox, Measles, Mumps Other Infectious Disease History: had it in the apst - Past Surgical History HEENT Surgical History: Reports: Adenoidectomy, Cataract Surgery, Tonsillectomy Other HEENT Surgeries/Procedures: cyst removed from rt lower eye lid Cardiovascular Surgical History: Reports: None Respiratory Surgical History: Reports: None GI Surgical History: Reports: None Female Surgical History: Reports: None Endocrine Surgical History: Reports: None Neurological Surgical History: Reports: None Musculoskeletal Surgical History: Reports: None Oncologic Surgical History: Reports: None Dermatological Surgical History: Reports: None - SUBSTANCE USE Smoking Status *Q: Never Smoker Recreational Drug Use History: No - HOME MEDS Home Medications: Home Meds Furosemide 40 mg PO DAILY 12/26/15 [History] Potassium Chloride [K-Tab ER] 20 meq PO DAILY 12/26/15 [History] Ramipril 10 mg PO DAILY 12/26/15 [History] Rosuvastatin [Crestor] 20 mg PO BEDTIME 12/26/15 [History] FLUoxetine [PROzac] 10 mg PO DAILY 04/01/18 [History] Rivaroxaban [Xarelto] 20 mg PO DAILY 04/01/18 [History] Melatonin/Pyridoxine HCl (B6) [Melatonin 5 mg Tablet] 5 mg PO DAILY 01/08/19 [ History] Tamsulosin HCl 0.4 mg PO BEDTIME 02/11/19 [History] Ferrous Sulfate 325 mg PO DAILY 02/12/19 [History] Baclofen 20 mg PO BIDMEALS #14 tablet 02/16/19 [Rx] Baclofen 40 mg PO BEDTIME #14 tablet 02/16/19 [Rx] Docusate Sodium [Colace] 100 mg PO BID PRN cap 02/16/19 [Rx] Nystatin [Nystop] 1 applic TOP TID bottle 02/16/19 [Rx] metFORMIN [Glucophage] 1,000 mg PO BIDMEALS #14 tab 02/16/19 [Rx] Acetaminophen [Tylenol] 650 mg PO Q6H PRN 03/10/19 [History] Metoprolol Succinate 50 mg PO DAILY 03/10/19 [History] - CURRENT (IN HOUSE) MEDS Current Meds: Current Medications Acetaminophen (Tylenol) 650 mg PO Q4H PRN PRN Reason: Pain (Mild 1-3)/fever Last Admin: 03/10/19 21:48 Dose: 650 mg Dextrose/Water (Dextrose 50% In Water) 50 ml IVPUSH ONETIME PRN PRN Reason: Hypoglycemia Sodium Chloride (Normal Saline) 1,000 mls @ 125 mls/hr IV CONTINUOUS [facility] Last Admin: 03/11/19 04:56 Dose: 125 mls/hr Norepinephrine Bitartrate (Norepinephr-0.9% Nacl 4 Mg/250) 4 mg in 250 mls @ 7.5 mls/hr IV TITRATE [facility]; Protocol Meropenem/Sodium Chloride 1 gm (/ Premix) 50 mls @ 100 mls/hr IV Q12H [facility] Last Admin: 03/11/19 09:15 Dose: 100 mls/hr Vancomycin HCl 1.25 gm/ Sodium (Chloride) 250 mls @ 166.667 mls/hr IV Q24H [facility] Insulin Aspart (Novolog) 0 unit SUBCUT TIDAC [facility]; Protocol Last Admin: 03/11/19 09:11 Dose: Not Given Morphine Sulfate (Morphine) 2 mg IVPUSH Q2H PRN PRN Reason: Pain (severe 7-10) Stop: 03/11/19 19:09 Ondansetron HCl (Zofran Odt) 4 mg PO Q4H PRN PRN Reason: nausea, able to take PO Ondansetron HCl (Zofran) 4 mg IVPUSH Q4H PRN PRN Reason: Nausea Oxycodone/Acetaminophen (Percocet 325-5 Mg) 1 tab PO Q4H PRN PRN Reason: Pain (moderate 4-6) Tamsulosin HCl (Flomax) 0.4 mg PO BEDTIME [facility] Last Admin: 03/10/19 22:32 Dose: 0.4 mg Vancomycin HCl (Pharmacy To Dose - Vancomycin) 1 dose .XX ASDIRECTED [facility] Discontinued Medications Sodium Chloride (Normal Saline) 1,000 mls @ 125 mls/hr IV STAT ONE Stop: 03/11/19 01:00 Last Infusion: 03/10/19 17:25 Dose: 125 mls/hr Vancomycin HCl 1 gm/ Sodium (Chloride) 250 mls @ 166 mls/hr IV ONETIME ONE Stop: 03/10/19 19:08 Last Admin: 03/10/19 18:14 Dose: 166 mls/hr Piperacillin Sod/Tazobactam (Sod 3.375 gm/ Sodium Chloride) 50 mls @ 100 mls/ hr IV ONETIME ONE Stop: 03/10/19 18:52 Last Admin: 03/10/19 18:25 Dose: Not Given Ceftriaxone Sodium/Dextrose 2 (gm/ Premix) 50 mls @ 100 mls/hr IV ONETIME ONE Stop: 03/10/19 18:53 Last Admin: 03/10/19 20:08 Dose: Not Given Meropenem 1 gm/ Sodium (Chloride) 100 mls @ 200 mls/hr IV Q8H [facility] Last Admin: 03/10/19 20:22 Dose: Not Given Sodium Chloride (Normal Saline) 1,000 mls @ 999 mls/hr IV STAT ONE Stop: 03/10/19 20:15 Last Admin: 03/10/19 19:45 Dose: 999 mls/hr Meropenem/Sodium Chloride (Meropenem) 50 mls @ 100 mls/hr IV Q12H [facility] Last Admin: 03/10/19 21:48 Dose: 100 mls/hr Meropenem/Sodium Chloride (Meropenem) Confirm Administered Dose 50 mls @ as directed IV .STK-MED ONE Stop: 03/10/19 20:52 Last Admin: 03/10/19 21:54 Dose: Not Given Tamsulosin HCl (Flomax) 0.4 mg PO BEDTIME [facility]
[2019-03-11] MEDS ORDERED: Sugammadex Sodium 200 MG/2 ML VIAL ONE (10:19)
[2019-03-11] MEDS ORDERED: Propofol 200 MG/20 ML SDV ONE (11:37)
--- NOTE | 2019-03-11 11:43 | PCM.PN ---
<Israel Hyde - Last Filed: 03/11/19 11:47> - General Info Date of Service: 03/11/19 Subjective Update: patient became hypotensive overnight SBP 70-80's. However, she responded well to fluids. She did not require vasopressors. This morning, SBP 120's. Alert with at bedside. - Patient Data Vitals - Most Recent: Last Vital Signs Temp 37.1 C 03/11/19 08:00 Pulse 89 03/11/19 05:45 Resp 16 03/11/19 11:00 BP 113/54 L 03/11/19 11:00 Pulse Ox 95 03/11/19 11:00 Weight - Most Recent: 84.1 kg I&O - Last 24 Hours: Intake & Output 03/10/19 03/11/19 03/11/19 22:59 06:59 14:59 Intake Total 300 Output Total 100 Balance 200 Lab Results Last 24 Hours: Laboratory Results - last 24 hr 03/10/19 03/10/19 03/10/19 Range/Units 17:14 17:14 17:14 WBC 10.23 (4.0-11.0) K/uL RBC 3.48 L (4.30-5.90) M/uL Hgb 10.5 L (12.0-16.0) g/dL Hct 32.5 L (36.0-46.0) % MCV 93.4 (80.0-98.0) fL MCH 30.2 (27.0-32.0) pg MCHC 32.3 (31.0-37.0) g/dL RDW Std Deviation 49.8 (28.0-62.0) fl RDW Coeff of Marjorie 15 (11.0-15.0) % Plt Count 249 (150-400) K/uL MPV 9.60 (7.40-12.00) fL Neut % (Auto) (48.0-80.0) % Lymph % (Auto) (16.0-40.0) % [place] % (Auto) (0.0-15.0) % Eos % (Auto) (0.0-7.0) % Baso % (Auto) (0.0-1.5) % Neut # (Auto) (1.4-5.7) K/uL Lymph # (Auto) (0.6-2.4) K/uL [place] # (Auto) (0.0-0.8) K/uL Eos # (Auto) (0.0-0.7) K/uL Baso # (Auto) (0.0-0.1) K/uL Add Manual Diff YES Neutrophils % (Manual) 78 (48.0-80.0) % Lymphocytes % (Manual) 8 L (16.0-40.0) % Monocytes % (Manual) 14 (0.0-15.0) % Nucleated RBC % 0.0 /100WBC Absolute Seg Neuts 8.0 H (1.4-5.7) Lymphocytes # (Manual) 0.8 (0.6-2.4) Monocytes # (Manual) 1.4 H (0.0-0.8) Nucleated RBCs # 0 K/uL Lactate 1.4 (0.20-2.00) mmol/L Sodium 135 L (136-145) mmol/L Potassium 4.1 (3.5-5.1) mmol/L Chloride 100 (98-107) mmol/L Carbon Dioxide 25.2 (21.0-32.0) mmol/L BUN 37 H (7.0-18.0) mg/dL Creatinine 2.5 H (0.6-1.0) mg/dL Est Cr Clr Drug Dosing TNP Estimated GFR (MDRD) 19.0 ml/min Glucose 190 H (74-106) mg/dL POC Glucose (60-110) mg/dL Calcium 9.0 (8.5-10.1) mg/dL Total Bilirubin 0.3 (0.2-1.0) mg/dL AST 8 L (15-37) IU/L ALT 10 L (14-63) IU/L Alkaline Phosphatase 78 (46-116) U/L Total Protein 7.4 (6.4-8.2) g/dL Albumin 2.6 L (3.4-5.0) g/dL Globulin 4.8 H (2.6-4.0) g/dL Albumin/Globulin Ratio 0.5 L (0.9-1.6) Urine Color Urine Appearance Urine pH (5.0-8.0) Ur Specific [place] (1.001-1.035) Urine Protein (NEGATIVE) mg/dL Urine Glucose (UA) (NEGATIVE) mg/dL Urine Ketones (NEGATIVE) mg/dL Urine Occult Blood (NEGATIVE) Urine Nitrite (NEGATIVE) Urine Bilirubin (NEGATIVE) Urine Ictotest Urine Urobilinogen (<2.0) EU/dL Ur Leukocyte Esterase (NEGATIVE) Urine RBC (0-2/HPF) Urine WBC (0-5/HPF) Ur Epithelial Cells (NONE-FEW) Urine Bacteria (NEGATIVE) Urine Mucus (NONE-MOD) 03/10/19 03/10/19 03/10/19 Range/Units 17:14 18:05 21:50 WBC (4.0-11.0) K/uL RBC (4.30-5.90) M/uL Hgb (12.0-16.0) g/dL Hct (36.0-46.0) % MCV (80.0-98.0) fL MCH (27.0-32.0) pg MCHC (31.0-37.0) g/dL RDW Std Deviation (28.0-62.0) fl RDW Coeff of Marjorie (11.0-15.0) % Plt Count (150-400) K/uL MPV (7.40-12.00) fL Neut % (Auto) (48.0-80.0) % Lymph % (Auto) (16.0-40.0) % [place] % (Auto) (0.0-15.0) % Eos % (Auto) (0.0-7.0) % Baso % (Auto) (0.0-1.5) % Neut # (Auto) (1.4-5.7) K/uL Lymph # (Auto) (0.6-2.4) K/uL [place] # (Auto) (0.0-0.8) K/uL Eos # (Auto) (0.0-0.7) K/uL Baso # (Auto) (0.0-0.1) K/uL Add Manual Diff Neutrophils % (Manual) (48.0-80.0) % Lymphocytes % (Manual) (16.0-40.0) % Monocytes % (Manual) (0.0-15.0) % Nucleated RBC % /100WBC Absolute Seg Neuts (1.4-5.7) Lymphocytes # (Manual) (0.6-2.4) Monocytes # (Manual) (0.0-0.8) Nucleated RBCs # K/uL Lactate (0.20-2.00) mmol/L Sodium (136-145) mmol/L Potassium (3.5-5.1) mmol/L Chloride (98-107) mmol/L Carbon Dioxide (21.0-32.0) mmol/L BUN (7.0-18.0) mg/dL Creatinine (0.6-1.0) mg/dL Est Cr Clr Drug Dosing Estimated GFR (MDRD) ml/min Glucose (74-106) mg/dL POC Glucose 194 H 176 H (60-110) mg/dL Calcium (8.5-10.1) mg/dL Total Bilirubin (0.2-1.0) mg/dL AST (15-37) IU/L ALT (14-63) IU/L Alkaline Phosphatase (46-116) U/L Total Protein (6.4-8.2) g/dL Albumin (3.4-5.0) g/dL Globulin (2.6-4.0) g/dL Albumin/Globulin Ratio (0.9-1.6) Urine Color DARK YELLOW Urine Appearance CLOUDY Urine pH 5.5 (5.0-8.0) Ur Specific [place] 1.015 (1.001-1.035) Urine Protein 100 H (NEGATIVE) mg/dL Urine Glucose (UA) NEGATIVE (NEGATIVE) mg/dL Urine Ketones NEGATIVE (NEGATIVE) mg/dL Urine Occult Blood LARGE H (NEGATIVE) Urine Nitrite POSITIVE H (NEGATIVE) Urine Bilirubin SMALL H (NEGATIVE) Urine Ictotest NEGATIVE Urine Urobilinogen 0.2 (<2.0) EU/dL Ur Leukocyte Esterase MODERATE H (NEGATIVE) Urine RBC TOO NUMEROUS TO CT H (0-2/HPF) Urine WBC TO NUMEROUS TO COUNT H (0-5/HPF) Ur Epithelial Cells MODERATE (NONE-FEW) Urine Bacteria 1+ H (NEGATIVE) Urine Mucus LIGHT (NONE-MOD) 03/11/19 03/11/19 03/11/19 Range/Units 01:25 05:46 05:46 WBC 11.38 H (4.0-11.0) K/uL RBC 3.05 L (4.30-5.90) M/uL Hgb 9.3 L (12.0-16.0) g/dL Hct 29.0 L (36.0-46.0) % MCV 95.1 (80.0-98.0) fL MCH 30.5 (27.0-32.0) pg MCHC 32.1 (31.0-37.0) g/dL RDW Std Deviation 51.6 (28.0-62.0) fl RDW Coeff of Marjorie 15 (11.0-15.0) % Plt Count 194 (150-400) K/uL MPV 9.90 (7.40-12.00) fL Neut % (Auto) 77.6 (48.0-80.0) % Lymph % (Auto) 4.5 L (16.0-40.0) % [place] % (Auto) 17.8 H (0.0-15.0) % Eos % (Auto) 0.0 (0.0-7.0) % Baso % (Auto) 0.1 (0.0-1.5) % Neut # (Auto) 8.8 H (1.4-5.7) K/uL Lymph # (Auto) 0.5 L (0.6-2.4) K/uL [place] # (Auto) 2.0 H (0.0-0.8) K/uL Eos # (Auto) 0.0 (0.0-0.7) K/uL Baso # (Auto) 0.0 (0.0-0.1) K/uL Add Manual Diff Neutrophils % (Manual) (48.0-80.0) % Lymphocytes % (Manual) (16.0-40.0) % Monocytes % (Manual) (0.0-15.0) % Nucleated RBC % 0.0 /100WBC Absolute Seg Neuts (1.4-5.7) Lymphocytes # (Manual) (0.6-2.4) Monocytes # (Manual) (0.0-0.8) Nucleated RBCs # 0 K/uL Lactate 0.8 (0.20-2.00) mmol/L Sodium 141 (136-145) mmol/L Potassium 4.0 (3.5-5.1) mmol/L Chloride 107 (98-107) mmol/L Carbon Dioxide 21.5 (21.0-32.0) mmol/L BUN 34 H (7.0-18.0) mg/dL Creatinine 2.2 H (0.6-1.0) mg/dL Est Cr Clr Drug Dosing 17.95 Estimated GFR (MDRD) 22.1 ml/min Glucose 198 H (74-106) mg/dL POC Glucose (60-110) mg/dL Calcium 8.2 L (8.5-10.1) mg/dL Total Bilirubin 0.3 (0.2-1.0) mg/dL AST 9 L (15-37) IU/L ALT 10 L (14-63) IU/L Alkaline Phosphatase 57 (46-116) U/L Total Protein 6.1 L (6.4-8.2) g/dL Albumin 2.1 L (3.4-5.0) g/dL Globulin 4.0 (2.6-4.0) g/dL Albumin/Globulin Ratio 0.5 L (0.9-1.6) Urine Color Urine Appearance Urine pH (5.0-8.0) Ur Specific [place] (1.001-1.035) Urine Protein (NEGATIVE) mg/dL Urine Glucose (UA) (NEGATIVE) mg/dL Urine Ketones (NEGATIVE) mg/dL Urine Occult Blood (NEGATIVE) Urine Nitrite (NEGATIVE) Urine Bilirubin (NEGATIVE) Urine Ictotest Urine Urobilinogen (<2.0) EU/dL Ur Leukocyte Esterase (NEGATIVE) Urine RBC (0-2/HPF) Urine WBC (0-5/HPF) Ur Epithelial Cells (NONE-FEW) Urine Bacteria (NEGATIVE) Urine Mucus (NONE-MOD) 03/11/19 Range/Units 05:47 WBC (4.0-11.0) K/uL RBC (4.30-5.90) M/uL Hgb (12.0-16.0) g/dL Hct (36.0-46.0) % MCV (80.0-98.0) fL MCH (27.0-32.0) pg MCHC (31.0-37.0) g/dL RDW Std Deviation (28.0-62.0) fl RDW Coeff of Marjorie (11.0-15.0) % Plt Count (150-400) K/uL MPV (7.40-12.00) fL Neut % (Auto) (48.0-80.0) % Lymph % (Auto) (16.0-40.0) % [place] % (Auto) (0.0-15.0) % Eos % (Auto) (0.0-7.0) % Baso % (Auto) (0.0-1.5) % Neut # (Auto) (1.4-5.7) K/uL Lymph # (Auto) (0.6-2.4) K/uL [place] # (Auto) (0.0-0.8) K/uL Eos # (Auto) (0.0-0.7) K/uL Baso # (Auto) (0.0-0.1) K/uL Add Manual Diff Neutrophils % (Manual) (48.0-80.0) % Lymphocytes % (Manual) (16.0-40.0) % Monocytes % (Manual) (0.0-15.0) % Nucleated RBC % /100WBC Absolute Seg Neuts (1.4-5.7) Lymphocytes # (Manual) (0.6-2.4) Monocytes # (Manual) (0.0-0.8) Nucleated RBCs # K/uL Lactate (0.20-2.00) mmol/L Sodium (136-145) mmol/L Potassium (3.5-5.1) mmol/L Chloride (98-107) mmol/L Carbon Dioxide (21.0-32.0) mmol/L BUN (7.0-18.0) mg/dL Creatinine (0.6-1.0) mg/dL Est Cr Clr Drug Dosing Estimated GFR (MDRD) ml/min Glucose (74-106) mg/dL POC Glucose 192 H (60-110) mg/dL Calcium (8.5-10.1) mg/dL Total Bilirubin (0.2-1.0) mg/dL AST (15-37) IU/L ALT (14-63) IU/L Alkaline Phosphatase (46-116) U/L Total Protein (6.4-8.2) g/dL Albumin (3.4-5.0) g/dL Globulin (2.6-4.0) g/dL Albumin/Globulin Ratio (0.9-1.6) Urine Color Urine Appearance Urine pH (5.0-8.0) Ur Specific [place] (1.001-1.035) Urine Protein (NEGATIVE) mg/dL Urine Glucose (UA) (NEGATIVE) mg/dL Urine Ketones (NEGATIVE) mg/dL Urine Occult Blood (NEGATIVE) Urine Nitrite (NEGATIVE) Urine Bilirubin (NEGATIVE) Urine Ictotest Urine Urobilinogen (<2.0) EU/dL Ur Leukocyte Esterase (NEGATIVE) Urine RBC (0-2/HPF) Urine WBC (0-5/HPF) Ur Epithelial Cells (NONE-FEW) Urine Bacteria (NEGATIVE) Urine Mucus (NONE-MOD) Jareth Results Last 24 Hours: Microbiology 03/10/19 17:14 Anaerobic Blood Culture - Preliminary Blood - Venous 03/10/19 17:34 Anaerobic Blood Culture - Final Blood - Venous - Lab Draw Med Orders - Current: Current Medications Acetaminophen (Tylenol) 650 mg PO Q4H PRN PRN Reason: Pain (Mild 1-3)/fever Last Admin: 03/10/19 21:48 Dose: 650 mg Dextrose/Water (Dextrose 50% In Water) 50 ml IVPUSH ONETIME PRN PRN Reason: Hypoglycemia Sodium Chloride (Normal Saline) 1,000 mls @ 125 mls/hr IV CONTINUOUS [place] Last Admin: 03/11/19 04:56 Dose: 125 mls/hr Norepinephrine Bitartrate (Norepinephr-0.9% Nacl 4 Mg/250) 4 mg in 250 mls @ 7.5 mls/hr IV TITRATE [facility]; Protocol Meropenem/Sodium Chloride 1 gm (/ Premix) 50 mls @ 100 mls/hr IV Q12H [facility] Last Admin: 03/11/19 09:15 Dose: 100 mls/hr Vancomycin HCl 1.25 gm/ Sodium (Chloride) 250 mls @ 166.667 mls/hr IV Q24H [facility] Last Admin: 03/11/19 10:32 Dose: 166.667 mls/hr Insulin Aspart (Novolog) 0 unit SUBCUT TIDAC [facility]; Protocol Last Admin: 03/11/19 11:14 Dose: Not Given Morphine Sulfate (Morphine) 2 mg IVPUSH Q2H PRN PRN Reason: Pain (severe 7-10) Stop: 03/11/19 19:09 Ondansetron HCl (Zofran Odt) 4 mg PO Q4H PRN PRN Reason: nausea, able to take PO Ondansetron HCl (Zofran) 4 mg IVPUSH Q4H PRN PRN Reason: Nausea Oxycodone/Acetaminophen (Percocet 325-5 Mg) 1 tab PO Q4H PRN PRN Reason: Pain (moderate 4-6) Tamsulosin HCl (Flomax) 0.4 mg PO BEDTIME [facility] Last Admin: 03/10/19 22:32 Dose: 0.4 mg Vancomycin HCl (Pharmacy To Dose - Vancomycin) 1 dose .XX ASDIRECTED [facility] Discontinued Medications Sodium Chloride (Normal Saline) 1,000 mls @ 125 mls/hr IV STAT ONE Stop: 03/11/19 01:00 Last Infusion: 03/10/19 17:25 Dose: 125 mls/hr Vancomycin HCl 1 gm/ Sodium (Chloride) 250 mls @ 166 mls/hr IV ONETIME ONE Stop: 03/10/19 19:08 Last Admin: 03/10/19 18:14 Dose: 166 mls/hr Piperacillin Sod/Tazobactam (Sod 3.375 gm/ Sodium Chloride) 50 mls @ 100 mls/ hr IV ONETIME ONE Stop: 03/10/19 18:52 Last Admin: 03/10/19 18:25 Dose: Not Given Ceftriaxone Sodium/Dextrose 2 (gm/ Premix) 50 mls @ 100 mls/hr IV ONETIME ONE Stop: 03/10/19 18:53 Last Admin: 03/10/19 20:08 Dose: Not Given Meropenem 1 gm/ Sodium (Chloride) 100 mls @ 200 mls/hr IV Q8H [facility] Last Admin: 03/10/19 20:22 Dose: Not Given Sodium Chloride (Normal Saline) 1,000 mls @ 999 mls/hr IV STAT ONE Stop: 03/10/19 20:15 Last Admin: 03/10/19 19:45 Dose: 999 mls/hr Meropenem/Sodium Chloride (Meropenem) 50 mls @ 100 mls/hr IV Q12H [facility] Last Admin: 03/10/19 21:48 Dose: 100 mls/hr Meropenem/Sodium Chloride (Meropenem) Confirm Administered Dose 50 mls @ as directed IV .STK-MED ONE Stop: 03/10/19 20:52 Last Admin: 03/10/19 21:54 Dose: Not Given Propofol (Diprivan 20 Ml) Confirm Administered Dose 200 mg .ROUTE .STK-MED ONE Stop: 03/11/19 11:38 Sugammadex Sodium (Bridion) Confirm Administered Dose 200 mg .ROUTE .STK-MED ONE Stop: 03/11/19 10:20 Tamsulosin HCl (Flomax) 0.4 mg PO BEDTIME [place] - Exam General: Alert, Oriented, Cooperative, No Acute Distress Lungs: Clear to Auscultation, Normal Respiratory Effort, Wheezing. No: Crackles Cardiovascular: Regular Rate, Regular Rhythm GI/Abdominal Exam: Other (warm and tender abdomen) Extremities: Non-Tender - Problem List Review Problem List Initiated/Reviewed/Updated: Yes - My Orders Last 24 Hours: My Active Orders 03/10/19 19:07 Blood Glucose Check, Bedside [RC] QIDACANDBED Oxygen Therapy [RC] PRN Up With Assistance [RC] ASDIRECTED VTE/DVT Education [RC] PER UNIT ROUTINE Vital Signs [RC] Q1H Acetaminophen [Tylenol] 650 mg PO Q4H PRN Acetaminophen/oxyCODONE [Percocet 325-5 MG] 1 tab PO Q4H PRN Morphine 2 mg IVPUSH Q2H PRN Ondansetron [Zofran ODT] 4 mg PO Q4H PRN Ondansetron [Zofran] 4 mg IVPUSH Q4H PRN Resuscitation Status Routine 03/10/19 19:08 Intake and Output [RC] Q12H 03/10/19 19:15 Sodium Chloride 0.9% [Normal Saline] 1,000 ml IV CONTINUOUS 03/10/19 20:12 Dextrose 50% in Water 50 ml IVPUSH ONETIME PRN 03/10/19 20:24 RT BiPAP/CPAP [RC] BEDTIME 03/11/19 07:29 Antiembolic Devices [RC] PER UNIT ROUTINE SCD [Sequential Compression Device] [OM.PC] Routine 03/11/19 07:30 Insulin Aspart [NovoLOG] See Protocol SUBCUT TIDAC 03/11/19 09:00 Meropenem Premix [Meropenem] 1 gm Premix Bag 1 bag IV Q12H 03/12/19 05:11 CBC WITH AUTO DIFF [HEME] AM COMPREHENSIVE METABOLIC PN,CMP [CHEM] AM 03/13/19 05:11 CBC WITH AUTO DIFF [HEME] AM COMPREHENSIVE METABOLIC PN,CMP [CHEM] AM - Plan Plan:: A: 1. Pyelonephritis 2. Gram + cocci in pairs bacteremia 3. Acute on chronic kidney disease 4. Diabetes type 2 5. PMH PE on xarelto P: 1. Started vancomycin due to bacteremia. Will continue with meropenem for now. Repeat blood cultures. will be have stent placement today by Dr. Ortiz. Will start PO meds after surgery. Dispo: 2-3 days <Jony Haywood - Last Filed: 03/11/19 14:17> - Patient Data Vitals - Most Recent: Last Vital Signs Temp 37.0 C 03/11/19 13:17 Pulse 78 03/11/19 12:59 Resp 16 03/11/19 13:47 BP 99/54 L 03/11/19 13:47 Pulse Ox 97 03/11/19 13:47 I&O - Last 24 Hours: Intake & Output 03/10/19 03/11/19 03/11/19 22:59 06:59 14:59 Intake Total 300 550 Output Total 100 Balance 200 550 Lab Results Last 24 Hours: Laboratory Results - last 24 hr 03/10/19 03/10/19 03/10/19 Range/Units 17:14 17:14 17:14 WBC 10.23 (4.0-11.0) K/uL RBC 3.48 L (4.30-5.90) M/uL Hgb 10.5 L (12.0-16.0) g/dL Hct 32.5 L (36.0-46.0) % MCV 93.4 (80.0-98.0) fL MCH 30.2 (27.0-32.0) pg MCHC 32.3 (31.0-37.0) g/dL RDW Std Deviation 49.8 (28.0-62.0) fl RDW Coeff of Marjorie 15 (11.0-15.0) % Plt Count 249 (150-400) K/uL MPV 9.60 (7.40-12.00) fL Neut % (Auto) (48.0-80.0) % Lymph % (Auto) (16.0-40.0) % [place] % (Auto) (0.0-15.0) % Eos % (Auto) (0.0-7.0) % Baso % (Auto) (0.0-1.5) % Neut # (Auto) (1.4-5.7) K/uL Lymph # (Auto) (0.6-2.4) K/uL [place] # (Auto) (0.0-0.8) K/uL Eos # (Auto) (0.0-0.7) K/uL Baso # (Auto) (0.0-0.1) K/uL Add Manual Diff YES Neutrophils % (Manual) 78 (48.0-80.0) % Lymphocytes % (Manual) 8 L (16.0-40.0) % Monocytes % (Manual) 14 (0.0-15.0) % Nucleated RBC % 0.0 /100WBC Absolute Seg Neuts 8.0 H (1.4-5.7) Lymphocytes # (Manual) 0.8 (0.6-2.4) Monocytes # (Manual) 1.4 H (0.0-0.8) Nucleated RBCs # 0 K/uL Lactate 1.4 (0.20-2.00) mmol/L Sodium 135 L (136-145) mmol/L Potassium 4.1 (3.5-5.1) mmol/L Chloride 100 (98-107) mmol/L Carbon Dioxide 25.2 (21.0-32.0) mmol/L BUN 37 H (7.0-18.0) mg/dL Creatinine 2.5 H (0.6-1.0) mg/dL Est Cr Clr Drug Dosing TNP Estimated GFR (MDRD) 19.0 ml/min Glucose 190 H (74-106) mg/dL POC Glucose (60-110) mg/dL Calcium 9.0 (8.5-10.1) mg/dL Total Bilirubin 0.3 (0.2-1.0) mg/dL AST 8 L (15-37) IU/L ALT 10 L (14-63) IU/L Alkaline Phosphatase 78 (46-116) U/L Total Protein 7.4 (6.4-8.2) g/dL Albumin 2.6 L (3.4-5.0) g/dL Globulin 4.8 H (2.6-4.0) g/dL Albumin/Globulin Ratio 0.5 L (0.9-1.6) Urine Color Urine Appearance Urine pH (5.0-8.0) Ur Specific [place] (1.001-1.035) Urine Protein (NEGATIVE) mg/dL Urine Glucose (UA) (NEGATIVE) mg/dL Urine Ketones (NEGATIVE) mg/dL Urine Occult Blood (NEGATIVE) Urine Nitrite (NEGATIVE) Urine Bilirubin (NEGATIVE) Urine Ictotest Urine Urobilinogen (<2.0) EU/dL Ur Leukocyte Esterase (NEGATIVE) Urine RBC (0-2/HPF) Urine WBC (0-5/HPF) Ur Epithelial Cells (NONE-FEW) Urine Bacteria (NEGATIVE) Urine Mucus (NONE-MOD) 03/10/19 03/10/19 03/10/19 Range/Units 17:14 18:05 21:50 WBC (4.0-11.0) K/uL RBC (4.30-5.90) M/uL Hgb (12.0-16.0) g/dL Hct (36.0-46.0) % MCV (80.0-98.0) fL MCH (27.0-32.0) pg MCHC (31.0-37.0) g/dL RDW Std Deviation (28.0-62.0) fl RDW Coeff of Marjorie (11.0-15.0) % Plt Count (150-400) K/uL MPV (7.40-12.00) fL Neut % (Auto) (48.0-80.0) % Lymph % (Auto) (16.0-40.0) % [place] % (Auto) (0.0-15.0) % Eos % (Auto) (0.0-7.0) % Baso % (Auto) (0.0-1.5) % Neut # (Auto) (1.4-5.7) K/uL Lymph # (Auto) (0.6-2.4) K/uL [place] # (Auto) (0.0-0.8) K/uL Eos # (Auto) (0.0-0.7) K/uL Baso # (Auto) (0.0-0.1) K/uL Add Manual Diff Neutrophils % (Manual) (48.0-80.0) % Lymphocytes % (Manual) (16.0-40.0) % Monocytes % (Manual) (0.0-15.0) % Nucleated RBC % /100WBC Absolute Seg Neuts (1.4-5.7) Lymphocytes # (Manual) (0.6-2.4) Monocytes # (Manual) (0.0-0.8) Nucleated RBCs # K/uL Lactate (0.20-2.00) mmol/L Sodium (136-145) mmol/L Potassium (3.5-5.1) mmol/L Chloride (98-107) mmol/L Carbon Dioxide (21.0-32.0) mmol/L BUN (7.0-18.0) mg/dL Creatinine (0.6-1.0) mg/dL Est Cr Clr Drug Dosing Estimated GFR (MDRD) ml/min Glucose (74-106) mg/dL POC Glucose 194 H 176 H (60-110) mg/dL Calcium (8.5-10.1) mg/dL Total Bilirubin (0.2-1.0) mg/dL AST (15-37) IU/L ALT (14-63) IU/L Alkaline Phosphatase (46-116) U/L Total Protein (6.4-8.2) g/dL Albumin (3.4-5.0) g/dL Globulin (2.6-4.0) g/dL Albumin/Globulin Ratio (0.9-1.6) Urine Color DARK YELLOW Urine Appearance CLOUDY Urine pH 5.5 (5.0-8.0) Ur Specific [place] 1.015 (1.001-1.035) Urine Protein 100 H (NEGATIVE) mg/dL Urine Glucose (UA) NEGATIVE (NEGATIVE) mg/dL Urine Ketones NEGATIVE (NEGATIVE) mg/dL Urine Occult Blood LARGE H (NEGATIVE) Urine Nitrite POSITIVE H (NEGATIVE) Urine Bilirubin SMALL H (NEGATIVE) Urine Ictotest NEGATIVE Urine Urobilinogen 0.2 (<2.0) EU/dL Ur Leukocyte Esterase MODERATE H (NEGATIVE) Urine RBC TOO NUMEROUS TO CT H (0-2/HPF) Urine WBC TO NUMEROUS TO COUNT H (0-5/HPF) Ur Epithelial Cells MODERATE (NONE-FEW) Urine Bacteria 1+ H (NEGATIVE) Urine Mucus LIGHT (NONE-MOD) 03/11/19 03/11/19 03/11/19 Range/Units 01:25 05:46 05:46 WBC 11.38 H (4.0-11.0) K/uL RBC 3.05 L (4.30-5.90) M/uL Hgb 9.3 L (12.0-16.0) g/dL Hct 29.0 L (36.0-46.0) % MCV 95.1 (80.0-98.0) fL MCH 30.5 (27.0-32.0) pg MCHC 32.1 (31.0-37.0) g/dL RDW Std Deviation 51.6 (28.0-62.0) fl RDW Coeff of Marjorie 15 (11.0-15.0) % Plt Count 194 (150-400) K/uL MPV 9.90 (7.40-12.00) fL Neut % (Auto) 77.6 (48.0-80.0) % Lymph % (Auto) 4.5 L (16.0-40.0) % [place] % (Auto) 17.8 H (0.0-15.0) % Eos % (Auto) 0.0 (0.0-7.0) % Baso % (Auto) 0.1 (0.0-1.5) % Neut # (Auto) 8.8 H (1.4-5.7) K/uL Lymph # (Auto) 0.5 L (0.6-2.4) K/uL [place] # (Auto) 2.0 H (0.0-0.8) K/uL Eos # (Auto) 0.0 (0.0-0.7) K/uL Baso # (Auto) 0.0 (0.0-0.1) K/uL Add Manual Diff Neutrophils % (Manual) (48.0-80.0) % Lymphocytes % (Manual) (16.0-40.0) % Monocytes % (Manual) (0.0-15.0) % Nucleated RBC % 0.0 /100WBC Absolute Seg Neuts (1.4-5.7) Lymphocytes # (Manual) (0.6-2.4) Monocytes # (Manual) (0.0-0.8) Nucleated RBCs # 0 K/uL Lactate 0.8 (0.20-2.00) mmol/L Sodium 141 (136-145) mmol/L Potassium 4.0 (3.5-5.1) mmol/L Chloride 107 (98-107) mmol/L Carbon Dioxide 21.5 (21.0-32.0) mmol/L BUN 34 H (7.0-18.0) mg/dL Creatinine 2.2 H (0.6-1.0) mg/dL Est Cr Clr Drug Dosing 17.95 Estimated GFR (MDRD) 22.1 ml/min Glucose 198 H (74-106) mg/dL POC Glucose (60-110) mg/dL Calcium 8.2 L (8.5-10.1) mg/dL Total Bilirubin 0.3 (0.2-1.0) mg/dL AST 9 L (15-37) IU/L ALT 10 L (14-63) IU/L Alkaline Phosphatase 57 (46-116) U/L Total Protein 6.1 L (6.4-8.2) g/dL Albumin 2.1 L (3.4-5.0) g/dL Globulin 4.0 (2.6-4.0) g/dL Albumin/Globulin Ratio 0.5 L (0.9-1.6) Urine Color Urine Appearance Urine pH (5.0-8.0) Ur Specific [place] (1.001-1.035) Urine Protein (NEGATIVE) mg/dL Urine Glucose (UA) (NEGATIVE) mg/dL Urine Ketones (NEGATIVE) mg/dL Urine Occult Blood (NEGATIVE) Urine Nitrite (NEGATIVE) Urine Bilirubin (NEGATIVE) Urine Ictotest Urine Urobilinogen (<2.0) EU/dL Ur Leukocyte Esterase (NEGATIVE) Urine RBC (0-2/HPF) Urine WBC (0-5/HPF) Ur Epithelial Cells (NONE-FEW) Urine Bacteria (NEGATIVE) Urine Mucus (NONE-MOD) 03/11/19 Range/Units 05:47 WBC (4.0-11.0) K/uL RBC (4.30-5.90) M/uL Hgb (12.0-16.0) g/dL Hct (36.0-46.0) % MCV (80.0-98.0) fL MCH (27.0-32.0) pg MCHC (31.0-37.0) g/dL RDW Std Deviation (28.0-62.0) fl RDW Coeff of Marjorie (11.0-15.0) % Plt Count (150-400) K/uL MPV (7.40-12.00) fL Neut % (Auto) (48.0-80.0) % Lymph % (Auto) (16.0-40.0) % [place] % (Auto) (0.0-15.0) % Eos % (Auto) (0.0-7.0) % Baso % (Auto) (0.0-1.5) % Neut # (Auto) (1.4-5.7) K/uL Lymph # (Auto) (0.6-2.4) K/uL [place] # (Auto) (0.0-0.8) K/uL Eos # (Auto) (0.0-0.7) K/uL Baso # (Auto) (0.0-0.1) K/uL Add Manual Diff Neutrophils % (Manual) (48.0-80.0) % Lymphocytes % (Manual) (16.0-40.0) % Monocytes % (Manual) (0.0-15.0) % Nucleated RBC % /100WBC Absolute Seg Neuts (1.4-5.7) Lymphocytes # (Manual) (0.6-2.4) Monocytes # (Manual) (0.0-0.8) Nucleated RBCs # K/uL Lactate (0.20-2.00) mmol/L Sodium (136-145) mmol/L Potassium (3.5-5.1) mmol/L Chloride (98-107) mmol/L Carbon Dioxide (21.0-32.0) mmol/L BUN (7.0-18.0) mg/dL Creatinine (0.6-1.0) mg/dL Est Cr Clr Drug Dosing Estimated GFR (MDRD) ml/min Glucose (74-106) mg/dL POC Glucose 192 H (60-110) mg/dL Calcium (8.5-10.1) mg/dL Total Bilirubin (0.2-1.0) mg/dL AST (15-37) IU/L ALT (14-63) IU/L Alkaline Phosphatase (46-116) U/L Total Protein (6.4-8.2) g/dL Albumin (3.4-5.0) g/dL Globulin (2.6-4.0) g/dL Albumin/Globulin Ratio (0.9-1.6) Urine Color Urine Appearance Urine pH (5.0-8.0) Ur Specific [place] (1.001-1.035) Urine Protein (NEGATIVE) mg/dL Urine Glucose (UA) (NEGATIVE) mg/dL Urine Ketones (NEGATIVE) mg/dL Urine Occult Blood (NEGATIVE) Urine Nitrite (NEGATIVE) Urine Bilirubin (NEGATIVE) Urine Ictotest Urine Urobilinogen (<2.0) EU/dL Ur Leukocyte Esterase (NEGATIVE) Urine RBC (0-2/HPF) Urine WBC (0-5/HPF) Ur Epithelial Cells (NONE-FEW) Urine Bacteria (NEGATIVE) Urine Mucus (NONE-MOD) Jareth Results Last 24 Hours: Microbiology 03/10/19 17:14 Aerobic Blood Culture - Preliminary Blood - Venous Anaerobic Blood Culture - Preliminary 03/10/19 17:34 Anaerobic Blood Culture - Final Blood - Venous - Lab Draw Med Orders - Current: Current Medications Acetaminophen (Tylenol) 650 mg PO Q4H PRN PRN Reason: Pain (Mild 1-3)/fever Last Admin: 03/10/19 21:48 Dose: 650 mg Dextrose/Water (Dextrose 50% In Water) 50 ml IVPUSH ONETIME PRN PRN Reason: Hypoglycemia Sodium Chloride (Normal Saline) 1,000 mls @ 125 mls/hr IV CONTINUOUS [place] Last Admin: 03/11/19 04:56 Dose: 125 mls/hr Norepinephrine Bitartrate (Norepinephr-0.9% Nacl 4 Mg/250) 4 mg in 250 mls @ 7.5 mls/hr IV TITRATE [facility]; Protocol Meropenem/Sodium Chloride 1 gm (/ Premix) 50 mls @ 100 mls/hr IV Q12H [place] Last Admin: 03/11/19 09:15 Dose: 100 mls/hr Vancomycin HCl 1.25 gm/ Sodium (Chloride) 250 mls @ 166.667 mls/hr IV Q24H [place] Last Admin: 03/11/19 10:32 Dose: 166.667 mls/hr Insulin Aspart (Novolog) 0 unit SUBCUT TIDAC [place]; Protocol Last Admin: 03/11/19 11:14 Dose: Not Given Morphine Sulfate (Morphine) 2 mg IVPUSH Q2H PRN PRN Reason: Pain (severe 7-10) Stop: 03/11/19 19:09 Ondansetron HCl (Zofran Odt) 4 mg PO Q4H PRN PRN Reason: nausea, able to take PO Ondansetron HCl (Zofran) 4 mg IVPUSH Q4H PRN PRN Reason: Nausea Oxycodone/Acetaminophen (Percocet 325-5 Mg) 1 tab PO Q4H PRN PRN Reason: Pain (moderate 4-6) Tamsulosin HCl (Flomax) 0.4 mg PO BEDTIME [facility] Last Admin: 03/10/19 22:32 Dose: 0.4 mg Vancomycin HCl (Pharmacy To Dose - Vancomycin) 1 dose .XX ASDIRECTED [facility] Discontinued Medications Sodium Chloride (Normal Saline) 1,000 mls @ 125 mls/hr IV STAT ONE Stop: 03/11/19 01:00 Last Infusion: 03/10/19 17:25 Dose: 125 mls/hr Vancomycin HCl 1 gm/ Sodium (Chloride) 250 mls @ 166 mls/hr IV ONETIME ONE Stop: 03/10/19 19:08 Last Admin: 03/10/19 18:14 Dose: 166 mls/hr Piperacillin Sod/Tazobactam (Sod 3.375 gm/ Sodium Chloride) 50 mls @ 100 mls/ hr IV ONETIME ONE Stop: 03/10/19 18:52 Last Admin: 03/10/19 18:25 Dose: Not Given Ceftriaxone Sodium/Dextrose 2 (gm/ Premix) 50 mls @ 100 mls/hr IV ONETIME ONE Stop: 03/10/19 18:53 Last Admin: 03/10/19 20:08 Dose: Not Given Meropenem 1 gm/ Sodium (Chloride) 100 mls @ 200 mls/hr IV Q8H [facility] Last Admin: 03/10/19 20:22 Dose: Not Given Sodium Chloride (Normal Saline) 1,000 mls @ 999 mls/hr IV STAT ONE Stop: 03/10/19 20:15 Last Admin: 03/10/19 19:45 Dose: 999 mls/hr Meropenem/Sodium Chloride (Meropenem) 50 mls @ 100 mls/hr IV Q12H [facility] Last Admin: 03/10/19 21:48 Dose: 100 mls/hr Meropenem/Sodium Chloride (Meropenem) Confirm Administered Dose 50 mls @ as directed IV .STK-MED ONE Stop: 03/10/19 20:52 Last Admin: 03/10/19 21:54 Dose: Not Given Acetaminophen 1,000 mg/ Premix 100 mls @ 400 mls/hr IV NOW ONE Stop: 03/11/19 13:02 Last Admin: 03/11/19 12:52 Dose: 400 mls/hr Acetaminophen (Ofirmev) Confirm Administered Dose 100 mls @ as directed IV .STK- MED ONE Stop: 03/11/19 12:50 Last Admin: 03/11/19 13:32 Dose: Not Given Propofol (Diprivan 20 Ml) Confirm Administered Dose 200 mg .ROUTE .STK-MED ONE Stop: 03/11/19 11:38 Sugammadex Sodium (Bridion) Confirm Administered Dose 200 mg .ROUTE .STK-MED ONE Stop: 03/11/19 10:20 Tamsulosin HCl (Flomax) 0.4 mg PO BEDTIME [facility] - Problem List & Annotations (1) Pyelonephritis SNOMED Code(s): 28200513 Code(s): N12 - TUBULO-INTERSTITIAL NEPHRITIS, NOT SPCF ACUTE OR CHRONIC Status: Acute Current Visit: Yes (2) Hydronephrosis SNOMED Code(s): 00175979 Code(s): N13.30 - UNSPECIFIED HYDRONEPHROSIS Status: Acute Current Visit : Yes (3) MAI (acute kidney injury) SNOMED Code(s): 19866884, 61926147 Code(s): N17.9 - ACUTE KIDNEY FAILURE, UNSPECIFIED Status: Resolved Current Visit: No - Problem List Review Problem List Initiated/Reviewed/Updated: Yes - My Orders Last 24 Hours: My Active Orders 03/10/19 22:01 ABG [BLOOD GAS ARTERIAL] [BG] Routine 03/10/19 22:10 Tamsulosin [Flomax] 0.4 mg PO BEDTIME - Plan Plan:: I have seen and evaluated the patient and agree with the residents note unless specified in my note
[2019-03-11] MEDS ORDERED: Acetaminophen 1,000 MG in Premix Bag 1 BAG IV ONE (12:48)
--- NOTE | 2019-03-11 15:19 | CR ---
EXAM DATE: 03/10/19 PATIENT'S AGE: 68 Abdomen: Two fluoroscopic spot views were obtained of the abdomen obtained utilizing C-arm device. There are at least 3 calcifications being seen presumably within the kidney. Second film shows ureteral stent in place with pigtail end being in location overlapping the calcifications. Side of exam not marked on the study. Impression: 1. Renal calculi with stent placement. Diagnostic code #2 Report Signed by Proxy. NICKIE
[2019-03-11] MEDS ORDERED: Sodium Chloride 0.9% 1,000 ML IV SCH (17:45)
--- NOTE | 2019-03-11 18:24 | OR ---
SURGEON: Priscila Ortiz M.D. DATE OF PROCEDURE: 03/11/2019 PREOPERATIVE DIAGNOSES: Urinary sepsis, right-sided hydronephrosis secondary to a 6 mm right upper ureteral stone. POSTOPERATIVE DIAGNOSES: Urinary sepsis, right-sided hydronephrosis secondary to a 6 mm right upper ureteral stone. OPERATION: Cystoscopy, double-J stent placement. DESCRIPTION OF PROCEDURE: The patient was given general anesthesia. She was in the dorsal lithotomy position, prepped and draped in sterile drapes. Cystourethroscopy was done. The left double-J stent lower end was in the bladder. It had some stone concretions on it. The right ureter was cannulated with a guidewire, however, that would not go beyond the stone, so a Glidewire was then used and that was advanced beyond the stone over which a 6-Uzbek 26 centimeter double-J stent was placed. Position was confirmed with fluoroscopy and with a pyonephrotic drip coming through the stent. With that done, the procedure was terminated. The bladder was emptied, and the patient was moved to recovery room in good condition. STEVEN / KELLE /[id number]
[2019-03-11] MEDS: Tamsulosin 0.4 MG Cap.ER PO SCH (20:13)
[2019-03-11] MEDS ORDERED: Tamsulosin 0.4 MG Cap.ER PO SCH (21:00)
--- NOTE | 2019-03-12 07:00 | PCM48HPAN ---
Post Anesthesia Note - EVALUATION WITHIN 48HRS OF ANESTHETIC Vital Signs in Normal Range: Yes Patient Participated in Evaluation: Yes Respiratory Function Stable: Yes Airway Patent: Yes Cardiovascular Function Stable: Yes Hydration Status Stable: Yes Pain Control Satisfactory: Yes Nausea and Vomiting Control Satisfactory: Yes Mental Status Recovered: Yes Vital Signs: Last Vital Signs Temp 98.7 F 03/12/19 04:00 Pulse 78 03/11/19 12:59 Resp 18 03/12/19 06:00 BP 133/71 03/12/19 06:00 Pulse Ox 91 L 03/12/19 06:00
[2019-03-12 07:06] LABS: CARBON DIOXIDE,CO2 21.8 mmol/L (21.0-32.0); POTASSIUM,K 3.6 mmol/L (3.5-5.1)
[2019-03-12] MEDS: Insulin Aspart 100 Units/ML 3 ML Pen SUBCUT SCH ×3 (07:51→18:33)
[2019-03-12] MEDS: Meropenem Premix 1 GM in Premix Bag 1 BAG IV SCH ×2 (09:36→21:11)
--- NOTE | 2019-03-12 09:58 | PN ---
THC Physician - Brief Progress [id number]/14/2019 08:46[facility] Carleen Tineo, FERNANDO - [facility] - MWN CRISTOBALKENY KRUEGERSigridDate of Service 03/12/2019 08:46HPI/Events of Note eICU Progress [id number] admitted for sepsis secondary to UTI complicated by nephrolithiasis. Hist ory obtained primarily from review of EMR.Notable events: Patient is POD 1 from ureteral stentingCame ra exam: Laying in bed, eating breakfast off of tray. Vitals monitor reviewed.Vitals: reviewedLabs: r eviewedRadiology: reviewedMeds: reviewedeICU Impression and Recommendations:Septic shock secondary to MSSA UTI on norepinephrineNephrolithiasis status post ureteral stent placementAcute kidney injury, i mprovingDiabetes mellitus with hyperglycemiaConsider changing antibiotics to methicillin/oxacillin mo notherapyStrict I/ORepeat lactateCan consider additional fluid resuscitation given continued pressor requirement. Alternatively can consider assessment of fluid responsiveness (ie passive leg raise, bed side IVC ultrasound). Would target pressors to MAP of 65PRN insulin per institutional sliding scale p rotocol with scheduled glucose checksRecommend targeted glucose goal of <180DVT and GI prophylaxis as appropriate.We are available to assist in further clarification, or implementation of any of the abo ve recommendations if desired by primary service.Thank you for allowing us to participate in the care of this patient.The above note transcribed via dictation software. Please excuse any errors.Interven tions Major-Sepsis - evaluation and management, Shock - evaluation and managementElectronically Lucia d by: ALFA BAILON) on 03/12/2019 09:55
[2019-03-12] MEDS: Rivaroxaban 10 MG Tab PO SCH (10:24)
--- NOTE | 2019-03-12 12:26 | PCM.PN ---
<Israel Hyde - Last Filed: 03/12/19 20:20> - General Info Date of Service: 03/12/19 Subjective Update: no acute events overnight. BP stable. Feels better this morning. Tolerating PO intake. - Patient Data Vitals - Most Recent: Last Vital Signs Temp 36.8 C 03/12/19 12:00 Pulse 78 03/11/19 12:59 Resp 19 03/12/19 12:00 BP 148/75 H 03/12/19 12:00 Pulse Ox 95 03/12/19 12:00 Weight - Most Recent: 84.1 kg I&O - Last 24 Hours: Intake & Output 03/11/19 03/12/19 03/12/19 22:59 06:59 14:59 Intake Total 1750 850 50 Output Total 150 Balance 1600 850 50 Lab Results Last 24 Hours: Laboratory Results - last 24 hr 03/11/19 03/11/19 03/12/19 Range/Units 11:09 16:44 05:50 WBC 10.70 (4.0-11.0) K/uL RBC 3.09 L (4.30-5.90) M/uL Hgb 9.1 L (12.0-16.0) g/dL Hct 29.3 L (36.0-46.0) % MCV 94.8 (80.0-98.0) fL MCH 29.4 (27.0-32.0) pg MCHC 31.1 (31.0-37.0) g/dL RDW Std Deviation 52.3 (28.0-62.0) fl RDW Coeff of Marjorie 15 (11.0-15.0) % Plt Count 194 (150-400) K/uL MPV 9.70 (7.40-12.00) fL Neut % (Auto) 80.6 H (48.0-80.0) % Lymph % (Auto) 6.4 L (16.0-40.0) % [place] % (Auto) 12.6 (0.0-15.0) % Eos % (Auto) 0.3 (0.0-7.0) % Baso % (Auto) 0.1 (0.0-1.5) % Neut # (Auto) 8.6 H (1.4-5.7) K/uL Lymph # (Auto) 0.7 (0.6-2.4) K/uL [place] # (Auto) 1.4 H (0.0-0.8) K/uL Eos # (Auto) 0.0 (0.0-0.7) K/uL Baso # (Auto) 0.0 (0.0-0.1) K/uL Nucleated RBC % 0.0 /100WBC Nucleated RBCs # 0 K/uL Sodium (136-145) mmol/L Potassium (3.5-5.1) mmol/L Chloride (98-107) mmol/L Carbon Dioxide (21.0-32.0) mmol/L BUN (7.0-18.0) mg/dL Creatinine (0.6-1.0) mg/dL Est Cr Clr Drug Dosing mL/min Estimated GFR (MDRD) ml/min Glucose (74-106) mg/dL POC Glucose 185 H 148 H (60-110) mg/dL Calcium (8.5-10.1) mg/dL Total Bilirubin (0.2-1.0) mg/dL AST (15-37) IU/L ALT (14-63) IU/L Alkaline Phosphatase (46-116) U/L Total Protein (6.4-8.2) g/dL Albumin (3.4-5.0) g/dL Globulin (2.6-4.0) g/dL Albumin/Globulin Ratio (0.9-1.6) 03/12/19 Range/Units 05:50 WBC (4.0-11.0) K/uL RBC (4.30-5.90) M/uL Hgb (12.0-16.0) g/dL Hct (36.0-46.0) % MCV (80.0-98.0) fL MCH (27.0-32.0) pg MCHC (31.0-37.0) g/dL RDW Std Deviation (28.0-62.0) fl RDW Coeff of Marjorie (11.0-15.0) % Plt Count (150-400) K/uL MPV (7.40-12.00) fL Neut % (Auto) (48.0-80.0) % Lymph % (Auto) (16.0-40.0) % [place] % (Auto) (0.0-15.0) % Eos % (Auto) (0.0-7.0) % Baso % (Auto) (0.0-1.5) % Neut # (Auto) (1.4-5.7) K/uL Lymph # (Auto) (0.6-2.4) K/uL [place] # (Auto) (0.0-0.8) K/uL Eos # (Auto) (0.0-0.7) K/uL Baso # (Auto) (0.0-0.1) K/uL Nucleated RBC % /100WBC Nucleated RBCs # K/uL Sodium 139 (136-145) mmol/L Potassium 3.6 (3.5-5.1) mmol/L Chloride 106 (98-107) mmol/L Carbon Dioxide 21.8 (21.0-32.0) mmol/L BUN 25 H (7.0-18.0) mg/dL Creatinine 1.6 H (0.6-1.0) mg/dL Est Cr Clr Drug Dosing 24.69 mL/min Estimated GFR (MDRD) 31.9 ml/min Glucose 164 H (74-106) mg/dL POC Glucose (60-110) mg/dL Calcium 8.5 (8.5-10.1) mg/dL Total Bilirubin 0.2 (0.2-1.0) mg/dL AST 10 L (15-37) IU/L ALT 10 L (14-63) IU/L Alkaline Phosphatase 72 (46-116) U/L Total Protein 6.3 L (6.4-8.2) g/dL Albumin 1.9 L (3.4-5.0) g/dL Globulin 4.4 H (2.6-4.0) g/dL Albumin/Globulin Ratio 0.4 L (0.9-1.6) Jareth Results Last 24 Hours: Microbiology 03/10/19 17:14 Aerobic Blood Culture - Preliminary Blood - Venous Anaerobic Blood Culture - Preliminary 03/11/19 10:17 Aerobic Blood Culture - Preliminary Blood - Venous NO GROWTH AFTER 1 DAY Anaerobic Blood Culture - Preliminary NO GROWTH AFTER 1 DAY 03/11/19 10:32 Aerobic Blood Culture - Preliminary Blood - Venous - Lab Draw NO GROWTH AFTER 1 DAY Anaerobic Blood Culture - Preliminary NO GROWTH AFTER 1 DAY 03/10/19 18:05 Urine Culture - Final Urine, Catheterized Staphylococcus Aureus 03/10/19 17:34 Aerobic Blood Culture - Preliminary Blood - Venous - Lab Draw NO GROWTH AFTER 1 DAY Anaerobic Blood Culture - Final Med Orders - Current: Current Medications Acetaminophen (Tylenol) 650 mg PO Q4H PRN PRN Reason: Pain (Mild 1-3)/fever Last Admin: 03/10/19 21:48 Dose: 650 mg Dextrose/Water (Dextrose 50% In Water) 50 ml IVPUSH ONETIME PRN PRN Reason: Hypoglycemia Norepinephrine Bitartrate (Norepinephr-0.9% Nacl 4 Mg/250) 4 mg in 250 mls @ 7.5 mls/hr IV TITRATE [facility]; Protocol Meropenem/Sodium Chloride 1 gm (/ Premix) 50 mls @ 100 mls/hr IV Q12H [facility] Last Admin: 03/12/19 09:36 Dose: 100 mls/hr Vancomycin HCl 1.25 gm/ Sodium (Chloride) 250 mls @ 166.667 mls/hr IV Q24H [facility] Last Admin: 03/12/19 10:24 Dose: 166.667 mls/hr Insulin Aspart (Novolog) 0 unit SUBCUT TIDAC [facility]; Protocol Last Admin: 03/12/19 12:04 Dose: 1 unit Ondansetron HCl (Zofran Odt) 4 mg PO Q4H PRN PRN Reason: nausea, able to take PO Ondansetron HCl (Zofran) 4 mg IVPUSH Q4H PRN PRN Reason: Nausea Oxycodone/Acetaminophen (Percocet 325-5 Mg) 1 tab PO Q4H PRN PRN Reason: Pain (moderate 4-6) Rivaroxaban (Xarelto) 20 mg PO DAILY [facility] Last Admin: 03/12/19 10:24 Dose: 20 mg Tamsulosin HCl (Flomax) 0.4 mg PO BEDTIME [facility] Last Admin: 03/11/19 20:13 Dose: 0.4 mg Vancomycin HCl (Pharmacy To Dose - Vancomycin) 1 dose .XX ASDIRECTED [facility] Discontinued Medications Sodium Chloride (Normal Saline) 1,000 mls @ 125 mls/hr IV STAT ONE Stop: 03/11/19 01:00 Last Infusion: 03/10/19 17:25 Dose: 125 mls/hr Vancomycin HCl 1 gm/ Sodium (Chloride) 250 mls @ 166 mls/hr IV ONETIME ONE Stop: 03/10/19 19:08 Last Admin: 03/10/19 18:14 Dose: 166 mls/hr Piperacillin Sod/Tazobactam (Sod 3.375 gm/ Sodium Chloride) 50 mls @ 100 mls/ hr IV ONETIME ONE Stop: 03/10/19 18:52 Last Admin: 03/10/19 18:25 Dose: Not Given Ceftriaxone Sodium/Dextrose 2 (gm/ Premix) 50 mls @ 100 mls/hr IV ONETIME ONE Stop: 03/10/19 18:53 Last Admin: 03/10/19 20:08 Dose: Not Given Meropenem 1 gm/ Sodium (Chloride) 100 mls @ 200 mls/hr IV Q8H [facility] Last Admin: 03/10/19 20:22 Dose: Not Given Sodium Chloride (Normal Saline) 1,000 mls @ 999 mls/hr IV STAT ONE Stop: 03/10/19 20:15 Last Admin: 03/10/19 19:45 Dose: 999 mls/hr Sodium Chloride (Normal Saline) 1,000 mls @ 125 mls/hr IV CONTINUOUS [facility] Last Admin: 03/11/19 04:56 Dose: 125 mls/hr Meropenem/Sodium Chloride (Meropenem) 50 mls @ 100 mls/hr IV Q12H [facility] Last Admin: 03/10/19 21:48 Dose: 100 mls/hr Meropenem/Sodium Chloride (Meropenem) Confirm Administered Dose 50 mls @ as directed IV .STK-MED ONE Stop: 03/10/19 20:52 Last Admin: 03/10/19 21:54 Dose: Not Given Acetaminophen 1,000 mg/ Premix 100 mls @ 400 mls/hr IV NOW ONE Stop: 03/11/19 13:02 Last Admin: 03/11/19 12:52 Dose: 400 mls/hr Acetaminophen (Ofirmev) Confirm Administered Dose 100 mls @ as directed IV .STK- MED ONE Stop: 03/11/19 12:50 Last Admin: 03/11/19 13:32 Dose: Not Given Sodium Chloride (Normal Saline) 1,000 mls @ 75 mls/hr IV ASDIRECTED [facility] Last Admin: 03/11/19 17:38 Dose: 75 mls/hr Morphine Sulfate (Morphine) 2 mg IVPUSH Q2H PRN PRN Reason: Pain (severe 7-10) Stop: 03/11/19 19:09 Propofol (Diprivan 20 Ml) Confirm Administered Dose 200 mg .ROUTE .STK-MED ONE Stop: 03/11/19 11:38 Sugammadex Sodium (Bridion) Confirm Administered Dose 200 mg .ROUTE .STK-MED ONE Stop: 03/11/19 10:20 Tamsulosin HCl (Flomax) 0.4 mg PO BEDTIME [facility] - Exam General: Alert, Oriented, Cooperative, No Acute Distress Lungs: Clear to Auscultation, Normal Respiratory Effort. No: Crackles, Wheezing Cardiovascular: Regular Rate, Regular Rhythm GI/Abdominal Exam: Normal Bowel Sounds, Soft, Non-Tender, No Distention Extremities: Normal Inspection, Pedal Edema Skin: Warm, Dry - Problem List Review Problem List Initiated/Reviewed/Updated: Yes - My Orders Last 24 Hours: My Active Orders 03/11/19 Dinner [employer] Diet [DIET] 03/12/19 12:24 Transfer Patient (Change bed) [ADT] Routine 03/13/19 05:11 CBC WITH AUTO DIFF [HEME] AM COMPREHENSIVE METABOLIC PN,CMP [CHEM] AM - Assessment Assessment:: A: 1. Gram + cocci bacteremia 2. Bilateral hydronephrosis s/p cystoscopy with stent placement 3. MAI, improving 4. Type 2 diabetes 5. Hypertension 5. Hx of PE on xarelto P: For now, will continue with Meropenem and vancomycin until final ID and susceptibilities. Will continue with ISS and have restarted her home medications for hypertension. Resumed xarelto for history of PEs. Dispo: 1-2 days, pending blood cultures - Plan Plan:: I have seen and evaluated the patient and agree with the residents note unless specified in my note <Jony Haywood - Last Filed: 03/14/19 09:38> - Patient Data Vitals - Most Recent: Last Vital Signs Temp 36.2 C 03/14/19 07:58 Pulse 62 03/14/19 07:58 Resp 18 03/14/19 07:58 BP 140/67 03/14/19 07:58 Pulse Ox 93 L 03/14/19 07:58 I&O - Last 24 Hours: Intake & Output 03/13/19 03/14/19 03/14/19 22:59 06:59 14:59 Intake Total 200 300 Output Total 675 400 Balance -475 -100 Lab Results Last 24 Hours: Laboratory Results - last 24 hr 03/13/19 03/13/19 03/13/19 Range/Units 10:03 11:17 17:33 POC Glucose 190 H 165 H (60-110) mg/dL Vancomycin Trough 15.8 H (5.0-10.0) ug/mL Jareth Results Last 24 Hours: Microbiology 03/10/19 17:34 Aerobic Blood Culture - Preliminary Blood - Venous - Lab Draw NO GROWTH AFTER 3 DAYS Anaerobic Blood Culture - Final 03/11/19 10:17 Aerobic Blood Culture - Preliminary Blood - Venous NO GROWTH AFTER 2 DAYS Anaerobic Blood Culture - Preliminary NO GROWTH AFTER 2 DAYS 03/11/19 10:32 Aerobic Blood Culture - Preliminary Blood - Venous - Lab Draw NO GROWTH AFTER 2 DAYS Anaerobic Blood Culture - Preliminary NO GROWTH AFTER 2 DAYS 03/10/19 17:14 Aerobic Blood Culture - Final Blood - Venous Staphylococcus Aureus Anaerobic Blood Culture - Final Med Orders - Current: Current Medications Acetaminophen (Tylenol) 650 mg PO Q4H PRN PRN Reason: Pain (Mild 1-3)/fever Last Admin: 03/10/19 21:48 Dose: 650 mg Baclofen (Lioresal) 20 mg PO BIDMEALS [facility] Last Admin: 03/13/19 17:38 Dose: 20 mg Baclofen (Lioresal) 40 mg PO BEDTIME [facility] Last Admin: 03/13/19 20:37 Dose: 40 mg Dextrose/Water (Dextrose 50% In Water) 50 ml IVPUSH ONETIME PRN PRN Reason: Hypoglycemia Docusate Sodium (Colace) 100 mg PO BID PRN PRN Reason: Constipation Fluoxetine HCl (Prozac) 10 mg PO DAILY [facility] Last Admin: 03/13/19 08:38 Dose: 10 mg Furosemide (Lasix) 40 mg PO DAILY [facility] Last Admin: 03/13/19 08:39 Dose: 40 mg Vancomycin HCl 1.25 gm/ Sodium (Chloride) 250 mls @ 166.667 mls/hr IV Q24H [facility] Last Admin: 03/13/19 11:57 Dose: 166.667 mls/hr Insulin Aspart (Novolog) 0 unit SUBCUT TIDAC [facility]; Protocol Last Admin: 03/14/19 07:51 Dose: Not Given Labetalol HCl (Normodyne) 10 mg IVPUSH Q6H PRN; Protocol PRN Reason: Systolic >180 mm hg Melatonin (Melatonin) 6 mg PO BEDTIME [facility] Last Admin: 03/13/19 20:35 Dose: 6 mg Metoprolol Succinate (Toprol Xl) 50 mg PO DAILY [facility] Last Admin: 03/13/19 08:39 Dose: 50 mg Ondansetron HCl (Zofran Odt) 4 mg PO Q4H PRN PRN Reason: nausea, able to take PO Ondansetron HCl (Zofran) 4 mg IVPUSH Q4H PRN PRN Reason: Nausea Oxycodone/Acetaminophen (Percocet 325-5 Mg) 1 tab PO Q4H PRN PRN Reason: Pain (moderate 4-6) Rivaroxaban (Xarelto) 20 mg PO DAILY [facility] Last Admin: 03/13/19 08:39 Dose: 20 mg Rosuvastatin Calcium (Crestor) 20 mg PO BEDTIME [facility] Last Admin: 03/13/19 20:35 Dose: 20 mg Tamsulosin HCl (Flomax) 0.4 mg PO BEDTIME [facility] Last Admin: 03/13/19 20:35 Dose: 0.4 mg Temazepam (Restoril) 15 mg PO BEDTIME PRN PRN Reason: Insomnia Vancomycin HCl (Pharmacy To Dose - Vancomycin) 1 dose .XX ASDIRECTED [facility] Discontinued Medications Sodium Chloride (Normal Saline) 1,000 mls @ 125 mls/hr IV STAT ONE Stop: 03/11/19 01:00 Last Infusion: 03/10/19 17:25 Dose: 125 mls/hr Vancomycin HCl 1 gm/ Sodium (Chloride) 250 mls @ 166 mls/hr IV ONETIME ONE Stop: 03/10/19 19:08 Last Admin: 03/10/19 18:14 Dose: 166 mls/hr Piperacillin Sod/Tazobactam (Sod 3.375 gm/ Sodium Chloride) 50 mls @ 100 mls/ hr IV ONETIME ONE Stop: 03/10/19 18:52 Last Admin: 03/10/19 18:25 Dose: Not Given Ceftriaxone Sodium/Dextrose 2 (gm/ Premix) 50 mls @ 100 mls/hr IV ONETIME ONE Stop: 03/10/19 18:53 Last Admin: 03/10/19 20:08 Dose: Not Given Meropenem 1 gm/ Sodium (Chloride) 100 mls @ 200 mls/hr IV Q8H [facility] Last Admin: 03/10/19 20:22 Dose: Not Given Sodium Chloride (Normal Saline) 1,000 mls @ 999 mls/hr IV STAT ONE Stop: 03/10/19 20:15 Last Admin: 03/10/19 19:45 Dose: 999 mls/hr Sodium Chloride (Normal Saline) 1,000 mls @ 125 mls/hr IV CONTINUOUS [facility] Last Admin: 03/11/19 04:56 Dose: 125 mls/hr Meropenem/Sodium Chloride (Meropenem) 50 mls @ 100 mls/hr IV Q12H [facility] Last Admin: 03/10/19 21:48 Dose: 100 mls/hr Meropenem/Sodium Chloride (Meropenem) Confirm Administered Dose 50 mls @ as directed IV .STK-MED ONE Stop: 03/10/19 20:52 Last Admin: 03/10/19 21:54 Dose: Not Given Norepinephrine Bitartrate (Norepinephr-0.9% Nacl 4 Mg/250) 4 mg in 250 mls @ 7.5 mls/hr IV TITRATE [facility]; Protocol Meropenem/Sodium Chloride 1 gm (/ Premix) 50 mls @ 100 mls/hr IV Q12H [facility] Last Admin: 03/13/19 08:39 Dose: 100 mls/hr Acetaminophen 1,000 mg/ Premix 100 mls @ 400 mls/hr IV NOW ONE Stop: 03/11/19 13:02 Last Admin: 03/11/19 12:52 Dose: 400 mls/hr Acetaminophen (Ofirmev) Confirm Administered Dose 100 mls @ as directed IV .STK- MED ONE Stop: 03/11/19 12:50 Last Admin: 03/11/19 13:32 Dose: Not Given Sodium Chloride (Normal Saline) 1,000 mls @ 75 mls/hr IV ASDIRECTED [facility] Last Admin: 03/11/19 17:38 Dose: 75 mls/hr Metoprolol Succinate (Toprol Xl) 50 mg PO DAILY [facility] Metoprolol Succinate (Toprol Xl) 50 mg PO DAILY [facility] Morphine Sulfate (Morphine) 2 mg IVPUSH Q2H PRN PRN Reason: Pain (severe 7-10) Stop: 03/11/19 19:09 Propofol (Diprivan 20 Ml) Confirm Administered Dose 200 mg .ROUTE .STK-MED ONE Stop: 03/11/19 11:38 Ramipril (Altace) 10 mg PO DAILY [facility] Last Admin: 03/12/19 20:42 Dose: Not Given Sugammadex Sodium (Bridion) Confirm Administered Dose 200 mg .ROUTE .STK-MED ONE Stop: 03/11/19 10:20 Tamsulosin HCl (Flomax) 0.4 mg PO BEDTIME [facility] - Problem List & Annotations (1) Pyelonephritis SNOMED Code(s): 05307751 Code(s): N12 - TUBULO-INTERSTITIAL NEPHRITIS, NOT SPCF ACUTE OR CHRONIC Status: Acute Current Visit: Yes (2) Hydronephrosis SNOMED Code(s): 87444029 Code(s): N13.30 - UNSPECIFIED HYDRONEPHROSIS Status: Acute Current Visit : Yes (3) MAI (acute kidney injury) SNOMED Code(s): 79787370, 21782975 Code(s): N17.9 - ACUTE KIDNEY FAILURE, UNSPECIFIED Status: Resolved Current Visit: No - Problem List Review Problem List Initiated/Reviewed/Updated: Yes - Plan Plan:: I have seen and evaluated the patient and agree with the residents note unless specified in my note .
[2019-03-12] MEDS ORDERED: Docusate Sodium 100 MG Cap PO PRN (20:11)
[2019-03-12] MEDS ORDERED: Metoprolol Succinate 50 MG Tab.ER PO SCH (20:15)
[2019-03-12] MEDS: Tamsulosin 0.4 MG Cap.ER PO SCH (20:51)
[2019-03-12] MEDS: Metoprolol Succinate 50 MG Tab.ER PO SCH (20:51)
[2019-03-12] MEDS: Rosuvastatin 10 MG Tab PO SCH (20:51)
[2019-03-12] MEDS ORDERED: Labetalol 100 MG/20 ML MDV IVPUSH PRN (22:29)
[2019-03-13 06:34] LABS: CARBON DIOXIDE,CO2 25.2 mmol/L (21.0-32.0); POTASSIUM,K 3.5 mmol/L (3.5-5.1)
[2019-03-13] MEDS: Insulin Aspart 100 Units/ML 3 ML Pen SUBCUT SCH ×3 (07:30→18:20)
[2019-03-13] MEDS: Rivaroxaban 10 MG Tab PO SCH (08:39)
[2019-03-13] MEDS: Furosemide 40 MG Tab PO SCH (08:39)
[2019-03-13] MEDS: Metoprolol Succinate 50 MG Tab.ER PO SCH (08:39)
[2019-03-13] MEDS: Meropenem Premix 1 GM in Premix Bag 1 BAG IV SCH (08:39)
[2019-03-13] MEDS ORDERED: Metoprolol Succinate 50 MG Tab.ER PO SCH (09:00)
--- NOTE | 2019-03-13 15:05 | PCM.PN ---
<Israel Hyde - Last Filed: 03/13/19 16:26> - General Info Date of Service: 03/13/19 Subjective Update: no acute events overnight. doing well this morning. denies any pain. has been having BMs and voiding. Getting up and ambulating on her own with walker. - Patient Data Vitals - Most Recent: Last Vital Signs Temp 36.7 C 03/13/19 12:00 Pulse 81 03/13/19 12:00 Resp 18 03/13/19 12:00 BP 146/83 H 03/13/19 12:00 Pulse Ox 96 03/13/19 12:00 Weight - Most Recent: 84.1 kg I&O - Last 24 Hours: Intake & Output 03/13/19 03/13/19 03/13/19 06:59 14:59 22:59 Intake Total 500 300 Output Total 500 Balance 0 300 Lab Results Last 24 Hours: Laboratory Results - last 24 hr 03/12/19 03/12/19 03/12/19 Range/Units 07:49 11:53 17:13 WBC (4.0-11.0) K/uL RBC (4.30-5.90) M/uL Hgb (12.0-16.0) g/dL Hct (36.0-46.0) % MCV (80.0-98.0) fL MCH (27.0-32.0) pg MCHC (31.0-37.0) g/dL RDW Std Deviation (28.0-62.0) fl RDW Coeff of Marjorie (11.0-15.0) % Plt Count (150-400) K/uL MPV (7.40-12.00) fL Neut % (Auto) (48.0-80.0) % Lymph % (Auto) (16.0-40.0) % [place] % (Auto) (0.0-15.0) % Eos % (Auto) (0.0-7.0) % Baso % (Auto) (0.0-1.5) % Neut # (Auto) (1.4-5.7) K/uL Lymph # (Auto) (0.6-2.4) K/uL [place] # (Auto) (0.0-0.8) K/uL Eos # (Auto) (0.0-0.7) K/uL Baso # (Auto) (0.0-0.1) K/uL Nucleated RBC % /100WBC Nucleated RBCs # K/uL Sodium (136-145) mmol/L Potassium (3.5-5.1) mmol/L Chloride (98-107) mmol/L Carbon Dioxide (21.0-32.0) mmol/L BUN (7.0-18.0) mg/dL Creatinine (0.6-1.0) mg/dL Est Cr Clr Drug Dosing mL/min Estimated GFR (MDRD) ml/min Glucose (74-106) mg/dL POC Glucose 126 H 167 H 150 H (60-110) mg/dL Calcium (8.5-10.1) mg/dL Total Bilirubin (0.2-1.0) mg/dL AST (15-37) IU/L ALT (14-63) IU/L Alkaline Phosphatase (46-116) U/L Total Protein (6.4-8.2) g/dL Albumin (3.4-5.0) g/dL Globulin (2.6-4.0) g/dL Albumin/Globulin Ratio (0.9-1.6) Vancomycin Trough (5.0-10.0) ug/mL 03/12/19 03/13/19 03/13/19 Range/Units 22:41 05:45 05:45 WBC 8.63 (4.0-11.0) K/uL RBC 2.97 L (4.30-5.90) M/uL Hgb 9.0 L (12.0-16.0) g/dL Hct 27.9 L (36.0-46.0) % MCV 93.9 (80.0-98.0) fL MCH 30.3 (27.0-32.0) pg MCHC 32.3 (31.0-37.0) g/dL RDW Std Deviation 51.4 (28.0-62.0) fl RDW Coeff of Marjorie 15 (11.0-15.0) % Plt Count 201 (150-400) K/uL MPV 9.00 (7.40-12.00) fL Neut % (Auto) 79.3 (48.0-80.0) % Lymph % (Auto) 7.3 L (16.0-40.0) % [place] % (Auto) 12.5 (0.0-15.0) % Eos % (Auto) 0.9 (0.0-7.0) % Baso % (Auto) 0.0 (0.0-1.5) % Neut # (Auto) 6.8 H (1.4-5.7) K/uL Lymph # (Auto) 0.6 (0.6-2.4) K/uL [place] # (Auto) 1.1 H (0.0-0.8) K/uL Eos # (Auto) 0.1 (0.0-0.7) K/uL Baso # (Auto) 0.0 (0.0-0.1) K/uL Nucleated RBC % 0.0 /100WBC Nucleated RBCs # 0 K/uL Sodium 139 (136-145) mmol/L Potassium 3.5 (3.5-5.1) mmol/L Chloride 107 (98-107) mmol/L Carbon Dioxide 25.2 (21.0-32.0) mmol/L BUN 20 H (7.0-18.0) mg/dL Creatinine 1.3 H (0.6-1.0) mg/dL Est Cr Clr Drug Dosing 30.38 mL/min Estimated GFR (MDRD) 40.5 ml/min Glucose 163 H (74-106) mg/dL POC Glucose 146 H (60-110) mg/dL Calcium 8.5 (8.5-10.1) mg/dL Total Bilirubin 0.3 (0.2-1.0) mg/dL AST 13 L (15-37) IU/L ALT 13 L (14-63) IU/L Alkaline Phosphatase 71 (46-116) U/L Total Protein 6.2 L (6.4-8.2) g/dL Albumin 1.8 L (3.4-5.0) g/dL Globulin 4.4 H (2.6-4.0) g/dL Albumin/Globulin Ratio 0.4 L (0.9-1.6) Vancomycin Trough (5.0-10.0) ug/mL 03/13/19 03/13/19 03/13/19 Range/Units 06:27 10:03 11:17 WBC (4.0-11.0) K/uL RBC (4.30-5.90) M/uL Hgb (12.0-16.0) g/dL Hct (36.0-46.0) % MCV (80.0-98.0) fL MCH (27.0-32.0) pg MCHC (31.0-37.0) g/dL RDW Std Deviation (28.0-62.0) fl RDW Coeff of Marjorie (11.0-15.0) % Plt Count (150-400) K/uL MPV (7.40-12.00) fL Neut % (Auto) (48.0-80.0) % Lymph % (Auto) (16.0-40.0) % [place] % (Auto) (0.0-15.0) % Eos % (Auto) (0.0-7.0) % Baso % (Auto) (0.0-1.5) % Neut # (Auto) (1.4-5.7) K/uL Lymph # (Auto) (0.6-2.4) K/uL [place] # (Auto) (0.0-0.8) K/uL Eos # (Auto) (0.0-0.7) K/uL Baso # (Auto) (0.0-0.1) K/uL Nucleated RBC % /100WBC Nucleated RBCs # K/uL Sodium (136-145) mmol/L Potassium (3.5-5.1) mmol/L Chloride (98-107) mmol/L Carbon Dioxide (21.0-32.0) mmol/L BUN (7.0-18.0) mg/dL Creatinine (0.6-1.0) mg/dL Est Cr Clr Drug Dosing mL/min Estimated GFR (MDRD) ml/min Glucose (74-106) mg/dL POC Glucose 143 H 190 H (60-110) mg/dL Calcium (8.5-10.1) mg/dL Total Bilirubin (0.2-1.0) mg/dL AST (15-37) IU/L ALT (14-63) IU/L Alkaline Phosphatase (46-116) U/L Total Protein (6.4-8.2) g/dL Albumin (3.4-5.0) g/dL Globulin (2.6-4.0) g/dL Albumin/Globulin Ratio (0.9-1.6) Vancomycin Trough 15.8 H (5.0-10.0) ug/mL Jareth Results Last 24 Hours: Microbiology 03/11/19 10:17 Aerobic Blood Culture - Preliminary Blood - Venous NO GROWTH AFTER 2 DAYS Anaerobic Blood Culture - Preliminary NO GROWTH AFTER 2 DAYS 03/11/19 10:32 Aerobic Blood Culture - Preliminary Blood - Venous - Lab Draw NO GROWTH AFTER 2 DAYS Anaerobic Blood Culture - Preliminary NO GROWTH AFTER 2 DAYS 03/10/19 17:14 Aerobic Blood Culture - Final Blood - Venous Staphylococcus Aureus Anaerobic Blood Culture - Final 03/10/19 17:34 Aerobic Blood Culture - Preliminary Blood - Venous - Lab Draw NO GROWTH AFTER 2 DAYS Anaerobic Blood Culture - Final Med Orders - Current: Current Medications Acetaminophen (Tylenol) 650 mg PO Q4H PRN PRN Reason: Pain (Mild 1-3)/fever Last Admin: 03/10/19 21:48 Dose: 650 mg Baclofen (Lioresal) 20 mg PO BIDMEALS [facility] Baclofen (Lioresal) 40 mg PO BEDTIME [facility] Dextrose/Water (Dextrose 50% In Water) 50 ml IVPUSH ONETIME PRN PRN Reason: Hypoglycemia Docusate Sodium (Colace) 100 mg PO BID PRN PRN Reason: Constipation Fluoxetine HCl (Prozac) 10 mg PO DAILY [facility] Last Admin: 03/13/19 08:38 Dose: 10 mg Furosemide (Lasix) 40 mg PO DAILY [facility] Last Admin: 03/13/19 08:39 Dose: 40 mg Meropenem/Sodium Chloride 1 gm (/ Premix) 50 mls @ 100 mls/hr IV Q12H [facility] Last Admin: 03/13/19 08:39 Dose: 100 mls/hr Vancomycin HCl 1.25 gm/ Sodium (Chloride) 250 mls @ 166.667 mls/hr IV Q24H [facility] Last Admin: 03/13/19 11:57 Dose: 166.667 mls/hr Insulin Aspart (Novolog) 0 unit SUBCUT TIDAC [facility]; Protocol Last Admin: 03/13/19 11:55 Dose: 1 unit Labetalol HCl (Normodyne) 10 mg IVPUSH Q6H PRN; Protocol PRN Reason: Systolic >180 mm hg Metoprolol Succinate (Toprol Xl) 50 mg PO DAILY [facility] Last Admin: 03/13/19 08:39 Dose: 50 mg Ondansetron HCl (Zofran Odt) 4 mg PO Q4H PRN PRN Reason: nausea, able to take PO Ondansetron HCl (Zofran) 4 mg IVPUSH Q4H PRN PRN Reason: Nausea Oxycodone/Acetaminophen (Percocet 325-5 Mg) 1 tab PO Q4H PRN PRN Reason: Pain (moderate 4-6) Rivaroxaban (Xarelto) 20 mg PO DAILY [facility] Last Admin: 03/13/19 08:39 Dose: 20 mg Rosuvastatin Calcium (Crestor) 20 mg PO BEDTIME [facility] Last Admin: 03/12/19 20:51 Dose: 20 mg Tamsulosin HCl (Flomax) 0.4 mg PO BEDTIME [facility] Last Admin: 03/12/19 20:51 Dose: 0.4 mg Vancomycin HCl (Pharmacy To Dose - Vancomycin) 1 dose .XX ASDIRECTED [facility] Discontinued Medications Sodium Chloride (Normal Saline) 1,000 mls @ 125 mls/hr IV STAT ONE Stop: 03/11/19 01:00 Last Infusion: 03/10/19 17:25 Dose: 125 mls/hr Vancomycin HCl 1 gm/ Sodium (Chloride) 250 mls @ 166 mls/hr IV ONETIME ONE Stop: 03/10/19 19:08 Last Admin: 03/10/19 18:14 Dose: 166 mls/hr Piperacillin Sod/Tazobactam (Sod 3.375 gm/ Sodium Chloride) 50 mls @ 100 mls/ hr IV ONETIME ONE Stop: 03/10/19 18:52 Last Admin: 03/10/19 18:25 Dose: Not Given Ceftriaxone Sodium/Dextrose 2 (gm/ Premix) 50 mls @ 100 mls/hr IV ONETIME ONE Stop: 03/10/19 18:53 Last Admin: 03/10/19 20:08 Dose: Not Given Meropenem 1 gm/ Sodium (Chloride) 100 mls @ 200 mls/hr IV Q8H [facility] Last Admin: 03/10/19 20:22 Dose: Not Given Sodium Chloride (Normal Saline) 1,000 mls @ 999 mls/hr IV STAT ONE Stop: 03/10/19 20:15 Last Admin: 03/10/19 19:45 Dose: 999 mls/hr Sodium Chloride (Normal Saline) 1,000 mls @ 125 mls/hr IV CONTINUOUS [facility] Last Admin: 03/11/19 04:56 Dose: 125 mls/hr Meropenem/Sodium Chloride (Meropenem) 50 mls @ 100 mls/hr IV Q12H [facility] Last Admin: 03/10/19 21:48 Dose: 100 mls/hr Meropenem/Sodium Chloride (Meropenem) Confirm Administered Dose 50 mls @ as directed IV .STK-MED ONE Stop: 03/10/19 20:52 Last Admin: 03/10/19 21:54 Dose: Not Given Norepinephrine Bitartrate (Norepinephr-0.9% Nacl 4 Mg/250) 4 mg in 250 mls @ 7.5 mls/hr IV TITRATE [facility]; Protocol Acetaminophen 1,000 mg/ Premix 100 mls @ 400 mls/hr IV NOW ONE Stop: 03/11/19 13:02 Last Admin: 03/11/19 12:52 Dose: 400 mls/hr Acetaminophen (Ofirmev) Confirm Administered Dose 100 mls @ as directed IV .STK- MED ONE Stop: 03/11/19 12:50 Last Admin: 03/11/19 13:32 Dose: Not Given Sodium Chloride (Normal Saline) 1,000 mls @ 75 mls/hr IV ASDIRECTED [facility] Last Admin: 03/11/19 17:38 Dose: 75 mls/hr Metoprolol Succinate (Toprol Xl) 50 mg PO DAILY [facility] Metoprolol Succinate (Toprol Xl) 50 mg PO DAILY [facility] Morphine Sulfate (Morphine) 2 mg IVPUSH Q2H PRN PRN Reason: Pain (severe 7-10) Stop: 03/11/19 19:09 Propofol (Diprivan 20 Ml) Confirm Administered Dose 200 mg .ROUTE .STK-MED ONE Stop: 03/11/19 11:38 Ramipril (Altace) 10 mg PO DAILY [facility] Last Admin: 03/12/19 20:42 Dose: Not Given Sugammadex Sodium (Bridion) Confirm Administered Dose 200 mg .ROUTE .STK-MED ONE Stop: 03/11/19 10:20 Tamsulosin HCl (Flomax) 0.4 mg PO BEDTIME [facility] - Exam General: Alert, Oriented, Cooperative, No Acute Distress Lungs: Clear to Auscultation, Normal Respiratory Effort Cardiovascular: Regular Rate, Regular Rhythm GI/Abdominal Exam: Normal Bowel Sounds, Soft, Non-Tender Extremities: Normal Inspection, No Pedal Edema Skin: Warm, Dry - Problem List Review Problem List Initiated/Reviewed/Updated: Yes - My Orders Last 24 Hours: My Active Orders 03/12/19 20:11 Docusate Sodium [Colace] 100 mg PO BID PRN 03/12/19 20:17 Metoprolol Succinate [Toprol XL] 50 mg PO DAILY 03/12/19 21:00 Rosuvastatin [Crestor] 20 mg PO BEDTIME 03/13/19 09:00 FLUoxetine [PROzac] 10 mg PO DAILY Furosemide [Lasix] 40 mg PO DAILY 03/13/19 17:00 Baclofen [Lioresal] 20 mg PO BIDMEALS 03/13/19 21:00 Baclofen [Lioresal] 40 mg PO BEDTIME - Assessment Assessment:: A: 1. Staph aureus bacteremia 2. Bilateral hydronephrosis s/p cystoscopy with stent placement 3. MAI, improving 4. Type 2 diabetes 5. Hypertension 5. Hx of PE on xarelto P: Will continue with Vancomycin Q24H for now due to staph aureus bacteremia. Patient will be going to [place] tomorrow. Will plan to do 2 weeks of IV antibiotics. Dispo: dc tomorrow to [place]. - Plan Plan:: I have seen and evaluated the patient and agree with the residents note unless specified in my note <[email or web address] - Last Filed: 03/14/19 21:31> - Patient Data Vitals - Most Recent: Last Vital Signs Temp 36.2 C 03/14/19 07:58 Pulse 62 03/14/19 10:19 Resp 18 03/14/19 07:58 BP 140/67 03/14/19 10:19 Pulse Ox 93 L 03/14/19 07:58 I&O - Last 24 Hours: Intake & Output 03/14/19 03/14/19 03/14/19 06:59 14:59 22:59 Intake Total 300 710 Output Total 400 400 Balance -100 310 Jareth Results Last 24 Hours: Microbiology 03/10/19 17:34 Aerobic Blood Culture - Preliminary Blood - Venous - Lab Draw NO GROWTH AFTER 4 DAYS Anaerobic Blood Culture - Final 03/11/19 10:17 Aerobic Blood Culture - Preliminary Blood - Venous NO GROWTH AFTER 3 DAYS Anaerobic Blood Culture - Preliminary NO GROWTH AFTER 3 DAYS 03/11/19 10:32 Aerobic Blood Culture - Preliminary Blood - Venous - Lab Draw NO GROWTH AFTER 3 DAYS Anaerobic Blood Culture - Preliminary NO GROWTH AFTER 3 DAYS 03/10/19 17:14 Aerobic Blood Culture - Final Blood - Venous Staphylococcus Aureus Anaerobic Blood Culture - Final Med Orders - Current: Current Medications Discontinued Medications Acetaminophen (Tylenol) 650 mg PO Q4H PRN PRN Reason: Pain (Mild 1-3)/fever Last Admin: 03/10/19 21:48 Dose: 650 mg Baclofen (Lioresal) 20 mg PO BIDMEALS [facility] Last Admin: 03/14/19 10:19 Dose: 20 mg Baclofen (Lioresal) 40 mg PO BEDTIME [facility] Last Admin: 03/13/19 20:37 Dose: 40 mg Dextrose/Water (Dextrose 50% In Water) 50 ml IVPUSH ONETIME PRN PRN Reason: Hypoglycemia Docusate Sodium (Colace) 100 mg PO BID PRN PRN Reason: Constipation Fluoxetine HCl (Prozac) 10 mg PO DAILY [facility] Last Admin: 03/14/19 10:19 Dose: 10 mg Furosemide (Lasix) 40 mg PO DAILY [facility] Last Admin: 03/14/19 10:18 Dose: 40 mg Sodium Chloride (Normal Saline) 1,000 mls @ 125 mls/hr IV STAT ONE Stop: 03/11/19 01:00 Last Infusion: 03/10/19 17:25 Dose: 125 mls/hr Vancomycin HCl 1 gm/ Sodium (Chloride) 250 mls @ 166 mls/hr IV ONETIME ONE Stop: 03/10/19 19:08 Last Admin: 03/10/19 18:14 Dose: 166 mls/hr Piperacillin Sod/Tazobactam (Sod 3.375 gm/ Sodium Chloride) 50 mls @ 100 mls/ hr IV ONETIME ONE Stop: 03/10/19 18:52 Last Admin: 03/10/19 18:25 Dose: Not Given Ceftriaxone Sodium/Dextrose 2 (gm/ Premix) 50 mls @ 100 mls/hr IV ONETIME ONE Stop: 03/10/19 18:53 Last Admin: 03/10/19 20:08 Dose: Not Given Meropenem 1 gm/ Sodium (Chloride) 100 mls @ 200 mls/hr IV Q8H [facility] Last Admin: 03/10/19 20:22 Dose: Not Given Sodium Chloride (Normal Saline) 1,000 mls @ 999 mls/hr IV STAT ONE Stop: 03/10/19 20:15 Last Admin: 03/10/19 19:45 Dose: 999 mls/hr Sodium Chloride (Normal Saline) 1,000 mls @ 125 mls/hr IV CONTINUOUS [facility] Last Admin: 03/11/19 04:56 Dose: 125 mls/hr Meropenem/Sodium Chloride (Meropenem) 50 mls @ 100 mls/hr IV Q12H [facility] Last Admin: 03/10/19 21:48 Dose: 100 mls/hr Meropenem/Sodium Chloride (Meropenem) Confirm Administered Dose 50 mls @ as directed IV .STK-MED ONE Stop: 03/10/19 20:52 Last Admin: 03/10/19 21:54 Dose: Not Given Norepinephrine Bitartrate (Norepinephr-0.9% Nacl 4 Mg/250) 4 mg in 250 mls @ 7.5 mls/hr IV TITRATE [facility]; Protocol Meropenem/Sodium Chloride 1 gm (/ Premix) 50 mls @ 100 mls/hr IV Q12H [facility] Last Admin: 03/13/19 08:39 Dose: 100 mls/hr Vancomycin HCl 1.25 gm/ Sodium (Chloride) 250 mls @ 166.667 mls/hr IV Q24H [facility] Last Admin: 03/14/19 10:13 Dose: 166.667 mls/hr Acetaminophen 1,000 mg/ Premix 100 mls @ 400 mls/hr IV NOW ONE Stop: 03/11/19 13:02 Last Admin: 03/11/19 12:52 Dose: 400 mls/hr Acetaminophen (Ofirmev) Confirm Administered Dose 100 mls @ as directed IV .STK- MED ONE Stop: 03/11/19 12:50 Last Admin: 03/11/19 13:32 Dose: Not Given Sodium Chloride (Normal Saline) 1,000 mls @ 75 mls/hr IV ASDIRECTED [facility] Last Admin: 03/11/19 17:38 Dose: 75 mls/hr Insulin Aspart (Novolog) 0 unit SUBCUT TIDAC [facility]; Protocol Last Admin: 03/14/19 10:56 Dose: 1 unit Labetalol HCl (Normodyne) 10 mg IVPUSH Q6H PRN; Protocol PRN Reason: Systolic >180 mm hg Melatonin (Melatonin) 6 mg PO BEDTIME [facility] Last Admin: 03/13/19 20:35 Dose: 6 mg Metoprolol Succinate (Toprol Xl) 50 mg PO DAILY [facility] Metoprolol Succinate (Toprol Xl) 50 mg PO DAILY [facility] Metoprolol Succinate (Toprol Xl) 50 mg PO DAILY [facility] Last Admin: 03/14/19 10:19 Dose: 50 mg Morphine Sulfate (Morphine) 2 mg IVPUSH Q2H PRN PRN Reason: Pain (severe 7-10) Stop: 03/11/19 19:09 Ondansetron HCl (Zofran Odt) 4 mg PO Q4H PRN PRN Reason: nausea, able to take PO Ondansetron HCl (Zofran) 4 mg IVPUSH Q4H PRN PRN Reason: Nausea Oxycodone/Acetaminophen (Percocet 325-5 Mg) 1 tab PO Q4H PRN PRN Reason: Pain (moderate 4-6) Propofol (Diprivan 20 Ml) Confirm Administered Dose 200 mg .ROUTE .STK-MED ONE Stop: 03/11/19 11:38 Ramipril (Altace) 10 mg PO DAILY [facility] Last Admin: 03/12/19 20:42 Dose: Not Given Rivaroxaban (Xarelto) 20 mg PO DAILY [facility] Last Admin: 03/14/19 10:18 Dose: 20 mg Rosuvastatin Calcium (Crestor) 20 mg PO BEDTIME [facility] Last Admin: 03/13/19 20:35 Dose: 20 mg Sugammadex Sodium (Bridion) Confirm Administered Dose 200 mg .ROUTE .STK-MED ONE Stop: 03/11/19 10:20 Tamsulosin HCl (Flomax) 0.4 mg PO BEDTIME [facility] Tamsulosin HCl (Flomax) 0.4 mg PO BEDTIME [facility] Last Admin: 03/13/19 20:35 Dose: 0.4 mg Temazepam (Restoril) 15 mg PO BEDTIME PRN PRN Reason: Insomnia Vancomycin HCl (Pharmacy To Dose - Vancomycin) 1 dose .XX ASDIRECTED [facility] - Problem List & Annotations (1) Pyelonephritis SNOMED Code(s): 69268372 Code(s): N12 - TUBULO-INTERSTITIAL NEPHRITIS, NOT SPCF ACUTE OR CHRONIC Status: Acute (2) Hydronephrosis SNOMED Code(s): 17434981 Code(s): N13.30 - UNSPECIFIED HYDRONEPHROSIS Status: Acute (3) MAI (acute kidney injury) SNOMED Code(s): 45042457, 58678343 Code(s): N17.9 - ACUTE KIDNEY FAILURE, UNSPECIFIED Status: Resolved - Plan Plan:: I have seen and evaluated the patient and agree with the residents note unless specified in my note
[2019-03-13] MEDS: Baclofen 10 MG Tab PO SCH (17:38)
[2019-03-13] MEDS ORDERED: Temazepam 15 MG Cap PO PRN (17:45)
[2019-03-13] MEDS: Tamsulosin 0.4 MG Cap.ER PO SCH (20:35)
[2019-03-13] MEDS: Rosuvastatin 10 MG Tab PO SCH (20:35)
[2019-03-13] MEDS ORDERED: Baclofen 10 MG Tab PO SCH (21:00)
[2019-03-13] MEDS ORDERED: Melatonin 3 MG Tab PO SCH (21:00)
[2019-03-14] MEDS: Insulin Aspart 100 Units/ML 3 ML Pen SUBCUT SCH ×2 (07:51→10:56)
[2019-03-14 07:59] VITALS: BP 140/67; PULSE 62
[2019-03-14] MEDS: Furosemide 40 MG Tab PO SCH (10:18)
[2019-03-14] MEDS: Rivaroxaban 10 MG Tab PO SCH (10:18)
[2019-03-14] MEDS: Metoprolol Succinate 50 MG Tab.ER PO SCH (10:19)
[2019-03-14] MEDS: Baclofen 10 MG Tab PO SCH (10:19)
--- NOTE | 2019-03-14 10:44 | PCM.DCSUM1 ---
<Israel Hyde - Last Filed: 03/14/19 13:50> Discharge Summary - Hospital Course Free Text/Narrative:: 68 y/o female with history of recurrent UTIs who presented to the ER from [facility] for fever, confusion. She was found to be septic and admitted for severe sepsis secondary to pyelonephritis. Patient had previous undergone a cystoscopy with stent placement on left kidney about [address] abdomen/pelvis showed bilateral hydronephrosis with a 6 mm right ureter stone. She was started on Meropenem and urology, Sr. Ortiz was consulted who performed a right cystoscopy with stent placement. She was found to have a UTI which was growing Staph Aureus and bacteremic as well with Staph Aureus. Vancomycin was started on top Meropenem until susceptibilities returned. After stent placement, patient looked much better. She was discharged to [facility] to finish 14 day course of IV Vancomycin. She was advised to follow-up with urology after finishing iv antibiotics. - Discharge Data Discharge Date: 03/14/19 Discharge Disposition: DC/Tfer to [facility] 03 Condition: Good - Referral to Home Health Primary Care Physician: Delia Garcia MD - Patient Summary/Data Consults: Consultations 03/10/19 18:48 Consult to Physician [CONS] Stat - Patient Instructions Diet: Diabetic Diet Activity: As Tolerated Notify Provider of: Fever, Increased Pain, Swelling and Redness, Drainage, Nausea and/or Vomiting Other/Special Instructions: Follow-up with Urology after finishing IV antibiotics. - Discharge Plan Prescriptions/Med Rec: Vancomycin 1.25 gm IV Q24H 14 Days #17.5 gm Home Medications: Home Meds Furosemide 40 mg PO DAILY 12/26/15 [History] Potassium Chloride [K-Tab ER] 20 meq PO DAILY 12/26/15 [History] Ramipril 10 mg PO DAILY 12/26/15 [History] Rosuvastatin [Crestor] 20 mg PO BEDTIME 12/26/15 [History] FLUoxetine [PROzac] 10 mg PO DAILY 04/01/18 [History] Rivaroxaban [Xarelto] 20 mg PO DAILY 04/01/18 [History] Melatonin/Pyridoxine HCl (B6) [Melatonin 5 mg Tablet] 5 mg PO DAILY 01/08/19 [ History] Tamsulosin HCl 0.4 mg PO BEDTIME 02/11/19 [History] Ferrous Sulfate 325 mg PO DAILY 02/12/19 [History] Baclofen 20 mg PO BIDMEALS #14 tablet 02/16/19 [Rx] Baclofen 40 mg PO BEDTIME #14 tablet 02/16/19 [Rx] Docusate Sodium [Colace] 100 mg PO BID PRN cap 02/16/19 [Rx] Nystatin [Nystop] 1 applic TOP TID bottle 02/16/19 [Rx] metFORMIN [Glucophage] 1,000 mg PO BIDMEALS #14 tab 02/16/19 [Rx] Acetaminophen [Tylenol] 650 mg PO Q6H PRN 03/10/19 [History] Metoprolol Succinate 50 mg PO DAILY 03/10/19 [History] Vancomycin 1.25 gm IV Q24H 14 Days #17.5 gm 03/13/19 [Rx] Patient Handouts: Pyelonephritis, Adult, Hydronephrosis Referrals: Delia Garcia MD [Primary Care Provider] - 03/24/19 10:45 am - Discharge Summary/Plan Comment DC Time >30 min.: No - Patient Data Vitals - Most Recent: Last Vital Signs Temp 36.2 C 03/14/19 07:58 Pulse 62 03/14/19 10:19 Resp 18 03/14/19 07:58 BP 140/67 03/14/19 10:19 Pulse Ox 93 L 03/14/19 07:58 Weight - Most Recent: 84.1 kg I&O - Last 24 hours: Intake & Output 03/13/19 03/14/19 03/14/19 22:59 06:59 14:59 Intake Total 200 300 Output Total 675 400 Balance -475 -100 Lab Results - Last 24 hrs: Laboratory Results - last 24 hr 03/13/19 03/13/19 03/13/19 Range/Units 10:03 11:17 17:33 POC Glucose 190 H 165 H (60-110) mg/dL Vancomycin Trough 15.8 H (5.0-10.0) ug/mL SELVIN Results - Last 24 hrs: Microbiology 03/11/19 10:17 Aerobic Blood Culture - Preliminary Blood - Venous NO GROWTH AFTER 3 DAYS Anaerobic Blood Culture - Preliminary NO GROWTH AFTER 3 DAYS 03/11/19 10:32 Aerobic Blood Culture - Preliminary Blood - Venous - Lab Draw NO GROWTH AFTER 3 DAYS Anaerobic Blood Culture - Preliminary NO GROWTH AFTER 3 DAYS 03/10/19 17:14 Aerobic Blood Culture - Final Blood - Venous Staphylococcus Aureus Anaerobic Blood Culture - Final 03/10/19 17:34 Aerobic Blood Culture - Preliminary Blood - Venous - Lab Draw NO GROWTH AFTER 3 DAYS Anaerobic Blood Culture - Final Med Orders - Current: Current Medications Acetaminophen (Tylenol) 650 mg PO Q4H PRN PRN Reason: Pain (Mild 1-3)/fever Last Admin: 03/10/19 21:48 Dose: 650 mg Baclofen (Lioresal) 20 mg PO BIDMEALS [facility] Last Admin: 03/14/19 10:19 Dose: 20 mg Baclofen (Lioresal) 40 mg PO BEDTIME [facility] Last Admin: 03/13/19 20:37 Dose: 40 mg Dextrose/Water (Dextrose 50% In Water) 50 ml IVPUSH ONETIME PRN PRN Reason: Hypoglycemia Docusate Sodium (Colace) 100 mg PO BID PRN PRN Reason: Constipation Fluoxetine HCl (Prozac) 10 mg PO DAILY [facility] Last Admin: 03/14/19 10:19 Dose: 10 mg Furosemide (Lasix) 40 mg PO DAILY [facility] Last Admin: 03/14/19 10:18 Dose: 40 mg Vancomycin HCl 1.25 gm/ Sodium (Chloride) 250 mls @ 166.667 mls/hr IV Q24H [facility] Last Admin: 03/14/19 10:13 Dose: 166.667 mls/hr Insulin Aspart (Novolog) 0 unit SUBCUT TIDAC [facility]; Protocol Last Admin: 03/14/19 07:51 Dose: Not Given Labetalol HCl (Normodyne) 10 mg IVPUSH Q6H PRN; Protocol PRN Reason: Systolic >180 mm hg Melatonin (Melatonin) 6 mg PO BEDTIME [facility] Last Admin: 03/13/19 20:35 Dose: 6 mg Metoprolol Succinate (Toprol Xl) 50 mg PO DAILY [facility] Last Admin: 03/14/19 10:19 Dose: 50 mg Ondansetron HCl (Zofran Odt) 4 mg PO Q4H PRN PRN Reason: nausea, able to take PO Ondansetron HCl (Zofran) 4 mg IVPUSH Q4H PRN PRN Reason: Nausea Oxycodone/Acetaminophen (Percocet 325-5 Mg) 1 tab PO Q4H PRN PRN Reason: Pain (moderate 4-6) Rivaroxaban (Xarelto) 20 mg PO DAILY [facility] Last Admin: 03/14/19 10:18 Dose: 20 mg Rosuvastatin Calcium (Crestor) 20 mg PO BEDTIME [facility] Last Admin: 03/13/19 20:35 Dose: 20 mg Tamsulosin HCl (Flomax) 0.4 mg PO BEDTIME [facility] Last Admin: 03/13/19 20:35 Dose: 0.4 mg Temazepam (Restoril) 15 mg PO BEDTIME PRN PRN Reason: Insomnia Vancomycin HCl (Pharmacy To Dose - Vancomycin) 1 dose .XX ASDIRECTED [facility] Discontinued Medications Sodium Chloride (Normal Saline) 1,000 mls @ 125 mls/hr IV STAT ONE Stop: 03/11/19 01:00 Last Infusion: 03/10/19 17:25 Dose: 125 mls/hr Vancomycin HCl 1 gm/ Sodium (Chloride) 250 mls @ 166 mls/hr IV ONETIME ONE Stop: 03/10/19 19:08 Last Admin: 03/10/19 18:14 Dose: 166 mls/hr Piperacillin Sod/Tazobactam (Sod 3.375 gm/ Sodium Chloride) 50 mls @ 100 mls/ hr IV ONETIME ONE Stop: 03/10/19 18:52 Last Admin: 03/10/19 18:25 Dose: Not Given Ceftriaxone Sodium/Dextrose 2 (gm/ Premix) 50 mls @ 100 mls/hr IV ONETIME ONE Stop: 03/10/19 18:53 Last Admin: 03/10/19 20:08 Dose: Not Given Meropenem 1 gm/ Sodium (Chloride) 100 mls @ 200 mls/hr IV Q8H [facility] Last Admin: 03/10/19 20:22 Dose: Not Given Sodium Chloride (Normal Saline) 1,000 mls @ 999 mls/hr IV STAT ONE Stop: 03/10/19 20:15 Last Admin: 03/10/19 19:45 Dose: 999 mls/hr Sodium Chloride (Normal Saline) 1,000 mls @ 125 mls/hr IV CONTINUOUS [facility] Last Admin: 03/11/19 04:56 Dose: 125 mls/hr Meropenem/Sodium Chloride (Meropenem) 50 mls @ 100 mls/hr IV Q12H [facility] Last Admin: 03/10/19 21:48 Dose: 100 mls/hr Meropenem/Sodium Chloride (Meropenem) Confirm Administered Dose 50 mls @ as directed IV .STK-MED ONE Stop: 03/10/19 20:52 Last Admin: 03/10/19 21:54 Dose: Not Given Norepinephrine Bitartrate (Norepinephr-0.9% Nacl 4 Mg/250) 4 mg in 250 mls @ 7.5 mls/hr IV TITRATE [facility]; Protocol Meropenem/Sodium Chloride 1 gm (/ Premix) 50 mls @ 100 mls/hr IV Q12H [facility] Last Admin: 03/13/19 08:39 Dose: 100 mls/hr Acetaminophen 1,000 mg/ Premix 100 mls @ 400 mls/hr IV NOW ONE Stop: 03/11/19 13:02 Last Admin: 03/11/19 12:52 Dose: 400 mls/hr Acetaminophen (Ofirmev) Confirm Administered Dose 100 mls @ as directed IV .STK- MED ONE Stop: 03/11/19 12:50 Last Admin: 03/11/19 13:32 Dose: Not Given Sodium Chloride (Normal Saline) 1,000 mls @ 75 mls/hr IV ASDIRECTED [facility] Last Admin: 03/11/19 17:38 Dose: 75 mls/hr Metoprolol Succinate (Toprol Xl) 50 mg PO DAILY [facility] Metoprolol Succinate (Toprol Xl) 50 mg PO DAILY [facility] Morphine Sulfate (Morphine) 2 mg IVPUSH Q2H PRN PRN Reason: Pain (severe 7-10) Stop: 03/11/19 19:09 Propofol (Diprivan 20 Ml) Confirm Administered Dose 200 mg .ROUTE .STK-MED ONE Stop: 03/11/19 11:38 Ramipril (Altace) 10 mg PO DAILY [facility] Last Admin: 03/12/19 20:42 Dose: Not Given Sugammadex Sodium (Bridion) Confirm Administered Dose 200 mg .ROUTE .STK-MED ONE Stop: 03/11/19 10:20 Tamsulosin HCl (Flomax) 0.4 mg PO BEDTIME [facility] <Jony Haywood - Last Filed: 03/16/19 19:30> Discharge Summary - Hospital Course HPI Initial Comments: I have seen and evaluated the patient and agree with the residents note unless specified in my note - Referral to Home Health Primary Care Physician: Delia Garcia MD - Discharge Diagnosis/Problem(s) (1) Pyelonephritis SNOMED Code(s): 87949028 ICD Code: N12 - TUBULO-INTERSTITIAL NEPHRITIS, NOT SPCF ACUTE OR CHRONIC Status: Acute (2) Hydronephrosis SNOMED Code(s): 74805633 ICD Code: N13.30 - UNSPECIFIED HYDRONEPHROSIS Status: Acute (3) MAI (acute kidney injury) SNOMED Code(s): 26622605, 12824412 ICD Code: N17.9 - ACUTE KIDNEY FAILURE, UNSPECIFIED Status: Resolved - Patient Summary/Data Consults: Consultations 03/10/19 18:48 Consult to Physician [CONS] Stat - Patient Data Vitals - Most Recent: Last Vital Signs Temp 36.2 C 03/14/19 07:58 Pulse 62 03/14/19 10:19 Resp 18 03/14/19 07:58 BP 140/67 03/14/19 10:19 Pulse Ox 93 L 03/14/19 07:58 SELVIN Results - Last 24 hrs: Microbiology 03/11/19 10:17 Aerobic Blood Culture - Final Blood - Venous NO GROWTH AFTER 5 DAYS Anaerobic Blood Culture - Final NO GROWTH AFTER 5 DAYS 03/11/19 10:32 Aerobic Blood Culture - Final Blood - Venous - Lab Draw NO GROWTH AFTER 5 DAYS Anaerobic Blood Culture - Final NO GROWTH AFTER 5 DAYS 03/10/19 17:34 Aerobic Blood Culture - Final Blood - Venous - Lab Draw NO GROWTH AFTER 5 DAYS Anaerobic Blood Culture - Final Med Orders - Current: Current Medications Discontinued Medications Acetaminophen (Tylenol) 650 mg PO Q4H PRN PRN Reason: Pain (Mild 1-3)/fever Last Admin: 03/10/19 21:48 Dose: 650 mg Baclofen (Lioresal) 20 mg PO BIDMEALS [facility] Last Admin: 03/14/19 10:19 Dose: 20 mg Baclofen (Lioresal) 40 mg PO BEDTIME [facility] Last Admin: 03/13/19 20:37 Dose: 40 mg Dextrose/Water (Dextrose 50% In Water) 50 ml IVPUSH ONETIME PRN PRN Reason: Hypoglycemia Docusate Sodium (Colace) 100 mg PO BID PRN PRN Reason: Constipation Fluoxetine HCl (Prozac) 10 mg PO DAILY [facility] Last Admin: 03/14/19 10:19 Dose: 10 mg Furosemide (Lasix) 40 mg PO DAILY [facility] Last Admin: 03/14/19 10:18 Dose: 40 mg Sodium Chloride (Normal Saline) 1,000 mls @ 125 mls/hr IV STAT ONE Stop: 03/11/19 01:00 Last Infusion: 03/10/19 17:25 Dose: 125 mls/hr Vancomycin HCl 1 gm/ Sodium (Chloride) 250 mls @ 166 mls/hr IV ONETIME ONE Stop: 03/10/19 19:08 Last Admin: 03/10/19 18:14 Dose: 166 mls/hr Piperacillin Sod/Tazobactam (Sod 3.375 gm/ Sodium Chloride) 50 mls @ 100 mls/ hr IV ONETIME ONE Stop: 03/10/19 18:52 Last Admin: 03/10/19 18:25 Dose: Not Given Ceftriaxone Sodium/Dextrose 2 (gm/ Premix) 50 mls @ 100 mls/hr IV ONETIME ONE Stop: 03/10/19 18:53 Last Admin: 03/10/19 20:08 Dose: Not Given Meropenem 1 gm/ Sodium (Chloride) 100 mls @ 200 mls/hr IV Q8H [facility] Last Admin: 03/10/19 20:22 Dose: Not Given Sodium Chloride (Normal Saline) 1,000 mls @ 999 mls/hr IV STAT ONE Stop: 03/10/19 20:15 Last Admin: 03/10/19 19:45 Dose: 999 mls/hr Sodium Chloride (Normal Saline) 1,000 mls @ 125 mls/hr IV CONTINUOUS [facility] Last Admin: 03/11/19 04:56 Dose: 125 mls/hr Meropenem/Sodium Chloride (Meropenem) 50 mls @ 100 mls/hr IV Q12H [facility] Last Admin: 03/10/19 21:48 Dose: 100 mls/hr Meropenem/Sodium Chloride (Meropenem) Confirm Administered Dose 50 mls @ as directed IV .STK-MED ONE Stop: 03/10/19 20:52 Last Admin: 03/10/19 21:54 Dose: Not Given Norepinephrine Bitartrate (Norepinephr-0.9% Nacl 4 Mg/250) 4 mg in 250 mls @ 7.5 mls/hr IV TITRATE [facility]; Protocol Meropenem/Sodium Chloride 1 gm (/ Premix) 50 mls @ 100 mls/hr IV Q12H [facility] Last Admin: 03/13/19 08:39 Dose: 100 mls/hr Vancomycin HCl 1.25 gm/ Sodium (Chloride) 250 mls @ 166.667 mls/hr IV Q24H [facility] Last Admin: 03/14/19 10:13 Dose: 166.667 mls/hr Acetaminophen 1,000 mg/ Premix 100 mls @ 400 mls/hr IV NOW ONE Stop: 03/11/19 13:02 Last Admin: 03/11/19 12:52 Dose: 400 mls/hr Acetaminophen (Ofirmev) Confirm Administered Dose 100 mls @ as directed IV .STK- MED ONE Stop: 03/11/19 12:50 Last Admin: 03/11/19 13:32 Dose: Not Given Sodium Chloride (Normal Saline) 1,000 mls @ 75 mls/hr IV ASDIRECTED [facility] Last Admin: 03/11/19 17:38 Dose: 75 mls/hr Insulin Aspart (Novolog) 0 unit SUBCUT TIDAC [facility]; Protocol Last Admin: 03/14/19 10:56 Dose: 1 unit Labetalol HCl (Normodyne) 10 mg IVPUSH Q6H PRN; Protocol PRN Reason: Systolic >180 mm hg Melatonin (Melatonin) 6 mg PO BEDTIME [facility] Last Admin: 03/13/19 20:35 Dose: 6 mg Metoprolol Succinate (Toprol Xl) 50 mg PO DAILY [facility] Metoprolol Succinate (Toprol Xl) 50 mg PO DAILY [facility] Metoprolol Succinate (Toprol Xl) 50 mg PO DAILY [facility] Last Admin: 03/14/19 10:19 Dose: 50 mg Morphine Sulfate (Morphine) 2 mg IVPUSH Q2H PRN PRN Reason: Pain (severe 7-10) Stop: 03/11/19 19:09 Ondansetron HCl (Zofran Odt) 4 mg PO Q4H PRN PRN Reason: nausea, able to take PO Ondansetron HCl (Zofran) 4 mg IVPUSH Q4H PRN PRN Reason: Nausea Oxycodone/Acetaminophen (Percocet 325-5 Mg) 1 tab PO Q4H PRN PRN Reason: Pain (moderate 4-6) Propofol (Diprivan 20 Ml) Confirm Administered Dose 200 mg .ROUTE .STK-MED ONE Stop: 03/11/19 11:38 Ramipril (Altace) 10 mg PO DAILY [facility] Last Admin: 03/12/19 20:42 Dose: Not Given Rivaroxaban (Xarelto) 20 mg PO DAILY [facility] Last Admin: 03/14/19 10:18 Dose: 20 mg Rosuvastatin Calcium (Crestor) 20 mg PO BEDTIME [facility] Last Admin: 03/13/19 20:35 Dose: 20 mg Sugammadex Sodium (Bridion) Confirm Administered Dose 200 mg .ROUTE .STK-MED ONE Stop: 03/11/19 10:20 Tamsulosin HCl (Flomax) 0.4 mg PO BEDTIME [facility] Tamsulosin HCl (Flomax) 0.4 mg PO BEDTIME [facility] Last Admin: 03/13/19 20:35 Dose: 0.4 mg Temazepam (Restoril) 15 mg PO BEDTIME PRN PRN Reason: Insomnia Vancomycin HCl (Pharmacy To Dose - Vancomycin) 1 dose .XX ASDIRECTED [facility]
== END 2019-03-14 13:30 | DRG 854 ==
LOC: MW.ED 16:38 → MW.ICU 18:44 → MW.ED 19:42 → MW.ICU 20:03 → MW.MS 03-12 14:00
PROVIDERS: ADMIT Student in an Organized Health Care Education/Training Program; ATTEND Student in an Organized Health Care Education/Training Program
PROC: 0T768DZ Dilation of Right Ureter with Intraluminal Device, Via Natural or Artificial Opening Endoscopic (ICD-10-PCS; principal; 2019-03-11)
DX: A41.9 Sepsis, unspecified organism (principal); N13.9 Obstructive and reflux uropathy, unspecified; G35 Multiple sclerosis; A41.01 Sepsis due to Methicillin susceptible Staphylococcus aureus; E11.9 Type 2 diabetes mellitus without complications; H54.7 Unspecified visual loss; I10 Essential (primary) hypertension; R32 Unspecified urinary incontinence; N17.9 Acute kidney failure, unspecified; N13.6 Pyonephrosis; G47.30 Sleep apnea, unspecified; R65.20 Severe sepsis without septic shock; E78.5 Hyperlipidemia, unspecified; Z86.14 Personal history of Methicillin resistant Staphylococcus aureus infection; E78.00 Pure hypercholesterolemia, unspecified; F32.9 Major depressive disorder, single episode, unspecified; F41.9 Anxiety disorder, unspecified; E66.9 Obesity, unspecified; E11.22 Type 2 diabetes mellitus with diabetic chronic kidney disease; I12.9 Hypertensive chronic kidney disease with stage 1 through stage 4 chronic kidney disease, or unspecified chronic kidney disease; Z87.440 Personal history of urinary (tract) infections; Z87.442 Personal history of urinary calculi; N18.9 Chronic kidney disease, unspecified; R10.9 Unspecified abdominal pain; R50.9 Fever, unspecified; I95.9 Hypotension, unspecified; G47.33 Obstructive sleep apnea (adult) (pediatric); Z86.711 Personal history of pulmonary embolism; Z88.1 Allergy status to other antibiotic agents; Z88.0 Allergy status to penicillin; Z91.040 Latex allergy status; Z79.84 Long term (current) use of oral hypoglycemic drugs; Z79.899 Other long term (current) drug therapy; Z86.718 Personal history of other venous thrombosis and embolism; I25.2 Old myocardial infarction; Z98.49 Cataract extraction status, unspecified eye; Z90.89 Acquired absence of other organs; Z79.01 Long term (current) use of anticoagulants
CPT/HCPCS: 36415; 71045; 74176; 80053; 81001; 82962; 83605; 85025; 87040 ×2; 87077; 87086; 87088; 87186 ×2; 96361; 96365; 99285; J3370; J7040; J7050; 00910; 76000; 76000-26; 80202; A9270-GY; C1769; C2625; J0131; J1815-GY; J2185; J2704; J3490

== ENCOUNTER 2019-07-08 05:26 | Emergency (ER) | payer MEDICARE, BC ==
--- NOTE | 2019-07-08 06:13 | EDM.PDOC ---
ED HPI GENERAL MEDICAL PROBLEM - General Chief Complaint: Gastrointestinal Problem Stated Complaint: BLOOD IN STOOL Time Seen by Provider: 07/08/19 05:31 Source of Information: Reports: Patient, Family - History of Present Illness INITIAL COMMENTS - FREE TEXT/NARRATIVE: MD-year-old female on Xarelto for DVT PE presenting with GI bleeding. Patient reports waking up tonight needed to go to the bathroom and having a large clot" filling the toilet bowl with blood." Patient also began to feel lightheaded and dizzy at this time. Patient feels generally weakened. Patient denies a history of coronary artery disease and GI bleeding. She endorses a history of kidney stones. Patient denies any significant recent use of anti- inflammatories however she did take a single dose 2 days ago. Patient denies regular aspirin use. Patient denies fever, chills, nausea, vomiting, vision changes, chest pain, shortness of breath, new joint pain, recent trauma. Does endorse months of bilateral lower abdominal pain which comes and goes and is sharp. - Related Data Allergies Allergy/AdvReac Type Severity Reaction Status Date / Time erythromycin base Allergy Abdominal Verified 07/08/19 06:00 [Erythromycin Base] Pain latex Allergy Rash Verified 07/08/19 06:00 Penicillins Allergy Cannot Verified 07/08/19 06:00 Remember Home Meds: Home Meds Potassium Chloride [K-Tab ER] 20 meq PO DAILY 12/26/15 [History] Ramipril 15 mg PO DAILY 12/26/15 [History] Rosuvastatin [Crestor] 20 mg PO BEDTIME 12/26/15 [History] FLUoxetine [PROzac] 10 mg PO DAILY 04/01/18 [History] Rivaroxaban [Xarelto] 20 mg PO DAILY 04/01/18 [History] Ferrous Sulfate 325 mg PO DAILY 02/12/19 [History] Docusate Sodium [Colace] 100 mg PO BID PRN cap 02/16/19 [Rx] Acetaminophen [Tylenol] 650 mg PO Q6H PRN 03/10/19 [History] Metoprolol Succinate 50 mg PO DAILY 03/10/19 [History] metFORMIN [Glucophage] 500 mg PO BIDMEALS 07/08/19 [History] Past Medical History HEENT History: Reports: Impaired Vision, Other (See Below) Other HEENT History: wears glasses, "starting of macular degeneration" Cardiovascular History: Reports: Blood Clots/VTE/DVT, High Cholesterol, Hypertension, VT Respiratory History: Reports: PE, Sleep Apnea Other Respiratory History: uses BI-PAP Gastrointestinal History: Reports: None Genitourinary History: Reports: Renal Calculus, Urinary Incontinence, UTI, Recurrent Other Genitourinary History: using tens/pads, recent UTI with rt ureteral stone and hospitalized in [place] [employer] History: Reports: Other [employer] History: 2 Musculoskeletal History: Reports: Fracture Other Musculoskeletal History: uses walker Neurological History: Reports: MS Other Neuro History: MS-at age 14, uses walker Psychiatric History: Reports: Anxiety, Depression Other Psychiatric History: on medication with depression Endocrine/Metabolic History: Reports: Diabetes, Type II, Obesity/BMI 30+ Other Endocrine/Metabolic History: thyroid nodules Insulin Pump Model and Coat Baster: None Hematologic History: Reports: None Immunologic History: Reports: Other (See Below) Other Immunologic History: hx MRSA Oncologic (Cancer) History: Reports: None Dermatologic History: Reports: None - Infectious Disease History Infectious Disease History: Reports: Chicken Pox, Measles, Mumps Other Infectious Disease History: had it in the apst - Past Surgical History HEENT Surgical History: Reports: Adenoidectomy, Cataract Surgery, Tonsillectomy Other HEENT Surgeries/Procedures: cyst removed from rt lower eye lid Cardiovascular Surgical History: Reports: None Respiratory Surgical History: Reports: None GI Surgical History: Reports: None Female Surgical History: Reports: None Endocrine Surgical History: Reports: None Neurological Surgical History: Reports: None Musculoskeletal Surgical History: Reports: None Oncologic Surgical History: Reports: None Dermatological Surgical History: Reports: None Social & Family History - Family History Family Medical History: Noncontributory Cardiac: Reports: CAD Other Cardiac Family History: parents - CHF Respiratory: Reports: COPD Other Respiratory Family Hisory: COPD - brother OBGYN: Reports: Neurological: Reports: MS Other Neurological Family History: MS- sister also has MS Endocrine/Metabolic: Reports: Diabetes, type II Other Endocrine/Metabolic Family History: family Hematologic: Reports: Other (See Below) Other Hematologic Family History: brother - leukemia Oncologic: Reports: Breast, Leukemia Other Oncologic Family History: father side - breast cancer - Caffeine Use Caffeine Use: Reports: None ED ROS GENERAL - Review of Systems Review Of Systems: Comprehensive ROS is negative, except as noted in HPI. ED EXAM, GI/ABD - Physical Exam Exam: See Below Text/Narrative:: General: No acute distress. Heent: Examination revealed pallor, no icterus, no lymphadenopathy. The patient has normal posterior pharynx, moist mucous membranes. Neck: Supple. No JVD. No rigidity. Heart: Normal rate. Reg rhythm. No murmurs appreciated. Lungs: Bilaterally clear to auscultation. No focal findings. Abdomen: Obese. Nontender, non-distended, soft, no CVA tenderness. Neuro: Pt is moving all four extremities. EOMI. PERRL. Normal speech. Skin: Exposed areas appeared normally perfused, warm, normal color with no meaningful rashes or lesions. Extremities: Peripheral examination revealed left leg larer than right and venous diseas in the legs. Peripheral pulses were 2+. GI: Clots at the rectum. No active bleeding. EKG INTERPRETATION EKG Interpretation Comments: EKG time 6:33 AM rate 63 sinus rhythm. Normal axis. 0.5 mm elevation in aVL aVF trace elevation V2. Intervals normal. QTc normal. No clear ischemia. Course - Vital Signs Last Recorded V/S: Last Vital Signs Temp 97.3 F 07/08/19 06:17 Pulse 69 07/08/19 07:16 Resp 16 07/08/19 06:57 BP 135/113 H 07/08/19 07:16 Pulse Ox 97 07/08/19 07:16 - Orders/Labs/Meds Orders: Active Orders 24 hr Category Date Time Status EKG 12 Lead [EKG Documentation Completion] [RC] STAT Care 07/08/19 06:30 Active Verify Patient Consent Obtain [RC] ASDIRECTED Care 07/08/19 05:55 Active RED BLOOD CELLS LP [BBK] Stat Lab 07/08/19 05:46 Results TYPE AND SCREEN [BBK] Stat Lab 07/08/19 05:46 Results Factor IX Complex Human [Kcentra] Med 07/08/19 07:00 Active 4,000 unit IV ONCALL Transfuse Red Blood Cells [COMM] Stat Oth 07/08/19 05:54 Ordered Medication Orders Factor IX (Pha) (Kcentra) 4,000 unit IV ONCALL [place] Labs: Laboratory Tests 07/08/19 07/08/19 07/08/19 Range/Units 05:46 05:46 05:46 WBC 7.22 (4.0-11.0) K/uL RBC 2.87 L (4.30-5.90) M/uL Hgb 8.7 L (12.0-16.0) g/dL Hct 27.8 L (36.0-46.0) % MCV 96.9 (80.0-98.0) fL MCH 30.3 (27.0-32.0) pg MCHC 31.3 (31.0-37.0) g/dL RDW Std Deviation 48.6 (28.0-62.0) fl RDW Coeff of Marjorie 14 (11.0-15.0) % Plt Count 291 (150-400) K/uL MPV 9.30 (7.40-12.00) fL Neut % (Auto) 63.4 (48.0-80.0) % Lymph % (Auto) 22.4 (16.0-40.0) % [place] % (Auto) 11.5 (0.0-15.0) % Eos % (Auto) 2.6 (0.0-7.0) % Baso % (Auto) 0.1 (0.0-1.5) % Neut # (Auto) 4.6 (1.4-5.7) K/uL Lymph # (Auto) 1.6 (0.6-2.4) K/uL [place] # (Auto) 0.8 (0.0-0.8) K/uL Eos # (Auto) 0.2 (0.0-0.7) K/uL Baso # (Auto) 0.0 (0.0-0.1) K/uL Nucleated RBC % 0.0 /100WBC Nucleated RBCs # 0 K/uL Sodium 143 (136-145) mmol/L Potassium 4.6 (3.5-5.1) mmol/L Chloride 110 H (98-107) mmol/L Carbon Dioxide 23.3 (21.0-32.0) mmol/L BUN 26 H (7.0-18.0) mg/dL Creatinine 1.1 H (0.6-1.0) mg/dL Est Cr Clr Drug Dosing 34.18 mL/min Estimated GFR (MDRD) 49.1 ml/min Glucose 254 H (74-106) mg/dL Calcium 8.2 L (8.5-10.1) mg/dL Total Bilirubin 0.1 L (0.2-1.0) mg/dL AST 4 L (15-37) IU/L ALT 11 L (14-63) IU/L Alkaline Phosphatase 70 (46-116) U/L Total Protein 5.8 L (6.4-8.2) g/dL Albumin 2.4 L (3.4-5.0) g/dL Globulin 3.4 (2.6-4.0) g/dL Albumin/Globulin Ratio 0.7 L (0.9-1.6) Blood Type O NEGATIVE Antibody Screen NEGATIVE Crossmatch See Detail Meds: Medications Generic Name Dose Route Start Last Admin Trade Name Freq PRN Reason Stop Dose Admin Factor IX (Pha) 4,000 unit 07/08/19 07:00 Kcentra IV ONCALL [place] Discontinued Medications Generic Name Dose Route Start Last Admin Trade Name Freq PRN Reason Stop Dose Admin Factor IX (Pha) 4,000 unit 07/08/19 06:30 07/08/19 07:11 Kcentra IV 07/08/19 06:31 4,000 unit ONETIME ONE Administration Sodium Chloride 500 mls @ 999 mls/hr 07/08/19 06:32 07/08/19 06:34 Normal Saline IV 07/08/19 07:02 999 mls/hr .BOLUS ONE Administration Sodium Chloride 500 mls @ 999 mls/hr 07/08/19 06:33 07/08/19 05:58 Normal Saline IV 07/08/19 07:03 999 mls/hr .BOLUS ONE Administration Phytonadione 10 mg/ Sodium 51 mls @ 100 mls/hr 07/08/19 06:45 07/08/19 07:35 Chloride IV 07/08/19 07:15 100 mls/hr NOW ONE Administration Pantoprazole Sodium 80 mg/ 10 mls @ 300 mls/hr 07/08/19 06:54 07/08/19 07:55 Sodium Chloride IV 07/08/19 06:55 Not Given NOW ONE Sodium Chloride 500 mls @ 999 mls/hr 07/08/19 06:56 07/08/19 07:06 Normal Saline IV 07/08/19 07:26 999 mls/hr .BOLUS ONE Administration Ondansetron HCl 4 mg 07/08/19 06:31 07/08/19 06:34 Zofran IVPUSH 07/08/19 06:32 4 mg ONETIME ONE Administration Ondansetron HCl Confirm 07/08/19 06:31 07/08/19 06:39 Zofran Administered 07/08/19 06:32 Not Given Dose 4 mg .ROUTE .STK-MED ONE - Radiology Interpretation Free Text/Narrative:: Patient arrives with some soft pressures and low heart rate likely from beta- blockade. She is mentating appropriately and is not diaphoretic however she does look like she has lost blood. She had several large bloody stools here. Immediately ordered blood. AnDEXA not available here, accordingly ordered PCC and K. Blood and PCC was discussed with the patient and the risks were discussed with the patient. She and her agree to the risk of these medications. Since the benefit will outweigh the risk. Small boluses to maintain her pressure awaiting blood product, permissive hypotension with maintained mentation for the duration. We will fly the patient first opportunity. Hemoglobin returned at over 8-1/2 and I suspect her hemoglobin is lower than this. Ultimately about 2 L of fluid was given here before transport. Asked to have this stopped once her pressures went over 100 systolic to limit overall saline given and give the flight crew something to bolus if pressures became too soft, concern over dyregluation/coagulopathy. They will be shooting for a systolic of 90-100 I discussed this directly with flight crew. 1 unit hung here and given before transport. Second unit hung just before leaving. Pressures were in the 120s systolic just before leaving, higher than I would like but certainly better than very low blood pressure. Her hands and feet had warmed up nicely as well. Patient has 4 high-quality IV lines. Given this quality access, I am hesitant to add a trauma central line with concern for additional bleeding in the setting of Xarelto and she has little reserve likely because of her bleeding. Departure - Departure Time of Disposition: 06:30 Disposition: DC/Tfer to Acute Hospital 02 Preliminary Cause of *Q: Cardiac Arrest Condition: Serious Clinical Impression: GI bleeding - Discharge Information Referrals: Delia Garcia MD [Primary Care Provider] - Forms: ED Department Discharge Critical Care Note - Critical Care Note Total Time (mins): 75 Sepsis Event Note - Evaluation Sepsis Screening Result: No Definite Risk - Focused Exam Vital Signs: Vital Signs Temp Temp Pulse Resp BP BP Pulse Ox 07/08/19 07:16 69 135/113 H 97 07/08/19 06:57 65 16 95/54 L 98 07/08/19 06:39 67 16 85/34 L 96 07/08/19 06:30 69 61/39 L 07/08/19 06:17 97.3 F 98 16 105/56 L 67 L 07/08/19 06:00 96.8 F L 66 14 87/59 L 70/48 L 99 Date Exam was Performed: 07/08/19 Time Exam was Performed: 08:00 - My Orders Last 24 Hours: My Active Orders 07/08/19 05:46 RED BLOOD CELLS LP [BBK] Stat TYPE AND SCREEN [BBK] Stat 07/08/19 05:54 Transfuse Red Blood Cells [COMM] Stat 07/08/19 05:55 Verify Patient Consent Obtain [RC] ASDIRECTED 07/08/19 06:30 EKG 12 Lead [EKG Documentation Completion] [RC] STAT 07/08/19 07:00 Factor IX Complex Human [Kcentra] 4,000 unit IV ONCALL - Assessment/Plan Last 24 Hours: My Active Orders 07/08/19 05:46 RED BLOOD CELLS LP [BBK] Stat TYPE AND SCREEN [BBK] Stat 07/08/19 05:54 Transfuse Red Blood Cells [COMM] Stat 07/08/19 05:55 Verify Patient Consent Obtain [RC] ASDIRECTED 07/08/19 06:30 EKG 12 Lead [EKG Documentation Completion] [RC] STAT 07/08/19 07:00 Factor IX Complex Human [Kcentra] 4,000 unit IV ONCALL
[2019-07-08 06:23] LABS: CARBON DIOXIDE,CO2 23.3 mmol/L (21.0-32.0); POTASSIUM,K 4.6 mmol/L (3.5-5.1)
[2019-07-08] MEDS ORDERED: Factor IX Complex Human 500 UNIT VIAL IV ONE (06:30)
[2019-07-08] MEDS ORDERED: Ondansetron 4 MG/2 ML SDV IVPUSH ONE (06:31)
[2019-07-08] MEDS ORDERED: Ondansetron 4 MG/2 ML SDV ONE (06:31)
[2019-07-08] MEDS ORDERED: Sodium Chloride 0.9% 500 ML IV ONE ×3 (06:32→06:56)
[2019-07-08] MEDS ORDERED: Phytonadione 10 MG in Sodium Chloride 0.9% 50 ML IV ONE (06:45)
[2019-07-08] MEDS ORDERED: Pantoprazole 80 MG in Sodium Chloride 0.9% 10 ML IV ONE (06:54)
[2019-07-08] MEDS ORDERED: Factor IX Complex Human 500 UNIT VIAL IV SCH (07:00)
[2019-07-08 07:17] VITALS: BP 135/113; PULSE 69
== END 2019-07-08 07:45 ==
LOC: MW.ED 05:26
DX: K92.2 Gastrointestinal hemorrhage, unspecified (principal); E78.00 Pure hypercholesterolemia, unspecified; I10 Essential (primary) hypertension; I25.2 Old myocardial infarction; F41.9 Anxiety disorder, unspecified; F32.9 Major depressive disorder, single episode, unspecified; E66.9 Obesity, unspecified; Z88.1 Allergy status to other antibiotic agents; Z91.040 Latex allergy status; Z88.0 Allergy status to penicillin; Z79.899 Other long term (current) drug therapy; Z79.84 Long term (current) use of oral hypoglycemic drugs; Z68.37 Body mass index [BMI] 37.0-37.9, adult
CPT/HCPCS: 36415; 36430; 80053; 85025; 86850; 86900; 86901; 86920; 86921; 86922; 93005; 96365; 96375; 99285; C9132; J2405; J3430; J7030; J7050; P9016

== ENCOUNTER 2020-03-12 00:18 | Inpatient (IN) | payer MEDICARE, BC ==
--- NOTE | 2020-03-12 00:49 | EDM.PDOC ---
ED HPI GENERAL MEDICAL PROBLEM - General Chief Complaint: Respiratory Problem Stated Complaint: COVID Time Seen by Provider: 03/12/20 00:22 - History of Present Illness INITIAL COMMENTS - FREE TEXT/NARRATIVE: History of present illness: [] The patient is here because she feels weak short of breath has a cough and muscle aches. She is getting gradually worse since 12 days ago when she was diagnosed with COVID-19. Has a history of recurrent UTI and she has flank pain tonight as well. With her UTI she had a obstructing right ureteral stone near the end of last year after which she developed a UTI and sepsis and had a life- threatening time admitted for sepsis in February of last year. 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 For that reason she is no longer on Xarelto. She does report that she is on iron replacement and has black loose stools recently. Tubes are also very gradually progressive and worse with activity and worse at night. Review of systems: As per history of present illness and below otherwise all systems reviewed and negative. Past medical history: As per history of present illness and as reviewed below otherwise noncontributory. Surgical history: As per history of present illness and as reviewed below otherwise noncontributory. Social history: No reported history of drug or alcohol abuse. Family history: As per history of present illness and as reviewed below otherwise noncontributory. Physical exam: Constitutional - well developed, well-nourished and in no acute distress HEENT - normocephalic, no evidence of trauma - external nose and mouth normal - no mass in neck and no JVD - mucosae moist EYES - full EOM, PERRL, no icterus - no evidence of inflammation, injection, or drainage Respiratory -no saturation 87% in the field, 88% here, 95% on 2 L of oxygen. She is not on oxygen at home. No respiratory distress, equal bilateral expansion, lungs clear to auscultation and no abnormal lung sounds Cardiovascular - Regular Rhythm with S1 and S2 appreciated and no murmur, gallop or rub. GI - abdomen soft without distension or organomegaly - normal bowel sounds - no guard or rebound Musculoskeletal no gross deformity of long bones or joints - no tenderness, swelling or edema Neurologic - Alert and oriented times four - CN II-XII grossly intact - motor sensory and coordination symmetrically normal Psychiatric - appropriate mood and affect with normal thought content Rectal exam normal with soft black stool which is heme-negative. Hematologic - No petechiae or purpura - mucosa appropriate color and sclera not pale - normal nail bed color and refill Integument - no rash or evidence of trauma - normal turgor Diagnostics: [] Therapeutics: [] Impression: [] Plan: [] Definitive disposition and diagnosis as appropriate pending reevaluation and review of above. generalized Pain Score (Numeric/FACES): 5 - Related Data Allergies Allergy/AdvReac Type Severity Reaction Status Date / Time erythromycin base Allergy Abdominal Verified 03/12/20 00:25 [Erythromycin Base] Pain latex Allergy Rash Verified 03/12/20 00:25 Penicillins Allergy Cannot Verified 03/12/20 00:25 Remember Home Meds: Home Meds Potassium Chloride [K-Tab ER] 0 meq PO DAILY 12/26/15 [History] Ramipril 20 mg PO DAILY 12/26/15 [History] Rosuvastatin [Crestor] 20 mg PO BEDTIME 12/26/15 [History] FLUoxetine [PROzac] 10 mg PO DAILY 04/01/18 [History] Ferrous Sulfate 0 mg PO DAILY 02/12/19 [History] Acetaminophen [Tylenol] 650 mg PO ASDIRECTED PRN 03/10/19 [History] Metoprolol Succinate 0 mg PO DAILY 03/10/19 [History] metFORMIN [Glucophage] 1,000 mg PO WITHDINNER 07/08/19 [History] Past Medical History HEENT History: Reports: Impaired Vision, Other (See Below) Other HEENT History: wears glasses, "starting of macular degeneration" Cardiovascular History: Reports: Blood Clots/VTE/DVT, High Cholesterol, Hypertension, [place] Respiratory History: Reports: PE, Sleep Apnea Other Respiratory History: uses BI-PAP Gastrointestinal History: Reports: None Genitourinary History: Reports: Renal Calculus, Urinary Incontinence, UTI, Recurrent Other Genitourinary History: using tens/pads, recent UTI with rt ureteral stone and hospitalized in [place], [place] NETWORK CONTRACT MANAGER History: Reports: Other NETWORK CONTRACT MANAGER History: 2 Musculoskeletal History: Reports: Fracture Other Musculoskeletal History: uses walker Neurological History: Reports: MS Other Neuro History: MS-at age 14, uses walker Psychiatric History: Reports: Anxiety, Depression Other Psychiatric History: on medication with depression Endocrine/Metabolic History: Reports: Diabetes, Type II, Obesity/BMI 30+ Other Endocrine/Metabolic History: thyroid nodules Insulin Pump Model and Morgue Librarian: None Hematologic History: Reports: None Immunologic History: Reports: Other (See Below) Other Immunologic History: hx MRSA Oncologic (Cancer) History: Reports: None Dermatologic History: Reports: None, Cellulitis, Other (See Below) Other Dermatologic History: venous stasis ulcers - Infectious Disease History Infectious Disease History: Reports: Chicken Pox, Measles, Mumps Other Infectious Disease History: had it in the apst - Past Surgical History Head Surgeries/Procedures: Reports: None HEENT Surgical History: Reports: Adenoidectomy, Cataract Surgery, Tonsillectomy Other HEENT Surgeries/Procedures: cyst removed from rt lower eye lid Cardiovascular Surgical History: Reports: None Respiratory Surgical History: Reports: None GI Surgical History: Reports: None Female Surgical History: Reports: None Endocrine Surgical History: Reports: None Neurological Surgical History: Reports: None Musculoskeletal Surgical History: Reports: None Other Musculoskeletal Surgeries/Procedures:: radical reduction R arm Oncologic Surgical History: Reports: None Dermatological Surgical History: Reports: None Social & Family History - Family History Family Medical History: No Pertinent Family History Cardiac: Reports: CAD Other Cardiac Family History: parents - CHF Respiratory: Reports: COPD Other Respiratory Family Hisory: COPD - brother OBGYN: Reports: Neurological: Reports: MS Other Neurological Family History: MS- sister also has MS Endocrine/Metabolic: Reports: Diabetes, type II Other Endocrine/Metabolic Family History: family Hematologic: Reports: Other (See Below) Other Hematologic Family History: brother - leukemia Oncologic: Reports: Breast, Leukemia Other Oncologic Family History: father side - breast cancer - Tobacco Use Tobacco Use Status *Q: Never Tobacco User - Caffeine Use Caffeine Use: Reports: None - Recreational Drug Use Recreational Drug Use: No ED ROS GENERAL - Review of Systems Review Of Systems: Comprehensive ROS is negative, except as noted in HPI. ED EXAM, GENERAL - Physical Exam Exam: See Below Free Text/Narrative:: My physical exam as in the HPI #1 Interpretation EKG Interpretation Comments: EKG done 03/12/2020 at 12:36 AM and interpreted at 12:37 AM. Sinus rhythm heart rate 96 [place] 42. OK interval 144. QT interval 425. QRS normal. Compared to 07/08/2019 no change. Impression no acute disease Course - Vital Signs Text/Narrative:: The patient appeared stable once on oxygen. She is oxygen dependent and does not have oxygen at home. She also has multiple sclerosis and other comorbidities. For this reason I discussed the case with Dr. Cadena and he most graciously agreed to admit the patient to the floor. Also has evidence of UTI with the past history I think it important we start antibiotics and send a culture. Last Recorded V/S: Last Vital Signs Temp 36.3 C 03/12/20 02:27 Pulse 106 H 03/12/20 02:27 Resp 20 03/12/20 02:27 BP 139/89 03/12/20 02:27 Pulse Ox 96 03/12/20 02:27 - Orders/Labs/Meds Orders: Active Orders 24 hr Category Date Time Status EKG Documentation Completion [RC] AM Care 03/12/20 00:23 Active Sodium Chloride 0.9% [Saline Flush] Med 03/12/20 00:23 Active 10 ml FLUSH ASDIRECTED PRN Sodium Chloride 0.9% [Saline Flush] Med 03/12/20 00:23 Active 2.5 ml FLUSH ASDIRECTED PRN Saline Lock Insert [OM.PC] Stat Oth 03/12/20 00:23 Ordered Medication Orders Ceftriaxone Sodium/Dextrose 1 (gm/ Premix) 50 mls @ 100 mls/hr IV ONETIME ONE Stop: 03/12/20 03:11 Sodium Chloride (Saline Flush) 10 ml FLUSH ASDIRECTED PRN PRN Reason: Keep Vein Open Last Admin: 03/12/20 01:04 Dose: 10 ml Documented by: ASHLEY Sodium Chloride (Saline Flush) 2.5 ml FLUSH ASDIRECTED PRN PRN Reason: Keep Vein Open Last Admin: 03/12/20 01:04 Dose: 2.5 ml Documented by: ASHLEY Labs: Laboratory Tests 03/12/20 03/12/20 03/12/20 Range/Units 00:21 00:21 00:21 WBC 3.38 L (4.0-11.0) K/uL RBC 3.79 L (4.30-5.90) M/uL Hgb 11.8 L (12.0-16.0) g/dL Hct 36.5 (36.0-46.0) % MCV 96.3 (80.0-98.0) fL MCH 31.1 (27.0-32.0) pg MCHC 32.3 (31.0-37.0) g/dL RDW Std Deviation 44.9 (28.0-62.0) fl RDW Coeff of Marjorie 13 (11.0-15.0) % Plt Count 195 (150-400) K/uL MPV 9.10 (7.40-12.00) fL Neut % (Auto) 71.6 (48.0-80.0) % Lymph % (Auto) 15.7 L (16.0-40.0) % Wise % (Auto) 12.4 (0.0-15.0) % Eos % (Auto) 0.0 (0.0-7.0) % Baso % (Auto) 0.3 (0.0-1.5) % Neut # (Auto) 2.4 (1.4-5.7) K/uL Lymph # (Auto) 0.5 L (0.6-2.4) K/uL Wise # (Auto) 0.4 (0.0-0.8) K/uL Eos # (Auto) 0.0 (0.0-0.7) K/uL Baso # (Auto) 0.0 (0.0-0.1) K/uL Sodium 135 L (136-145) mmol/L Potassium 4.3 (3.5-5.1) mmol/L Chloride 101 (98-107) mmol/L Carbon Dioxide 25.1 (21.0-32.0) mmol/L BUN 20 H (7.0-18.0) mg/dL Creatinine 1.2 H (0.6-1.0) mg/dL Est Cr Clr Drug Dosing 30.89 mL/min Estimated GFR (MDRD) 44.3 ml/min Glucose 165 H (74-106) mg/dL Calcium 8.4 L (8.5-10.1) mg/dL Total Bilirubin 0.4 (0.2-1.0) mg/dL AST 31 (15-37) IU/L ALT 26 (14-63) IU/L Alkaline Phosphatase 67 (46-116) U/L Troponin I < 0.050 (0.000-0.056) ng/mL B-Natriuretic Peptide 57 (<100) PG/ML Total Protein 7.3 (6.4-8.2) g/dL Albumin 2.6 L (3.4-5.0) g/dL Globulin 4.7 H (2.6-4.0) g/dL Albumin/Globulin Ratio 0.6 L (0.9-1.6) Lipase 123 (73-393) U/L Urine Color Urine Appearance Urine pH (5.0-8.0) Ur Specific Burton (1.001-1.035) Urine Protein (NEGATIVE) mg/dL Urine Glucose (UA) (NEGATIVE) mg/dL Urine Ketones (NEGATIVE) mg/dL Urine Occult Blood (NEGATIVE) Urine Nitrite (NEGATIVE) Urine Bilirubin (NEGATIVE) Urine Urobilinogen (<2.0) EU/dL Ur Leukocyte Esterase (NEGATIVE) Urine RBC (0-2/HPF) Urine WBC (0-5/HPF) Ur Epithelial Cells (NONE-FEW) Urine Bacteria (NEGATIVE) Urine Mucus (NONE-MOD) Urine Yeast 03/12/20 Range/Units 02:08 WBC (4.0-11.0) K/uL RBC (4.30-5.90) M/uL Hgb (12.0-16.0) g/dL Hct (36.0-46.0) % MCV (80.0-98.0) fL MCH (27.0-32.0) pg MCHC (31.0-37.0) g/dL RDW Std Deviation (28.0-62.0) fl RDW Coeff of Marjorie (11.0-15.0) % Plt Count (150-400) K/uL MPV (7.40-12.00) fL Neut % (Auto) (48.0-80.0) % Lymph % (Auto) (16.0-40.0) % Wise % (Auto) (0.0-15.0) % Eos % (Auto) (0.0-7.0) % Baso % (Auto) (0.0-1.5) % Neut # (Auto) (1.4-5.7) K/uL Lymph # (Auto) (0.6-2.4) K/uL Wise # (Auto) (0.0-0.8) K/uL Eos # (Auto) (0.0-0.7) K/uL Baso # (Auto) (0.0-0.1) K/uL Sodium (136-145) mmol/L Potassium (3.5-5.1) mmol/L Chloride (98-107) mmol/L Carbon Dioxide (21.0-32.0) mmol/L BUN (7.0-18.0) mg/dL Creatinine (0.6-1.0) mg/dL Est Cr Clr Drug Dosing mL/min Estimated GFR (MDRD) ml/min Glucose (74-106) mg/dL Calcium (8.5-10.1) mg/dL Total Bilirubin (0.2-1.0) mg/dL AST (15-37) IU/L ALT (14-63) IU/L Alkaline Phosphatase (46-116) U/L Troponin I (0.000-0.056) ng/mL B-Natriuretic Peptide (<100) PG/ML Total Protein (6.4-8.2) g/dL Albumin (3.4-5.0) g/dL Globulin (2.6-4.0) g/dL Albumin/Globulin Ratio (0.9-1.6) Lipase (73-393) U/L Urine Color YELLOW Urine Appearance SLT CLOUDY Urine pH 5.5 (5.0-8.0) Ur Specific Burton >= 1.030 (1.001-1.035) Urine Protein 30 H (NEGATIVE) mg/dL Urine Glucose (UA) NEGATIVE (NEGATIVE) mg/dL Urine Ketones 15 H (NEGATIVE) mg/dL Urine Occult Blood MODERATE H (NEGATIVE) Urine Nitrite NEGATIVE (NEGATIVE) Urine Bilirubin NEGATIVE (NEGATIVE) Urine Urobilinogen 0.2 (<2.0) EU/dL Ur Leukocyte Esterase SMALL H (NEGATIVE) Urine RBC 2-5 (0-2/HPF) Urine WBC 15-25 (0-5/HPF) Ur Epithelial Cells FEW (NONE-FEW) Urine Bacteria 1+ H (NEGATIVE) Urine Mucus LIGHT (NONE-MOD) Urine Yeast FEW Meds: Medications Generic Name Dose Route Start Last Admin Trade Name Freq PRN Reason Stop Dose Admin Ceftriaxone Sodium/Dextrose 1 50 mls @ 100 mls/hr 03/12/20 02:42 gm/ Premix IV 03/12/20 03:11 ONETIME ONE Sodium Chloride 10 ml 03/12/20 00:23 03/12/20 01:04 Saline Flush FLUSH 10 ml ASDIRECTED PRN Administration Keep Vein Open Sodium Chloride 2.5 ml 03/12/20 00:23 03/12/20 01:04 Saline Flush FLUSH 2.5 ml ASDIRECTED PRN Administration Keep Vein Open Discontinued Medications Generic Name Dose Route Start Last Admin Trade Name Freq PRN Reason Stop Dose Admin Dexamethasone 10 mg 03/12/20 02:11 Decadron IVPUSH 03/12/20 02:12 ONETIME ONE Remdesivir 200 mg/ Sodium 250 mls @ 250 mls/hr 03/12/20 02:11 Chloride IV 03/12/20 02:12 ONETIME ONE Departure - Departure Time of Disposition: 02:15 Disposition: Admitted As Inpatient 64 Condition: Fair Clinical Impression: COVID-19, Bilateral pulmonary infiltrates on CXR, Hypoxia, UTI (urinary tract infection) - Discharge Information Sepsis Event Note (ED) - Evaluation Sepsis Screening Result: No Definite Risk - Focused Exam Vital Signs: Vital Signs Temp Pulse Resp BP Pulse Ox 03/12/20 01:28 36.3 C 95 20 139/85 96 03/12/20 01:03 36.3 C 114 H 20 135/90 96 03/12/20 00:21 36.1 C 88 18 144/86 H 88 L - My Orders Last 24 Hours: My Active Orders 03/12/20 00:23 EKG Documentation Completion [RC] AM Sodium Chloride 0.9% [Saline Flush] 10 ml FLUSH ASDIRECTED PRN Sodium Chloride 0.9% [Saline Flush] 2.5 ml FLUSH ASDIRECTED PRN Saline Lock Insert [OM.PC] Stat - Assessment/Plan Last 24 Hours: My Active Orders 03/12/20 00:23 EKG Documentation Completion [RC] AM Sodium Chloride 0.9% [Saline Flush] 10 ml FLUSH ASDIRECTED PRN Sodium Chloride 0.9% [Saline Flush] 2.5 ml FLUSH ASDIRECTED PRN Saline Lock Insert [OM.PC] Stat
[2020-03-12] MEDS: Sodium Chloride 0.9% 2.5 ML Syringe FLUSH PRN (01:04)
[2020-03-12] MEDS: Sodium Chloride 0.9% 10 ML Syringe FLUSH PRN (01:04)
[2020-03-12 01:11] LABS: BLOOD UREA NITROGEN,BUN 20 mg/dL (7.0-18.0); CARBON DIOXIDE,CO2 25.1 mmol/L (21.0-32.0); CHLORIDE,CL 101 mmol/L (98-107); GLUCOSE RANDOM 165 mg/dL (74-106); LIPASE 123 U/L (73-393); POTASSIUM,K 4.3 mmol/L (3.5-5.1); SODIUM,NA 135 mmol/L (136-145)
--- NOTE | 2020-03-12 01:28 | CR ---
INDICATION: Dyspnea TECHNIQUE: Chest radiograph 1 view COMPARISON: 03/10/2019 FINDINGS: Moderate degradation of image quality noted due to body habitus. Mediastinum: Enlargement and increased density of the right hilum is noted compared to prior examination. The heart silhouette is normal in size and morphology. Lung: Ill-defined wispy densities present within the right midlung zone and bilateral lung bases. No sign of pleural effusion seen. No pneumothorax is identified. Bone and Soft tissue: Unremarkable for age. IMPRESSIONS: 1. Ill-defined wispy densities present within the right midlung zone and bilateral lung bases. 2. Enlargement and increased density of the right hilum is noted compared to prior examination. Evaluation with chest CT is recommended. Dictated by Liborio Ryan MD @ 03/12/2020 1:25:51 AM Dictated by: Liborio Ryan MD @ 03/12/2020 01:25:55 (Electronically Signed)
[2020-03-12] MEDS ORDERED: REMDESIVIR 200 MG in Sodium Chloride 0.9% 250 ML IV ONE (02:11)
[2020-03-12] MEDS ORDERED: Dexamethasone 10 MG/ML SDV IVPUSH ONE (02:11)
[2020-03-12] MEDS ORDERED: cefTRIAXone 1 GM in Premix Bag 1 BAG IV ONE (02:42)
[2020-03-12] MEDS ORDERED: Glucagon,Human Recombinant 1 MG Vial IM PRN (05:44)
[2020-03-12] MEDS ORDERED: 50% Dextrose in Water 50 ML Syringe IV PRN (05:44)
[2020-03-12 08:41] LABS: CARBON DIOXIDE,CO2 23.3 mmol/L (21.0-32.0); POTASSIUM,K 4.2 mmol/L (3.5-5.1)
[2020-03-12] MEDS ORDERED: REMDESIVIR 100 MG in Sodium Chloride 0.9% 100 ML IV SCH (08:45)
[2020-03-12] MEDS ORDERED: cefTRIAXone 1 GM in Premix Bag 1 BAG IV SCH (08:45)
[2020-03-12] MEDS: Insulin Aspart 100 Units/ML 3 ML Pen SUBCUT SCH ×3 (08:52→18:30)
[2020-03-12] MEDS: Enoxaparin 40 MG/0.4 ML Syringe SUBCUT SCH (08:54)
--- NOTE | 2020-03-12 08:56 | PCM.HP.2 ---
H&P History of Present Illness - General Date of Service: 03/12/20 Admit Problem/Dx: Admission Diagnosis/Problem Admission Diagnosis/Problem Hypoxia Source of Information: Patient History Limitations: Reports: No Limitations - History of Present Illness Initial Comments - Free Text/Narative: 69-year-old female presents complaining of shortness of breath, dry cough, body aches and fevers. Patient has a PMH of DM type II, HTN, MS, RUDDY, DVT, PE, recurrent UTI and GI bleeds. Patient reports testing positive for COVID-19 approximately 12 days ago. Since then her symptoms have been getting worse. As her breathing got worse yesterday she decided to come to the hospital. Patient also complains of mild left flank tenderness. Patient does reports history of GI bleed when she was on a blood thinner for her PE/DVT. She is not currently on any anti-coagulation. Denies any alcohol, tobacco or illicit drug use. In the ER, CBC unremarkable, creatinine 1.2 and troponin negative. CXR showed densities in RML and bilateral bases as well as enlarged and increased density of right hilum. UA positive for esterase and 1 + bacteria. Patient had rectal exam done in ER and FOBT was negative. Patient given Rocephin, Remdesivir and dexamethasone. She was admitted for further evaluation and treatment. generalized Pain Score (Numeric/FACES): 2 - Related Data Allergies/Adverse Reactions: Allergies Allergy/AdvReac Type Severity Reaction Status Date / Time erythromycin base Allergy Abdominal Verified 03/12/20 06:53 [Erythromycin Base] Pain latex Allergy Rash Verified 03/12/20 06:53 Penicillins Allergy Cannot Verified 03/12/20 06:53 Remember Home Medications: Home Meds Potassium Chloride [K-Tab ER] 20 meq PO DAILY 12/26/15 [History] Ramipril 20 mg PO DAILY 12/26/15 [History] Rosuvastatin [Crestor] 20 mg PO BEDTIME 12/26/15 [History] FLUoxetine [PROzac] 10 mg PO DAILY 04/01/18 [History] Ferrous Sulfate 325 mg PO DAILY 02/12/19 [History] Acetaminophen [Tylenol] 650 mg PO ASDIRECTED PRN 03/10/19 [History] metFORMIN [Glucophage] 1,000 mg PO WITHDINNER 07/08/19 [History] Glimepiride 4 mg PO BID 03/12/20 [History] Metoprolol Tartrate 50 mg PO DAILY 03/12/20 [History] Past Medical History HEENT History: Reports: Impaired Vision, Other (See Below) Other HEENT History: wears glasses, "starting of macular degeneration" Cardiovascular History: Reports: Blood Clots/VTE/DVT, High Cholesterol, Hypertension, [place] Respiratory History: Reports: PE, Sleep Apnea Other Respiratory History: uses BI-PAP Gastrointestinal History: Reports: None Genitourinary History: Reports: Renal Calculus, Urinary Incontinence, UTI, Recurrent Other Genitourinary History: using tens/pads, recent UTI with rt ureteral stone and hospitalized in [place], [place] [employer]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: Other OB/BYN History: 2 Musculoskeletal History: Reports: Fracture Other Musculoskeletal History: uses walker Neurological History: Reports: MS Other Neuro History: MS-at age 14, uses walker Psychiatric History: Reports: Anxiety, Depression Other Psychiatric History: on medication with depression Endocrine/Metabolic History: Reports: Diabetes, Type II, Obesity/BMI 30+ Other Endocrine/Metabolic History: thyroid nodules 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 Model 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 Hematologic History: Reports: None Immunologic History: Reports: Other (See Below) Other Immunologic History: hx MRSA Oncologic (Cancer) History: Reports: None Dermatologic History: Reports: None, Cellulitis, Other (See Below) Other Dermatologic History: venous stasis ulcers - Infectious Disease History Infectious Disease History: Reports: Chicken Pox, Measles, Mumps Other Infectious Disease History: had it in the apst - Past Surgical History Head Surgeries/Procedures: Reports: None HEENT Surgical History: Reports: Adenoidectomy, Cataract Surgery, Tonsillectomy Other HEENT Surgeries/Procedures: cyst removed from rt lower eye lid Cardiovascular Surgical History: Reports: None Respiratory Surgical History: Reports: None GI Surgical History: Reports: None Female Surgical History: Reports: None Endocrine Surgical History: Reports: None Neurological Surgical History: Reports: None Musculoskeletal Surgical History: Reports: None Other Musculoskeletal Surgeries/Procedures:: radical reduction R arm Oncologic Surgical History: Reports: None Dermatological Surgical History: Reports: None Social & Family History - Family History Family Medical History: No Pertinent Family History Cardiac: Reports: CAD Other Cardiac Family History: parents - CHF Respiratory: Reports: COPD Other Respiratory Family Hisory: COPD - brother OBGYN: Reports: Neurological: Reports: MS Other Neurological Family History: MS- sister also has MS Endocrine/Metabolic: Reports: Diabetes, type II Other Endocrine/Metabolic Family History: family Hematologic: Reports: Other (See Below) Other Hematologic Family History: brother - leukemia Oncologic: Reports: Breast, Leukemia Other Oncologic Family History: father side - breast cancer - Tobacco Use Tobacco Use Status *Q: Former Tobacco User Used Tobacco, but Quit: No Second Hand Smoke Exposure: No - Caffeine Use Caffeine Use: Reports: None - Recreational Drug Use Recreational Drug Use: No H&P Review of Systems - Review of Systems: Review Of Systems: Comprehensive ROS is negative, except as noted in HPI. Exam - Exam Exam: See Below - Vital Signs Vital Signs: Last Vital Signs Temp 37.4 C 03/12/20 04:25 Pulse 88 03/12/20 04:25 Resp 18 03/12/20 04:25 BP 129/67 03/12/20 04:25 Pulse Ox 91 L 03/12/20 04:25 Weight: 91.354 kg - Exam General: Alert, Oriented, Cooperative, Other (NAD) HEENT: EOMI, Hearing Intact, Pupils Equal, Pupils Reactive Neck: Supple, Trachea Midline Lungs: Clear to Auscultation, Normal Respiratory Effort Cardiovascular: Regular Rate, Regular Rhythm GI/Abdominal Exam: Normal Bowel Sounds, Soft, No Abnormal Bruit, Other (mild left flank ttp) Skin: Warm, Dry, Intact Neurological: Cranial Nerves Intact, Strength Equal Bilateral, Normal Speech, Normal Tone Neuro Extensive - Mental Status: Alert, Oriented x3, Normal Mood/Affect Psychiatric: Alert, Normal Affect, Normal Mood - Patient Data Lab Results Last 24 hrs: Laboratory Results - last 24 hr 03/12/20 03/12/20 03/12/20 Range/Units 00:21 00:21 00:21 WBC 3.38 L (4.0-11.0) K/uL RBC 3.79 L (4.30-5.90) M/uL Hgb 11.8 L (12.0-16.0) g/dL Hct 36.5 (36.0-46.0) % MCV 96.3 (80.0-98.0) fL MCH 31.1 (27.0-32.0) pg MCHC 32.3 (31.0-37.0) g/dL RDW Std Deviation 44.9 (28.0-62.0) fl RDW Coeff of Marjorie 13 (11.0-15.0) % Plt Count 195 (150-400) K/uL MPV 9.10 (7.40-12.00) fL Neut % (Auto) 71.6 (48.0-80.0) % Lymph % (Auto) 15.7 L (16.0-40.0) % [place] % (Auto) 12.4 (0.0-15.0) % Eos % (Auto) 0.0 (0.0-7.0) % Baso % (Auto) 0.3 (0.0-1.5) % Neut # (Auto) 2.4 (1.4-5.7) K/uL Lymph # (Auto) 0.5 L (0.6-2.4) K/uL [place] # (Auto) 0.4 (0.0-0.8) K/uL Eos # (Auto) 0.0 (0.0-0.7) K/uL Baso # (Auto) 0.0 (0.0-0.1) K/uL Nucleated RBC % /100WBC Nucleated RBCs # K/uL Sodium 135 L (136-145) mmol/L Potassium 4.3 (3.5-5.1) mmol/L Chloride 101 (98-107) mmol/L Carbon Dioxide 25.1 (21.0-32.0) mmol/L BUN 20 H (7.0-18.0) mg/dL Creatinine 1.2 H (0.6-1.0) mg/dL Est Cr Clr Drug Dosing 30.89 mL/min Estimated GFR (MDRD) 44.3 ml/min Glucose 165 H (74-106) mg/dL POC Glucose (60-110) mg/dL Calcium 8.4 L (8.5-10.1) mg/dL Total Bilirubin 0.4 (0.2-1.0) mg/dL AST 31 (15-37) IU/L ALT 26 (14-63) IU/L Alkaline Phosphatase 67 (46-116) U/L Troponin I < 0.050 (0.000-0.056) ng/mL B-Natriuretic Peptide 57 (<100) PG/ML Total Protein 7.3 (6.4-8.2) g/dL Albumin 2.6 L (3.4-5.0) g/dL Globulin 4.7 H (2.6-4.0) g/dL Albumin/Globulin Ratio 0.6 L (0.9-1.6) Lipase 123 (73-393) U/L Urine Color Urine Appearance Urine pH (5.0-8.0) Ur Specific Stella (1.001-1.035) Urine Protein (NEGATIVE) mg/dL Urine Glucose (UA) (NEGATIVE) mg/dL Urine Ketones (NEGATIVE) mg/dL Urine Occult Blood (NEGATIVE) Urine Nitrite (NEGATIVE) Urine Bilirubin (NEGATIVE) Urine Urobilinogen (<2.0) EU/dL Ur Leukocyte Esterase (NEGATIVE) Urine RBC (0-2/HPF) Urine WBC (0-5/HPF) Ur Epithelial Cells (NONE-FEW) Urine Bacteria (NEGATIVE) Urine Mucus (NONE-MOD) Urine Yeast 03/12/20 03/12/20 03/12/20 Range/Units 02:08 07:33 08:15 WBC 3.30 L (4.0-11.0) K/uL RBC 3.52 L (4.30-5.90) M/uL Hgb 10.8 L (12.0-16.0) g/dL Hct 34.1 L (36.0-46.0) % MCV 96.9 (80.0-98.0) fL MCH 30.7 (27.0-32.0) pg MCHC 31.7 (31.0-37.0) g/dL RDW Std Deviation 48.2 (28.0-62.0) fl RDW Coeff of Marjorie 14 (11.0-15.0) % Plt Count 207 (150-400) K/uL MPV 9.20 (7.40-12.00) fL Neut % (Auto) 80.3 H (48.0-80.0) % Lymph % (Auto) 15.5 L (16.0-40.0) % [place] % (Auto) 4.2 (0.0-15.0) % Eos % (Auto) 0.0 (0.0-7.0) % Baso % (Auto) 0.0 (0.0-1.5) % Neut # (Auto) 2.7 (1.4-5.7) K/uL Lymph # (Auto) 0.5 L (0.6-2.4) K/uL [place] # (Auto) 0.1 (0.0-0.8) K/uL Eos # (Auto) 0.0 (0.0-0.7) K/uL Baso # (Auto) 0.0 (0.0-0.1) K/uL Nucleated RBC % 0.0 /100WBC Nucleated RBCs # 0 K/uL Sodium (136-145) mmol/L Potassium (3.5-5.1) mmol/L Chloride (98-107) mmol/L Carbon Dioxide (21.0-32.0) mmol/L BUN (7.0-18.0) mg/dL Creatinine (0.6-1.0) mg/dL Est Cr Clr Drug Dosing mL/min Estimated GFR (MDRD) ml/min Glucose (74-106) mg/dL POC Glucose 252 H (60-110) mg/dL Calcium (8.5-10.1) mg/dL Total Bilirubin (0.2-1.0) mg/dL AST (15-37) IU/L ALT (14-63) IU/L Alkaline Phosphatase (46-116) U/L Troponin I (0.000-0.056) ng/mL B-Natriuretic Peptide (<100) PG/ML Total Protein (6.4-8.2) g/dL Albumin (3.4-5.0) g/dL Globulin (2.6-4.0) g/dL Albumin/Globulin Ratio (0.9-1.6) Lipase (73-393) U/L Urine Color YELLOW Urine Appearance SLT CLOUDY Urine pH 5.5 (5.0-8.0) Ur Specific Stella >= 1.030 (1.001-1.035) Urine Protein 30 H (NEGATIVE) mg/dL Urine Glucose (UA) NEGATIVE (NEGATIVE) mg/dL Urine Ketones 15 H (NEGATIVE) mg/dL Urine Occult Blood MODERATE H (NEGATIVE) Urine Nitrite NEGATIVE (NEGATIVE) Urine Bilirubin NEGATIVE (NEGATIVE) Urine Urobilinogen 0.2 (<2.0) EU/dL Ur Leukocyte Esterase SMALL H (NEGATIVE) Urine RBC 2-5 (0-2/HPF) Urine WBC 15-25 (0-5/HPF) Ur Epithelial Cells FEW (NONE-FEW) Urine Bacteria 1+ H (NEGATIVE) Urine Mucus LIGHT (NONE-MOD) Urine Yeast FEW 03/12/20 Range/Units 08:15 WBC (4.0-11.0) K/uL RBC (4.30-5.90) M/uL Hgb (12.0-16.0) g/dL Hct (36.0-46.0) % MCV (80.0-98.0) fL MCH (27.0-32.0) pg MCHC (31.0-37.0) g/dL RDW Std Deviation (28.0-62.0) fl RDW Coeff of Marjorie (11.0-15.0) % Plt Count (150-400) K/uL MPV (7.40-12.00) fL Neut % (Auto) (48.0-80.0) % Lymph % (Auto) (16.0-40.0) % [place] % (Auto) (0.0-15.0) % Eos % (Auto) (0.0-7.0) % Baso % (Auto) (0.0-1.5) % Neut # (Auto) (1.4-5.7) K/uL Lymph # (Auto) (0.6-2.4) K/uL [place] # (Auto) (0.0-0.8) K/uL Eos # (Auto) (0.0-0.7) K/uL Baso # (Auto) (0.0-0.1) K/uL Nucleated RBC % /100WBC Nucleated RBCs # K/uL Sodium 135 L (136-145) mmol/L Potassium 4.2 (3.5-5.1) mmol/L Chloride 101 (98-107) mmol/L Carbon Dioxide 23.3 (21.0-32.0) mmol/L BUN 18 (7.0-18.0) mg/dL Creatinine 1.2 H (0.6-1.0) mg/dL Est Cr Clr Drug Dosing 30.89 mL/min Estimated GFR (MDRD) 44.3 ml/min Glucose 285 H (74-106) mg/dL POC Glucose (60-110) mg/dL Calcium 8.0 L (8.5-10.1) mg/dL Total Bilirubin 0.2 (0.2-1.0) mg/dL AST 23 (15-37) IU/L ALT 21 (14-63) IU/L Alkaline Phosphatase 60 (46-116) U/L Troponin I (0.000-0.056) ng/mL B-Natriuretic Peptide (<100) PG/ML Total Protein 6.6 (6.4-8.2) g/dL Albumin 2.3 L (3.4-5.0) g/dL Globulin 4.3 H (2.6-4.0) g/dL Albumin/Globulin Ratio 0.5 L (0.9-1.6) Lipase (73-393) U/L Urine Color Urine Appearance Urine pH (5.0-8.0) Ur Specific Stella (1.001-1.035) Urine Protein (NEGATIVE) mg/dL Urine Glucose (UA) (NEGATIVE) mg/dL Urine Ketones (NEGATIVE) mg/dL Urine Occult Blood (NEGATIVE) Urine Nitrite (NEGATIVE) Urine Bilirubin (NEGATIVE) Urine Urobilinogen (<2.0) EU/dL Ur Leukocyte Esterase (NEGATIVE) Urine RBC (0-2/HPF) Urine WBC (0-5/HPF) Ur Epithelial Cells (NONE-FEW) Urine Bacteria (NEGATIVE) Urine Mucus (NONE-MOD) Urine Yeast Result Diagrams: 03/12/20 08:15 03/12/20 08:15 Sepsis Event Note - Evaluation Sepsis Screening Result: No Definite Risk - Focused Exam Vital Signs: Vital Signs Temp Pulse Resp BP Pulse Ox 03/12/20 04:25 37.4 C 88 18 129/67 91 L 03/12/20 04:07 36.3 C 88 18 126/55 L 95 03/12/20 03:30 36.3 C 88 18 143/84 H 95 03/12/20 03:08 36.3 C 91 18 136/79 95 03/12/20 02:27 36.3 C 106 H 20 139/89 96 03/12/20 01:28 36.3 C 95 20 139/85 96 03/12/20 01:03 36.3 C 114 H 20 135/90 96 03/12/20 00:21 36.1 C 88 18 144/86 H 88 L - Problem List (1) COVID-19 SNOMED Code(s): 203086331 ICD Code: U07.1 - COVID-19 Status: Acute Current Visit: Yes (2) Hypoxia SNOMED Code(s): 415970523 ICD Code: R09.02 - HYPOXEMIA Status: Acute Current Visit: Yes (3) UTI (urinary tract infection) SNOMED Code(s): 74862973 ICD Code: N39.0 - URINARY TRACT INFECTION, SITE NOT SPECIFIED Status: Acute Current Visit: Yes (4) Hyperglycemia due to type 2 diabetes mellitus SNOMED Code(s): 339527727708410, 109907311838362 ICD Code: E11.65 - TYPE 2 DIABETES MELLITUS WITH HYPERGLYCEMIA Status: Acute Current Visit: No Qualifiers: Diabetes mellitus salvage determiner insulin use: with snf use Qualified Code(s): E11.65 - Type 2 diabetes mellitus with hyperglycemia; Z79.4 - salvage determiner (current) use of insulin (5) Multiple sclerosis SNOMED Code(s): 35483538 ICD Code: G35 - MULTIPLE SCLEROSIS Status: Acute Current Visit: No (6) MAI (acute kidney injury) SNOMED Code(s): 40691589, 08292418 ICD Code: N17.9 - ACUTE KIDNEY FAILURE, UNSPECIFIED Status: Resolved Current Visit: No Problem List Initiated/Reviewed/Updated: Yes Orders Last 24hrs: Active Orders 24 hr Category Date Time Status Admission Status [Patient Status] [ADT] Stat ADT 03/12/20 02:12 Active Accu Check [Blood Glucose Check, Bedside] [RC] TIDMEALS Care 03/12/20 07:30 Active Antiembolic Devices [RC] PER UNIT ROUTINE Care 03/12/20 05:00 Active Cardiac Monitoring [RC] . DIRECTED Care 03/12/20 02:12 Active EKG Documentation Completion [RC] AM Care 03/12/20 00:23 Active RT Incentive Spirometry [RC] ASDIRECTED Care 03/12/20 08:47 Active RT Post Treatment Assessment [RC] Click to Edit Care 03/12/20 08:46 Active RT Pre-Treatment Assessment [RC] Click to Edit Care 03/12/20 08:46 Active ADA Diabetic [[place] Diet] [DIET Diet 03/12/20 Breakfast Active ] CBC WITH AUTO DIFF [HEME] AM Lab 03/13/20 05:11 Ordered COMPREHENSIVE METABOLIC PN,CMP [CHEM] AM Lab 03/13/20 05:11 Ordered CULTURE URINE [RM] Routine Lab 03/12/20 02:08 Received MAGNESIUM [CHEM] AM Lab 03/13/20 05:11 Ordered PHOSPHORUS [CHEM] AM Lab 03/13/20 05:11 Ordered Albuterol/Ipratropium [Combivent Respimat] Med 03/12/20 06:00 Active See Dose Instructions INH Q6H Dextrose 50% in Water Med 03/12/20 05:44 Active 50 ml IV ASDIRECTED PRN Enoxaparin [Lovenox] Med 03/12/20 09:00 Active 40 mg SUBCUT Q24H FLUoxetine Med 03/12/20 09:00 Ordered 10 mg PO DAILY Glucagon,Human Recombinant [GlucaGen] Med 03/12/20 05:44 Active 1 mg IM ASDIRECTED PRN Insulin Aspart [NovoLOG] Med 03/12/20 07:30 Active See Protocol SUBCUT TIDAC Metoprolol Tartrate [Lopressor] Med 03/12/20 09:00 Ordered 50 mg PO DAILY Pantoprazole [ProTONIX] Med 03/12/20 09:00 Active 40 mg PO ACBREAKFAST Remdesivir (Eua) [Remdesivir (EUA)] 100 mg Med 03/13/20 03:30 Active Sodium Chloride 0.9% [Normal Saline] 100 ml IV Q24H Rosuvastatin [Crestor] Med 03/12/20 21:00 Ordered 20 mg PO BEDTIME Sodium Chloride 0.9% [Saline Flush] Med 03/12/20 00:23 Active 10 ml FLUSH ASDIRECTED PRN Sodium Chloride 0.9% [Saline Flush] Med 03/12/20 00:23 Active 2.5 ml FLUSH ASDIRECTED PRN cefTRIAXone [Rocephin in Dextrose,Iso-Osm 1 GM/50 ML] 1 Med 03/12/20 08:45 Active gm Premix Bag 1 bag IV Q24H dexAMETHasone Med 03/12/20 09:00 Active 6 mg PO Q24H SCD [Sequential Compression Device] [OM.PC] Routine Oth 03/12/20 05:00 Ordered Saline Lock Insert [OM.PC] Stat Oth 03/12/20 00:23 Ordered Code Status [Resuscitation Status] Routine Resus Stat 03/12/20 08:35 Ordered Medication Orders Albuterol/Ipratropium (Combivent Respimat) 0 gm INH Q6H [place] Dexamethasone (Dexamethasone) 6 mg PO Q24H [facility] Dextrose/Water (Dextrose 50% In Water) 50 ml IV ASDIRECTED PRN PRN Reason: Hypoglycemia Enoxaparin Sodium (Lovenox) 40 mg SUBCUT Q24H [facility] Last Admin: 03/12/20 08:54 Dose: 40 mg Documented by: AURELIA Glucagon (Glucagen) 1 mg IM ASDIRECTED PRN PRN Reason: Hypoglycemia Ceftriaxone Sodium/Dextrose 1 (gm/ Premix) 50 mls @ 100 mls/hr IV Q24H [facility] Remdesivir 100 mg/ Sodium (Chloride) 100 mls @ 100 mls/hr IV Q24H [facility] Stop: 03/16/20 04:29 Insulin Aspart (Novolog) 0 unit SUBCUT TIDAC [facility]; Protocol Last Admin: 03/12/20 08:52 Dose: 3 units Documented by: AURELIA Metoprolol Tartrate (Lopressor) 50 mg PO DAILY [facility] Non-Formulary Medication (Fluoxetine) 10 mg PO DAILY [facility] Pantoprazole Sodium (Protonix) 40 mg PO ACBREAKFAST [facility] Rosuvastatin Calcium (Crestor) 20 mg PO BEDTIME [facility] Sodium Chloride (Saline Flush) 10 ml FLUSH ASDIRECTED PRN PRN Reason: Keep Vein Open Last Admin: 03/12/20 01:04 Dose: 10 ml Documented by: ASHLEY Sodium Chloride (Saline Flush) 2.5 ml FLUSH ASDIRECTED PRN PRN Reason: Keep Vein Open Last Admin: 03/12/20 01:04 Dose: 2.5 ml Documented by: ASHLEY Assessment/Plan Comment:: Assessment and Plan: 1. Acute hypoxic respiratory failure secondary to COVID-19: - Supplemental oxygen prn, Combivent q6h [place], dexamethasone 6 mg qd, Remdesivir, PPI and incentive spirometer. - CXR: densities in RML and b/l bases. Enlarged and increased density of right hilum. CT chest pending. - Remdesivir side effects were explained to patient and she consented for treatment. 2. UTI: - Patient on IV ceftriaxone. Urine cultures pending. 3. MAI: - Will monitor. 4. Diabetes mellitus type II: - ADA Diet, Novolog SSI and accuchecks TIDAC. 5. DVT prophylaxis: - Lovenox 40 mg subcut qd. 6. Past medical history of HTN, RUDDY, MS, DVT, PE, GI bleed: - Resume home medications.
[2020-03-12] MEDS: Dexamethasone 4 MG Tab PO SCH (09:08)
[2020-03-12] MEDS: Pantoprazole 40 MG Tab.CR PO SCH (09:09)
[2020-03-12] MEDS: Metoprolol Tartrate 50 MG Tab PO SCH (10:54)
[2020-03-12] MEDS: Albuterol/Ipratropium 4 GM Inhalation Spray INH SCH ×4 (11:30→23:39)
--- NOTE | 2020-03-12 12:36 | CT ---
Indication: Hypoxia increased density right hilum has COVID Technique: Noncontrast CT chest Comparison: Chest x-ray 03/12/2020 Findings: Left thyroid nodule. Normal caliber thoracic aorta. Heart size is normal. No bulky right hilar adenopathy seen. Lack of intravenous contrast makes evaluation of the right hilum difficult. Prominent hilar nodes are not excluded. Trace effusions. Coronary artery calcification. Diffuse ground-glass opacities including the peripheral lungs which can be seen with patient`s known COVID. Small hiatal hernia. No suspicious bony lesions. Impression: 1. Diffuse ground-glass opacities to include the lung periphery which can be seen with patient`s known COVID. 2. No bulky right hilar adenopathy. Lack of contrast makes evaluation of the right hilum difficult prominent hilar lymph nodes are not excluded. Please note that all CT scans at this facility use dose modulation, iterative reconstruction, and/or weight-based dosing when appropriate to reduce radiation dose to as low as reasonably achievable. Dictated by Raquel Lam MD @ Mar 12 2020 12:28PM Signed by Dr. Raquel Lam @ Mar 12 2020 12:33PM
[2020-03-12] MEDS: Rosuvastatin 10 MG Tab PO SCH (20:20)
[2020-03-13] MEDS: cefTRIAXone 1 GM in Premix Bag 1 BAG IV SCH ×2 (03:00→03:11)
[2020-03-13] MEDS: REMDESIVIR 100 MG in Sodium Chloride 0.9% 100 ML IV SCH (03:16)
[2020-03-13] MEDS: Albuterol/Ipratropium 4 GM Inhalation Spray INH SCH ×4 (05:39→23:41)
[2020-03-13 06:58] LABS: CARBON DIOXIDE,CO2 24.3 mmol/L (21.0-32.0); POTASSIUM,K 4.5 mmol/L (3.5-5.1)
[2020-03-13] MEDS: Pantoprazole 40 MG Tab.CR PO SCH (08:04)
[2020-03-13] MEDS: Insulin Aspart 100 Units/ML 3 ML Pen SUBCUT SCH ×3 (08:05→18:14)
[2020-03-13] MEDS: Dexamethasone 4 MG Tab PO SCH (10:10)
[2020-03-13] MEDS: Enoxaparin 40 MG/0.4 ML Syringe SUBCUT SCH (10:11)
[2020-03-13] MEDS: Metoprolol Tartrate 50 MG Tab PO SCH (10:11)
--- NOTE | 2020-03-13 12:56 | PCM.PN ---
- General Info Date of Service: 03/13/20 - Review of Systems Systems Review Comment:: feeling better, shortness of breath has improved. - Patient Data Vitals - Most Recent: Last Vital Signs Temp 36.4 C 03/13/20 11:44 Pulse 65 03/13/20 11:44 Resp 16 03/13/20 11:44 BP 132/73 03/13/20 11:44 Pulse Ox 92 L 03/13/20 11:44 Weight - Most Recent: 91.354 kg I&O - Last 24 Hours: Intake & Output 03/12/20 03/13/20 03/13/20 22:59 06:59 14:59 Intake Total 270 120 Output Total 740 Balance -470 120 Lab Results Last 24 Hours: Laboratory Results - last 24 hr 03/12/20 03/13/20 03/13/20 Range/Units 17:25 05:40 05:40 WBC 4.26 (4.0-11.0) K/uL RBC 3.54 L (4.30-5.90) M/uL Hgb 10.8 L (12.0-16.0) g/dL Hct 33.8 L (36.0-46.0) % MCV 95.5 (80.0-98.0) fL MCH 30.5 (27.0-32.0) pg MCHC 32.0 (31.0-37.0) g/dL RDW Std Deviation 46.9 (28.0-62.0) fl RDW Coeff of Marjorie 13 (11.0-15.0) % Plt Count 247 (150-400) K/uL MPV 9.40 (7.40-12.00) fL Neut % (Auto) 76.1 (48.0-80.0) % Lymph % (Auto) 12.9 L (16.0-40.0) % [place] % (Auto) 11.0 (0.0-15.0) % Eos % (Auto) 0.0 (0.0-7.0) % Baso % (Auto) 0.0 (0.0-1.5) % Neut # (Auto) 3.2 (1.4-5.7) K/uL Lymph # (Auto) 0.6 (0.6-2.4) K/uL [place] # (Auto) 0.5 (0.0-0.8) K/uL Eos # (Auto) 0.0 (0.0-0.7) K/uL Baso # (Auto) 0.0 (0.0-0.1) K/uL Nucleated RBC % 0.0 /100WBC Nucleated RBCs # 0 K/uL Sodium 135 L (136-145) mmol/L Potassium 4.5 (3.5-5.1) mmol/L Chloride 101 (98-107) mmol/L Carbon Dioxide 24.3 (21.0-32.0) mmol/L BUN 29 H (7.0-18.0) mg/dL Creatinine 1.1 H (0.6-1.0) mg/dL Est Cr Clr Drug Dosing 33.69 mL/min Estimated GFR (MDRD) 49.0 ml/min Glucose 238 H (74-106) mg/dL POC Glucose 278 H (60-110) mg/dL Calcium 8.3 L (8.5-10.1) mg/dL Phosphorus 3.6 (2.6-4.7) mg/dL Magnesium 2.1 (1.8-2.4) mg/dL Total Bilirubin 0.2 (0.2-1.0) mg/dL AST 22 (15-37) IU/L ALT 23 (14-63) IU/L Alkaline Phosphatase 58 (46-116) U/L Total Protein 6.4 (6.4-8.2) g/dL Albumin 2.2 L (3.4-5.0) g/dL Globulin 4.2 H (2.6-4.0) g/dL Albumin/Globulin Ratio 0.5 L (0.9-1.6) 03/13/20 Range/Units 11:42 WBC (4.0-11.0) K/uL RBC (4.30-5.90) M/uL Hgb (12.0-16.0) g/dL Hct (36.0-46.0) % MCV (80.0-98.0) fL MCH (27.0-32.0) pg MCHC (31.0-37.0) g/dL RDW Std Deviation (28.0-62.0) fl RDW Coeff of Marjorie (11.0-15.0) % Plt Count (150-400) K/uL MPV (7.40-12.00) fL Neut % (Auto) (48.0-80.0) % Lymph % (Auto) (16.0-40.0) % [place] % (Auto) (0.0-15.0) % Eos % (Auto) (0.0-7.0) % Baso % (Auto) (0.0-1.5) % Neut # (Auto) (1.4-5.7) K/uL Lymph # (Auto) (0.6-2.4) K/uL [place] # (Auto) (0.0-0.8) K/uL Eos # (Auto) (0.0-0.7) K/uL Baso # (Auto) (0.0-0.1) K/uL Nucleated RBC % /100WBC Nucleated RBCs # K/uL Sodium (136-145) mmol/L Potassium (3.5-5.1) mmol/L Chloride (98-107) mmol/L Carbon Dioxide (21.0-32.0) mmol/L BUN (7.0-18.0) mg/dL Creatinine (0.6-1.0) mg/dL Est Cr Clr Drug Dosing mL/min Estimated GFR (MDRD) ml/min Glucose (74-106) mg/dL POC Glucose 243 H (60-110) mg/dL Calcium (8.5-10.1) mg/dL Phosphorus (2.6-4.7) mg/dL Magnesium (1.8-2.4) mg/dL Total Bilirubin (0.2-1.0) mg/dL AST (15-37) IU/L ALT (14-63) IU/L Alkaline Phosphatase (46-116) U/L Total Protein (6.4-8.2) g/dL Albumin (3.4-5.0) g/dL Globulin (2.6-4.0) g/dL Albumin/Globulin Ratio (0.9-1.6) Jareth Results Last 24 Hours: Microbiology 03/12/20 02:08 Urine Culture - Final Urine, Clean Catch MIXED MIR >100,000 CFU/ML Med Orders - Current: Current Medications Albuterol/Ipratropium (Combivent Respimat) 0 gm INH Q6H [facility] Last Admin: 03/13/20 11:22 Dose: 1 puff Documented by: Dexamethasone (Dexamethasone) 6 mg PO Q24H [facility] Last Admin: 03/13/20 10:10 Dose: 6 mg Documented by: Dextrose/Water (Dextrose 50% In Water) 50 ml IV ASDIRECTED PRN PRN Reason: Hypoglycemia Enoxaparin Sodium (Lovenox) 40 mg SUBCUT Q24H [facility] Last Admin: 03/13/20 10:11 Dose: 40 mg Documented by: Fluoxetine HCl (Prozac) 10 mg PO DAILY [facility] Last Admin: 03/13/20 10:11 Dose: 10 mg Documented by: Glucagon (Glucagen) 1 mg IM ASDIRECTED PRN PRN Reason: Hypoglycemia Remdesivir 100 mg/ Sodium (Chloride) 100 mls @ 100 mls/hr IV Q24H [facility] Stop: 03/16/20 04:29 Last Admin: 03/13/20 03:16 Dose: 100 mls/hr Documented by: Ceftriaxone Sodium/Dextrose 1 (gm/ Premix) 50 mls @ 100 mls/hr IV Q24H [facility] Last Admin: 03/13/20 03:00 Dose: 100 mls/hr Documented by: Insulin Aspart (Novolog) 0 unit SUBCUT TIDAC [facility]; Protocol Last Admin: 03/13/20 08:05 Dose: 2 units Documented by: Metoprolol Tartrate (Lopressor) 50 mg PO DAILY [facility] Last Admin: 03/13/20 10:11 Dose: 50 mg Documented by: Pantoprazole Sodium (Protonix) 40 mg PO ACBREAKFAST [facility] Last Admin: 03/13/20 08:04 Dose: 40 mg Documented by: Rosuvastatin Calcium (Crestor) 20 mg PO BEDTIME [facility] Last Admin: 03/12/20 20:20 Dose: 20 mg Documented by: Sodium Chloride (Saline Flush) 10 ml FLUSH ASDIRECTED PRN PRN Reason: Keep Vein Open Last Admin: 03/12/20 01:04 Dose: 10 ml Documented by: Sodium Chloride (Saline Flush) 2.5 ml FLUSH ASDIRECTED PRN PRN Reason: Keep Vein Open Last Admin: 03/12/20 01:04 Dose: 2.5 ml Documented by: Discontinued Medications Dexamethasone (Decadron) 10 mg IVPUSH ONETIME ONE Stop: 03/12/20 02:12 Last Admin: 03/12/20 03:02 Dose: 10 mg Documented by: Remdesivir 200 mg/ Sodium (Chloride) 250 mls @ 250 mls/hr IV ONETIME ONE Stop: 03/12/20 02:12 Last Admin: 03/12/20 03:28 Dose: 250 mls/hr Documented by: Ceftriaxone Sodium/Dextrose 1 (gm/ Premix) 50 mls @ 100 mls/hr IV ONETIME ONE Stop: 03/12/20 03:11 Last Admin: 03/12/20 03:02 Dose: 100 mls/hr Documented by: Ceftriaxone Sodium/Dextrose 1 (gm/ Premix) 50 mls @ 100 mls/hr IV Q24H [facility] Last Admin: 03/12/20 19:55 Dose: Not Given Documented by: Remdesivir 100 mg/ Sodium (Chloride) 100 mls @ 100 mls/hr IV Q24H [facility] Stop: 03/15/20 09:44 - Exam General: Alert, Oriented Lungs: Clear to Auscultation, Normal Respiratory Effort Cardiovascular: Regular Rate, Regular Rhythm GI/Abdominal Exam: Soft, Non-Tender, No Distention Extremities: Non-Tender, No Pedal Edema Skin: Warm, Dry, Intact Sepsis Event Note - Evaluation Sepsis Screening Result: No Definite Risk - Focused Exam Vital Signs: Vital Signs Temp Pulse Pulse Resp BP BP Pulse Ox 03/13/20 11:44 36.4 C 65 16 132/73 92 L 03/13/20 10:11 64 111/60 03/13/20 08:31 03/13/20 07:59 36.1 C 77 18 140/71 91 L 03/13/20 03:50 36.1 C 66 20 126/73 93 L Pulse Ox 03/13/20 11:44 03/13/20 10:11 03/13/20 08:31 91 L 03/13/20 07:59 03/13/20 03:50 - Problem List Review Problem List Initiated/Reviewed/Updated: Yes - My Orders Last 24 Hours: My Active Orders 03/14/20 05:11 CBC WITH AUTO DIFF [HEME] AM COMPREHENSIVE METABOLIC PN,CMP [CHEM] AM - Plan Plan:: Assessment and Plan: 1. Acute hypoxic respiratory failure secondary to COVID-19: - Supplemental oxygen at 1.5 L NC, Combivent q6h [facility], dexamethasone 6 mg qd, Remdesivir, PPI and incentive spirometer. 2. UTI: - Patient on IV ceftriaxone. Urine cultures pending. 3. Diabetes mellitus type II: - ADA Diet, Novolog SSI and accuchecks TIDAC. 4. DVT prophylaxis: - Lovenox 40 mg subcut qd. 5. Past medical history of HTN, RUDDY, MS, DVT, PE, GI bleed: - Resume home medications.
[2020-03-13] MEDS: Rosuvastatin 10 MG Tab PO SCH (19:59)
[2020-03-14] MEDS: cefTRIAXone 1 GM in Premix Bag 1 BAG IV SCH (03:01)
[2020-03-14] MEDS: Sodium Chloride 0.9% 2.5 ML Syringe FLUSH PRN (03:02)
[2020-03-14] MEDS: Sodium Chloride 0.9% 10 ML Syringe FLUSH PRN (03:02)
[2020-03-14] MEDS: REMDESIVIR 100 MG in Sodium Chloride 0.9% 100 ML IV SCH (03:52)
[2020-03-14] MEDS: Albuterol/Ipratropium 4 GM Inhalation Spray INH SCH ×3 (05:28→17:58)
[2020-03-14 06:26] LABS: CARBON DIOXIDE,CO2 24.5 mmol/L (21.0-32.0); POTASSIUM,K 4.4 mmol/L (3.5-5.1)
[2020-03-14] MEDS: Pantoprazole 40 MG Tab.CR PO SCH (06:56)
[2020-03-14] MEDS: Dexamethasone 4 MG Tab PO SCH (09:34)
[2020-03-14] MEDS: Metoprolol Tartrate 50 MG Tab PO SCH (09:34)
[2020-03-14] MEDS: Enoxaparin 40 MG/0.4 ML Syringe SUBCUT SCH (09:35)
[2020-03-14] MEDS: Insulin Aspart 100 Units/ML 3 ML Pen SUBCUT SCH ×3 (09:54→19:00)
--- NOTE | 2020-03-14 15:16 | PCM.PN ---
<Jose M Miranda - Last Filed: 03/14/20 15:10> - General Info Date of Service: 03/14/20 Subjective Update: Patient states that she feels tired and cold. Denies chills, nausea, vomiting, diarrhea, headaches, cough. - Review of Systems General: Reports: Weakness. Denies: Fever, Chills Pulmonary: Denies: Shortness of Breath, Pleuritic Chest Pain, Cough Cardiovascular: Denies: Chest Pain, Palpitations Gastrointestinal: Reports: Decreased Appetite (loss of appetitie). Denies: Abdominal Pain Neurological: Denies: Confusion, Dizziness - Patient Data Vitals - Most Recent: Last Vital Signs Temp 97.4 F 03/14/20 09:30 Pulse 70 03/14/20 09:34 Resp 18 03/14/20 09:30 BP 141/68 H 03/14/20 09:34 Pulse Ox 86 L 03/14/20 09:40 Weight - Most Recent: 91.354 kg I&O - Last 24 Hours: Intake & Output 03/14/20 03/14/20 03/14/20 06:59 14:59 22:59 Intake Total 300 Output Total 450 Balance -150 Lab Results Last 24 Hours: Laboratory Results - last 24 hr 03/13/20 03/14/20 03/14/20 Range/Units 17:37 05:23 05:23 WBC 6.02 (4.0-11.0) K/uL RBC 3.54 L (4.30-5.90) M/uL Hgb 10.8 L (12.0-16.0) g/dL Hct 33.7 L (36.0-46.0) % MCV 95.2 (80.0-98.0) fL MCH 30.5 (27.0-32.0) pg MCHC 32.0 (31.0-37.0) g/dL RDW Std Deviation 46.9 (28.0-62.0) fl RDW Coeff of Marjorie 13 (11.0-15.0) % Plt Count 293 (150-400) K/uL MPV 9.30 (7.40-12.00) fL Neut % (Auto) 82.8 H (48.0-80.0) % Lymph % (Auto) 9.1 L (16.0-40.0) % [place] % (Auto) 8.1 (0.0-15.0) % Eos % (Auto) 0.0 (0.0-7.0) % Baso % (Auto) 0.0 (0.0-1.5) % Neut # (Auto) 5.0 (1.4-5.7) K/uL Lymph # (Auto) 0.6 (0.6-2.4) K/uL [place] # (Auto) 0.5 (0.0-0.8) K/uL Eos # (Auto) 0.0 (0.0-0.7) K/uL Baso # (Auto) 0.0 (0.0-0.1) K/uL Nucleated RBC % 0.0 /100WBC Nucleated RBCs # 0 K/uL Sodium 138 (136-145) mmol/L Potassium 4.4 (3.5-5.1) mmol/L Chloride 103 (98-107) mmol/L Carbon Dioxide 24.5 (21.0-32.0) mmol/L BUN 38 H (7.0-18.0) mg/dL Creatinine 1.2 H (0.6-1.0) mg/dL Est Cr Clr Drug Dosing 30.89 mL/min Estimated GFR (MDRD) 44.3 ml/min Glucose 237 H (74-106) mg/dL POC Glucose 273 H (60-110) mg/dL Calcium 7.9 L (8.5-10.1) mg/dL Total Bilirubin 0.2 (0.2-1.0) mg/dL AST 18 (15-37) IU/L ALT 22 (14-63) IU/L Alkaline Phosphatase 58 (46-116) U/L Total Protein 6.3 L (6.4-8.2) g/dL Albumin 2.2 L (3.4-5.0) g/dL Globulin 4.1 H (2.6-4.0) g/dL Albumin/Globulin Ratio 0.5 L (0.9-1.6) Blood Type Antibody Screen 03/14/20 03/14/20 Range/Units 06:55 09:55 WBC (4.0-11.0) K/uL RBC (4.30-5.90) M/uL Hgb (12.0-16.0) g/dL Hct (36.0-46.0) % MCV (80.0-98.0) fL MCH (27.0-32.0) pg MCHC (31.0-37.0) g/dL RDW Std Deviation (28.0-62.0) fl RDW Coeff of Marjorie (11.0-15.0) % Plt Count (150-400) K/uL MPV (7.40-12.00) fL Neut % (Auto) (48.0-80.0) % Lymph % (Auto) (16.0-40.0) % [place] % (Auto) (0.0-15.0) % Eos % (Auto) (0.0-7.0) % Baso % (Auto) (0.0-1.5) % Neut # (Auto) (1.4-5.7) K/uL Lymph # (Auto) (0.6-2.4) K/uL [place] # (Auto) (0.0-0.8) K/uL Eos # (Auto) (0.0-0.7) K/uL Baso # (Auto) (0.0-0.1) K/uL Nucleated RBC % /100WBC Nucleated RBCs # K/uL Sodium (136-145) mmol/L Potassium (3.5-5.1) mmol/L Chloride (98-107) mmol/L Carbon Dioxide (21.0-32.0) mmol/L BUN (7.0-18.0) mg/dL Creatinine (0.6-1.0) mg/dL Est Cr Clr Drug Dosing mL/min Estimated GFR (MDRD) ml/min Glucose (74-106) mg/dL POC Glucose 209 H (60-110) mg/dL Calcium (8.5-10.1) mg/dL Total Bilirubin (0.2-1.0) mg/dL AST (15-37) IU/L ALT (14-63) IU/L Alkaline Phosphatase (46-116) U/L Total Protein (6.4-8.2) g/dL Albumin (3.4-5.0) g/dL Globulin (2.6-4.0) g/dL Albumin/Globulin Ratio (0.9-1.6) Blood Type O NEGATIVE Antibody Screen NEGATIVE Med Orders - Current: Current Medications Albuterol/Ipratropium (Combivent Respimat) 0 gm INH Q6H [facility] Last Admin: 03/14/20 11:13 Dose: 1 puff Documented by: Dexamethasone (Dexamethasone) 6 mg PO Q24H [facility] Last Admin: 03/14/20 09:34 Dose: 6 mg Documented by: Dextrose/Water (Dextrose 50% In Water) 50 ml IV ASDIRECTED PRN PRN Reason: Hypoglycemia Enoxaparin Sodium (Lovenox) 40 mg SUBCUT Q24H [facility] Last Admin: 03/14/20 09:35 Dose: 40 mg Documented by: Fluoxetine HCl (Prozac) 10 mg PO DAILY [facility] Last Admin: 03/14/20 09:34 Dose: 10 mg Documented by: Glucagon (Glucagen) 1 mg IM ASDIRECTED PRN PRN Reason: Hypoglycemia Remdesivir 100 mg/ Sodium (Chloride) 100 mls @ 100 mls/hr IV Q24H [facility] Stop: 03/16/20 04:29 Last Admin: 03/14/20 03:52 Dose: 100 mls/hr Documented by: Ceftriaxone Sodium/Dextrose 1 (gm/ Premix) 50 mls @ 100 mls/hr IV Q24H [facility] Last Admin: 03/14/20 03:01 Dose: 100 mls/hr Documented by: Insulin Aspart (Novolog) 0 unit SUBCUT TIDAC [facility]; Protocol Metoprolol Tartrate (Lopressor) 50 mg PO DAILY [facility] Last Admin: 03/14/20 09:34 Dose: 50 mg Documented by: Pantoprazole Sodium (Protonix) 40 mg PO ACBREAKFAST [facility] Last Admin: 03/14/20 06:56 Dose: 40 mg Documented by: Rosuvastatin Calcium (Crestor) 20 mg PO BEDTIME [facility] Last Admin: 03/13/20 19:59 Dose: 20 mg Documented by: Sodium Chloride (Saline Flush) 10 ml FLUSH ASDIRECTED PRN PRN Reason: Keep Vein Open Last Admin: 03/14/20 03:02 Dose: 10 ml Documented by: Sodium Chloride (Saline Flush) 2.5 ml FLUSH ASDIRECTED PRN PRN Reason: Keep Vein Open Last Admin: 03/14/20 03:02 Dose: 2.5 ml Documented by: Discontinued Medications Dexamethasone (Decadron) 10 mg IVPUSH ONETIME ONE Stop: 03/12/20 02:12 Last Admin: 03/12/20 03:02 Dose: 10 mg Documented by: Remdesivir 200 mg/ Sodium (Chloride) 250 mls @ 250 mls/hr IV ONETIME ONE Stop: 03/12/20 02:12 Last Admin: 03/12/20 03:28 Dose: 250 mls/hr Documented by: Ceftriaxone Sodium/Dextrose 1 (gm/ Premix) 50 mls @ 100 mls/hr IV ONETIME ONE Stop: 03/12/20 03:11 Last Admin: 03/12/20 03:02 Dose: 100 mls/hr Documented by: Ceftriaxone Sodium/Dextrose 1 (gm/ Premix) 50 mls @ 100 mls/hr IV Q24H [facility] Last Admin: 03/12/20 19:55 Dose: Not Given Documented by: Remdesivir 100 mg/ Sodium (Chloride) 100 mls @ 100 mls/hr IV Q24H [facility] Stop: 03/15/20 09:44 Insulin Aspart (Novolog) 0 unit SUBCUT TIDAC [facility]; Protocol Last Admin: 03/14/20 09:54 Dose: 2 units Documented by: - Exam General: Alert, Oriented Lungs: Clear to Auscultation, Normal Respiratory Effort Cardiovascular: Regular Rate, Regular Rhythm GI/Abdominal Exam: Soft, Non-Tender Sepsis Event Note - Evaluation Sepsis Screening Result: No Definite Risk - Focused Exam Vital Signs: Vital Signs Temp Pulse Pulse Resp BP BP Pulse Ox 03/14/20 09:40 86 L 03/14/20 09:34 70 141/68 H 03/14/20 09:30 97.4 F 70 18 141/68 H 97 03/14/20 05:01 90 L 03/14/20 04:50 87 L 03/14/20 03:54 97.4 F 69 18 142/76 H 94 L - Problem List Review Problem List Initiated/Reviewed/Updated: Yes - Plan Plan:: Assessment and Plan: 1. Acute hypoxic respiratory failure secondary to COVID-19: - Supplemental oxygen (Patient using 3L O2), Combivent q6h [facility], dexamethasone 6 mg qd, Remdesivir 100MG QD, PPI and incentive spirometer. 2. UTI- IV ceftriaxone. 3. MAI- Daily BMP 4. Diabetes mellitus type II- ADA Diet, Novolog SSI and accuchecks TIDAC. 5. DVT prophylaxis- Lovenox 40 mg subcut qd. 6. Past medical history of HTN, RUDDY, MS, DVT, PE, GI bleed- Resume home medications. <YobanyJony - Last Filed: 03/17/20 13:09> - Patient Data Vitals - Most Recent: Last Vital Signs Temp 36.6 C 03/17/20 05:00 Pulse 81 03/17/20 09:30 Resp 18 03/17/20 05:00 BP 165/65 H 03/17/20 09:30 Pulse Ox 96 03/17/20 05:00 I&O - Last 24 Hours: Intake & Output 03/16/20 03/17/20 03/17/20 22:59 06:59 14:59 Intake Total 650 550 Output Total 680 150 Balance -30 400 Lab Results Last 24 Hours: Laboratory Results - last 24 hr 03/16/20 03/17/20 03/17/20 Range/Units 17:09 06:36 06:36 WBC 5.87 (4.0-11.0) K/uL RBC 3.56 L (4.30-5.90) M/uL Hgb 10.8 L (12.0-16.0) g/dL Hct 33.8 L (36.0-46.0) % MCV 94.9 (80.0-98.0) fL MCH 30.3 (27.0-32.0) pg MCHC 32.0 (31.0-37.0) g/dL RDW Std Deviation 46.2 (28.0-62.0) fl RDW Coeff of Marjorie 13 (11.0-15.0) % Plt Count 311 (150-400) K/uL MPV 9.40 (7.40-12.00) fL Add Manual Diff YES Neutrophils % (Manual) 76 (48.0-80.0) % Band Neutrophils % 2 % Lymphocytes % (Manual) 10 L (16.0-40.0) % Monocytes % (Manual) 11 (0.0-15.0) % Myelocytes % 1 % Nucleated RBC % 0.4 /100WBC Absolute Seg Neuts 4.5 (1.4-5.7) Band Neutrophils # 0.1 Lymphocytes # (Manual) 0.6 (0.6-2.4) Monocytes # (Manual) 0.6 (0.0-0.8) Absolute Myelocytes 0.1 Nucleated RBCs # 0 K/uL Sodium 139 (136-145) mmol/L Potassium 4.1 (3.5-5.1) mmol/L Chloride 105 (98-107) mmol/L Carbon Dioxide 26.7 (21.0-32.0) mmol/L BUN 38 H (7.0-18.0) mg/dL Creatinine 1.0 (0.6-1.0) mg/dL Est Cr Clr Drug Dosing 37.06 mL/min Estimated GFR (MDRD) 54.7 ml/min Glucose 219 H (74-106) mg/dL POC Glucose 292 H (60-110) mg/dL Calcium 8.4 L (8.5-10.1) mg/dL Total Bilirubin 0.2 (0.2-1.0) mg/dL AST 21 (15-37) IU/L ALT 28 (14-63) IU/L Alkaline Phosphatase 67 (46-116) U/L Total Protein 6.0 L (6.4-8.2) g/dL Albumin 2.2 L (3.4-5.0) g/dL Globulin 3.8 (2.6-4.0) g/dL Albumin/Globulin Ratio 0.6 L (0.9-1.6) 03/17/20 Range/Units 06:59 WBC (4.0-11.0) K/uL RBC (4.30-5.90) M/uL Hgb (12.0-16.0) g/dL Hct (36.0-46.0) % MCV (80.0-98.0) fL MCH (27.0-32.0) pg MCHC (31.0-37.0) g/dL RDW Std Deviation (28.0-62.0) fl RDW Coeff of Marjorie (11.0-15.0) % Plt Count (150-400) K/uL MPV (7.40-12.00) fL Add Manual Diff Neutrophils % (Manual) (48.0-80.0) % Band Neutrophils % % Lymphocytes % (Manual) (16.0-40.0) % Monocytes % (Manual) (0.0-15.0) % Myelocytes % % Nucleated RBC % /100WBC Absolute Seg Neuts (1.4-5.7) Band Neutrophils # Lymphocytes # (Manual) (0.6-2.4) Monocytes # (Manual) (0.0-0.8) Absolute Myelocytes Nucleated RBCs # K/uL Sodium (136-145) mmol/L Potassium (3.5-5.1) mmol/L Chloride (98-107) mmol/L Carbon Dioxide (21.0-32.0) mmol/L BUN (7.0-18.0) mg/dL Creatinine (0.6-1.0) mg/dL Est Cr Clr Drug Dosing mL/min Estimated GFR (MDRD) ml/min Glucose (74-106) mg/dL POC Glucose 208 H (60-110) mg/dL Calcium (8.5-10.1) mg/dL Total Bilirubin (0.2-1.0) mg/dL AST (15-37) IU/L ALT (14-63) IU/L Alkaline Phosphatase (46-116) U/L Total Protein (6.4-8.2) g/dL Albumin (3.4-5.0) g/dL Globulin (2.6-4.0) g/dL Albumin/Globulin Ratio (0.9-1.6) Med Orders - Current: Current Medications Albuterol/Ipratropium (Combivent Respimat) 0 gm INH Q6H [facility] Last Admin: 03/17/20 11:43 Dose: 1 puff Documented by: Dexamethasone (Dexamethasone) 6 mg PO Q24H [facility] Last Admin: 03/17/20 09:30 Dose: 6 mg Documented by: Dextrose/Water (Dextrose 50% In Water) 50 ml IV ASDIRECTED PRN PRN Reason: Hypoglycemia Enoxaparin Sodium (Lovenox) 40 mg SUBCUT Q24H [facility] Last Admin: 03/17/20 09:31 Dose: 40 mg Documented by: Fluoxetine HCl (Prozac) 10 mg PO DAILY [facility] Last Admin: 03/17/20 09:32 Dose: 10 mg Documented by: Glucagon (Glucagen) 1 mg IM ASDIRECTED PRN PRN Reason: Hypoglycemia Guaifenesin/Dextromethorphan (Robitussin Dm) 10 ml PO Q4H PRN PRN Reason: Cough Last Admin: 03/17/20 02:20 Dose: 10 ml Documented by: Hydralazine HCl (Apresoline) 20 mg IVPUSH Q4H PRN PRN Reason: Hypertension Insulin Aspart (Novolog) 0 unit SUBCUT TIDAC [facility]; Protocol Last Admin: 03/17/20 09:13 Dose: 6 units Documented by: Metoprolol Tartrate (Lopressor) 50 mg PO DAILY [facility] Last Admin: 03/17/20 09:30 Dose: 50 mg Documented by: Pantoprazole Sodium (Protonix) 40 mg PO ACBREAKFAST [facility] Last Admin: 03/17/20 07:01 Dose: 40 mg Documented by: Rosuvastatin Calcium (Crestor) 20 mg PO BEDTIME [facility] Last Admin: 03/16/20 21:00 Dose: 20 mg Documented by: Sodium Chloride (Saline Flush) 10 ml FLUSH ASDIRECTED PRN PRN Reason: Keep Vein Open Last Admin: 03/14/20 03:02 Dose: 10 ml Documented by: Sodium Chloride (Saline Flush) 2.5 ml FLUSH ASDIRECTED PRN PRN Reason: Keep Vein Open Last Admin: 03/14/20 03:02 Dose: 2.5 ml Documented by: Discontinued Medications Dexamethasone (Decadron) 10 mg IVPUSH ONETIME ONE Stop: 03/12/20 02:12 Last Admin: 03/12/20 03:02 Dose: 10 mg Documented by: Remdesivir 200 mg/ Sodium (Chloride) 250 mls @ 250 mls/hr IV ONETIME ONE Stop: 03/12/20 02:12 Last Admin: 03/12/20 03:28 Dose: 250 mls/hr Documented by: Ceftriaxone Sodium/Dextrose 1 (gm/ Premix) 50 mls @ 100 mls/hr IV ONETIME ONE Stop: 03/12/20 03:11 Last Admin: 03/12/20 03:02 Dose: 100 mls/hr Documented by: Ceftriaxone Sodium/Dextrose 1 (gm/ Premix) 50 mls @ 100 mls/hr IV Q24H [facility] Last Admin: 03/12/20 19:55 Dose: Not Given Documented by: Remdesivir 100 mg/ Sodium (Chloride) 100 mls @ 100 mls/hr IV Q24H [facility] Stop: 03/15/20 09:44 Remdesivir 100 mg/ Sodium (Chloride) 100 mls @ 100 mls/hr IV Q24H [facility] Stop: 03/16/20 04:29 Last Admin: 03/16/20 03:44 Dose: 100 mls/hr Documented by: Ceftriaxone Sodium/Dextrose 1 (gm/ Premix) 50 mls @ 100 mls/hr IV Q24H [facility] Last Admin: 03/17/20 02:20 Dose: 100 mls/hr Documented by: Insulin Aspart (Novolog) 0 unit SUBCUT TIDAC [facility]; Protocol Last Admin: 03/14/20 09:54 Dose: 2 units Documented by: Insulin Aspart (Novolog) 0 unit SUBCUT TIDAC [facility]; Protocol Last Admin: 03/15/20 08:47 Dose: 4 units Documented by: Sepsis Event Note - Focused Exam Vital Signs: Vital Signs Temp Pulse Resp BP BP Pulse Ox 03/17/20 09:30 81 165/65 H 03/17/20 05:00 36.6 C 18 169/69 H 96 - My Orders Last 24 Hours: My Active Orders 03/17/20 01:18 hydrALAZINE [Apresoline] 20 mg IVPUSH Q4H PRN - Plan Plan:: I have seen and evaluated the patient and agree with the residents note unless specified in my note
[2020-03-14] MEDS: Rosuvastatin 10 MG Tab PO SCH (20:46)
[2020-03-15] MEDS: Albuterol/Ipratropium 4 GM Inhalation Spray INH SCH ×5 (00:22→22:12)
[2020-03-15] MEDS: cefTRIAXone 1 GM in Premix Bag 1 BAG IV SCH (02:36)
[2020-03-15] MEDS: REMDESIVIR 100 MG in Sodium Chloride 0.9% 100 ML IV SCH (03:24)
[2020-03-15 07:08] LABS: CARBON DIOXIDE,CO2 25.1 mmol/L (21.0-32.0); POTASSIUM,K 4.4 mmol/L (3.5-5.1)
[2020-03-15] MEDS: Metoprolol Tartrate 50 MG Tab PO SCH (08:45)
[2020-03-15] MEDS: Pantoprazole 40 MG Tab.CR PO SCH (08:46)
[2020-03-15] MEDS: Enoxaparin 40 MG/0.4 ML Syringe SUBCUT SCH (08:46)
[2020-03-15] MEDS: Dexamethasone 4 MG Tab PO SCH (08:46)
[2020-03-15] MEDS: Insulin Aspart 100 Units/ML 3 ML Pen SUBCUT SCH ×3 (08:47→18:54)
--- NOTE | 2020-03-15 19:25 | PCM.PN ---
<Jose M Miranda - Last Filed: 03/15/20 19:14> - General Info Date of Service: 03/15/20 Admission Dx/Problem (Free Text): Patient states she slept well and her appetite has improved. Denies fever, chills, SOB, chest pain. States that she still has a cough. - Review of Systems General: Reports: Fatigue. Denies: Fever Pulmonary: Reports: Shortness of Breath, Cough. Denies: Pleuritic Chest Pain Cardiovascular: Denies: Chest Pain, Palpitations Gastrointestinal: Denies: Abdominal Pain, Diarrhea Neurological: Denies: Confusion, Dizziness - Patient Data Vitals - Most Recent: Last Vital Signs Temp 98.0 F 03/15/20 17:50 Pulse 60 03/15/20 17:50 Resp 18 03/15/20 17:50 BP 152/77 H 03/15/20 17:50 Pulse Ox 90 L 03/15/20 17:50 Weight - Most Recent: 91.354 kg I&O - Last 24 Hours: Intake & Output 03/15/20 03/15/20 03/15/20 06:59 14:59 22:59 Intake Total 150 415 Output Total 450 Balance 150 -35 Lab Results Last 24 Hours: Laboratory Results - last 24 hr 03/14/20 03/15/20 03/15/20 Range/Units 09:55 06:13 06:13 WBC 5.81 (4.0-11.0) K/uL RBC 3.57 L (4.30-5.90) M/uL Hgb 10.9 L (12.0-16.0) g/dL Hct 33.8 L (36.0-46.0) % MCV 94.7 (80.0-98.0) fL MCH 30.5 (27.0-32.0) pg MCHC 32.2 (31.0-37.0) g/dL RDW Std Deviation 46.5 (28.0-62.0) fl RDW Coeff of Marjorie 13 (11.0-15.0) % Plt Count 294 (150-400) K/uL MPV 9.30 (7.40-12.00) fL Neut % (Auto) 78.8 (48.0-80.0) % Lymph % (Auto) 8.4 L (16.0-40.0) % [place] % (Auto) 12.6 (0.0-15.0) % Eos % (Auto) 0.0 (0.0-7.0) % Baso % (Auto) 0.2 (0.0-1.5) % Neut # (Auto) 4.6 (1.4-5.7) K/uL Lymph # (Auto) 0.5 L (0.6-2.4) K/uL [place] # (Auto) 0.7 (0.0-0.8) K/uL Eos # (Auto) 0.0 (0.0-0.7) K/uL Baso # (Auto) 0.0 (0.0-0.1) K/uL Nucleated RBC % 0.0 /100WBC Nucleated RBCs # 0 K/uL Sodium 139 (136-145) mmol/L Potassium 4.4 (3.5-5.1) mmol/L Chloride 106 (98-107) mmol/L Carbon Dioxide 25.1 (21.0-32.0) mmol/L BUN 36 H (7.0-18.0) mg/dL Creatinine 1.0 (0.6-1.0) mg/dL Est Cr Clr Drug Dosing 37.06 mL/min Estimated GFR (MDRD) 54.7 ml/min Glucose 224 H (74-106) mg/dL POC Glucose (60-110) mg/dL Calcium 8.2 L (8.5-10.1) mg/dL Total Bilirubin 0.2 (0.2-1.0) mg/dL AST 22 (15-37) IU/L ALT 22 (14-63) IU/L Alkaline Phosphatase 64 (46-116) U/L Total Protein 6.1 L (6.4-8.2) g/dL Albumin 2.2 L (3.4-5.0) g/dL Globulin 3.9 (2.6-4.0) g/dL Albumin/Globulin Ratio 0.6 L (0.9-1.6) Blood Type O NEGATIVE Antibody Screen NEGATIVE 03/15/20 03/15/20 03/15/20 Range/Units 08:01 13:12 17:45 WBC (4.0-11.0) K/uL RBC (4.30-5.90) M/uL Hgb (12.0-16.0) g/dL Hct (36.0-46.0) % MCV (80.0-98.0) fL MCH (27.0-32.0) pg MCHC (31.0-37.0) g/dL RDW Std Deviation (28.0-62.0) fl RDW Coeff of Marjorie (11.0-15.0) % Plt Count (150-400) K/uL MPV (7.40-12.00) fL Neut % (Auto) (48.0-80.0) % Lymph % (Auto) (16.0-40.0) % [place] % (Auto) (0.0-15.0) % Eos % (Auto) (0.0-7.0) % Baso % (Auto) (0.0-1.5) % Neut # (Auto) (1.4-5.7) K/uL Lymph # (Auto) (0.6-2.4) K/uL [place] # (Auto) (0.0-0.8) K/uL Eos # (Auto) (0.0-0.7) K/uL Baso # (Auto) (0.0-0.1) K/uL Nucleated RBC % /100WBC Nucleated RBCs # K/uL Sodium (136-145) mmol/L Potassium (3.5-5.1) mmol/L Chloride (98-107) mmol/L Carbon Dioxide (21.0-32.0) mmol/L BUN (7.0-18.0) mg/dL Creatinine (0.6-1.0) mg/dL Est Cr Clr Drug Dosing mL/min Estimated GFR (MDRD) ml/min Glucose (74-106) mg/dL POC Glucose 204 H 217 H 250 H (60-110) mg/dL Calcium (8.5-10.1) mg/dL Total Bilirubin (0.2-1.0) mg/dL AST (15-37) IU/L ALT (14-63) IU/L Alkaline Phosphatase (46-116) U/L Total Protein (6.4-8.2) g/dL Albumin (3.4-5.0) g/dL Globulin (2.6-4.0) g/dL Albumin/Globulin Ratio (0.9-1.6) Blood Type Antibody Screen Med Orders - Current: Current Medications Albuterol/Ipratropium (Combivent Respimat) 0 gm INH Q6H [facility] Last Admin: 03/15/20 17:42 Dose: 1 puff Documented by: Dexamethasone (Dexamethasone) 6 mg PO Q24H [facility] Last Admin: 03/15/20 08:46 Dose: 6 mg Documented by: Dextrose/Water (Dextrose 50% In Water) 50 ml IV ASDIRECTED PRN PRN Reason: Hypoglycemia Enoxaparin Sodium (Lovenox) 40 mg SUBCUT Q24H [facility] Last Admin: 03/15/20 08:46 Dose: 40 mg Documented by: Fluoxetine HCl (Prozac) 10 mg PO DAILY [facility] Last Admin: 03/15/20 08:45 Dose: 10 mg Documented by: Glucagon (Glucagen) 1 mg IM ASDIRECTED PRN PRN Reason: Hypoglycemia Remdesivir 100 mg/ Sodium (Chloride) 100 mls @ 100 mls/hr IV Q24H [facility] Stop: 03/16/20 04:29 Last Admin: 03/15/20 03:24 Dose: 100 mls/hr Documented by: Ceftriaxone Sodium/Dextrose 1 (gm/ Premix) 50 mls @ 100 mls/hr IV Q24H [facility] Last Admin: 03/15/20 02:36 Dose: 100 mls/hr Documented by: Insulin Aspart (Novolog) 0 unit SUBCUT TIDAC [facility]; Protocol Last Admin: 03/15/20 18:54 Dose: 9 units Documented by: Metoprolol Tartrate (Lopressor) 50 mg PO DAILY [facility] Last Admin: 03/15/20 08:45 Dose: 50 mg Documented by: Pantoprazole Sodium (Protonix) 40 mg PO ACBREAKFAST [facility] Last Admin: 03/15/20 08:46 Dose: 40 mg Documented by: Rosuvastatin Calcium (Crestor) 20 mg PO BEDTIME [facility] Last Admin: 03/14/20 20:46 Dose: 20 mg Documented by: Sodium Chloride (Saline Flush) 10 ml FLUSH ASDIRECTED PRN PRN Reason: Keep Vein Open Last Admin: 03/14/20 03:02 Dose: 10 ml Documented by: Sodium Chloride (Saline Flush) 2.5 ml FLUSH ASDIRECTED PRN PRN Reason: Keep Vein Open Last Admin: 03/14/20 03:02 Dose: 2.5 ml Documented by: Discontinued Medications Dexamethasone (Decadron) 10 mg IVPUSH ONETIME ONE Stop: 03/12/20 02:12 Last Admin: 03/12/20 03:02 Dose: 10 mg Documented by: Remdesivir 200 mg/ Sodium (Chloride) 250 mls @ 250 mls/hr IV ONETIME ONE Stop: 03/12/20 02:12 Last Admin: 03/12/20 03:28 Dose: 250 mls/hr Documented by: Ceftriaxone Sodium/Dextrose 1 (gm/ Premix) 50 mls @ 100 mls/hr IV ONETIME ONE Stop: 03/12/20 03:11 Last Admin: 03/12/20 03:02 Dose: 100 mls/hr Documented by: Ceftriaxone Sodium/Dextrose 1 (gm/ Premix) 50 mls @ 100 mls/hr IV Q24H [facility] Last Admin: 03/12/20 19:55 Dose: Not Given Documented by: Remdesivir 100 mg/ Sodium (Chloride) 100 mls @ 100 mls/hr IV Q24H [facility] Stop: 03/15/20 09:44 Insulin Aspart (Novolog) 0 unit SUBCUT TIDAC [facility]; Protocol Last Admin: 03/14/20 09:54 Dose: 2 units Documented by: Insulin Aspart (Novolog) 0 unit SUBCUT TIDAC [facility]; Protocol Last Admin: 03/15/20 08:47 Dose: 4 units Documented by: - Exam General: Alert, Oriented Lungs: Clear to Auscultation, Normal Respiratory Effort Cardiovascular: Regular Rate, Regular Rhythm GI/Abdominal Exam: Normal Bowel Sounds, Soft, Non-Tender Extremities: No: Pedal Edema Skin: Warm, Dry Sepsis Event Note - Evaluation Sepsis Screening Result: No Definite Risk - Focused Exam Vital Signs: Vital Signs Temp Temp Pulse Pulse Resp BP BP 03/15/20 17:50 98.0 F 60 18 152/77 H 03/15/20 17:35 98 F 61 16 156/78 H 03/15/20 13:15 97.3 F 62 16 148/72 H 03/15/20 08:52 03/15/20 08:45 70 144/69 H 03/15/20 07:55 97.6 F 18 144/69 H Pulse Ox 03/15/20 17:50 90 L 03/15/20 17:35 92 L 03/15/20 13:15 90 L 03/15/20 08:52 92 L 03/15/20 08:45 03/15/20 07:55 90 L - Problem List Review Problem List Initiated/Reviewed/Updated: Yes - My Orders Last 24 Hours: My Active Orders 03/16/20 05:11 CBC WITH AUTO DIFF [HEME] AM CMP [COMPREHENSIVE METABOLIC PN,CMP] [CHEM] AM - Plan Plan:: Assessment and Plan: 1. Acute hypoxic respiratory failure secondary to COVID-19: - Supplemental oxygen (Patient using 3L O2), Combivent q6h [facility], dexamethasone 6 mg qd, Remdesivir 100MG QD, PPI and incentive spirometer. 2. UTI- IV ceftriaxone. 3. MAI- Daily BMP 4. Diabetes mellitus type II- ADA Diet, Novolog SSI and accuchecks TIDAC. 5. DVT prophylaxis- Lovenox 40 mg subcut qd. 6. Past medical history of HTN, RUDDY, MS, DVT, PE, GI bleed- Resume home medications. <Jony Haywood - Last Filed: 03/17/20 12:26> - Patient Data Vitals - Most Recent: Last Vital Signs Temp 36.6 C 03/17/20 05:00 Pulse 81 03/17/20 09:30 Resp 18 03/17/20 05:00 BP 165/65 H 03/17/20 09:30 Pulse Ox 96 03/17/20 05:00 I&O - Last 24 Hours: Intake & Output 03/16/20 03/17/20 03/17/20 22:59 06:59 14:59 Intake Total 650 550 Output Total 680 150 Balance -30 400 Lab Results Last 24 Hours: Laboratory Results - last 24 hr 03/16/20 03/17/20 03/17/20 Range/Units 17:09 06:36 06:36 WBC 5.87 (4.0-11.0) K/uL RBC 3.56 L (4.30-5.90) M/uL Hgb 10.8 L (12.0-16.0) g/dL Hct 33.8 L (36.0-46.0) % MCV 94.9 (80.0-98.0) fL MCH 30.3 (27.0-32.0) pg MCHC 32.0 (31.0-37.0) g/dL RDW Std Deviation 46.2 (28.0-62.0) fl RDW Coeff of Marjorie 13 (11.0-15.0) % Plt Count 311 (150-400) K/uL MPV 9.40 (7.40-12.00) fL Add Manual Diff YES Neutrophils % (Manual) 76 (48.0-80.0) % Band Neutrophils % 2 % Lymphocytes % (Manual) 10 L (16.0-40.0) % Monocytes % (Manual) 11 (0.0-15.0) % Myelocytes % 1 % Nucleated RBC % 0.4 /100WBC Absolute Seg Neuts 4.5 (1.4-5.7) Band Neutrophils # 0.1 Lymphocytes # (Manual) 0.6 (0.6-2.4) Monocytes # (Manual) 0.6 (0.0-0.8) Absolute Myelocytes 0.1 Nucleated RBCs # 0 K/uL Sodium 139 (136-145) mmol/L Potassium 4.1 (3.5-5.1) mmol/L Chloride 105 (98-107) mmol/L Carbon Dioxide 26.7 (21.0-32.0) mmol/L BUN 38 H (7.0-18.0) mg/dL Creatinine 1.0 (0.6-1.0) mg/dL Est Cr Clr Drug Dosing 37.06 mL/min Estimated GFR (MDRD) 54.7 ml/min Glucose 219 H (74-106) mg/dL POC Glucose 292 H (60-110) mg/dL Calcium 8.4 L (8.5-10.1) mg/dL Total Bilirubin 0.2 (0.2-1.0) mg/dL AST 21 (15-37) IU/L ALT 28 (14-63) IU/L Alkaline Phosphatase 67 (46-116) U/L Total Protein 6.0 L (6.4-8.2) g/dL Albumin 2.2 L (3.4-5.0) g/dL Globulin 3.8 (2.6-4.0) g/dL Albumin/Globulin Ratio 0.6 L (0.9-1.6) 03/17/20 Range/Units 06:59 WBC (4.0-11.0) K/uL RBC (4.30-5.90) M/uL Hgb (12.0-16.0) g/dL Hct (36.0-46.0) % MCV (80.0-98.0) fL MCH (27.0-32.0) pg MCHC (31.0-37.0) g/dL RDW Std Deviation (28.0-62.0) fl RDW Coeff of Marjorie (11.0-15.0) % Plt Count (150-400) K/uL MPV (7.40-12.00) fL Add Manual Diff Neutrophils % (Manual) (48.0-80.0) % Band Neutrophils % % Lymphocytes % (Manual) (16.0-40.0) % Monocytes % (Manual) (0.0-15.0) % Myelocytes % % Nucleated RBC % /100WBC Absolute Seg Neuts (1.4-5.7) Band Neutrophils # Lymphocytes # (Manual) (0.6-2.4) Monocytes # (Manual) (0.0-0.8) Absolute Myelocytes Nucleated RBCs # K/uL Sodium (136-145) mmol/L Potassium (3.5-5.1) mmol/L Chloride (98-107) mmol/L Carbon Dioxide (21.0-32.0) mmol/L BUN (7.0-18.0) mg/dL Creatinine (0.6-1.0) mg/dL Est Cr Clr Drug Dosing mL/min Estimated GFR (MDRD) ml/min Glucose (74-106) mg/dL POC Glucose 208 H (60-110) mg/dL Calcium (8.5-10.1) mg/dL Total Bilirubin (0.2-1.0) mg/dL AST (15-37) IU/L ALT (14-63) IU/L Alkaline Phosphatase (46-116) U/L Total Protein (6.4-8.2) g/dL Albumin (3.4-5.0) g/dL Globulin (2.6-4.0) g/dL Albumin/Globulin Ratio (0.9-1.6) Med Orders - Current: Current Medications Albuterol/Ipratropium (Combivent Respimat) 0 gm INH Q6H [facility] Last Admin: 03/17/20 11:43 Dose: 1 puff Documented by: Dexamethasone (Dexamethasone) 6 mg PO Q24H [facility] Last Admin: 03/17/20 09:30 Dose: 6 mg Documented by: Dextrose/Water (Dextrose 50% In Water) 50 ml IV ASDIRECTED PRN PRN Reason: Hypoglycemia Enoxaparin Sodium (Lovenox) 40 mg SUBCUT Q24H [facility] Last Admin: 03/17/20 09:31 Dose: 40 mg Documented by: Fluoxetine HCl (Prozac) 10 mg PO DAILY [facility] Last Admin: 03/17/20 09:32 Dose: 10 mg Documented by: Glucagon (Glucagen) 1 mg IM ASDIRECTED PRN PRN Reason: Hypoglycemia Guaifenesin/Dextromethorphan (Robitussin Dm) 10 ml PO Q4H PRN PRN Reason: Cough Last Admin: 03/17/20 02:20 Dose: 10 ml Documented by: Hydralazine HCl (Apresoline) 20 mg IVPUSH Q4H PRN PRN Reason: Hypertension Insulin Aspart (Novolog) 0 unit SUBCUT TIDAC [facility]; Protocol Last Admin: 03/17/20 09:13 Dose: 6 units Documented by: Metoprolol Tartrate (Lopressor) 50 mg PO DAILY [facility] Last Admin: 03/17/20 09:30 Dose: 50 mg Documented by: Pantoprazole Sodium (Protonix) 40 mg PO ACBREAKFAST [facility] Last Admin: 03/17/20 07:01 Dose: 40 mg Documented by: Rosuvastatin Calcium (Crestor) 20 mg PO BEDTIME [facility] Last Admin: 03/16/20 21:00 Dose: 20 mg Documented by: Sodium Chloride (Saline Flush) 10 ml FLUSH ASDIRECTED PRN PRN Reason: Keep Vein Open Last Admin: 03/14/20 03:02 Dose: 10 ml Documented by: Sodium Chloride (Saline Flush) 2.5 ml FLUSH ASDIRECTED PRN PRN Reason: Keep Vein Open Last Admin: 03/14/20 03:02 Dose: 2.5 ml Documented by: Discontinued Medications Dexamethasone (Decadron) 10 mg IVPUSH ONETIME ONE Stop: 03/12/20 02:12 Last Admin: 03/12/20 03:02 Dose: 10 mg Documented by: Remdesivir 200 mg/ Sodium (Chloride) 250 mls @ 250 mls/hr IV ONETIME ONE Stop: 03/12/20 02:12 Last Admin: 03/12/20 03:28 Dose: 250 mls/hr Documented by: Ceftriaxone Sodium/Dextrose 1 (gm/ Premix) 50 mls @ 100 mls/hr IV ONETIME ONE Stop: 03/12/20 03:11 Last Admin: 03/12/20 03:02 Dose: 100 mls/hr Documented by: Ceftriaxone Sodium/Dextrose 1 (gm/ Premix) 50 mls @ 100 mls/hr IV Q24H [facility] Last Admin: 03/12/20 19:55 Dose: Not Given Documented by: Remdesivir 100 mg/ Sodium (Chloride) 100 mls @ 100 mls/hr IV Q24H [facility] Stop: 03/15/20 09:44 Remdesivir 100 mg/ Sodium (Chloride) 100 mls @ 100 mls/hr IV Q24H [facility] Stop: 03/16/20 04:29 Last Admin: 03/16/20 03:44 Dose: 100 mls/hr Documented by: Ceftriaxone Sodium/Dextrose 1 (gm/ Premix) 50 mls @ 100 mls/hr IV Q24H [facility] Last Admin: 03/17/20 02:20 Dose: 100 mls/hr Documented by: Insulin Aspart (Novolog) 0 unit SUBCUT TIDAC [facility]; Protocol Last Admin: 03/14/20 09:54 Dose: 2 units Documented by: Insulin Aspart (Novolog) 0 unit SUBCUT TIDAC [facility]; Protocol Last Admin: 03/15/20 08:47 Dose: 4 units Documented by: Sepsis Event Note - Focused Exam Vital Signs: Vital Signs Temp Pulse Resp BP BP Pulse Ox 03/17/20 09:30 81 165/65 H 03/17/20 05:00 36.6 C 18 169/69 H 96 03/17/20 00:50 186/80 H 91 L 03/17/20 00:45 36.7 C 20 188/89 H 89 L - My Orders Last 24 Hours: My Active Orders 03/17/20 01:18 hydrALAZINE [Apresoline] 20 mg IVPUSH Q4H PRN - Plan Plan:: I have seen and evaluated the patient and agree with the residents note unless specified in my note
[2020-03-15] MEDS: Rosuvastatin 10 MG Tab PO SCH (20:50)
[2020-03-16] MEDS: cefTRIAXone 1 GM in Premix Bag 1 BAG IV SCH (03:01)
[2020-03-16] MEDS: REMDESIVIR 100 MG in Sodium Chloride 0.9% 100 ML IV SCH (03:44)
[2020-03-16] MEDS: Albuterol/Ipratropium 4 GM Inhalation Spray INH SCH ×4 (05:55→17:59)
[2020-03-16] MEDS: Pantoprazole 40 MG Tab.CR PO SCH (06:38)
[2020-03-16 06:59] LABS: CARBON DIOXIDE,CO2 24.8 mmol/L (21.0-32.0); POTASSIUM,K 4.1 mmol/L (3.5-5.1)
[2020-03-16] MEDS: Dexamethasone 4 MG Tab PO SCH (10:50)
[2020-03-16] MEDS: Metoprolol Tartrate 50 MG Tab PO SCH (10:51)
[2020-03-16] MEDS: Enoxaparin 40 MG/0.4 ML Syringe SUBCUT SCH (10:55)
[2020-03-16] MEDS: Insulin Aspart 100 Units/ML 3 ML Pen SUBCUT SCH ×3 (11:15→17:59)
[2020-03-16] MEDS: guaiFENesin/Dextromethorphan 100-10 MG/5 ML Soln 10 ML Cup PO PRN (11:46)
--- NOTE | 2020-03-16 17:14 | PCM.PN ---
<Jose M Miranda - Last Filed: 03/16/20 17:14> - General Info Date of Service: 03/16/20 Subjective Update: Patients complains of a wet cough this morning. Patient did not sleep well. Denies fever, chills, SOB. States chest pain due to coughing. - Review of Systems General: Reports: Weakness, Fatigue. Denies: Fever, Chills Pulmonary: Reports: Pleuritic Chest Pain, Cough. Denies: Shortness of Breath, Sputum Cardiovascular: Reports: Dyspnea on Exertion. Denies: Chest Pain, Palpitations Gastrointestinal: Denies: Abdominal Pain, Diarrhea, Nausea, Vomiting Neurological: Denies: Confusion, Dizziness Psychiatric: Denies: Confusion - Patient Data Vitals - Most Recent: Last Vital Signs Temp 97.7 F 03/16/20 16:00 Pulse 62 03/16/20 16:00 Resp 17 03/16/20 16:00 BP 142/68 H 03/16/20 16:00 Pulse Ox 93 L 03/16/20 16:00 Weight - Most Recent: 91.354 kg I&O - Last 24 Hours: Intake & Output 03/16/20 03/16/20 03/16/20 06:59 14:59 22:59 Intake Total 350 650 Output Total 604 680 Balance -254 -30 Lab Results Last 24 Hours: Laboratory Results - last 24 hr 03/14/20 03/15/20 03/16/20 Range/Units 09:55 17:45 06:15 WBC 5.25 (4.0-11.0) K/uL RBC 3.51 L (4.30-5.90) M/uL Hgb 10.6 L (12.0-16.0) g/dL Hct 33.4 L (36.0-46.0) % MCV 95.2 (80.0-98.0) fL MCH 30.2 (27.0-32.0) pg MCHC 31.7 (31.0-37.0) g/dL RDW Std Deviation 47.0 (28.0-62.0) fl RDW Coeff of Marjorie 13 (11.0-15.0) % Plt Count 306 (150-400) K/uL MPV 9.20 (7.40-12.00) fL Neut % (Auto) 76.8 (48.0-80.0) % Lymph % (Auto) 12.2 L (16.0-40.0) % Walton % (Auto) 11.0 (0.0-15.0) % Eos % (Auto) 0.0 (0.0-7.0) % Baso % (Auto) 0.0 (0.0-1.5) % Neut # (Auto) 4.0 (1.4-5.7) K/uL Lymph # (Auto) 0.6 (0.6-2.4) K/uL Walton # (Auto) 0.6 (0.0-0.8) K/uL Eos # (Auto) 0.0 (0.0-0.7) K/uL Baso # (Auto) 0.0 (0.0-0.1) K/uL Nucleated RBC % 0.0 /100WBC Nucleated RBCs # 0 K/uL Sodium (136-145) mmol/L Potassium (3.5-5.1) mmol/L Chloride (98-107) mmol/L Carbon Dioxide (21.0-32.0) mmol/L BUN (7.0-18.0) mg/dL Creatinine (0.6-1.0) mg/dL Est Cr Clr Drug Dosing mL/min Estimated GFR (MDRD) ml/min Glucose (74-106) mg/dL POC Glucose 250 H (60-110) mg/dL Calcium (8.5-10.1) mg/dL Total Bilirubin (0.2-1.0) mg/dL AST (15-37) IU/L ALT (14-63) IU/L Alkaline Phosphatase (46-116) U/L Total Protein (6.4-8.2) g/dL Albumin (3.4-5.0) g/dL Globulin (2.6-4.0) g/dL Albumin/Globulin Ratio (0.9-1.6) Blood Type O NEGATIVE Antibody Screen NEGATIVE 03/16/20 03/16/20 03/16/20 Range/Units 06:15 06:41 11:11 WBC (4.0-11.0) K/uL RBC (4.30-5.90) M/uL Hgb (12.0-16.0) g/dL Hct (36.0-46.0) % MCV (80.0-98.0) fL MCH (27.0-32.0) pg MCHC (31.0-37.0) g/dL RDW Std Deviation (28.0-62.0) fl RDW Coeff of Marjorie (11.0-15.0) % Plt Count (150-400) K/uL MPV (7.40-12.00) fL Neut % (Auto) (48.0-80.0) % Lymph % (Auto) (16.0-40.0) % Walton % (Auto) (0.0-15.0) % Eos % (Auto) (0.0-7.0) % Baso % (Auto) (0.0-1.5) % Neut # (Auto) (1.4-5.7) K/uL Lymph # (Auto) (0.6-2.4) K/uL Walton # (Auto) (0.0-0.8) K/uL Eos # (Auto) (0.0-0.7) K/uL Baso # (Auto) (0.0-0.1) K/uL Nucleated RBC % /100WBC Nucleated RBCs # K/uL Sodium 140 (136-145) mmol/L Potassium 4.1 (3.5-5.1) mmol/L Chloride 106 (98-107) mmol/L Carbon Dioxide 24.8 (21.0-32.0) mmol/L BUN 39 H (7.0-18.0) mg/dL Creatinine 1.1 H (0.6-1.0) mg/dL Est Cr Clr Drug Dosing 33.69 mL/min Estimated GFR (MDRD) 49.0 ml/min Glucose 223 H (74-106) mg/dL POC Glucose 215 H 208 H (60-110) mg/dL Calcium 7.9 L (8.5-10.1) mg/dL Total Bilirubin 0.2 (0.2-1.0) mg/dL AST 21 (15-37) IU/L ALT 28 (14-63) IU/L Alkaline Phosphatase 64 (46-116) U/L Total Protein 6.0 L (6.4-8.2) g/dL Albumin 2.2 L (3.4-5.0) g/dL Globulin 3.8 (2.6-4.0) g/dL Albumin/Globulin Ratio 0.6 L (0.9-1.6) Blood Type Antibody Screen Med Orders - Current: Current Medications Albuterol/Ipratropium (Combivent Respimat) 0 gm INH Q6H [facility] Last Admin: 03/16/20 11:14 Dose: 1 puff Documented by: Dexamethasone (Dexamethasone) 6 mg PO Q24H [facility] Last Admin: 03/16/20 10:50 Dose: 6 mg Documented by: Dextrose/Water (Dextrose 50% In Water) 50 ml IV ASDIRECTED PRN PRN Reason: Hypoglycemia Enoxaparin Sodium (Lovenox) 40 mg SUBCUT Q24H [facility] Last Admin: 03/16/20 10:55 Dose: 40 mg Documented by: Fluoxetine HCl (Prozac) 10 mg PO DAILY [facility] Last Admin: 03/16/20 10:51 Dose: 10 mg Documented by: Glucagon (Glucagen) 1 mg IM ASDIRECTED PRN PRN Reason: Hypoglycemia Guaifenesin/Dextromethorphan (Robitussin Dm) 10 ml PO Q4H PRN PRN Reason: Cough Last Admin: 03/16/20 11:46 Dose: 10 ml Documented by: Ceftriaxone Sodium/Dextrose 1 (gm/ Premix) 50 mls @ 100 mls/hr IV Q24H [facility] Last Admin: 03/16/20 03:01 Dose: 100 mls/hr Documented by: Insulin Aspart (Novolog) 0 unit SUBCUT TIDAC [facility]; Protocol Last Admin: 03/16/20 11:48 Dose: Not Given Documented by: Metoprolol Tartrate (Lopressor) 50 mg PO DAILY [facility] Last Admin: 03/16/20 10:51 Dose: 50 mg Documented by: Pantoprazole Sodium (Protonix) 40 mg PO ACBREAKFAST [facility] Last Admin: 03/16/20 06:38 Dose: 40 mg Documented by: Rosuvastatin Calcium (Crestor) 20 mg PO BEDTIME [facility] Last Admin: 03/15/20 20:50 Dose: 20 mg Documented by: Sodium Chloride (Saline Flush) 10 ml FLUSH ASDIRECTED PRN PRN Reason: Keep Vein Open Last Admin: 03/14/20 03:02 Dose: 10 ml Documented by: Sodium Chloride (Saline Flush) 2.5 ml FLUSH ASDIRECTED PRN PRN Reason: Keep Vein Open Last Admin: 03/14/20 03:02 Dose: 2.5 ml Documented by: Discontinued Medications Dexamethasone (Decadron) 10 mg IVPUSH ONETIME ONE Stop: 03/12/20 02:12 Last Admin: 03/12/20 03:02 Dose: 10 mg Documented by: Remdesivir 200 mg/ Sodium (Chloride) 250 mls @ 250 mls/hr IV ONETIME ONE Stop: 03/12/20 02:12 Last Admin: 03/12/20 03:28 Dose: 250 mls/hr Documented by: Ceftriaxone Sodium/Dextrose 1 (gm/ Premix) 50 mls @ 100 mls/hr IV ONETIME ONE Stop: 03/12/20 03:11 Last Admin: 03/12/20 03:02 Dose: 100 mls/hr Documented by: Ceftriaxone Sodium/Dextrose 1 (gm/ Premix) 50 mls @ 100 mls/hr IV Q24H [facility] Last Admin: 03/12/20 19:55 Dose: Not Given Documented by: Remdesivir 100 mg/ Sodium (Chloride) 100 mls @ 100 mls/hr IV Q24H [facility] Stop: 03/15/20 09:44 Remdesivir 100 mg/ Sodium (Chloride) 100 mls @ 100 mls/hr IV Q24H [facility] Stop: 03/16/20 04:29 Last Admin: 03/16/20 03:44 Dose: 100 mls/hr Documented by: Insulin Aspart (Novolog) 0 unit SUBCUT TIDAC [facility]; Protocol Last Admin: 03/14/20 09:54 Dose: 2 units Documented by: Insulin Aspart (Novolog) 0 unit SUBCUT TIDAC [facility]; Protocol Last Admin: 03/15/20 08:47 Dose: 4 units Documented by: - Exam Quality Assessment: Supplemental Oxygen General: Alert, Oriented Lungs: Clear to Auscultation, Normal Respiratory Effort Cardiovascular: Regular Rate, Regular Rhythm GI/Abdominal Exam: Normal Bowel Sounds, Soft, Non-Tender Extremities: No Pedal Edema Skin: Warm, Dry Psy/Mental Status: Alert, Normal Affect Sepsis Event Note - Evaluation Sepsis Screening Result: No Definite Risk - Focused Exam Vital Signs: Vital Signs Temp Pulse Pulse Resp BP BP Pulse Ox 03/16/20 16:00 97.7 F 62 17 142/68 H 93 L 03/16/20 10:51 68 155/78 H 03/16/20 10:00 98.2 F 76 19 155/78 H 93 L 03/16/20 06:03 Pulse Ox 03/16/20 16:00 03/16/20 10:51 03/16/20 10:00 03/16/20 06:03 95 - Problem List Review Problem List Initiated/Reviewed/Updated: Yes - My Orders Last 24 Hours: My Active Orders 03/16/20 11:33 Dextromethorphan/guaiFENesin [Robitussin DM] 10 ml PO Q4H PRN 03/17/20 05:11 CBC WITH AUTO DIFF [HEME] AM CMP [COMPREHENSIVE METABOLIC PN,CMP] [CHEM] AM - Plan Plan:: Assessment and Plan: 1. Acute hypoxic respiratory failure secondary to COVID-19: - Supplemental oxygen (Patient using 3L O2), Combivent q6h [facility], dexamethasone 6 mg qd, Remdesivir 100MG QD, PPI and incentive spirometer. Dextromethorphan/Guai fenesin for cough 2. UTI- IV ceftriaxone. 3. MAI- Daily BMP 4. Diabetes mellitus type II- ADA Diet, Novolog SSI and accuchecks TIDAC. 5. DVT prophylaxis- Lovenox 40 mg subcut qd. 6. Past medical history of HTN, RUDDY, MS, DVT, PE, GI bleed- Resume home medications. <Jony Haywood - Last Filed: 03/17/20 12:14> - Patient Data Vitals - Most Recent: Last Vital Signs Temp 36.6 C 03/17/20 05:00 Pulse 81 03/17/20 09:30 Resp 18 03/17/20 05:00 BP 165/65 H 03/17/20 09:30 Pulse Ox 96 03/17/20 05:00 I&O - Last 24 Hours: Intake & Output 03/16/20 03/17/20 03/17/20 22:59 06:59 14:59 Intake Total 650 550 Output Total 680 150 Balance -30 400 Lab Results Last 24 Hours: Laboratory Results - last 24 hr 03/16/20 03/17/20 03/17/20 Range/Units 17:09 06:36 06:36 WBC 5.87 (4.0-11.0) K/uL RBC 3.56 L (4.30-5.90) M/uL Hgb 10.8 L (12.0-16.0) g/dL Hct 33.8 L (36.0-46.0) % MCV 94.9 (80.0-98.0) fL MCH 30.3 (27.0-32.0) pg MCHC 32.0 (31.0-37.0) g/dL RDW Std Deviation 46.2 (28.0-62.0) fl RDW Coeff of Marjorie 13 (11.0-15.0) % Plt Count 311 (150-400) K/uL MPV 9.40 (7.40-12.00) fL Add Manual Diff YES Neutrophils % (Manual) 76 (48.0-80.0) % Band Neutrophils % 2 % Lymphocytes % (Manual) 10 L (16.0-40.0) % Monocytes % (Manual) 11 (0.0-15.0) % Myelocytes % 1 % Nucleated RBC % 0.4 /100WBC Absolute Seg Neuts 4.5 (1.4-5.7) Band Neutrophils # 0.1 Lymphocytes # (Manual) 0.6 (0.6-2.4) Monocytes # (Manual) 0.6 (0.0-0.8) Absolute Myelocytes 0.1 Nucleated RBCs # 0 K/uL Sodium 139 (136-145) mmol/L Potassium 4.1 (3.5-5.1) mmol/L Chloride 105 (98-107) mmol/L Carbon Dioxide 26.7 (21.0-32.0) mmol/L BUN 38 H (7.0-18.0) mg/dL Creatinine 1.0 (0.6-1.0) mg/dL Est Cr Clr Drug Dosing 37.06 mL/min Estimated GFR (MDRD) 54.7 ml/min Glucose 219 H (74-106) mg/dL POC Glucose 292 H (60-110) mg/dL Calcium 8.4 L (8.5-10.1) mg/dL Total Bilirubin 0.2 (0.2-1.0) mg/dL AST 21 (15-37) IU/L ALT 28 (14-63) IU/L Alkaline Phosphatase 67 (46-116) U/L Total Protein 6.0 L (6.4-8.2) g/dL Albumin 2.2 L (3.4-5.0) g/dL Globulin 3.8 (2.6-4.0) g/dL Albumin/Globulin Ratio 0.6 L (0.9-1.6) 03/17/20 Range/Units 06:59 WBC (4.0-11.0) K/uL RBC (4.30-5.90) M/uL Hgb (12.0-16.0) g/dL Hct (36.0-46.0) % MCV (80.0-98.0) fL MCH (27.0-32.0) pg MCHC (31.0-37.0) g/dL RDW Std Deviation (28.0-62.0) fl RDW Coeff of Marjorie (11.0-15.0) % Plt Count (150-400) K/uL MPV (7.40-12.00) fL Add Manual Diff Neutrophils % (Manual) (48.0-80.0) % Band Neutrophils % % Lymphocytes % (Manual) (16.0-40.0) % Monocytes % (Manual) (0.0-15.0) % Myelocytes % % Nucleated RBC % /100WBC Absolute Seg Neuts (1.4-5.7) Band Neutrophils # Lymphocytes # (Manual) (0.6-2.4) Monocytes # (Manual) (0.0-0.8) Absolute Myelocytes Nucleated RBCs # K/uL Sodium (136-145) mmol/L Potassium (3.5-5.1) mmol/L Chloride (98-107) mmol/L Carbon Dioxide (21.0-32.0) mmol/L BUN (7.0-18.0) mg/dL Creatinine (0.6-1.0) mg/dL Est Cr Clr Drug Dosing mL/min Estimated GFR (MDRD) ml/min Glucose (74-106) mg/dL POC Glucose 208 H (60-110) mg/dL Calcium (8.5-10.1) mg/dL Total Bilirubin (0.2-1.0) mg/dL AST (15-37) IU/L ALT (14-63) IU/L Alkaline Phosphatase (46-116) U/L Total Protein (6.4-8.2) g/dL Albumin (3.4-5.0) g/dL Globulin (2.6-4.0) g/dL Albumin/Globulin Ratio (0.9-1.6) Med Orders - Current: Current Medications Albuterol/Ipratropium (Combivent Respimat) 0 gm INH Q6H [facility] Last Admin: 03/17/20 11:43 Dose: 1 puff Documented by: Dexamethasone (Dexamethasone) 6 mg PO Q24H [facility] Last Admin: 03/17/20 09:30 Dose: 6 mg Documented by: Dextrose/Water (Dextrose 50% In Water) 50 ml IV ASDIRECTED PRN PRN Reason: Hypoglycemia Enoxaparin Sodium (Lovenox) 40 mg SUBCUT Q24H [facility] Last Admin: 03/17/20 09:31 Dose: 40 mg Documented by: Fluoxetine HCl (Prozac) 10 mg PO DAILY [facility] Last Admin: 03/17/20 09:32 Dose: 10 mg Documented by: Glucagon (Glucagen) 1 mg IM ASDIRECTED PRN PRN Reason: Hypoglycemia Guaifenesin/Dextromethorphan (Robitussin Dm) 10 ml PO Q4H PRN PRN Reason: Cough Last Admin: 03/17/20 02:20 Dose: 10 ml Documented by: Hydralazine HCl (Apresoline) 20 mg IVPUSH Q4H PRN PRN Reason: Hypertension Insulin Aspart (Novolog) 0 unit SUBCUT TIDAC [facility]; Protocol Last Admin: 03/17/20 09:13 Dose: 6 units Documented by: Metoprolol Tartrate (Lopressor) 50 mg PO DAILY [facility] Last Admin: 03/17/20 09:30 Dose: 50 mg Documented by: Pantoprazole Sodium (Protonix) 40 mg PO ACBREAKFAST [facility] Last Admin: 03/17/20 07:01 Dose: 40 mg Documented by: Rosuvastatin Calcium (Crestor) 20 mg PO BEDTIME [facility] Last Admin: 03/16/20 21:00 Dose: 20 mg Documented by: Sodium Chloride (Saline Flush) 10 ml FLUSH ASDIRECTED PRN PRN Reason: Keep Vein Open Last Admin: 03/14/20 03:02 Dose: 10 ml Documented by: Sodium Chloride (Saline Flush) 2.5 ml FLUSH ASDIRECTED PRN PRN Reason: Keep Vein Open Last Admin: 03/14/20 03:02 Dose: 2.5 ml Documented by: Discontinued Medications Dexamethasone (Decadron) 10 mg IVPUSH ONETIME ONE Stop: 03/12/20 02:12 Last Admin: 03/12/20 03:02 Dose: 10 mg Documented by: Remdesivir 200 mg/ Sodium (Chloride) 250 mls @ 250 mls/hr IV ONETIME ONE Stop: 03/12/20 02:12 Last Admin: 03/12/20 03:28 Dose: 250 mls/hr Documented by: Ceftriaxone Sodium/Dextrose 1 (gm/ Premix) 50 mls @ 100 mls/hr IV ONETIME ONE Stop: 03/12/20 03:11 Last Admin: 03/12/20 03:02 Dose: 100 mls/hr Documented by: Ceftriaxone Sodium/Dextrose 1 (gm/ Premix) 50 mls @ 100 mls/hr IV Q24H [facility] Last Admin: 03/12/20 19:55 Dose: Not Given Documented by: Remdesivir 100 mg/ Sodium (Chloride) 100 mls @ 100 mls/hr IV Q24H [facility] Stop: 03/15/20 09:44 Remdesivir 100 mg/ Sodium (Chloride) 100 mls @ 100 mls/hr IV Q24H [facility] Stop: 03/16/20 04:29 Last Admin: 03/16/20 03:44 Dose: 100 mls/hr Documented by: Ceftriaxone Sodium/Dextrose 1 (gm/ Premix) 50 mls @ 100 mls/hr IV Q24H [facility] Last Admin: 03/17/20 02:20 Dose: 100 mls/hr Documented by: Insulin Aspart (Novolog) 0 unit SUBCUT TIDAC [facility]; Protocol Last Admin: 03/14/20 09:54 Dose: 2 units Documented by: Insulin Aspart (Novolog) 0 unit SUBCUT TIDAC [facility]; Protocol Last Admin: 03/15/20 08:47 Dose: 4 units Documented by: Sepsis Event Note - Focused Exam Vital Signs: Vital Signs Temp Pulse Resp BP BP Pulse Ox 03/17/20 09:30 81 165/65 H 03/17/20 05:00 36.6 C 18 169/69 H 96 03/17/20 00:50 186/80 H 91 L 03/17/20 00:45 36.7 C 20 188/89 H 89 L - My Orders Last 24 Hours: My Active Orders 03/17/20 01:18 hydrALAZINE [Apresoline] 20 mg IVPUSH Q4H PRN - Plan Plan:: I have seen and evaluated the patient and agree with the residents note unless specified in my note
[2020-03-16] MEDS: Rosuvastatin 10 MG Tab PO SCH (21:00)
[2020-03-17] MEDS: Albuterol/Ipratropium 4 GM Inhalation Spray INH SCH ×5 (00:46→23:46)
[2020-03-17] MEDS ORDERED: hydrALAZINE 20 MG/ML SDV IVPUSH PRN (01:18)
[2020-03-17] MEDS: guaiFENesin/Dextromethorphan 100-10 MG/5 ML Soln 10 ML Cup PO PRN ×2 (02:20→21:52)
[2020-03-17] MEDS: cefTRIAXone 1 GM in Premix Bag 1 BAG IV SCH (02:20)
[2020-03-17] MEDS: Pantoprazole 40 MG Tab.CR PO SCH (07:01)
[2020-03-17 07:22] LABS: CARBON DIOXIDE,CO2 26.7 mmol/L (21.0-32.0); POTASSIUM,K 4.1 mmol/L (3.5-5.1)
[2020-03-17] MEDS: Insulin Aspart 100 Units/ML 3 ML Pen SUBCUT SCH ×3 (09:13→18:14)
[2020-03-17] MEDS: Metoprolol Tartrate 50 MG Tab PO SCH (09:30)
[2020-03-17] MEDS: Dexamethasone 4 MG Tab PO SCH (09:30)
[2020-03-17] MEDS: Enoxaparin 40 MG/0.4 ML Syringe SUBCUT SCH (09:31)
--- NOTE | 2020-03-17 18:23 | PCM.PN ---
<Jose M Miranda - Last Filed: 03/17/20 18:27> - General Info Date of Service: 03/17/20 Subjective Update: Patient states that she feels better today. Slept well and has significantly less coughing than yesterday. Denies fever, chills, nausea, diarrhea, abdominal pain. - Review of Systems General: Denies: Fever, Chills Pulmonary: Denies: Shortness of Breath, Cough Cardiovascular: Denies: Chest Pain, Palpitations Gastrointestinal: Denies: Abdominal Pain, Decreased Appetite, Nausea, Vomiting Neurological: Denies: Dizziness, Headache - Patient Data Vitals - Most Recent: Last Vital Signs Temp 98.1 F 03/17/20 17:36 Pulse 81 03/17/20 09:30 Resp 18 03/17/20 17:36 BP 147/84 H 03/17/20 17:36 Pulse Ox 94 L 03/17/20 17:36 Weight - Most Recent: 91.354 kg I&O - Last 24 Hours: Intake & Output 03/17/20 03/17/20 03/17/20 06:59 14:59 22:59 Intake Total 550 250 Output Total 150 Balance 400 250 Lab Results Last 24 Hours: Laboratory Results - last 24 hr 03/17/20 03/17/20 03/17/20 Range/Units 06:36 06:36 06:59 WBC 5.87 (4.0-11.0) K/uL RBC 3.56 L (4.30-5.90) M/uL Hgb 10.8 L (12.0-16.0) g/dL Hct 33.8 L (36.0-46.0) % MCV 94.9 (80.0-98.0) fL MCH 30.3 (27.0-32.0) pg MCHC 32.0 (31.0-37.0) g/dL RDW Std Deviation 46.2 (28.0-62.0) fl RDW Coeff of Marjorie 13 (11.0-15.0) % Plt Count 311 (150-400) K/uL MPV 9.40 (7.40-12.00) fL Add Manual Diff YES Neutrophils % (Manual) 76 (48.0-80.0) % Band Neutrophils % 2 % Lymphocytes % (Manual) 10 L (16.0-40.0) % Monocytes % (Manual) 11 (0.0-15.0) % Myelocytes % 1 % Nucleated RBC % 0.4 /100WBC Absolute Seg Neuts 4.5 (1.4-5.7) Band Neutrophils # 0.1 Lymphocytes # (Manual) 0.6 (0.6-2.4) Monocytes # (Manual) 0.6 (0.0-0.8) Absolute Myelocytes 0.1 Nucleated RBCs # 0 K/uL Sodium 139 (136-145) mmol/L Potassium 4.1 (3.5-5.1) mmol/L Chloride 105 (98-107) mmol/L Carbon Dioxide 26.7 (21.0-32.0) mmol/L BUN 38 H (7.0-18.0) mg/dL Creatinine 1.0 (0.6-1.0) mg/dL Est Cr Clr Drug Dosing 37.06 mL/min Estimated GFR (MDRD) 54.7 ml/min Glucose 219 H (74-106) mg/dL POC Glucose 208 H (60-110) mg/dL Calcium 8.4 L (8.5-10.1) mg/dL Total Bilirubin 0.2 (0.2-1.0) mg/dL AST 21 (15-37) IU/L ALT 28 (14-63) IU/L Alkaline Phosphatase 67 (46-116) U/L Total Protein 6.0 L (6.4-8.2) g/dL Albumin 2.2 L (3.4-5.0) g/dL Globulin 3.8 (2.6-4.0) g/dL Albumin/Globulin Ratio 0.6 L (0.9-1.6) 03/17/20 03/17/20 Range/Units 13:32 17:35 WBC (4.0-11.0) K/uL RBC (4.30-5.90) M/uL Hgb (12.0-16.0) g/dL Hct (36.0-46.0) % MCV (80.0-98.0) fL MCH (27.0-32.0) pg MCHC (31.0-37.0) g/dL RDW Std Deviation (28.0-62.0) fl RDW Coeff of Marjorie (11.0-15.0) % Plt Count (150-400) K/uL MPV (7.40-12.00) fL Add Manual Diff Neutrophils % (Manual) (48.0-80.0) % Band Neutrophils % % Lymphocytes % (Manual) (16.0-40.0) % Monocytes % (Manual) (0.0-15.0) % Myelocytes % % Nucleated RBC % /100WBC Absolute Seg Neuts (1.4-5.7) Band Neutrophils # Lymphocytes # (Manual) (0.6-2.4) Monocytes # (Manual) (0.0-0.8) Absolute Myelocytes Nucleated RBCs # K/uL Sodium (136-145) mmol/L Potassium (3.5-5.1) mmol/L Chloride (98-107) mmol/L Carbon Dioxide (21.0-32.0) mmol/L BUN (7.0-18.0) mg/dL Creatinine (0.6-1.0) mg/dL Est Cr Clr Drug Dosing mL/min Estimated GFR (MDRD) ml/min Glucose (74-106) mg/dL POC Glucose 202 H 324 H (60-110) mg/dL Calcium (8.5-10.1) mg/dL Total Bilirubin (0.2-1.0) mg/dL AST (15-37) IU/L ALT (14-63) IU/L Alkaline Phosphatase (46-116) U/L Total Protein (6.4-8.2) g/dL Albumin (3.4-5.0) g/dL Globulin (2.6-4.0) g/dL Albumin/Globulin Ratio (0.9-1.6) Med Orders - Current: Current Medications Albuterol/Ipratropium (Combivent Respimat) 0 gm INH Q6H [facility] Last Admin: 03/17/20 18:03 Dose: 1 puff Documented by: Dexamethasone (Dexamethasone) 6 mg PO Q24H [facility] Last Admin: 03/17/20 09:30 Dose: 6 mg Documented by: Dextrose/Water (Dextrose 50% In Water) 50 ml IV ASDIRECTED PRN PRN Reason: Hypoglycemia Enoxaparin Sodium (Lovenox) 40 mg SUBCUT Q24H [facility] Last Admin: 03/17/20 09:31 Dose: 40 mg Documented by: Fluoxetine HCl (Prozac) 10 mg PO DAILY [facility] Last Admin: 03/17/20 09:32 Dose: 10 mg Documented by: Glucagon (Glucagen) 1 mg IM ASDIRECTED PRN PRN Reason: Hypoglycemia Guaifenesin/Dextromethorphan (Robitussin Dm) 10 ml PO Q4H PRN PRN Reason: Cough Last Admin: 03/17/20 02:20 Dose: 10 ml Documented by: Hydralazine HCl (Apresoline) 20 mg IVPUSH Q4H PRN PRN Reason: Hypertension Insulin Aspart (Novolog) 0 unit SUBCUT TIDAC [facility]; Protocol Last Admin: 03/17/20 18:14 Dose: 12 units Documented by: Metoprolol Tartrate (Lopressor) 50 mg PO DAILY [facility] Last Admin: 03/17/20 09:30 Dose: 50 mg Documented by: Pantoprazole Sodium (Protonix) 40 mg PO ACBREAKFAST [facility] Last Admin: 03/17/20 07:01 Dose: 40 mg Documented by: Rosuvastatin Calcium (Crestor) 20 mg PO BEDTIME [facility] Last Admin: 03/16/20 21:00 Dose: 20 mg Documented by: Sodium Chloride (Saline Flush) 10 ml FLUSH ASDIRECTED PRN PRN Reason: Keep Vein Open Last Admin: 03/14/20 03:02 Dose: 10 ml Documented by: Sodium Chloride (Saline Flush) 2.5 ml FLUSH ASDIRECTED PRN PRN Reason: Keep Vein Open Last Admin: 03/14/20 03:02 Dose: 2.5 ml Documented by: Discontinued Medications Dexamethasone (Decadron) 10 mg IVPUSH ONETIME ONE Stop: 03/12/20 02:12 Last Admin: 03/12/20 03:02 Dose: 10 mg Documented by: Remdesivir 200 mg/ Sodium (Chloride) 250 mls @ 250 mls/hr IV ONETIME ONE Stop: 03/12/20 02:12 Last Admin: 03/12/20 03:28 Dose: 250 mls/hr Documented by: Ceftriaxone Sodium/Dextrose 1 (gm/ Premix) 50 mls @ 100 mls/hr IV ONETIME ONE Stop: 03/12/20 03:11 Last Admin: 03/12/20 03:02 Dose: 100 mls/hr Documented by: Ceftriaxone Sodium/Dextrose 1 (gm/ Premix) 50 mls @ 100 mls/hr IV Q24H [facility] Last Admin: 03/12/20 19:55 Dose: Not Given Documented by: Remdesivir 100 mg/ Sodium (Chloride) 100 mls @ 100 mls/hr IV Q24H [facility] Stop: 03/15/20 09:44 Remdesivir 100 mg/ Sodium (Chloride) 100 mls @ 100 mls/hr IV Q24H [facility] Stop: 03/16/20 04:29 Last Admin: 03/16/20 03:44 Dose: 100 mls/hr Documented by: Ceftriaxone Sodium/Dextrose 1 (gm/ Premix) 50 mls @ 100 mls/hr IV Q24H [facility] Last Admin: 03/17/20 02:20 Dose: 100 mls/hr Documented by: Insulin Aspart (Novolog) 0 unit SUBCUT TIDAC [facility]; Protocol Last Admin: 03/14/20 09:54 Dose: 2 units Documented by: Insulin Aspart (Novolog) 0 unit SUBCUT TIDAC [facility]; Protocol Last Admin: 03/15/20 08:47 Dose: 4 units Documented by: - Exam Quality Assessment: Supplemental Oxygen General: Alert, Oriented Lungs: Clear to Auscultation, Normal Respiratory Effort Cardiovascular: Regular Rate, Regular Rhythm GI/Abdominal Exam: Normal Bowel Sounds, Soft, Non-Tender Neurological: Normal Speech Psy/Mental Status: Alert Sepsis Event Note - Evaluation Sepsis Screening Result: No Definite Risk - Focused Exam Vital Signs: Vital Signs Temp Pulse Resp BP BP Pulse Ox 03/17/20 17:36 98.1 F 18 147/84 H 94 L 03/17/20 12:00 98.0 F 20 144/78 H 91 L 03/17/20 09:30 81 165/65 H - Problem List Review Problem List Initiated/Reviewed/Updated: Yes - My Orders Last 24 Hours: My Active Orders 03/18/20 05:11 CBC WITH AUTO DIFF [HEME] AM CMP [COMPREHENSIVE METABOLIC PN,CMP] [CHEM] AM - Plan Plan:: Assessment and Plan: . Acute hypoxic respiratory failure secondary to COVID-19: - Supplemental oxygen (Patient using 3L O2), Combivent q6h [facility], dexamethasone 6 mg qd, Remdesivir 100MG QD (course completed yesterday), PPI and incentive spirometer. Dextromethorphan/Guaifenesin for cough Diabetes mellitus type II- ADA Diet, Novolog SSI and accuchecks TIDAC. DVT prophylaxis- Lovenox 40 mg subcut qd. Past medical history of HTN, RUDDY, MS, DVT, PE, GI bleed- Resume home medications. <YobanyJony - Last Filed: 03/23/20 11:14> - Patient Data Vitals - Most Recent: Last Vital Signs Temp 36.6 C 03/18/20 16:50 Pulse 74 03/18/20 16:50 Resp 18 03/18/20 16:50 BP 150/75 H 03/18/20 16:50 Pulse Ox 93 L 03/18/20 16:50 Med Orders - Current: Current Medications Discontinued Medications Albuterol/Ipratropium (Combivent Respimat) 0 gm INH Q6H [facility] Last Admin: 03/18/20 13:01 Dose: 1 puff Documented by: Dexamethasone (Decadron) 10 mg IVPUSH ONETIME ONE Stop: 03/12/20 02:12 Last Admin: 03/12/20 03:02 Dose: 10 mg Documented by: Dexamethasone (Dexamethasone) 6 mg PO Q24H [facility] Last Admin: 03/18/20 08:23 Dose: 6 mg Documented by: Dextrose/Water (Dextrose 50% In Water) 50 ml IV ASDIRECTED PRN PRN Reason: Hypoglycemia Enoxaparin Sodium (Lovenox) 40 mg SUBCUT Q24H [facility] Last Admin: 03/18/20 08:23 Dose: 40 mg Documented by: Fluoxetine HCl (Prozac) 10 mg PO DAILY [facility] Last Admin: 03/18/20 08:23 Dose: 10 mg Documented by: Glucagon (Glucagen) 1 mg IM ASDIRECTED PRN PRN Reason: Hypoglycemia Guaifenesin/Dextromethorphan (Robitussin Dm) 10 ml PO Q4H PRN PRN Reason: Cough Last Admin: 03/18/20 13:01 Dose: 10 ml Documented by: Hydralazine HCl (Apresoline) 20 mg IVPUSH Q4H PRN PRN Reason: Hypertension Remdesivir 200 mg/ Sodium (Chloride) 250 mls @ 250 mls/hr IV ONETIME ONE Stop: 03/12/20 02:12 Last Admin: 03/12/20 03:28 Dose: 250 mls/hr Documented by: Ceftriaxone Sodium/Dextrose 1 (gm/ Premix) 50 mls @ 100 mls/hr IV ONETIME ONE Stop: 03/12/20 03:11 Last Admin: 03/12/20 03:02 Dose: 100 mls/hr Documented by: Ceftriaxone Sodium/Dextrose 1 (gm/ Premix) 50 mls @ 100 mls/hr IV Q24H [facility] Last Admin: 03/12/20 19:55 Dose: Not Given Documented by: Remdesivir 100 mg/ Sodium (Chloride) 100 mls @ 100 mls/hr IV Q24H [facility] Stop: 03/15/20 09:44 Remdesivir 100 mg/ Sodium (Chloride) 100 mls @ 100 mls/hr IV Q24H [facility] Stop: 03/16/20 04:29 Last Admin: 03/16/20 03:44 Dose: 100 mls/hr Documented by: Ceftriaxone Sodium/Dextrose 1 (gm/ Premix) 50 mls @ 100 mls/hr IV Q24H [facility] Last Admin: 03/17/20 02:20 Dose: 100 mls/hr Documented by: Insulin Aspart (Novolog) 0 unit SUBCUT TIDAC [facility]; Protocol Last Admin: 03/14/20 09:54 Dose: 2 units Documented by: Insulin Aspart (Novolog) 0 unit SUBCUT TIDAC [facility]; Protocol Last Admin: 03/15/20 08:47 Dose: 4 units Documented by: Insulin Aspart (Novolog) 0 unit SUBCUT TIDAC [facility]; Protocol Last Admin: 03/18/20 13:44 Dose: 9 units Documented by: Metoprolol Tartrate (Lopressor) 50 mg PO DAILY [facility] Last Admin: 03/18/20 08:37 Dose: 50 mg Documented by: Pantoprazole Sodium (Protonix) 40 mg PO ACBREAKFAST [facility] Last Admin: 03/18/20 08:23 Dose: 40 mg Documented by: Rosuvastatin Calcium (Crestor) 20 mg PO BEDTIME [facility] Last Admin: 03/17/20 21:54 Dose: 20 mg Documented by: Sodium Chloride (Saline Flush) 10 ml FLUSH ASDIRECTED PRN PRN Reason: Keep Vein Open Last Admin: 03/17/20 22:01 Dose: 10 ml Documented by: Sodium Chloride (Saline Flush) 2.5 ml FLUSH ASDIRECTED PRN PRN Reason: Keep Vein Open Last Admin: 03/14/20 03:02 Dose: 2.5 ml Documented by: - Plan Plan:: I have seen and evaluated the patient and agree with the residents note unless specified in my note
[2020-03-17] MEDS: Rosuvastatin 10 MG Tab PO SCH (21:54)
[2020-03-17] MEDS: Sodium Chloride 0.9% 10 ML Syringe FLUSH PRN (22:01)
[2020-03-18] MEDS: Albuterol/Ipratropium 4 GM Inhalation Spray INH SCH ×2 (05:54→13:01)
[2020-03-18 06:20] LABS: CARBON DIOXIDE,CO2 26.8 mmol/L (21.0-32.0); POTASSIUM,K 4.3 mmol/L (3.5-5.1)
[2020-03-18] MEDS: Dexamethasone 4 MG Tab PO SCH (08:23)
[2020-03-18] MEDS: Enoxaparin 40 MG/0.4 ML Syringe SUBCUT SCH (08:23)
[2020-03-18] MEDS: Pantoprazole 40 MG Tab.CR PO SCH (08:23)
[2020-03-18] MEDS: Metoprolol Tartrate 50 MG Tab PO SCH (08:37)
[2020-03-18] MEDS: Insulin Aspart 100 Units/ML 3 ML Pen SUBCUT SCH ×2 (09:28→13:44)
[2020-03-18] MEDS: guaiFENesin/Dextromethorphan 100-10 MG/5 ML Soln 10 ML Cup PO PRN (13:01)
--- NOTE | 2020-03-18 15:36 | PCM.DCSUM1 ---
<Jose M Miranda - Last Filed: 03/18/20 16:12> Discharge Summary - Hospital Course Free Text/Narrative:: 69 yr old female admitted for acute hypoxic respiratory failure due to COVID 19 infection. Patient was also noted to have a UTI. Patient states that she tested positive for COVID 12 days prior to admission. Patient states that she was experiencing worsening shortness of breath with body aches, dry cough and fever causing her to come to the hospital. Chest CT on admission showed diffuse ground glass opacities to the left periphery. Patient has a PMH of DM type II, HTN, MS, RUDDY, DVT, PE, recurrent UTI and GI bleeds. Patient does reports history of GI bleed when she was on a blood thinner for her PE/DVT. She is not currently on any anti-coagulation. Patient was admitted for 7 days and required continuous supplemental oxygen support and was treated with remdesivir, dexamethasone and antibiotics for her UTI. Patient discharged home with Home oxygen. - Discharge Data Discharge Date: 03/18/20 Discharge Disposition: Home, Self-Care 01 Condition: Stable - Referral to Home Health Primary Care Physician: PCP None - Patient Summary/Data Consults: Consultations 03/18/20 14:21 Consult to Home Care [Consult to Home Health] [CONS] Routine - Discharge Plan Prescriptions/Med Rec: dexAMETHasone [Dexamethasone] 6 mg PO Q24H 3 Days #3 tablet Benzonatate [Tessalon Perle] 100 mg PO TID PRN 7 Days #21 capsule PRN Reason: Cough Albuterol [Ventolin HFA] 1 - 2 puff INH Q4H PRN #1 puff PRN Reason: Dyspnea Home Medications: Home Meds Potassium Chloride [K-Tab ER] 20 meq PO DAILY 12/26/15 [History] Ramipril 20 mg PO DAILY 12/26/15 [History] Rosuvastatin [Crestor] 20 mg PO BEDTIME 12/26/15 [History] FLUoxetine [PROzac] 10 mg PO DAILY 04/01/18 [History] Ferrous Sulfate 325 mg PO DAILY 02/12/19 [History] Acetaminophen [Tylenol] 650 mg PO ASDIRECTED PRN 03/10/19 [History] metFORMIN [Glucophage] 1,000 mg PO WITHDINNER 07/08/19 [History] Glimepiride 4 mg PO BID 03/12/20 [History] Metoprolol Tartrate 50 mg PO DAILY 03/12/20 [History] Albuterol [Ventolin HFA] 1 - 2 puff INH Q4H PRN #1 puff 03/18/20 [Rx] Benzonatate [Tessalon Perle] 100 mg PO TID PRN 7 Days #21 capsule 03/18/20 [Rx] dexAMETHasone [Dexamethasone] 6 mg PO Q24H 3 Days #3 tablet 03/18/20 [Rx] Patient Handouts: Hypoxia, Albuterol; Ipratropium respiratory inhalation spray (Combivent Respimat), COVID-19 Frequently Asked Questions, Home Oxygen Use, Adult, Dexamethasone tablets, Benzonatate capsules, Prevent the Spread of COVID- 19 if You Are Sick - [facility] Referrals: Delia Garcia MD [Physician] - 04/01/20 1:45 pm - Discharge Summary/Plan Comment DC Time >30 min.: Yes - General Info Subjective Update: Patient states that she is ready to go home. Denies fever, chills, SOB, chest pain. States mild cough which is improving. - Review of Systems General: Denies: Fever Pulmonary: Reports: Cough. Denies: Shortness of Breath, Pleuritic Chest Pain Cardiovascular: Denies: Chest Pain, Palpitations, Dyspnea on Exertion Gastrointestinal: Denies: Abdominal Pain, Diarrhea, Nausea, Vomiting Neurological: Denies: Dizziness, Headache - Patient Data Vitals - Most Recent: Last Vital Signs Temp 97.9 F 03/18/20 13:06 Pulse 82 03/18/20 13:06 Resp 18 03/18/20 13:06 BP 160/84 H 03/18/20 13:06 Pulse Ox 92 L 03/18/20 13:06 Weight - Most Recent: 88.178 kg I&O - Last 24 hours: Intake & Output 03/18/20 03/18/20 03/18/20 06:59 14:59 22:59 Intake Total 600 Output Total 200 Balance 400 Lab Results - Last 24 hrs: Laboratory Results - last 24 hr 03/17/20 03/18/20 03/18/20 Range/Units 17:35 05:32 05:32 WBC 6.44 (4.0-11.0) K/uL RBC 3.60 L (4.30-5.90) M/uL Hgb 10.8 L (12.0-16.0) g/dL Hct 34.2 L (36.0-46.0) % MCV 95.0 (80.0-98.0) fL MCH 30.0 (27.0-32.0) pg MCHC 31.6 (31.0-37.0) g/dL RDW Std Deviation 46.0 (28.0-62.0) fl RDW Coeff of Marjorie 13 (11.0-15.0) % Plt Count 332 (150-400) K/uL MPV 9.20 (7.40-12.00) fL Neut % (Auto) 74.3 (48.0-80.0) % Lymph % (Auto) 9.8 L (16.0-40.0) % Mitchell % (Auto) 15.7 H (0.0-15.0) % Eos % (Auto) 0.0 (0.0-7.0) % Baso % (Auto) 0.2 (0.0-1.5) % Neut # (Auto) 4.8 (1.4-5.7) K/uL Lymph # (Auto) 0.6 (0.6-2.4) K/uL Mitchell # (Auto) 1.0 H (0.0-0.8) K/uL Eos # (Auto) 0.0 (0.0-0.7) K/uL Baso # (Auto) 0.0 (0.0-0.1) K/uL Nucleated RBC % 0.0 /100WBC Nucleated RBCs # 0 K/uL Sodium 139 (136-145) mmol/L Potassium 4.3 (3.5-5.1) mmol/L Chloride 106 (98-107) mmol/L Carbon Dioxide 26.8 (21.0-32.0) mmol/L BUN 35 H (7.0-18.0) mg/dL Creatinine 1.1 H (0.6-1.0) mg/dL Est Cr Clr Drug Dosing 33.69 mL/min Estimated GFR (MDRD) 49.0 ml/min Glucose 229 H (74-106) mg/dL POC Glucose 324 H (60-110) mg/dL Calcium 8.3 L (8.5-10.1) mg/dL Total Bilirubin 0.3 (0.2-1.0) mg/dL AST 17 (15-37) IU/L ALT 29 (14-63) IU/L Alkaline Phosphatase 67 (46-116) U/L Total Protein 5.9 L (6.4-8.2) g/dL Albumin 2.2 L (3.4-5.0) g/dL Globulin 3.7 (2.6-4.0) g/dL Albumin/Globulin Ratio 0.6 L (0.9-1.6) 03/18/20 03/18/20 Range/Units 08:19 12:58 WBC (4.0-11.0) K/uL RBC (4.30-5.90) M/uL Hgb (12.0-16.0) g/dL Hct (36.0-46.0) % MCV (80.0-98.0) fL MCH (27.0-32.0) pg MCHC (31.0-37.0) g/dL RDW Std Deviation (28.0-62.0) fl RDW Coeff of Marjorie (11.0-15.0) % Plt Count (150-400) K/uL MPV (7.40-12.00) fL Neut % (Auto) (48.0-80.0) % Lymph % (Auto) (16.0-40.0) % Mitchell % (Auto) (0.0-15.0) % Eos % (Auto) (0.0-7.0) % Baso % (Auto) (0.0-1.5) % Neut # (Auto) (1.4-5.7) K/uL Lymph # (Auto) (0.6-2.4) K/uL Mitchell # (Auto) (0.0-0.8) K/uL Eos # (Auto) (0.0-0.7) K/uL Baso # (Auto) (0.0-0.1) K/uL Nucleated RBC % /100WBC Nucleated RBCs # K/uL Sodium (136-145) mmol/L Potassium (3.5-5.1) mmol/L Chloride (98-107) mmol/L Carbon Dioxide (21.0-32.0) mmol/L BUN (7.0-18.0) mg/dL Creatinine (0.6-1.0) mg/dL Est Cr Clr Drug Dosing mL/min Estimated GFR (MDRD) ml/min Glucose (74-106) mg/dL POC Glucose 220 H 287 H (60-110) mg/dL Calcium (8.5-10.1) mg/dL Total Bilirubin (0.2-1.0) mg/dL AST (15-37) IU/L ALT (14-63) IU/L Alkaline Phosphatase (46-116) U/L Total Protein (6.4-8.2) g/dL Albumin (3.4-5.0) g/dL Globulin (2.6-4.0) g/dL Albumin/Globulin Ratio (0.9-1.6) Med Orders - Current: Current Medications Albuterol/Ipratropium (Combivent Respimat) 0 gm INH Q6H [facility] Last Admin: 03/18/20 13:01 Dose: 1 puff Documented by: Dexamethasone (Dexamethasone) 6 mg PO Q24H [facility] Last Admin: 03/18/20 08:23 Dose: 6 mg Documented by: Dextrose/Water (Dextrose 50% In Water) 50 ml IV ASDIRECTED PRN PRN Reason: Hypoglycemia Enoxaparin Sodium (Lovenox) 40 mg SUBCUT Q24H [facility] Last Admin: 03/18/20 08:23 Dose: 40 mg Documented by: Fluoxetine HCl (Prozac) 10 mg PO DAILY [facility] Last Admin: 03/18/20 08:23 Dose: 10 mg Documented by: Glucagon (Glucagen) 1 mg IM ASDIRECTED PRN PRN Reason: Hypoglycemia Guaifenesin/Dextromethorphan (Robitussin Dm) 10 ml PO Q4H PRN PRN Reason: Cough Last Admin: 03/18/20 13:01 Dose: 10 ml Documented by: Hydralazine HCl (Apresoline) 20 mg IVPUSH Q4H PRN PRN Reason: Hypertension Insulin Aspart (Novolog) 0 unit SUBCUT TIDAC [facility]; Protocol Last Admin: 03/18/20 13:44 Dose: 9 units Documented by: Metoprolol Tartrate (Lopressor) 50 mg PO DAILY [facility] Last Admin: 03/18/20 08:37 Dose: 50 mg Documented by: Pantoprazole Sodium (Protonix) 40 mg PO ACBREAKFAST [facility] Last Admin: 03/18/20 08:23 Dose: 40 mg Documented by: Rosuvastatin Calcium (Crestor) 20 mg PO BEDTIME [facility] Last Admin: 03/17/20 21:54 Dose: 20 mg Documented by: Sodium Chloride (Saline Flush) 10 ml FLUSH ASDIRECTED PRN PRN Reason: Keep Vein Open Last Admin: 03/17/20 22:01 Dose: 10 ml Documented by: Sodium Chloride (Saline Flush) 2.5 ml FLUSH ASDIRECTED PRN PRN Reason: Keep Vein Open Last Admin: 03/14/20 03:02 Dose: 2.5 ml Documented by: Discontinued Medications Dexamethasone (Decadron) 10 mg IVPUSH ONETIME ONE Stop: 03/12/20 02:12 Last Admin: 03/12/20 03:02 Dose: 10 mg Documented by: Remdesivir 200 mg/ Sodium (Chloride) 250 mls @ 250 mls/hr IV ONETIME ONE Stop: 03/12/20 02:12 Last Admin: 03/12/20 03:28 Dose: 250 mls/hr Documented by: Ceftriaxone Sodium/Dextrose 1 (gm/ Premix) 50 mls @ 100 mls/hr IV ONETIME ONE Stop: 03/12/20 03:11 Last Admin: 03/12/20 03:02 Dose: 100 mls/hr Documented by: Ceftriaxone Sodium/Dextrose 1 (gm/ Premix) 50 mls @ 100 mls/hr IV Q24H [facility] Last Admin: 03/12/20 19:55 Dose: Not Given Documented by: Remdesivir 100 mg/ Sodium (Chloride) 100 mls @ 100 mls/hr IV Q24H [facility] Stop: 03/15/20 09:44 Remdesivir 100 mg/ Sodium (Chloride) 100 mls @ 100 mls/hr IV Q24H [facility] Stop: 03/16/20 04:29 Last Admin: 03/16/20 03:44 Dose: 100 mls/hr Documented by: Ceftriaxone Sodium/Dextrose 1 (gm/ Premix) 50 mls @ 100 mls/hr IV Q24H [facility] Last Admin: 03/17/20 02:20 Dose: 100 mls/hr Documented by: Insulin Aspart (Novolog) 0 unit SUBCUT TIDAC [facility]; Protocol Last Admin: 03/14/20 09:54 Dose: 2 units Documented by: Insulin Aspart (Novolog) 0 unit SUBCUT [facility]; Protocol Last Admin: 03/15/20 08:47 Dose: 4 units Documented by: - Exam Quality Assessment: Reports: Supplemental Oxygen General: Reports: Alert, Oriented Lungs: Reports: Clear to Auscultation, Normal Respiratory Effort Cardiovascular: Reports: Regular Rate, Regular Rhythm GI/Abdominal Exam: Normal Bowel Sounds, Soft, Non-Tender Psy/Mental Status: Reports: Alert, Normal Affect <Jayjay Cadena - Last Filed: 03/18/20 19:25> Discharge Summary - Referral to Home Health Primary Care Physician: PCP None - Patient Summary/Data Consults: Consultations 03/18/20 14:21 Consult to Home Care [Consult to Home Health] [CONS] Routine - Patient Data Vitals - Most Recent: Last Vital Signs Temp 36.6 C 03/18/20 16:50 Pulse 74 03/18/20 16:50 Resp 18 03/18/20 16:50 BP 150/75 H 03/18/20 16:50 Pulse Ox 93 L 03/18/20 16:50 I&O - Last 24 hours: Intake & Output 03/18/20 03/18/20 03/18/20 06:59 14:59 22:59 Intake Total 600 360 Output Total 200 251 Balance 400 109 Lab Results - Last 24 hrs: Laboratory Results - last 24 hr 03/18/20 03/18/20 03/18/20 Range/Units 05:32 05:32 08:19 WBC 6.44 (4.0-11.0) K/uL RBC 3.60 L (4.30-5.90) M/uL Hgb 10.8 L (12.0-16.0) g/dL Hct 34.2 L (36.0-46.0) % MCV 95.0 (80.0-98.0) fL MCH 30.0 (27.0-32.0) pg MCHC 31.6 (31.0-37.0) g/dL RDW Std Deviation 46.0 (28.0-62.0) fl RDW Coeff of Marjorie 13 (11.0-15.0) % Plt Count 332 (150-400) K/uL MPV 9.20 (7.40-12.00) fL Neut % (Auto) 74.3 (48.0-80.0) % Lymph % (Auto) 9.8 L (16.0-40.0) % Mitchell % (Auto) 15.7 H (0.0-15.0) % Eos % (Auto) 0.0 (0.0-7.0) % Baso % (Auto) 0.2 (0.0-1.5) % Neut # (Auto) 4.8 (1.4-5.7) K/uL Lymph # (Auto) 0.6 (0.6-2.4) K/uL Mitchell # (Auto) 1.0 H (0.0-0.8) K/uL Eos # (Auto) 0.0 (0.0-0.7) K/uL Baso # (Auto) 0.0 (0.0-0.1) K/uL Nucleated RBC % 0.0 /100WBC Nucleated RBCs # 0 K/uL Sodium 139 (136-145) mmol/L Potassium 4.3 (3.5-5.1) mmol/L Chloride 106 (98-107) mmol/L Carbon Dioxide 26.8 (21.0-32.0) mmol/L BUN 35 H (7.0-18.0) mg/dL Creatinine 1.1 H (0.6-1.0) mg/dL Est Cr Clr Drug Dosing 33.69 mL/min Estimated GFR (MDRD) 49.0 ml/min Glucose 229 H (74-106) mg/dL POC Glucose 220 H (60-110) mg/dL Calcium 8.3 L (8.5-10.1) mg/dL Total Bilirubin 0.3 (0.2-1.0) mg/dL AST 17 (15-37) IU/L ALT 29 (14-63) IU/L Alkaline Phosphatase 67 (46-116) U/L Total Protein 5.9 L (6.4-8.2) g/dL Albumin 2.2 L (3.4-5.0) g/dL Globulin 3.7 (2.6-4.0) g/dL Albumin/Globulin Ratio 0.6 L (0.9-1.6) 11/20/20 Range/Units 12:58 WBC (4.0-11.0) K/uL RBC (4.30-5.90) M/uL Hgb (12.0-16.0) g/dL Hct (36.0-46.0) % MCV (80.0-98.0) fL MCH (27.0-32.0) pg MCHC (31.0-37.0) g/dL RDW Std Deviation (28.0-62.0) fl RDW Coeff of Marjorie (11.0-15.0) % Plt Count (150-400) K/uL MPV (7.40-12.00) fL Neut % (Auto) (48.0-80.0) % Lymph % (Auto) (16.0-40.0) % Mitchell % (Auto) (0.0-15.0) % Eos % (Auto) (0.0-7.0) % Baso % (Auto) (0.0-1.5) % Neut # (Auto) (1.4-5.7) K/uL Lymph # (Auto) (0.6-2.4) K/uL Mitchell # (Auto) (0.0-0.8) K/uL Eos # (Auto) (0.0-0.7) K/uL Baso # (Auto) (0.0-0.1) K/uL Nucleated RBC % /100WBC Nucleated RBCs # K/uL Sodium (136-145) mmol/L Potassium (3.5-5.1) mmol/L Chloride (98-107) mmol/L Carbon Dioxide (21.0-32.0) mmol/L BUN (7.0-18.0) mg/dL Creatinine (0.6-1.0) mg/dL Est Cr Clr Drug Dosing mL/min Estimated GFR (MDRD) ml/min Glucose (74-106) mg/dL POC Glucose 287 H (60-110) mg/dL Calcium (8.5-10.1) mg/dL Total Bilirubin (0.2-1.0) mg/dL AST (15-37) IU/L ALT (14-63) IU/L Alkaline Phosphatase (46-116) U/L Total Protein (6.4-8.2) g/dL Albumin (3.4-5.0) g/dL Globulin (2.6-4.0) g/dL Albumin/Globulin Ratio (0.9-1.6) Med Orders - Current: Current Medications Discontinued Medications Albuterol/Ipratropium (Combivent Respimat) 0 gm INH Q6H [facility] Last Admin: 03/18/20 13:01 Dose: 1 puff Documented by: Dexamethasone (Decadron) 10 mg IVPUSH ONETIME ONE Stop: 03/12/20 02:12 Last Admin: 03/12/20 03:02 Dose: 10 mg Documented by: Dexamethasone (Dexamethasone) 6 mg PO Q24H [facility] Last Admin: 03/18/20 08:23 Dose: 6 mg Documented by: Dextrose/Water (Dextrose 50% In Water) 50 ml IV ASDIRECTED PRN PRN Reason: Hypoglycemia Enoxaparin Sodium (Lovenox) 40 mg SUBCUT Q24H [facility] Last Admin: 03/18/20 08:23 Dose: 40 mg Documented by: Fluoxetine HCl (Prozac) 10 mg PO DAILY [facility] Last Admin: 03/18/20 08:23 Dose: 10 mg Documented by: Glucagon (Glucagen) 1 mg IM ASDIRECTED PRN PRN Reason: Hypoglycemia Guaifenesin/Dextromethorphan (Robitussin Dm) 10 ml PO Q4H PRN PRN Reason: Cough Last Admin: 03/18/20 13:01 Dose: 10 ml Documented by: Hydralazine HCl (Apresoline) 20 mg IVPUSH Q4H PRN PRN Reason: Hypertension Remdesivir 200 mg/ Sodium (Chloride) 250 mls @ 250 mls/hr IV ONETIME ONE Stop: 03/12/20 02:12 Last Admin: 03/12/20 03:28 Dose: 250 mls/hr Documented by: Ceftriaxone Sodium/Dextrose 1 (gm/ Premix) 50 mls @ 100 mls/hr IV ONETIME ONE Stop: 03/12/20 03:11 Last Admin: 03/12/20 03:02 Dose: 100 mls/hr Documented by: Ceftriaxone Sodium/Dextrose 1 (gm/ Premix) 50 mls @ 100 mls/hr IV Q24H [facility] Last Admin: 03/12/20 19:55 Dose: Not Given Documented by: Remdesivir 100 mg/ Sodium (Chloride) 100 mls @ 100 mls/hr IV Q24H [facility] Stop: 03/15/20 09:44 Remdesivir 100 mg/ Sodium (Chloride) 100 mls @ 100 mls/hr IV Q24H [facility] Stop: 03/16/20 04:29 Last Admin: 03/16/20 03:44 Dose: 100 mls/hr Documented by: Ceftriaxone Sodium/Dextrose 1 (gm/ Premix) 50 mls @ 100 mls/hr IV Q24H [facility] Last Admin: 03/17/20 02:20 Dose: 100 mls/hr Documented by: Insulin Aspart (Novolog) 0 unit SUBCUT TIDAC [facility]; Protocol Last Admin: 03/14/20 09:54 Dose: 2 units Documented by: Insulin Aspart (Novolog) 0 unit SUBCUT TIDAC [facility]; Protocol Last Admin: 03/15/20 08:47 Dose: 4 units Documented by: Insulin Aspart (Novolog) 0 unit SUBCUT TIDAC [facility]; Protocol Last Admin: 03/18/20 13:44 Dose: 9 units Documented by: Metoprolol Tartrate (Lopressor) 50 mg PO DAILY [facility] Last Admin: 03/18/20 08:37 Dose: 50 mg Documented by: Pantoprazole Sodium (Protonix) 40 mg PO ACBREAKFAST [facility] Last Admin: 03/18/20 08:23 Dose: 40 mg Documented by: Rosuvastatin Calcium (Crestor) 20 mg PO BEDTIME [facility] Last Admin: 03/17/20 21:54 Dose: 20 mg Documented by: Sodium Chloride (Saline Flush) 10 ml FLUSH ASDIRECTED PRN PRN Reason: Keep Vein Open Last Admin: 03/17/20 22:01 Dose: 10 ml Documented by: Sodium Chloride (Saline Flush) 2.5 ml FLUSH ASDIRECTED PRN PRN Reason: Keep Vein Open Last Admin: 03/14/20 03:02 Dose: 2.5 ml Documented by: - Free Text/Narrative Note: I have seen and evaluated the patient. I have discussed findings and treatment plan with resident. I agree with the assessment and plan in the following note.
[2020-03-18 17:21] VITALS: BP 150/75; PULSE 74
== END 2020-03-18 17:00 | disposition home or self-care (01) | DRG 177 ==
LOC: MW.ED 00:18 → MW.ICU 02:12 → MW.OB 03-18 17:15
PROVIDERS: ADMIT Internal Medicine; ATTEND Internal Medicine
PROC: XW033E5 Introduction of Remdesivir Anti-infective into Peripheral Vein, Percutaneous Approach, New Technology Group 5 (ICD-10-PCS; principal; 2020-03-12)
PROC: XW033F5 Introduction of Other New Technology Therapeutic Substance into Peripheral Vein, Percutaneous Approach, New Technology Group 5 (ICD-10-PCS; 2020-03-12)
DX: U07.1 COVID-19 (principal); J96.01 Acute respiratory failure with hypoxia; R09.02 Hypoxemia; N17.9 Acute kidney failure, unspecified; N39.0 Urinary tract infection, site not specified; Z79.4 Long term (current) use of insulin; I10 Essential (primary) hypertension; G47.33 Obstructive sleep apnea (adult) (pediatric); R91.8 Other nonspecific abnormal finding of lung field; Z88.1 Allergy status to other antibiotic agents; Z88.0 Allergy status to penicillin; Z91.040 Latex allergy status; Z79.84 Long term (current) use of oral hypoglycemic drugs; Z79.899 Other long term (current) drug therapy; H54.7 Unspecified visual loss; H35.30 Unspecified macular degeneration; Z86.718 Personal history of other venous thrombosis and embolism; Z86.711 Personal history of pulmonary embolism; Z87.442 Personal history of urinary calculi; Z87.440 Personal history of urinary (tract) infections; E78.00 Pure hypercholesterolemia, unspecified; I25.2 Old myocardial infarction; G47.30 Sleep apnea, unspecified; R32 Unspecified urinary incontinence; G35 Multiple sclerosis; F32.9 Major depressive disorder, single episode, unspecified; F41.9 Anxiety disorder, unspecified; E11.9 Type 2 diabetes mellitus without complications; E66.9 Obesity, unspecified; E04.1 Nontoxic single thyroid nodule; Z86.14 Personal history of Methicillin resistant Staphylococcus aureus infection
CPT/HCPCS: 36415; 36430; 71045; 71045-26; 71250; 71250-26; 80053; 81001; 82962; 83690; 83735; 83880; 84100; 84484; 85025; 86850; 86900; 86901; 87086; 93010; 94640; 94664; 99222; 99231; 99232; 99239; 99283; 99285-25; A9270-GY; J0696; J1100; J1650; J1815-GY; J7050; J8540; P9017

== ENCOUNTER 2020-09-15 06:41 | Day surgery (SDC) | payer MEDICARE, BC ==
[~2020-09-15 06:41] MED LIST changes: -Ciprofloxacin in D5W 400 MG in Premix Bag 1 BAG IV ONE
[2020-09-15] MEDS ORDERED: Propofol 200 MG/20 ML SDV ONE (07:27)
[2020-09-15] MEDS ORDERED: Lidocaine 2% 5 ML SDV ONE (07:28)
--- NOTE | 2020-09-15 07:47 | PCM.PREANE ---
Preanesthetic Assessment - Anesthesia/Transfusion/Family Hx Anesthesia History: Prior Anesthesia Without Reaction Family History of Anesthesia Reaction: No Transfusion History: Prior Transfusion Without Reaction - Review of Systems General: No Symptoms Pulmonary: No Symptoms Cardiovascular: No Symptoms Gastrointestinal: No Symptoms Neurological: No Symptoms Other: Reports: None - Physical Assessment NPO Status Date: 09/15/20 NPO Status Time: 00:01 Vital Signs: Last Vital Signs Temp 97.5 F 09/15/20 06:55 Pulse 91 09/15/20 06:55 Resp 16 09/15/20 06:55 BP 129/62 09/15/20 06:55 Pulse Ox 93 L 09/15/20 06:55 Height: 5 ft Weight: 213 lb ASA Class: 3 Mental Status: Alert & Oriented x3 Airway Class: Mallampati = 2 Dentition: Reports: Normal Dentition ROM/Head Extension: Limited/Partial Lungs: Clear to Auscultation, Normal Respiratory Effort Cardiovascular: Regular Rate, Regular Rhythm - Lab Values: Laboratory Last Values POC Glucose 167 mg/dL (70-99) H 09/15/20 06:59 - Allergies Allergies/Adverse Reactions: Allergies Allergy/AdvReac Type Severity Reaction Status Date / Time erythromycin base Allergy Abdominal Verified 09/09/20 16:20 [Erythromycin Base] Pain latex Allergy Rash Verified 09/09/20 16:20 Penicillins Allergy Cannot Verified 09/09/20 16:20 Remember - Anesthesia Plan Pre-Op Medication Ordered: None - Acknowledgements Anesthesia Type Planned: General Anesthesia Pt an Appropriate Candidate for the Planned Anesthesia: Yes Alternatives and Risks of Anesthesia Discussed w Pt/Guardian: Yes Pt/Guardian Understands and Agrees with Anesthesia Plan: Yes Additional Comments: npo PA 2000 managed medically htn pt not aware of any CHF hx mult dvts and PE 2016 grenfield filter inserted may 2020 not on any blood thinners at this time tob none etoh none MS ataxia, weakness, visual blurring hayfever gout mary w bipap aodm anxiety depression par no questions PreAnesthesia Questionnaire HEENT History: Reports: Cataract, Macular Degeneration, Other (See Below) Other HEENT History: wears glasses Cardiovascular History: Reports: Blood Clots/VTE/DVT, High Cholesterol, Hypertension Respiratory History: Reports: PE, Sleep Apnea Other Respiratory History: uses BiPap every night Gastrointestinal History: Reports: Colon Polyp, Diverticulosis Genitourinary History: Reports: Urinary Incontinence Other Genitourinary History: using tens/pads, recent UTI with rt ureteral stone and hospitalized in [place], [place] [employer] ART History: Reports: None Other OB/BYN History: 2 Musculoskeletal History: Reports: Fracture, Other (See Below) Other Musculoskeletal History: hx nof fx left ankle and right humerus, has scoliosis Neurological History: Reports: MS Other Neuro History: MS-at age 14, uses walker Psychiatric History: Reports: None Other Psychiatric History: on medication with depression Endocrine/Metabolic History: Reports: Diabetes, Type II, Obesity/BMI 30+ Other Endocrine/Metabolic History: thyroid nodules Hematologic History: Reports: None Immunologic History: Reports: Other (See Below) Other Immunologic History: hx of MRSA Oncologic (Cancer) History: Reports: None Dermatologic History: Reports: Venous Stasis Dermatitis Other Dermatologic History: venous stasis ulcers - Infectious Disease History Infectious Disease History: Reports: Chicken Pox, Measles, Mumps Other Infectious Disease History: had it in the apst - Past Surgical History Head Surgeries/Procedures: Reports: None HEENT Surgical History: Reports: Cataract Surgery, Tonsillectomy Other HEENT Surgeries/Procedures: cyst removed from rt lower eye lid Cardiovascular Surgical History: Reports: Other (See Below) Other Cardiovascular Surgeries/Procedures: IVC filter inserted Respiratory Surgical History: Reports: None GI Surgical History: Reports: Colon, Colonoscopy Other GI Surgeries/Procedures: 4 colon clips placed to control bleeding during Colonoscopy Female Surgical History: Reports: Hysterectomy, Lithotripsy/ESWL, Oophorectomy, Tubal Ligation Endocrine Surgical History: Reports: None Neurological Surgical History: Reports: None Musculoskeletal Surgical History: Reports: ORIF Other Musculoskeletal Surgeries/Procedures:: ORIF right humerus- has hardware Oncologic Surgical History: Reports: None Dermatological Surgical History: Reports: None - SUBSTANCE USE Tobacco Use Status *Q: Former Tobacco User Tobacco Use Within Last Twelve Months: No Recreational Drug Use History: No - HOME MEDS Home Medications: Home Meds Ramipril 10 mg PO QAM 12/26/15 [History] Rosuvastatin [Crestor] 20 mg PO BEDTIME 12/26/15 [History] FLUoxetine [PROzac] 10 mg PO DAILY 04/01/18 [History] Acetaminophen [Tylenol] 650 mg PO ASDIRECTED PRN 03/10/19 [History] metFORMIN [Glucophage] 1,000 mg PO WITHDINNER 07/08/19 [History] Glimepiride 4 mg PO BID 03/12/20 [History] Metoprolol Tartrate 25 mg PO WITHDINNER 03/12/20 [History] Cholecalciferol (Vitamin D3) [Vitamin D3] 50,000 unit PO WEEKLY 09/09/20 [History] Cranberry Fruit Extract/Vit C [Azo Cranberry Softgel] 2 cap PO DAILY 09/09/20 [History] Ferrous Sulfate [Iron] 325 mg PO DAILY 09/09/20 [History] Furosemide 20 mg PO DAILY 09/09/20 [History] Lactobacillus Combo No.23 [Kavin Probiotic] 1 cap PO DAILY 09/09/20 [History] - CURRENT (IN HOUSE) MEDS Current Meds: Current Medications Lactated Ringer's (Ringers, Lactated) 1,000 mls @ 125 mls/hr IV ASDIRECTED [place] Last Admin: 09/15/20 07:17 Dose: 125 mls/hr Documented by: Sodium Chloride (Sodium Chloride 0.9% 10 Ml Syringe) 10 ml FLUSH ASDIRECTED PRN PRN Reason: Keep Vein Open Sodium Chloride (Sodium Chloride 0.9% 2.5 Ml Syringe) 2.5 ml FLUSH ASDIRECTED PRN PRN Reason: Keep Vein Open Sodium Chloride (Sodium Chloride 0.9% 10 Ml Syringe) 10 ml FLUSH ASDIRECTED PRN PRN Reason: Keep Vein Open Sodium Chloride (Sodium Chloride 0.9% 2.5 Ml Syringe) 2.5 ml FLUSH ASDIRECTED PRN PRN Reason: Keep Vein Open Sodium Chloride (Sodium Chloride 0.9% 10 Ml Sdv) 10 ml IV ASDIRECTED PRN PRN Reason: IV Use Discontinued Medications Lidocaine (Lidocaine 2% 5 Ml Sdv) Confirm Administered Dose 5 ml .ROUTE .STK-MED ONE Stop: 09/15/20 07:29 Propofol (Propofol 200 Mg/20 Ml Sdv) Confirm Administered Dose 400 mg .ROUTE .STK-MED ONE Stop: 09/15/20 07:28
--- NOTE | 2020-09-15 08:52 | PCM.POSTAN ---
POST ANESTHESIA ASSESSMENT - MENTAL STATUS Mental Status: Alert (no anesthetic problems), Oriented - VITAL SIGNS Vital Signs: Last Vital Signs Temp 97.5 F 09/15/20 06:55 Pulse 75 09/15/20 08:46 Resp 13 09/15/20 08:46 BP 126/69 09/15/20 08:46 Pulse Ox 98 09/15/20 08:46 - RESPIRATORY Respiratory Status: Respiratory Rate WNL, Airway Patent, O2 Saturation Stable - CARDIOVASCULAR CV Status: Pulse Rate WNL, Blood Pressure Stable - GASTROINTESTINAL GI Status: No Symptoms - POST OP HYDRATION Hydration Status: Adequate & Stable
--- NOTE | 2020-09-15 09:24 | PCM.OPNOTE ---
- General Post-Op/Procedure Note Date of Surgery/Procedure: 09/15/20 Operative Procedure(s): Diagnostic colonoscopy Findings: Extensive diverticulosis throughout the distal half of the colon. No evidence of re-occurrence of ascending colon polyp Pre Op Diagnosis: History of diverticulitis, colon polyp with dysplasia Post-Op Diagnosis: Diverticulosis Anesthesia Technique: LUIS EDUARDO Primary Surgeon: Ivy Jones Condition: Good Free Text/Narrative:: Intake & Output 09/14/20 09/15/20 09/15/20 22:59 06:59 14:59 Intake Total 700 Balance 700
[2020-09-15 09:44] VITALS: BP 127/62; PULSE 69
--- NOTE | 2020-09-15 11:24 | PCM48HPAN ---
Post Anesthesia Note - EVALUATION WITHIN 48HRS OF ANESTHETIC Vital Signs in Normal Range: Yes Patient Participated in Evaluation: Yes Respiratory Function Stable: Yes Airway Patent: Yes Cardiovascular Function Stable: Yes Hydration Status Stable: Yes Pain Control Satisfactory: Yes Nausea and Vomiting Control Satisfactory: Yes Mental Status Recovered: Yes Vital Signs: Last Vital Signs Temp 97.7 F 09/15/20 08:53 Pulse 69 09/15/20 08:53 Resp 16 09/15/20 08:53 BP 127/62 09/15/20 08:53 Pulse Ox 98 09/15/20 08:53
--- NOTE | 2020-09-16 16:33 | OR ---
SURGEON: IVY JONES MD DATE OF PROCEDURE: 09/15/2020 PREOPERATIVE DIAGNOSES: 1. History of diverticulitis. 2. History of dysplastic colon polyp. POSTOPERATIVE DIAGNOSES: 1. Sigmoid colon polyp. 2. Diverticulosis. PROCEDURE PERFORMED: Diagnostic colonoscopy with polypectomy. PRIMARY SURGEON: Ivy Jones MD ANESTHESIA: MAC. INSTRUMENT USED: Olympus colonoscope. EXTENT OF EXAM: To the cecum. PREPARATION: Good. LIMITATIONS: None. INDICATIONS FOR EXAMINATION: The patient is a 70-year-old female who last year had diverticulitis complicated by a serious GI bleed. She was transferred to an outside facility. While in the ICU, she underwent a diagnostic colonoscopy. She was found to have a GI bleed from inflamed and bleeding diverticulum. This was controlled endoscopically. During the course of the exam, she was also found to have a large polyp within the ascending colon. This was removed and found to have low- grade dysplasia. It was recommended she undergo a 1-year followup colonoscopy. The patient and I discussed the need for the procedure, the expected perioperative course, and the risks. She verbalized understanding and wishes to proceed. PROCEDURE IN DETAIL: The patient was brought to the endoscopy suite and placed in the left lateral decubitus position. A time-out was completed verifying the patient's name, age, date of , allergies, and procedure to be performed. Monitored anesthesia care was induced and continuous oxygen was provided via nasal cannula throughout the procedure. After adequate sedation was achieved, a digital rectal exam was performed. This exam was within normal limits. A well-lubricated colonoscope was inserted into the rectum and advanced under direct visualization to the level of the cecum. The cecum was identified by both visual and anatomic landmarks. A photograph was taken of the cecal cap, however, I was unable to retroflex the scope within the cecum due to looping of the scope more proximally. The scope was then fully withdrawn while examining the color, texture, anatomy, and integrity of the mucosa from the cecum to the anal canal. In the distal ascending colon at the hepatic flexure, I noted an inked margin. This was likely the site where her dysplastic polyp was removed last year. I saw no evidence of any reoccurrence and a photograph was taken. The patient had extensive diverticulosis throughout the colon, especially within the distal half. Within the sigmoid colon, the patient was noted to have a small sessile polyp. This was removed in piecemeal fashion using a cold biopsy forceps. The tissue appeared irregular, however, it may have been a fold of tissue where a diverticulum was developing. It was removed either way given its abnormal appearance. The scope was then brought into the rectum and retroflexed to allow visualization of the anal canal opening. This appeared normal and a photograph was taken. The scope was then straightened out and fully withdrawn. The cecum to anus time was 10 minutes. The patient tolerated the procedure well and was transferred to the PACU in stable condition. ENDOSCOPIC DIAGNOSES: 1. Sigmoid colon polyp. 2. Diverticulosis. RECOMMENDATION: Follow up in clinic in two weeks. LOS NINA /[id number]
== END 2020-09-15 09:42 | disposition home or self-care (01) ==
LOC: MW.SDS 06:41
PROVIDERS: ATTEND Surgery
DX: K63.5 Polyp of colon (principal); K57.30 Diverticulosis of large intestine without perforation or abscess without bleeding; D64.9 Anemia, unspecified; I25.10 Atherosclerotic heart disease of native coronary artery without angina pectoris; N18.9 Chronic kidney disease, unspecified; G47.33 Obstructive sleep apnea (adult) (pediatric); E66.9 Obesity, unspecified; E55.9 Vitamin D deficiency, unspecified; I13.0 Hypertensive heart and chronic kidney disease with heart failure and stage 1 through stage 4 chronic kidney disease, or unspecified chronic kidney disease; E11.22 Type 2 diabetes mellitus with diabetic chronic kidney disease; M10.9 Gout, unspecified; E78.00 Pure hypercholesterolemia, unspecified; Z91.040 Latex allergy status; Z88.8 Allergy status to other drugs, medicaments and biological substances; Z79.899 Other long term (current) drug therapy; I50.9 Heart failure, unspecified; Z79.84 Long term (current) use of oral hypoglycemic drugs; Z88.0 Allergy status to penicillin; Z98.890 Other specified postprocedural states; Z87.891 Personal history of nicotine dependence; Z68.41 Body mass index [BMI] 40.0-44.9, adult
CPT/HCPCS: 45380; 82947; 88305; J2704; J7120; 00811

== ENCOUNTER 2020-11-15 09:38 | Emergency (ER) | payer MEDICARE, BC ==
[2020-11-15 10:42] VITALS: BP 129/84; PULSE 77
--- NOTE | 2020-11-15 10:45 | EDM.PDOC ---
ED HPI GENERAL MEDICAL PROBLEM - General Chief Complaint: Lower Extremity Injury/Pain Stated Complaint: BLOOD CLOT Time Seen by Provider: 11/15/20 09:45 Source of Information: Reports: Patient History Limitations: Reports: No Limitations - History of Present Illness INITIAL COMMENTS - FREE TEXT/NARRATIVE: Patient is a 70-year-old female with a history of PE. Patient is no longer on anticoagulation as he had a diverticulitis bleeding in the past. States that she took a ride in a car about 2 hours and also took a motorcycle ride for another 2 hours this past week and developed the pain in her calf which has her concern for clot. She denies any shortness of breath leg swelling fever chills nausea vomiting at the makes the pain better or worse she does not take any medi cation for the pain has no other associated symptoms. Right Leg Pain Score (Numeric/FACES): 3 - Related Data Allergies Allergy/AdvReac Type Severity Reaction Status Date / Time erythromycin base Allergy Abdominal Verified 11/15/20 10:38 [Erythromycin Base] Pain latex Allergy Rash Verified 11/15/20 10:38 Penicillins Allergy Cannot Verified 11/15/20 10:38 Remember Home Meds: Home Meds Ramipril 10 mg PO QAM 12/26/15 [History] Rosuvastatin [Crestor] 20 mg PO BEDTIME 12/26/15 [History] FLUoxetine [PROzac] 10 mg PO DAILY 04/01/18 [History] Acetaminophen [Tylenol] 650 mg PO ASDIRECTED PRN 03/10/19 [History] Glimepiride 4 mg PO BID 03/12/20 [History] Metoprolol Tartrate 50 mg PO WITHDINNER 03/12/20 [History] Cholecalciferol (Vitamin D3) [Vitamin D3] 50,000 unit PO WEEKLY 09/09/20 [History] Cranberry Fruit Extract/Vit C [Azo Cranberry Softgel] 2 cap PO DAILY 09/09/20 [History] Ferrous Sulfate [Iron] 325 mg PO DAILY 09/09/20 [History] Furosemide 20 mg PO DAILY 09/09/20 [History] Lactobacillus Combo No.23 [Kavin Probiotic] 1 cap PO DAILY 09/09/20 [History] Baclofen 20 mg PO ASDIRECTED 11/15/20 [History] Levofloxacin in Dextrose 5 % [Levofloxacin 250 mg/50 ml-D5w] 250 mg IV ASDIRECTED 11/15/20 [History] Melatonin 3 mg PO BEDTIME 11/15/20 [History] Potassium Chloride 20 meq PO DAILY 11/15/20 [History] Tamsulosin [Tamsulosin 24 Hr] 0.4 mg PO DAILY 11/15/20 [History] Vancomycin/0.9 % Sod Chloride [Vanco 1.25 gm/250 ml-0.9% NaCl] 1.25 gm IV ASDIRECTED 11/15/20 [History] metFORMIN HCl [Metformin HCl ER] 1,000 mg PO WITHDINNER 11/15/20 [History] Past Medical History HEENT History: Reports: Cataract, Macular Degeneration, Other (See Below) Other HEENT History: wears glasses Cardiovascular History: Reports: Blood Clots/VTE/DVT, High Cholesterol, Hypertension Respiratory History: Reports: PE, Sleep Apnea Other Respiratory History: uses BiPap every night Gastrointestinal History: Reports: Colon Polyp, Diverticulosis Genitourinary History: Reports: Urinary Incontinence Other Genitourinary History: using tens/pads, recent UTI with rt ureteral stone and hospitalized in [place], [place] INDUSTRIAL PAINTER History: Reports: None Other INDUSTRIAL PAINTER History: 2 Musculoskeletal History: Reports: Fracture, Other (See Below) Other Musculoskeletal History: hx nof fx left ankle and right humerus, has scoliosis Neurological History: Reports: MS Other Neuro History: MS-at age 14, uses walker Psychiatric History: Reports: None Other Psychiatric History: on medication with depression Endocrine/Metabolic History: Reports: Diabetes, Type II, Obesity/BMI 30+ Other Endocrine/Metabolic History: thyroid nodules Insulin Pump Model and Pickle Sorter: None Hematologic History: Reports: None Immunologic History: Reports: Other (See Below) Other Immunologic History: hx of MRSA Oncologic (Cancer) History: Reports: None Dermatologic History: Reports: Venous Stasis Dermatitis Other Dermatologic History: venous stasis ulcers - Infectious Disease History Infectious Disease History: Reports: Chicken Pox, Measles, Mumps Other Infectious Disease History: had it in the apst - Past Surgical History Head Surgeries/Procedures: Reports: None HEENT Surgical History: Reports: Cataract Surgery, Tonsillectomy Other HEENT Surgeries/Procedures: cyst removed from rt lower eye lid Cardiovascular Surgical History: Reports: Other (See Below) Other Cardiovascular Surgeries/Procedures: IVC filter inserted Respiratory Surgical History: Reports: None GI Surgical History: Reports: Colon, Colonoscopy Other GI Surgeries/Procedures: 4 colon clips placed to control bleeding during C olonoscopy Female Surgical History: Reports: Hysterectomy, Lithotripsy/ESWL, Oophorectomy, Tubal Ligation Endocrine Surgical History: Reports: None Neurological Surgical History: Reports: None Musculoskeletal Surgical History: Reports: ORIF Other Musculoskeletal Surgeries/Procedures:: ORIF right humerus- has hardware Oncologic Surgical History: Reports: None Dermatological Surgical History: Reports: None Social & Family History - Family History Family Medical History: No Pertinent Family History Cardiac: Reports: CAD Other Cardiac Family History: parents - CHF Respiratory: Reports: COPD Other Respiratory Family Hisory: COPD - brother OBGYN: Reports: Neurological: Reports: MS Other Neurological Family History: MS- sister also has MS Endocrine/Metabolic: Reports: Diabetes, type II Other Endocrine/Metabolic Family History: family Hematologic: Reports: Other (See Below) Other Hematologic Family History: brother - leukemia Oncologic: Reports: Breast, Leukemia Other Oncologic Family History: father side - breast cancer - Caffeine Use Caffeine Use: Reports: None Review of Systems - Review of Systems Review Of Systems: See Below Constitutional: Reports: No Symptoms Eyes: Reports: No Symptoms Ears: Reports: No Symptoms Nose: Reports: No Symptoms Mouth/Throat: Reports: No Symptoms Respiratory: Reports: No Symptoms Cardiovascular: Reports: No Symptoms GI/Abdominal: Reports: No Symptoms Genitourinary: Reports: No Symptoms Musculoskeletal: Reports: Leg Pain Skin: Reports: No Symptoms Neurological: Reports: No Symptoms Psychiatric: Reports: No Symptoms ED EXAM, GENERAL - Physical Exam Exam: See Below Exam Limited By: No Limitations General Appearance: Alert, WD/WN, No Apparent Distress Neck: Normal Inspection Respiratory/Chest: No Respiratory Distress, Lungs Clear, Decreased Breath Sounds Cardiovascular: Normal Peripheral Pulses, Regular Rate, Rhythm GI/Abdominal: Normal Bowel Sounds, Soft, Non-Tender Extremities: Normal Inspection, Normal Range of Motion. No: Non-Tender (Calf area), Pedal Edema Neurological: Alert, Oriented Course - Vital Signs Last Recorded V/S: Last Vital Signs Temp 96.5 F L 11/15/20 10:38 Pulse 77 11/15/20 10:38 Resp 19 11/15/20 10:38 BP 129/84 11/15/20 10:38 Pulse Ox 96 11/15/20 10:38 - Re-Assessments/Exams Free Text/Narrative Re-Assessment/Exam: 11/15/20 13:27 Patient's DVT study shows a possible chronic T in the popliteal that was also seen back in August. For the patient about this she has an IVC filter in place already. Due to patient bleeding history will not start back on anticoagulation. Patient has appointment to follow-up with Dr. Alcocer next week patient will follow up then and likely have a repeat ultrasound at that time. Patient given strict return precautions. Departure - Departure Time of Disposition: 13:28 Disposition: Home, Self-Care 01 Condition: Good Clinical Impression: Chronic deep vein thrombosis (DVT) - Discharge Information *PRESCRIPTION DRUG MONITORING PROGRAM REVIEWED*: Not Applicable *COPY OF PRESCRIPTION DRUG MONITORING REPORT IN PATIENT DEEPIKA: Not Applicable Instructions: Deep Vein Thrombosis Referrals: Lizandro Clancy MD [Primary Care Provider] - Forms: ED Department Discharge Additional Instructions: The following information is given to patients seen in the emergency department who are being discharged to home. This information is to outline your options for follow-up care. We provide all patients seen in our emergency department with a follow-up referral. The need for follow-up, as well as the timing and circumstances, are variable depending upon the specifics of your emergency department visit. If you don't have a primary care physician on staff, we will provide you with a referral. We always advise you to contact your personal physician following an emergency department visit to inform them of the circumstance of the visit and for follow-up with them and/or the need for any referrals to a consulting specialist. The emergency department will also refer you to a specialist when appropriate. This referral assures that you have the opportunity for follow-up care with a specialist. All of these measure are taken in an effort to provide you with optimal care, which includes your follow-up. Under all circumstances we always encourage you to contact your private physician who remains a resource for coordinating your care. When calling for follow-up care, please make the office aware that this follow-up is from your recent emergency room visit. If for any reason you are refused follow-up, please contact the [facility] Emergency Department at and asked to speak to the emergency department charge nurse. Please follow up with your primary care physician. If you do not have a primary care physician, see below: [facility] [address] [place], [place] [address] [facility] [address] [place] [address] You are seen today for a clot in your right leg has been present for some time now. Was seen on the ultrasound done in August. The ultrasound shows a could still be the same chronic clot in your leg currently. You have a IVC filter in and you have a history of bleeding so we will not start you on any blood thinner. We would like for you to follow-up with your PMD which is Dr. Alcocer who states next week you may require a repeat ultrasound this time. If you have any other concerning signs or symptoms please return to the ED. Sepsis Event Note (ED) - Focused Exam Vital Signs: Vital Signs Temp Pulse Resp BP Pulse Ox 11/15/20 10:38 96.5 F L 77 19 129/84 96 - Assessment/Plan Plan: Patient is a 70-year-old female who presents today for right calf pain. Will obtain ultrasound of legs and reassess.
--- NOTE | 2020-11-15 13:07 | US ---
INDICATION: Leg pain and swelling TECHNIQUE: Ultrasound venous duplex lower right extremity. Compression venous exam was performed using cox-scale, color Doppler, and spectral Doppler imaging. COMPARISON: July 08, 2020. FINDINGS: There is persistent nonocclusive thrombus in the right popliteal vein. Remainder of the veins in the both lower extremities are fully compressible with normal waveforms. IMPRESSION: 1. Persistent chronic appearing nonocclusive thrombus in the right popliteal vein. Acute on chronic thrombus is difficult to exclude. Consider short-term follow-up ultrasound evaluation if the patient`s symptoms persist or worsen. 2. Remainder of the veins in both lower extremities are patent. Dictated by Roberto Hubbard MD @ 11/15/2020 1:05:[address] Roberto Hubbard @ Nov 15 2020 1:05PM
== END 2020-11-15 13:43 | disposition home or self-care (01) ==
LOC: MW.ED 09:38
DX: I82.531 Chronic embolism and thrombosis of right popliteal vein (principal); E78.00 Pure hypercholesterolemia, unspecified; E11.9 Type 2 diabetes mellitus without complications; E66.9 Obesity, unspecified; Z68.41 Body mass index [BMI] 40.0-44.9, adult; I10 Essential (primary) hypertension; Z79.84 Long term (current) use of oral hypoglycemic drugs; Z79.899 Other long term (current) drug therapy; Z88.0 Allergy status to penicillin; Z88.1 Allergy status to other antibiotic agents; Z91.040 Latex allergy status
CPT/HCPCS: 93970; 93970-26; 99283-25

== ENCOUNTER 2023-04-13 10:53 | Emergency (ER) | payer MEDICARE, BC ==
[2023-04-13 11:53] LABS: BASOPHILS ABSOLUTE AUTO 0.02 K/uL (0.00-0.20); BASOPHILS PERCENT AUTO 0.2 % (0.0-1.0); EOSINOPHILS ABSOLUTE AUTO 0.18 K/uL (0.00-0.45); HEMATOCRIT 34.9 % (37.0-47.0); HEMOGLOBIN 11.8 g/dL (12.0-16.0); IMMATURE GRAN ABSOLUTE AUTO 0.02 K/uL (0.00-0.05); IMMATURE GRAN PERCENT AUTO 0.2 % (0.0-0.4); LYMPHOCYTES ABSOLUTE AUTO 0.91 K/uL (1.00-4.80); LYMPHOCYTES PERCENT AUTO 10.1 % (24.0-44.0); MEAN CORPUSCULAR HEMOGLOBIN 32.2 pg (28.0-32.0); MEAN CORPUSCULAR HGB CONC 33.8 g/dL (32.0-36.0); MEAN CORPUSCULAR VOLUME 95.1 fL (83.0-99.0); MEAN PLATELET VOLUME 9.3 fL (9.4-12.3); MONOCYTES ABSOLUTE AUTO 1.09 K/uL (0.00-0.80); NEUTROPHILS ABSOLUTE AUTO 6.83 K/uL (1.80-7.70); NEUTROPHILS PERCENT AUTO 75.5 % (41.0-71.0); PLATELET COUNT,PLT 171 K/uL (150-400); RED BLOOD CELL COUNT 3.67 M/uL (4.10-5.30); WHITE BLOOD CELL COUNT,WBC 9.05 K/uL (3.9-11.3)
[2023-04-13 12:17] LABS: A/G RATIO 0.9 (0.9-1.6); ALBUMIN 3.4 g/dL (3.4-5.0); BILIRUBIN TOTAL 0.6 mg/dL (0.2-1.0); CALCIUM 8.7 mg/dL (8.5-10.1); CARBON DIOXIDE,CO2 22.9 mmol/L (21.0-32.0); CREATININE 1.8 mg/dL (0.6-1.0); EST CRCL DRUG DOSING (CG) 19.7 mL/min; POTASSIUM,K 4.8 mmol/L (3.5-5.1)
[2023-04-13] MEDS ORDERED: Sodium Chloride 0.9% 1,000 ML IV ONE (12:34)
[2023-04-13 12:47] LABS: CORONAVIRUS COVID-19 NAA NEGATIVE (NEGATIVE); INFLUENZA A NAA NEGATIVE (NEGATIVE); INFLUENZA B NAA NEGATIVE (NEGATIVE)
[2023-04-13 14:52] LABS: APPEARANCE,URINE CLEAR; BILIRUBIN,URINE NEGATIVE (NEGATIVE); COLOR,URINE YELLOW; GLUCOSE,URINE NEGATIVE (NEGATIVE); KETONES,URINE NEGATIVE (NEGATIVE); LEUKOCYTE ESTERASE,URINE NEGATIVE (NEGATIVE); NITRITE,URINE NEGATIVE (NEGATIVE); OCCULT BLOOD,URINE NEGATIVE (NEGATIVE); PH,URINE 5.5 (5.0-8.0); PROTEIN,URINE NEGATIVE (NEGATIVE); UROBILINOGEN,URINE 0.2 EU/dL (<2.0)
[2023-04-13 18:12] VITALS: BP 163/78; PULSE 85
== END 2023-04-13 18:09 ==
LOC: MW.ED 10:53
DX: R79.89 Other specified abnormal findings of blood chemistry (principal); E78.00 Pure hypercholesterolemia, unspecified; I10 Essential (primary) hypertension; I25.2 Old myocardial infarction; E11.9 Type 2 diabetes mellitus without complications; E66.9 Obesity, unspecified; Z20.822 Contact with and (suspected) exposure to COVID-19; Z86.16 Personal history of COVID-19; Z79.84 Long term (current) use of oral hypoglycemic drugs; Z79.899 Other long term (current) drug therapy; Z88.0 Allergy status to penicillin; Z88.1 Allergy status to other antibiotic agents; Z91.040 Latex allergy status
CPT/HCPCS: 0240U; 36415; 71045; 80053; 81003; 84484; 85025; 85379; 93005; 96360; 99285; J7030; 93010; 99282

== ENCOUNTER 2023-12-24 07:50 | Day surgery (SDC) | payer MEDICARE, BC ==
[~2023-12-24 07:50] MED LIST changes: -Lactated Ringers 1,000 ML IV SCH; -Sodium Chloride 0.9% 10 ML SDV IV PRN; +Sodium Chloride 0.9% 20 ML SDV IV PRN
[2023-12-24] MEDS: Lactated Ringers 1,000 ML IV SCH (08:20)
[2023-12-24] MEDS ORDERED: Propofol 200 MG/20 ML SDV ONE ×2 (08:59→09:00)
[2023-12-24] MEDS ORDERED: Lidocaine 2% 5 ML SDV ONE (08:59)
[2023-12-24 12:19] VITALS: BP 173/79; PULSE 76
== END 2023-12-24 11:23 | disposition home or self-care (01) ==
LOC: MW.SDS 07:50
PROVIDERS: ATTEND Surgery
DX: D12.5 Benign neoplasm of sigmoid colon (principal); K57.30 Diverticulosis of large intestine without perforation or abscess without bleeding; Z86.010 Personal history of colon polyps; F41.9 Anxiety disorder, unspecified; F32.A Depression, unspecified; I25.10 Atherosclerotic heart disease of native coronary artery without angina pectoris; I10 Essential (primary) hypertension; E11.9 Type 2 diabetes mellitus without complications; Z87.891 Personal history of nicotine dependence; Z79.84 Long term (current) use of oral hypoglycemic drugs; Z79.899 Other long term (current) drug therapy; Z88.0 Allergy status to penicillin; Z88.1 Allergy status to other antibiotic agents; Z91.040 Latex allergy status
CPT/HCPCS: 45380; 82947; 88305; J2704; J7120; 00811; 99100; J3490

== ENCOUNTER 2024-03-07 18:52 | Emergency (ER) | payer MEDICARE, BC ==
[2024-03-07 19:57] LABS: BASOPHILS ABSOLUTE AUTO 0.02 K/uL (0.00-0.20); BASOPHILS PERCENT AUTO 0.3 % (0.0-1.0); EOSINOPHILS ABSOLUTE AUTO 0.21 K/uL (0.00-0.45); EOSINOPHILS PERCENT AUTO 2.9 % (0.0-6.0); HEMATOCRIT 32.3 % (37.0-47.0); HEMOGLOBIN 10.3 g/dL (12.0-16.0); IMMATURE GRAN ABSOLUTE AUTO 0.03 K/uL (0.00-0.05); IMMATURE GRAN PERCENT AUTO 0.4 % (0.0-0.4); LYMPHOCYTES ABSOLUTE AUTO 0.94 K/uL (1.00-4.80); LYMPHOCYTES PERCENT AUTO 13.1 % (24.0-44.0); MEAN CORPUSCULAR HEMOGLOBIN 30.6 pg (28.0-32.0); MEAN CORPUSCULAR HGB CONC 31.9 g/dL (32.0-36.0); MEAN CORPUSCULAR VOLUME 95.8 fL (83.0-99.0); MEAN PLATELET VOLUME 9.3 fL (9.4-12.3); MONOCYTES ABSOLUTE AUTO 1.28 K/uL (0.00-0.80); MONOCYTES PERCENT AUTO 17.8 % (0.0-8.0); NEUTROPHILS ABSOLUTE AUTO 4.71 K/uL (1.80-7.70); NEUTROPHILS PERCENT AUTO 65.5 % (41.0-71.0); PLATELET COUNT,PLT 218 K/uL (150-400); RED BLOOD CELL COUNT 3.37 M/uL (4.10-5.30); WHITE BLOOD CELL COUNT,WBC 7.19 K/uL (3.9-11.3)
[2024-03-07 20:10] LABS: INR 2.16 (0.86-1.11); PTT,PARTIAL THROMBOPLSTIN TIME 35.1 SEC (23.9-30.7)
[2024-03-07 20:24] LABS: ALBUMIN 2.3 g/dL (3.4-5.0); BILIRUBIN TOTAL 0.4 mg/dL (0.2-1.0); CALCIUM 9.1 mg/dL (8.5-10.1); CARBON DIOXIDE,CO2 27.8 mmol/L (21.0-32.0); CREATININE 1.3 mg/dL (0.6-1.0); EST CRCL DRUG DOSING (CG) 26.86 mL/min; POTASSIUM,K 3.8 mmol/L (3.5-5.1); PROTEIN TOTAL,TP 6.5 g/dL (6.4-8.2)
[2024-03-07 20:29] LABS: A/G RATIO 0.6 (0.9-1.6)
[2024-03-07 21:44] VITALS: BP 195/83; PULSE 78
== END 2024-03-07 21:57 | disposition home or self-care (01) ==
LOC: MW.ED 18:52
DX: I12.9 Hypertensive chronic kidney disease with stage 1 through stage 4 chronic kidney disease, or unspecified chronic kidney disease (principal); N18.32 Chronic kidney disease, stage 3b; I10 Essential (primary) hypertension; S81.802D Unspecified open wound, left lower leg, subsequent encounter; I25.10 Atherosclerotic heart disease of native coronary artery without angina pectoris; E78.00 Pure hypercholesterolemia, unspecified; E11.22 Type 2 diabetes mellitus with diabetic chronic kidney disease; E66.9 Obesity, unspecified; Z68.41 Body mass index [BMI] 40.0-44.9, adult; Z90.710 Acquired absence of both cervix and uterus; Z79.899 Other long term (current) drug therapy; Z88.1 Allergy status to other antibiotic agents; Z88.0 Allergy status to penicillin; Z91.040 Latex allergy status; Z91.048 Other nonmedicinal substance allergy status
CPT/HCPCS: 36415; 80053; 83735; 85025; 85610; 85730; 87428-QW; 93970; 93970-26; 99284

== ENCOUNTER 2024-08-27 10:59 | Observation (INO) | payer MEDICARE, BC ==
[2024-08-27] MEDS ORDERED: Sodium Chloride 0.9% 10 ML Syringe FLUSH PRN (11:17)
[2024-08-27] MEDS ORDERED: Sodium Chloride 0.9% 20 ML SDV IV PRN (11:17)
[2024-08-27] MEDS ORDERED: Sodium Chloride 0.9% 2.5 ML Syringe FLUSH PRN (11:17)
[2024-08-27 11:24] LABS: BASOPHILS ABSOLUTE AUTO 0.02 K/uL (0.00-0.20); BASOPHILS PERCENT AUTO 0.4 % (0.0-1.0); EOSINOPHILS ABSOLUTE AUTO 0.33 K/uL (0.00-0.45); EOSINOPHILS PERCENT AUTO 6.1 % (0.0-6.0); HEMATOCRIT 36.6 % (37.0-47.0); IMMATURE GRAN ABSOLUTE AUTO 0.02 K/uL (0.00-0.05); IMMATURE GRAN PERCENT AUTO 0.4 % (0.0-0.4); LYMPHOCYTES ABSOLUTE AUTO 1.38 K/uL (1.00-4.80); LYMPHOCYTES PERCENT AUTO 25.6 % (24.0-44.0); MEAN CORPUSCULAR HEMOGLOBIN 31.5 pg (28.0-32.0); MEAN CORPUSCULAR HGB CONC 32.8 g/dL (32.0-36.0); MEAN CORPUSCULAR VOLUME 96.1 fL (83.0-99.0); MEAN PLATELET VOLUME 9.4 fL (9.4-12.3); MONOCYTES ABSOLUTE AUTO 0.79 K/uL (0.00-0.80); MONOCYTES PERCENT AUTO 14.7 % (0.0-8.0); NEUTROPHILS ABSOLUTE AUTO 2.85 K/uL (1.80-7.70); NEUTROPHILS PERCENT AUTO 52.8 % (41.0-71.0); PLATELET COUNT,PLT 230 K/uL (150-400); RED BLOOD CELL COUNT 3.81 M/uL (4.10-5.30); WHITE BLOOD CELL COUNT,WBC 5.39 K/uL (3.9-11.3)
[2024-08-27 11:40] LABS: INR 2.51 (0.86-1.11); PTT,PARTIAL THROMBOPLSTIN TIME 36.2 SEC (23.9-30.7)
[2024-08-27 11:45] LABS: A/G RATIO 0.9 (0.9-1.6); ALBUMIN 3.2 g/dL (3.4-5.0); BILIRUBIN TOTAL 0.4 mg/dL (0.2-1.0); CALCIUM 8.9 mg/dL (8.5-10.1); CARBON DIOXIDE,CO2 30.2 mmol/L (21.0-32.0); CREATININE 1.2 mg/dL (0.6-1.0); EST CRCL DRUG DOSING (CG) 28.65 mL/min; MAGNESIUM 1.9 mg/dL (1.8-2.4); POTASSIUM,K 4.1 mmol/L (3.5-5.1); PROTEIN TOTAL,TP 6.9 g/dL (6.4-8.2)
[2024-08-27] MEDS: Iopamidol 755 Mg/ML 100 ML Bottle IVPUSH ONE (12:04)
[2024-08-27 12:40] LABS: APPEARANCE,URINE CLEAR; BILIRUBIN,URINE NEGATIVE (NEGATIVE); COLOR,URINE YELLOW; GLUCOSE,URINE NEGATIVE (NEGATIVE); KETONES,URINE NEGATIVE (NEGATIVE); LEUKOCYTE ESTERASE,URINE NEGATIVE (NEGATIVE); NITRITE,URINE NEGATIVE (NEGATIVE); OCCULT BLOOD,URINE NEGATIVE (NEGATIVE); PROTEIN,URINE NEGATIVE (NEGATIVE); UROBILINOGEN,URINE 0.2 EU/dL (<2.0)
[2024-08-27] MEDS: Sodium Chloride 0.9% 1,000 ML IV ONE (13:33)
[2024-08-27] MEDS ORDERED: Acetaminophen 325 MG Tab PO PRN (15:20)
[2024-08-27] MEDS ORDERED: Ondansetron 4 MG/2 ML SDV IVPUSH PRN (15:20)
[2024-08-27] MEDS ORDERED: Docusate Sodium 100 MG Cap PO PRN (15:20)
[2024-08-27] MEDS ORDERED: Glucagon,Human Recombinant 1 MG Vial IM PRN (17:06)
[2024-08-27] MEDS ORDERED: 50% Dextrose in Water 50 ML Syringe IVPUSH PRN (17:06)
[2024-08-27] MEDS: Insulin Aspart 100 Units/ML 3 ML Pen SUBCUT SCH (17:45)
[2024-08-27] MEDS: Metoprolol Tartrate 50 MG Tab PO SCH (18:22)
[2024-08-27] MEDS: Warfarin Sliding Scale SCH (20:59)
[2024-08-27] MEDS: Warfarin 5 MG Tab PO SCH (20:59)
[2024-08-28 06:04] LABS: BASOPHILS ABSOLUTE AUTO 0.02 K/uL (0.00-0.20); BASOPHILS PERCENT AUTO 0.4 % (0.0-1.0); EOSINOPHILS ABSOLUTE AUTO 0.28 K/uL (0.00-0.45); HEMATOCRIT 32.3 % (37.0-47.0); HEMOGLOBIN 10.5 g/dL (12.0-16.0); IMMATURE GRAN ABSOLUTE AUTO 0.01 K/uL (0.00-0.05); IMMATURE GRAN PERCENT AUTO 0.2 % (0.0-0.4); LYMPHOCYTES ABSOLUTE AUTO 1.42 K/uL (1.00-4.80); LYMPHOCYTES PERCENT AUTO 25.4 % (24.0-44.0); MEAN CORPUSCULAR HEMOGLOBIN 31.2 pg (28.0-32.0); MEAN CORPUSCULAR HGB CONC 32.5 g/dL (32.0-36.0); MEAN CORPUSCULAR VOLUME 95.8 fL (83.0-99.0); MEAN PLATELET VOLUME 9.6 fL (9.4-12.3); MONOCYTES ABSOLUTE AUTO 0.81 K/uL (0.00-0.80); MONOCYTES PERCENT AUTO 14.5 % (0.0-8.0); NEUTROPHILS ABSOLUTE AUTO 3.04 K/uL (1.80-7.70); NEUTROPHILS PERCENT AUTO 54.5 % (41.0-71.0); PLATELET COUNT,PLT 211 K/uL (150-400); RED BLOOD CELL COUNT 3.37 M/uL (4.10-5.30); WHITE BLOOD CELL COUNT,WBC 5.58 K/uL (3.9-11.3)
[2024-08-28 06:19] LABS: INR 2.52 (0.86-1.11)
[2024-08-28 06:21] LABS: CALCIUM 8.6 mg/dL (8.5-10.1); CARBON DIOXIDE,CO2 30.2 mmol/L (21.0-32.0); EST CRCL DRUG DOSING (CG) 34.38 mL/min; MAGNESIUM 1.9 mg/dL (1.8-2.4); POTASSIUM,K 4.3 mmol/L (3.5-5.1)
[2024-08-28] MEDS: Ferrous Sulfate 325 MG Tab PO SCH (09:32)
[2024-08-28] MEDS: Rosuvastatin 10 MG Tab PO SCH (09:32)
[2024-08-28 16:25] VITALS: BP 138/63; PULSE 63
[2024-08-28] MEDS ORDERED: Warfarin 5 MG Tab PO SCH (20:00)
== END 2024-08-28 15:25 | disposition home or self-care (01) ==
LOC: MW.ED 10:59 → MW.MS 14:03
PROVIDERS: ADMIT Internal Medicine; ATTEND Internal Medicine
DX: R55 Syncope and collapse (principal); E11.9 Type 2 diabetes mellitus without complications; I10 Essential (primary) hypertension; E78.00 Pure hypercholesterolemia, unspecified; I25.10 Atherosclerotic heart disease of native coronary artery without angina pectoris; Z79.84 Long term (current) use of oral hypoglycemic drugs; Z79.899 Other long term (current) drug therapy; Z88.0 Allergy status to penicillin; Z91.040 Latex allergy status
CPT/HCPCS: 36415; 70450; 70450-26; 71260; 71260-26; 72125; 72125-26; 74177; 74177-26; 80048; 80053; 81003; 82947; 83735; 84484; 85025; 85610; 85730; 93005; 93306; 97161-GP; 99284; A9270-GY; J1815-GY; J7030; Q9967